=== PATIENT | male | born 1940 | race Caucasian/White ===

== ENCOUNTER → 2017-02-27 | Day surgery (SDC) | payer OTHER ==
[~2017-02-27] VITALS: Ht 180.3 cm; Wt 98.0 kg
[~2017-02-27] MED LIST: ASPIRIN EC81 M1 PO; ATORVASTATIN CA80 MG PO; CEFTIN250 MG PO; CIPRO 500MG TA500 MG PO; DIGOX0.125 MG PO; DONEPEZIL HCL10 MG PO; FLOMAX(MONOGRA0.4 MG PO; FLOMAX0.4 M1 PO; HYDROCHLOROTHIA25 M1 PO; HYDRODIURIL 5050 MG PO; LOPRESSOR 25MG25 MG PO; METFORMIN HYDR500 M1 PO; MULTIVITAMIN1 TAB PO; PERCOCET 325 MG1 TA2 PO; PROSCAR5 M1 PO; VITAMIN C500 M3 PO; VITAMIN D1000 IU PO; WARFARIN SODIUM4 MG PO
--- NOTE | 2017-02-27 09:32 | Operative Report ---
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 A lid speculum was placed to retract the lids. The case was begun by making a temporal incision with a 2.4 mm keratome. The eye was stabilized with a Mensah ring during this incision. 1 mL of non-preserved lidocaine was introduced into the anterior chamber to provide anesthesia. Shugarcaine was instilled to try and enlarge the pupil. The anterior chamber was then filled and deepened with viscoelastic. A curvilinear capsulorrhexis was achieved using a 30-gauge needle and a cystotome and capsulorrhexis was finished using a Utrata forceps. A second or paracentesis incision was made temporally with a 1 mm MVR blade. The iris was then stretched with 2 Kuglen hooks working through 2 entgry sites in a cross actionmanner. The lens was then hydrodissected with balanced salt solution and found to be rotatable. The lens was emulsified using phacoemulsification and a modified four-quadrant cracking technique. The residual cortical material was removed using automated irrigation and aspiration and as much of the anterior capsular rim was cleaned as well as possible. There was some trauma done to the inferior iris rmoving one of the Kuglen hooks.The posterior capsule was cleaned first with the automated machine on a low setting and then manually with a Bony squeegee. The capsular bag was deepened with viscoelastic. The lens a Akreos AO 60 18.5 diopter placed into the bag under direct visualization and rotated so that the haptics were at 12 and 6:00. Viscoelastic was then removed from the eye by flushing it out and then by automated irrigation and aspiration. The eye was pressurized to a normal tone. 1/10 of a cc of vancomycin solution was introduced into the anterior chamber to provide antibiotic prophylaxis. The wounds were sealed by hydrating the stroma adjacent to them and the eye was left at a proper tone after the wounds were checked and found not to be leaking. The lid speculum was removed from the orbit. Antibiotic and steroid drops were placed on the eye and then the eye was shielded. Monitoring equipment was removed from the patient and the patient was removed from the operative suite to the holding area. The patient tolerated the procedure well and will be seen in the office tomorrow.
== END ==
LOC: STS 00:59
DX: H25.89 Other age-related cataract (principal); E11.9 Type 2 diabetes mellitus without complications; Z79.84 Long term (current) use of oral hypoglycemic drugs; I48.91 Unspecified atrial fibrillation; Z79.01 Long term (current) use of anticoagulants; I10 Essential (primary) hypertension; I25.2 Old myocardial infarction
CPT/HCPCS: J2250; V2632

== ENCOUNTER 2017-11-20 14:36 | Inpatient (IN) | payer OTHER ==
[~2017-11-20] VITALS: Ht 180.3 cm; Wt 105.7 kg
[~2017-11-20 14:36] MED LIST changes: +ARICEPT10 M1 PO; +ASPIRIN81 M4 PO; +CARVEDILOL3.125 M1 PO; +COUMADIN4 M1 PO; +HYDROCHLOROTHIA50 M1 PO; +LIPITOR80 M1 PO; +METFORMIN HCL500 M4 PO; +MULTIVITAMINS1 EAC9 PO; +VITAMIN C1000 M4 PO; +VITAMIN D400 UNI1 PO
--- NOTE | 2017-11-20 15:30 | ED DYSPNEA/ASTHMA COMPLAINT ---
History of Present Illness General Chief Complaint: Dyspnea (COPD, CHF, Other) Stated Complaint: BIBA WITH PROBLEM BREATHING Source: patient, old records, Exam Limitations: poor historian, forgetful Vital Signs & Intake/Output Vital Signs & Intake/Output Vital Signs Date Time Temp Pulse Resp B/P B/P Pulse O2 O2 Flow FiO2 Mean Ox Delivery Rate 11/21 0220 98.2 101 28 114/79 93 Room Air 11/21 0203 Room Air Room Air 11/21 0200 99.4 113 26 90 Room Air 11/20 2125 98.6 130 16 117/82 92 Room Air 11/20 1917 98.5 125 18 132/74 94 Room Air 11/20 1735 97.3 120 18 119/67 93 Room Air 11/20 1630 97.2 135 20 139/86 11/20 1450 97.0 120 22 123/94 99 Nasal 3.0L Cannula ED Intake and Output 11/21 0000 11/20 1200 Intake Total Output Total Balance Patient 195 lb Weight Weight Reported by Patient Measurement Method Allergies Coded Allergies: NO KNOWN ALLERGIES (01/17/16) Triage Note: PT BIBA FROM HOME FOR SOB WITH EXERTION. PT STATES HE IS USUALLY SOB BUT IT HAS BEEN GETTING WORSE RECENTLY. PT DENIES CP AT THIS TIME Triage Nurses Notes Reviewed? yes Onset: Abrupt Duration: minute(s):, gone now, resolved prior to arrival Timing: single episode today Activities at Onset: drinking HPI: pt presents for evaluation of an episode of coughing while drinking a soda. Patient apparently had a "choking episode". (Arcelia HERRON,Scott Keating) Reconcile Medications Atorvastatin Calcium (Lipitor) 80 MG TABLET 1 TAB PO DAILY CHOLESTEROL ( Reported) Diltiazem HCl (Diltiazem 12HR ER) 120 MG CAP.ER.12H 1 CAP PO BID AFIB ( Reported) Donepezil HCl (Aricept) 10 MG TABLET 1 TAB PO QPM MEMORY (Reported) Finasteride (Proscar) 5 MG TABLET 1 TAB PO DAILY BPH (Reported) Furosemide (Lasix) 20 MG TABLET 1 TAB PO DAILY WATER (Reported) Metformin HCl (Metformin HCl ER) 500 MG TAB.ER.24H 1 TAB PO BID DM (Reported) Metoprolol Tartrate (Lopressor) 50 MG TABLET 1 TAB PO DAILY HTN (Reported) Tamsulosin HCl (Flomax) 0.4 MG CAP.ER.24H 1 CAP PO BID BPH (Reported) Warfarin Sodium (Coumadin) 4 MG TABLET 2 TAB PO AD BLOOD THINNER (Reported) Warfarin Sodium (Coumadin) 4 MG TABLET 12 MG PO WEDSAT BLOOD THINNER ( Reported) (Amanda HERRON,Montrell Awan) Past History Travel History Traveled to [place] past 21 day No Medical History Any Pertinent Medical History? 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 FATHER (colon cancer). SISTER (CAD s/p PCI). Hx Contributory? No (Arcelia HERRON,Scott Keating) Review of Systems Review of Systems Constitutional: Reports: no symptoms. EENTM: Reports: no symptoms. Respiratory: Reports: see HPI. Cardiovascular: Reports: no symptoms. GI: Reports: no symptoms. Genitourinary: Reports: no symptoms. Musculoskeletal: Reports: no symptoms. Skin: Reports: no symptoms. Neurological/Psychological: Reports: no symptoms. Hematologic/Endocrine: Reports: no symptoms. Immunologic/Allergic: Reports: no symptoms. All Other Systems: Reviewed and Negative (Scott Paniagua MD) Physical Exam Physical Exam Respiratory: see below Comments: Gen.: Well-nourished, well-developed, no acute respiratory distress. Head: Normocephalic, atraumatic. Eyes: Normal inspection bilaterally Ears: Normal inspection bilaterally Nose: Normal inspection Throat/mouth : Moist mucosa Neck: Supple, full range of motion, no goiter Heart: Rapid IRRegular rate and rhythm, no murmurs rubs or gallops Lungs: Clear to auscultation bilaterally with normal air entry Chest: Nontender Back: Normal range of motion Abdomen: Soft, nontender, nondistended, normal bowel sounds Extremities: Normal range of motion grossly, equal radial pulses, no cyanosis, bilateral 2+ pitting edema Neurologic: Cranial nerves grossly intact, speech is clear Skin: warm and dry Psychiatric: Calm, cooperative, no apparent delusions or hallucinations Core Measures ACS in differential dx? No CVA/TIA Diagnosis No Sepsis Present: No Sepsis Focused Exam Completed? No (Arcelia HERRON,Scott Keating) Progress Differential Diagnosis: asthma, AMI, bronchitis, CHF, COPD, pulmonary embolism, pneumonia, pneumothorax Plan of Care: Orders Procedure Date/time Status Nothing by Mouth 11/21 B Active TROPONIN LEVEL 11/21 1000 Active PROTHROMBIN TIME 11/21 0700 Active CBC WITHOUT DIFFERENTIAL 11/21 0700 Active BASIC METABOLIC PANEL 11/21 0700 Active TROPONIN LEVEL 11/21 0400 Active Pathway - chart 11/21 0349 Active House Staff 11/21 0349 Active Patient Data 11/21 0349 Active Patient Data 11/21 0313 Active Saline Lock 11/21 0309 Active Misc Message 11/21 0309 Active ED Holding Orders 11/21 0309 Active Admit to inpatient 11/21 0309 Active Vital Signs 11/21 0309 Active Code Status 11/21 0309 Active SWALLOW EVALUATION 11/21 UNK Active XRY-CHEST XRAY, TWO VIEWS 11/21 UNK Active Occupational Tx Eval & Treat 11/21 UNK Active VTE Mechanical Prophylaxis 11/21 UNK Active EKG 11/21 UNK Active PT Evaluate & Treat 11/20 2151 Active Telemetry/Pre Parole Counseling Aide 11/20 1529 Active TROPONIN LEVEL 11/20 1529 Complete PROTHROMBIN TIME 11/20 1529 Complete MAGNESIUM 11/20 1529 Complete CBC WITHOUT DIFFERENTIAL 11/20 1529 Complete B-TYPE NATRIURETIC PEP (BNP) 11/20 1529 Complete BASIC METABOLIC PANEL 11/20 1529 Complete EKG 11/20 1451 Active Intake & Output 11/20 1446 Active Laboratory Tests 11/20/17 1730: PT 22.1 H, INR 2.12 H 11/20/17 1614: Anion Gap 15, Estimated GFR 28 L, BUN/Creatinine Ratio 16.5, Glucose 142 H, Calcium 9.8, Magnesium 1.6, Troponin I 0.09, [id number] Pept 8960 H, CBC w Diff NO MAN DIFF REQ, RBC 4.53 L, MCV 79.7 L, MCH 25.1 L, MCHC 31.6 L, RDW 19.5 H, MPV 10.0, Gran % 84.7 H, Lymphocytes % 7.9 L, Monocytes % 6.8, Eosinophils % 0.4, Basophils % 0.2, Absolute Granulocytes 6.4, Absolute Lymphocytes 0.6 L, Absolute Monocytes 0.5, Absolute Eosinophils 0, Absolute Basophils 0 Diagnostic Imaging: Discussed w/RAD: Radiology Read. CXR Impression: PATIENT: KARYN WESTBROOK PRESENT AGE : 77 PATIENT ACCOUNT NO: [id number] : 38 LOCATION: [facility] ORDERING PHYSICIAN: Scott Paniagua MD SERVICE DATE: 11/20/17 EXAM TYPE: RAD - XRY-PORTABLE CHEST XRAY EXAMINATION: XR PORTABLE CHEST CLINICAL INFORMATION: Choking episode. COMPARISON: Chest x-ray 11/06/2017 TECHNIQUE: Portable frontal view of the chest was obtained. 7:37 PM FINDINGS: Projection is apical lordotic. There is slight asymmetric elevation of the right diaphragm compared to left. No acute abnormality. No pulmonary vascular congestion. No infiltrate. No pleural effusion. Cardiac and mediastinal contours normal. Heart size normal. There is calcification of the aortic arch. Degenerative spondylosis of dorsal spine. IMPRESSION: No acute abnormality of the chest. DICTATED BY: Matteo Carbajal MD DATE /TIME DICTATED:11/20/172002 GI PHYSICIAN:DOE DATE/TIME TRANSCRIBED: 11/20/172002 CONFIDENTIAL, DO NOT COPY WITHOUT APPROPRIATE AUTHORIZATION. < Electronically signed in Other Vendor System> SIGNED BY: Matteo Carbajal MD 2007 Initial ED EKG: rate (127), AFIB, nonspecific ST T wave chg Prior EKG: changed (NSR ON PRIOR) Comments: 11/20/2017 6:27:31 PM I have updated her mouth and his family on test results. Oxygen saturations are 93% on room air and the patient's heart rate is just over 100. Attempts to ambulate patient here in the emergency department however were unsuccessful as the patient refused initially to get off the stretcher due to shakiness. With attempts to ambulate patient he felt too shaky on his feet to try to walk. Case discussed with case management. 11/20/2017 11:27:23 PM patient signed out to Dr. 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 (Arcelia HERRON,Scott Keating) Departure Departure Disposition: STILL A PATIENT Condition: Stable Referrals: Nicolasa Leyva MD (PCP/Family) Departure Forms: Customer Survey General Discharge Information (Scott Panigaua MD) Departure Clinical Impression Primary Impression: Dyspnea Qualifiers: Dyspnea type: unspecified Qualified Code: R06.00 - Dyspnea, unspecified Secondary Impressions: Acute renal failure, Atrial fibrillation with RVR, Dehydration, Peripheral edema Admission Note Spoke With: Calli Lazo MD Documentation of Exam: Documentation of any treatments & extenuating circumstances including Concerns Regarding Discharge (functional status, medication knowledge or non-compliance, living conditions, etc.) that warrant an admission rather than observation: pt with afib with rvr, likely due to hypovolemia. pt also with elevated bun/cr ratio.... Will give gentle fluid bolus, follow clinical exam rather than give dilt gtt. (Montrell Patel MD) Critical Care Note Critical Care Note Critical Care Time: non-applicable (Arcelia HERRON,Scott Keating) Critical Care Note Critical Care Time: 30-74 min (Montrell Patel MD)
[2017-11-20 16:30] LABS: ABSOLUTE BASOPHIL COUNT 0 /CUMM (0.0-0.2); ABSOLUTE EOSINOPHIL COUNT 0 /CUMM (0.0-0.7); ABSOLUTE GRANULOCYTE CT 6.4 /CUMM (1.4-6.5); ABSOLUTE LYMPH COUNT 0.6 /CUMM (1.2-3.4); ABSOLUTE MONOCYTE COUNT 0.5 /CUMM (0.10-0.60); BASOPHIL % 0.2 % (0.0-2.0); EOSINOPHIL % 0.4 % (0-5); GRANULOCYTE % 84.7 % (42.2-75.2); HEMATOCRIT 36.1 % (42-52); MEAN CORPUSCULAR HGB 25.1 PG (27.0-31.0); MEAN CORPUSCULAR HGB CONC 31.6 G/DL (33.0-37.0); MEAN CORPUSCULAR VOLUME 79.7 FL (80.0-94.0); PLATELET COUNT 203 /CUMM (130-400); RBC DISTRIBUTION WIDTH 19.5 % (11.5-14.5); RED BLOOD CELL CT 4.53 /CUMM (4.70-6.10); WHITE BLOOD CELL COUNT 7.5 /CUMM (4.8-10.8)
[2017-11-20 17:54] LABS: PT 22.1 SEC (9.4-12.5)
--- NOTE | 2017-11-20 20:08 | RADIOLOGY REPORT ---
EXAMINATION: XR PORTABLE CHEST CLINICAL INFORMATION: Choking episode. COMPARISON: Chest x-ray 11/06/2017 TECHNIQUE: Portable frontal view of the chest was obtained. 7:37 PM FINDINGS: Projection is apical lordotic. There is slight asymmetric elevation of the right diaphragm compared to left. No acute abnormality. No pulmonary vascular congestion. No infiltrate. No pleural effusion. Cardiac and mediastinal contours normal. Heart size normal. There is calcification of the aortic arch. Degenerative spondylosis of dorsal spine. IMPRESSION: No acute abnormality of the chest.
--- NOTE | 2017-11-21 03:23 | History & Physical ---
Eliu Allred MDapna 11/21/17 0322: General Information and HPI History of Present Illness: 77-year-old gentleman with past medical history of atrial ablation on Coumadin, hypertension, hyperlipidemia, small bowel obstruction, dementia, sarcoma right cheek status post radiation came to [facility] with complaints of gait instability and choking episode earlier today. Patient was found to be in atrial fibrillation with rapid ventricular rate. Apparently patient was in his usual state of health until today had soda and had an episode of choking. He was brought in to ED by his for evaluation. A history couldn't be obtained from the patient because of his dementia. And his was not available by the bedside. He was seen in the ED for gait instability and was being evaluated by the case management for placement. Meanwhile patient double up atrial fibrillation with rapid ventricular rate and had a heart rate of 125-130s. Patient was admitted to telemetry for further rate control control. He is confused and denies chest pain, chest pressure, nausea, vomiting, abdominal pain, palpitation, loss of consciousness, fall, bowel or bladder disturbance. Allergies/Medications Allergies: Coded Allergies: NO KNOWN ALLERGIES (NONE 11/21/17) Compliance With Home Meds: GOOD Past History Travel History Traveled to [place] past 21 day No Medical History Neurological: dementia (mild) EENT: NONE Cardiovascular: AFIB (on coumadin), hypertension, hyperlipidemia Respiratory: NONE Gastrointestinal: s/p pyloric stenosis repair as infant SBO requiring lysis of adhesions Hepatic: NONE Renal: NONE Musculoskeletal: ARTHRITIS Psychiatric: DEMENTIA Endocrine: diabetes (non-insulin dependent) Blood Disorders: NONE Cancer(s): sarcoma- right cheek s/p resection and radiation 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 FATHER (colon cancer). SISTER (CAD s/p PCI). Psychosocial History Where do you live? Home Who Do You Live With? spouse Services at Home: None Primary Language: Nicaraguan ETOH Use: occasional use Illicit Drug Use: denies illicit drug use Living Will? yes Functional Ability ADLs Independent: dressing, eating, toileting, bathing. Ambulation: cane IADLs Needs Assist: shopping, housework, finances, telephone, transportation, medication admin. Review of Systems Review of Systems Constitutional: Reports: no symptoms. Cardiovascular: Reports: no symptoms. Respiratory: Reports: no symptoms. GI: Reports: no symptoms. Genitourinary: Reports: no symptoms. Musculoskeletal: Reports: no symptoms. Skin: Reports: no symptoms. Exam & Diagnostic Data Last 24 Hrs of Vital Signs/I&O Vital Signs Date Time Temp Pulse Resp B/P B/P Pulse O2 O2 Flow FiO2 Mean Ox Delivery Rate 11/21 0539 97.7 130 20 104/73 90 Room Air 11/21 0220 98.2 101 28 114/79 93 Room Air 11/21 0203 Room Air Room Air 11/21 0200 99.4 113 26 90 Room Air 11/20 2125 98.6 130 16 117/82 92 Room Air 11/20 1917 98.5 125 18 132/74 94 Room Air 11/20 1735 97.3 120 18 119/67 93 Room Air 11/20 1630 97.2 135 20 139/86 11/20 1450 97.0 120 22 123/94 99 Nasal 3.0L Cannula Intake & Output 11/21 0800 11/21 0000 11/20 1600 Intake Total 800 Output Total Balance 800 Intake, Oral 800 Patient 195 lb 195 lb Weight Weight Reported by Patient Measurement Method Physical Exam General Appearance Alert, Cooperative, No Acute Distress, oriented x1 Skin No Significant Lesion HEENT PERRLA, EOMI, Mucous Membr. moist/pink Cardiovascular Normal S1, Normal S2, No Murmurs Lungs bilateral wheeze Abdomen Soft, No Tenderness, No Hepatospenomegaly, are midline scar seen. Bowel sounds heard. Neurological Strength at 5/5 X4 Ext, Normal Tone, Sensation Intact Extremities bilateral pitting 1+ pedal edema up to the level of knee. Bilateral pulses felt. Diagnostic Data EKG Results Atrial flutter heart rate 127 CXR Results IMPRESSION: No acute abnormality of the chest. Assessment/Plan Assessment: 77-year-old gentleman with past medical history of atrial ablation on Coumadin, hypertension, hyperlipidemia, small bowel obstruction, dementia, sarcoma right cheek status post radiation came to [facility] with complaints of gait instability and choking episode earlier today. Patient was found to be in atrial fibrillation with rapid ventricular rate. Patient is admitted in telemetry for further evaluation and management. Admission labs WBC 7.5, hemoglobin 11.4, MCV 7079.7, platelet 203, sodium 138, potassium 3.8, B UNs 38, creatinine 2.3, proBNP 8960, INR 2.1, flu negative. Admission vitals Temperature 98.2, pulse rate 120, respiratory rate 20, blood pressure 40/75, 93 at room air. ED treatment Patient was given Lopressor 50 mg by mouth. Assessment and plan 1. Atrial fibrillation with rapid ventricular rate 2. Congestive heart failure- possibly new onset 3. Gait instability 4. Acute kidney injury Chronic medical problems-hypertension, hyperlipidemia, dementia. Patient heart rate controlled with Lopressor which was given an ED. We will continue monitoring him in telemetry. Serial troponin and EKG. troponin thus far negative. Echocardiogram and cardiology consult in a.m. Patient clinically has bilateral wheezing with pedal edema up to the level of knee-possibly a new onset congestive heart failure. We will repeat a chest x-ray PA and lateral view in the morning. We will continue all his home medication except for Lasix, given that patient has acute kidney injury which can be secondary to dehydration. We will not give him any IV fluids which can further worsen the congestive heart failure. We'll encourage by mouth intake in a.m. following a swallow eval. Patient has gait instability-case management and physical therapy and occupational therapy consult in a.m. We will continue his diltiazem and Coumadin. Code-full code Please confirm with the family if he has any living will/about the CODE STATUS. Diet-nothing by mouth pending swallow eval. Patient passed bedside swallow eval. As Ranked By This Provider Problem List: 1. Acute renal failure 2. Dementia 3. Hypertension 4. Atrial fibrillation with RVR 5. Congestive heart failure Core Measures/Misc (06/24) Acute Coronary Syndrome ACS Diagnosis: No Congestive Heart Failure Congestive Heart Failure Diagnosis Yes Last Known EF % 55 Cerebrovascular Accident CVA/TIA Diagnosis: No VTE (View Protocol) VTE Risk Factors Age>40 No Mechanical VTE Prophylaxis d/t Other No VTE Pharm Prophylaxis d/t Other Sepsis (View protocol) Sepsis Present: No Flynn HERRON,[facility] 11/21/17 0335: General Information and HPI Allergies/Medications Home Med list Atorvastatin Calcium (Lipitor) 80 MG TABLET 1 TAB PO DAILY CHOLESTEROL ( Reported) Diltiazem HCl (Diltiazem 12HR ER) 120 MG CAP.ER.12H 1 CAP PO BID AFIB ( Reported) Donepezil HCl (Aricept) 10 MG TABLET 1 TAB PO QPM MEMORY (Reported) Finasteride (Proscar) 5 MG TABLET 1 TAB PO DAILY BPH (Reported) Furosemide (Lasix) 20 MG TABLET 1 TAB PO DAILY WATER (Reported) Metformin HCl (Metformin HCl ER) 500 MG TAB.ER.24H 1 TAB PO BID DM (Reported) Metoprolol Tartrate (Lopressor) 50 MG TABLET 1 TAB PO DAILY HTN (Reported) Tamsulosin HCl (Flomax) 0.4 MG CAP.ER.24H 1 CAP PO BID BPH (Reported) Warfarin Sodium (Coumadin) 4 MG TABLET 2 TAB PO AD BLOOD THINNER (Reported) Warfarin Sodium (Coumadin) 4 MG TABLET 12 MG PO WEDT BLOOD THINNER ( Reported) Resident Review Statement Resident Statement: examined this patient, discussed with internet webmaster Other Findings: H Patient is a 77-year-old man with a past medical history significant for dementia, hypertension, hyperlipidemia, chronic atrial fibrillation(on Coumadin) , type 2 diabetes mellitus, pyloric stenosis s/p surgical correction as an infant, small bowel obstruction requiring lysis of adhesions, and sarcoma of the right cheek, status post resection in 2012 s/p radiation treatment, who was brought in to the emergency department after family reported that he had one choking episode while drinking soda. At the time of admission to the emergency department patient was found to be in atrial fibrillation with rapid ventricular rate. While in the emergency department he was evaluated whether the he could ambulate however was unsuccessful and hence is currently being admitted for medical management and hemodynamic stabilization. Patient currently ambulance with a walker. Patient is a relatively poor historian and although is very pleasant was unable to give us any clinical history. R Patient denied any fever, chills, nausea, vomiting. He denied any chest pain or chest discomfort. Denied any heart palpitations. He denies any recent falls. E: Temperature 97.0. Pulse 120. Respirations 20. BP 123/94. Saturating 99% on 3 L nasal cannula. General Appearance Alert, Cooperative, No Acute Distress, Oriented to Place and person. Skin: No Significant Lesion HEENT: PERRLA, EOMI, Mucous Membr. moist/pink. JVD + Cardiovascular Irregularly Irregular. Tachycardia. Lungs bilateral wheeze Abdomen Soft, No Tenderness, Previous surgical scar Neurological Strength at 5/5 X4 Ext, Normal Tone, Sensation Intact Extremities bilateral pitting 3+ pedal edema up to the level of knee. Bilateral pulses felt. L WBC 7.5. H&H 11.4 and 36.1. Platelets 203. Sodium 138. Potassium 3.8. BUN 38. Creatinine 2.3. ProBNP 8960. I: As Above A/P Patient is a 77-year-old man with a past medical history significant for dementia, hypertension, hyperlipidemia, chronic atrial fibrillation(on Coumadin) , type 2 diabetes mellitus, pyloric stenosis s/p surgical correction as an infant, small bowel obstruction requiring lysis of adhesions, and sarcoma of the right cheek, status post resection in 2012 s/p radiation treatment, who was brought in to the emergency department after family reported that he had one choking episode while drinking soda. Atrial fibrillation with rapid ventricular rate. Evaluate for Worsening heart failure. Assess for aspiration risk. Failure to thrive with gait instability. History of dementia, BPH, hypertension and other chronic conditions. Admit patient to telemetry. Serial troponins and EKG. Initial troponins have been within normal limits. Obtain formal cardiology consultation in a.m. Consider Echocardiogram. Repeat chest x-ray in a.m. to assess pulmonary status. PT and OT consultation in a.m. NovoLog sliding scale. Accu-Cheks 3 times a day. Confirm medication list with and confirm metoprolol dosing and frequency. Dose Coumadin in the p.m. based on INR. Continue home medications. Keep NPO for now. Formal swallow evaluation in am. Bedside screen WNL Patient is a Full code. Calli Lazo 11/21/17 0513: Attending MD Review Statement Attending Statement Attending MD Statement: examined this patient, discuss w/resident/PA/LANDSCAPE HORTICULTURE INSTRUCTOR, agreed w/resident/PA/LANDSCAPE HORTICULTURE INSTRUCTOR, reviewed EMR data (avail), reviewed images, amended to note Attending Assessment/Plan: CC: SOB PMH: A. fib, HTN, HLD, DM, dementia, BPH History is obtained from ER records. Family is not bedside and patient has dementia difficult to obtain history. According to try as noted in the nursing documentation patient was brought in from home for worsening of shortness of breath more so with exertion. According to patient's patient had worsening leg swelling and shortness of breath, she being sole elementary assistant principal of patient at home, could not ambulate him without assistance. Patient was tried to ambulate in ER with assistance but patient could not stand up and said "I am too wobbly", needing to staff members assist him to get off bed. According to ER physician's note patient choked on soda. No further details are available. Patient does not provide much details Vitals: Afebrile, pulse in 120s to 130s, RR 22, blood pressure 123/94, saturating 90% - 92% on room air On exam: A O 1, cooperative, no acute distress, neck supple, JVD elevated, no lymphadenopathy, mucosa dry, no focal neurological deficit, +2 dependent edema, no obvious skin rashes or inflammation CVS: S1-S2, irregular, tachycardia. RS: Clear to auscultate bilaterally. Abdomen: Soft, NT, ND, bowel sounds present. CXR:No acute abnormality of the chest. Assessment and plan 77 year old male with past medical history significant for A. fib, HTN, HLD, DM, and dementia was brought in ER by family for worsening shortness of breath more so on exertion. Patient's is unable to take care of him at home given his shortness of breath and patient is requiring more and more assistance. Patient's family is not bedside and more details of his history could not be obtained. According to one of the ER physician notes patient choked on soda at home. More detailed history should be obtain in morning from patient's . Meanwhile patient is found to have A. fib with RVR, mild dry mucosa, mildly elevated JVD but no obvious crackles on auscultation. He has significant +2 pitting edema up to thigh. Patient appears to be on Lasix at home. His creatinine is significantly increased as compared to October from 1.8-1.9 >> 2.3. He has acute kidney injury with unclear etiology, this could be prerenal secondary to dehydration but his BUN is not significantly elevated, patient could be developing new onset heart failure decreasing cardiac output and renal perfusion. Patient was started on IV fluids in ER, we will hold IV fluids, there is suspicion of mild cephalization of veins on chest x-ray, and patient's oxygen saturations were dropping once he was started on fluids. His proBNP is elevated if this is secondary to decreased clearance in the setting of acute kidney injury or if patient is developing heart failure is unclear. This is now infiltrate to rule out any aspiration but we will repeat imaging. At this time exact cause of RVR could not be demonstrated but patient received metoprolol early on in ER which improved his heart rate currently controlled at 101. We will continue his home medications of metoprolol and diltiazem for the same. Patient refused to ambulate in ER, feeling wobbly. It took 2 people assistance to stand him up. + A. fib with RVR + Gait instability unable to ambulate + Suspected mild heart failure + Choking on liquids at home + History of HTN, HLD, DM, dementia, BPH - Admit to telemetry - Continuous telemetry monitoring - Serial troponin and EKGs - Chest x-ray PA and lateral in a.m. - Swallow evaluation - Cardiology consult - OT PT evaluation - Hold by mouth or IV Lasix for now - Nothing by mouth - Continue all his home medications other than Lasix and change to oral hypoglycemics to sliding scale insulin, continue home doses of warfarin - Evaluate history from patient's in a.m. - Evaluate [facility] placement
[2017-11-21] MEDS ORDERED: LASIX20 M1 PO (04:20)
[2017-11-21] MEDS ORDERED: DILTIAZEM 12HR120 MG PO (04:21)
[2017-11-21] MEDS ORDERED: LOPRESSOR50 M1 PO (04:21)
--- NOTE | 2017-11-21 05:14 | Admission Certification ---
Admission Certification Certification Statement - As attending physician, I certify that at the time of - admission, based on clinical presentation, severity of - symptoms, need for further diagnostic testing and - therapeutic interventions, and risk of adverse outcomes - without in-hospital treatment, in my clinical assessment, - this patient requires an acute hospital stay for a minimum - of two nights or longer. I have also considered psychsocial - factors such as support system, advanced age, financial - issues, cognitive issues, and failed out-patient treatments, - past re-admission history, safety of patient, and lack of - compliance as applicable. Specific rationale supporting this admission is: A. fib with RVR, unsteady gait
[2017-11-21 06:02] LABS: ABSOLUTE BASOPHIL COUNT 0 /CUMM (0.0-0.2); ABSOLUTE EOSINOPHIL COUNT 0 /CUMM (0.0-0.7); ABSOLUTE GRANULOCYTE CT 7.1 /CUMM (1.4-6.5); ABSOLUTE LYMPH COUNT 0.7 /CUMM (1.2-3.4); ABSOLUTE MONOCYTE COUNT 0.5 /CUMM (0.10-0.60); BASOPHIL % 0 % (0.0-2.0); EOSINOPHIL % 0.2 % (0-5); HEMATOCRIT 33.3 % (42-52); MEAN CORPUSCULAR VOLUME 78.3 FL (80.0-94.0); PLATELET COUNT 170 /CUMM (130-400); RBC DISTRIBUTION WIDTH 19.5 % (11.5-14.5); RED BLOOD CELL CT 4.25 /CUMM (4.70-6.10); WHITE BLOOD CELL COUNT 8.3 /CUMM (4.8-10.8)
[2017-11-21 06:10] LABS: PT 22.3 SEC (9.4-12.5)
[2017-11-21 06:29] LABS: GRANULOCYTE % 85.5 % (42.2-75.2); MEAN CORPUSCULAR HGB 25.9 PG (27.0-31.0)
--- NOTE | 2017-11-21 12:39 | Cons- Cardiology ---
General Information and HPI Consulting Request Date of Consult: 11/21/17 Requested By: Calli Lazo MD Reason for Consult: afib Source of Information: patient, family, old records History of Present Illness: This is a 77-year-old male with a past medical history of paroxysmal atrial fibrillation on Coumadin, dementia, renal insufficiency, ischemia on prior nuclear managed medically, hypertension, hyperlipidemia, diabetes, and BPH who was brought to [facility] by his family; history was primarily obtained from his family. They tell me the patient had an episode of choking after eating and was then short of breath so they brought him to the hospital for evaluation. They also tell me that he has some dyspnea on exertion which has been present since his last hospitalization; he follows with a chainstitch pants outseamer in [place] but unclear if any recent testing has been done. He has also had noted tachycardia by visiting nurses although he denies any palpitations. No reported syncope. No reported chest discomfort. He has been taking warfarin without any bleeding episodes and the family reports INR is checked regularly. Allergies/Medications Allergies: Coded Allergies: NO KNOWN ALLERGIES (01/17/16) Home Med List: Atorvastatin Calcium (Lipitor) 80 MG TABLET 1 TAB PO DAILY CHOLESTEROL ( Reported) Diltiazem HCl (Diltiazem 12HR ER) 120 MG CAP.ER.12H 1 CAP PO BID AFIB ( Reported) Donepezil HCl (Aricept) 10 MG TABLET 1 TAB PO QPM MEMORY (Reported) Finasteride (Proscar) 5 MG TABLET 1 TAB PO DAILY BPH (Reported) Furosemide (Lasix) 20 MG TABLET 1 TAB PO DAILY WATER (Reported) Metformin HCl (Metformin HCl ER) 500 MG TAB.ER.24H 1 TAB PO BID DM (Reported) Metoprolol Tartrate (Lopressor) 50 MG TABLET 1 TAB PO DAILY HTN (Reported) Tamsulosin HCl (Flomax) 0.4 MG CAP.ER.24H 1 CAP PO BID BPH (Reported) Warfarin Sodium (Coumadin) 4 MG TABLET 2 TAB PO AD BLOOD THINNER (Reported) Warfarin Sodium (Coumadin) 4 MG TABLET 12 MG PO WEDSAT BLOOD THINNER ( Reported) Current Medications: Current Medications Sig/James Start time Last Medication Dose Route Stop Time Status Admin Atorvastatin Calcium 80 MG 1700 11/21 1700 AC PO Dextrose/Water 1,000 ML Q20H 11/21 1230 UNVr IV Diltiazem HCl 120 MG BID 11/21 1000 AC 11/21 PO 1015 Donepezil HCl 10 MG QPM 11/21 2200 AC PO Finasteride 5 MG DAILY 11/21 1000 AC 11/21 PO 1015 Insulin Aspart 0 TIDAC 11/21 0800 AC 11/21 SC 1214 Metoprolol Tartrate 0 .STK-MED ONE 11/20 1636 DC PO Metoprolol Tartrate 50 MG ONCE ONE 11/20 1530 DC 11/20 PO 11/20 1531 1630 Sodium Chloride 1,000 ML BOLUS ONE 11/21 0245 DC 11/21 IV 11/21 0344 0348 Tamsulosin HCl 0.4 MG BID 11/21 1000 AC 11/21 PO 1015 Warfarin Sodium 8 MG COUMADIN 1700 11/21 1700 AC PO 11/21 2359 Review of Systems Review of Systems: Review of systems as per HPI. The remainder of a 10 point review of systems was reviewed and was otherwise negative. 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 FATHER (colon cancer). SISTER (CAD s/p PCI). Psychosocial History Where Do You Live? Home Who Do You Live With? spouse Services at Home: None Primary Language: Micronesian Smoking Status: Never Smoked ETOH Use: occasional use Illicit Drug Use: denies illicit drug use Living Will? yes Functional Ability ADLs Independent: dressing, eating, toileting, bathing. Ambulation: cane IADLs Needs Assist: shopping, housework, finances, telephone, transportation, medication admin. ECHO Results (as available) EF% 55 Exam & Diagnostic Data Vital Signs and I&O Vital Signs Date Time Temp Pulse Resp B/P B/P Pulse O2 O2 Flow FiO2 Mean Ox Delivery Rate 11/21 1015 130 107/70 11/21 1015 98.6 130 18 107/70 93 Nasal 2.0L Cannula 11/21 0734 130 18 123/84 96 Room Air 11/21 0539 97.7 130 20 104/73 90 Room Air 11/21 0220 98.2 101 28 114/79 93 Room Air 11/21 0203 Room Air Room Air 11/21 0200 99.4 113 26 90 Room Air 11/20 2125 98.6 130 16 117/82 92 Room Air 11/20 1917 98.5 125 18 132/74 94 Room Air 11/20 1735 97.3 120 18 119/67 93 Room Air 11/20 1630 97.2 135 20 139/86 11/20 1450 97.0 120 22 123/94 99 Nasal 3.0L Cannula Intake & Output 11/21 1600 11/21 0800 11/21 0000 11/20 1600 11/20 0800 11/20 0000 Intake Total 800 Output Total Balance 800 Intake, Oral 800 Patient 195 lb 195 lb Weight Weight Reported by Patient Measurement Method Physical Exam: General: no apparent distress. Alert. Eyes: No obvious scleral icterus. HEENT: No jugular venous distention or abnormal jugular venous pulsations. Cardiovascular: Normal intensity S1/S2. Irregular Respiratory: No rales or rhonchi Abdomen: Mildly distended; no guarding or rebound tenderness. Musculoskeletal: No clubbing or cyanosis noted; 2+ lower extremity edema Skin: Warm Neurologic: Normal speech Labs/Ibrahima Results: Laboratory Tests 11/21 11/21 11/21 1038 0549 0400 Chemistry Sodium (137 - 145 mmol/L) 136 L Potassium (3.5 - 5.1 mmol/L) 4.0 Chloride (98 - 107 mmol/L) 94 L Carbon Dioxide (22 - 30 mmol/L) 30 Anion Gap (5 - 16) 12 BUN (9 - 20 mg/dL) 38 H Creatinine (0.7 - 1.2 mg/dL) 2.2 H Estimated GFR (>60 ml/min) 29 L BUN/Creatinine Ratio (7 - 25 %) 17.3 Glucose (65 - 99 mg/dL) 123 H Calcium (8.4 - 10.2 mg/dL) 9.7 Troponin I (<0.11 ng/ml) 0.10 0.10 Cancelled Albumin (3.5 - 5.0 g/dL) 3.7 Coagulation PT (9.4 - 12.5 SEC) 22.3 H INR (0.90 - 1.17) 2.14 H 11/21 11/20 0054 1730 Coagulation PT (9.4 - 12.5 SEC) 22.1 H INR (0.90 - 1.17) 2.12 H Hematology CBC w Diff NO MAN DIFF REQ WBC (4.8 - 10.8 /CUMM) 8.3 RBC (4.70 - 6.10 /CUMM) 4.25 L Hgb (14.0 - 18.0 G/DL) 11.0 L Hct (42 - 52 %) 33.3 L MCV (80.0 - 94.0 FL) 78.3 L MCH (27.0 - 31.0 PG) 25.9 L MCHC (33.0 - 37.0 G/DL) 33.0 RDW (11.5 - 14.5 %) 19.5 H Plt Count (130 - 400 /CUMM) 170 MPV (7.4 - 10.4 FL) 10.0 Gran % (42.2 - 75.2 %) 85.5 H Lymphocytes % (20.5 - 51.1 %) 7.9 L Monocytes % (1.7 - 9.3 %) 6.4 Eosinophils % (0 - 5 %) 0.2 Basophils % (0.0 - 2.0 %) 0 Absolute Granulocytes (1.4 - 6.5 /CUMM) 7.1 H Absolute Lymphocytes (1.2 - 3.4 /CUMM) 0.7 L Absolute Monocytes (0.10 - 0.60 /CUMM) 0.5 Absolute Eosinophils (0.0 - 0.7 /CUMM) 0 Absolute Basophils (0.0 - 0.2 /CUMM) 0 11/20 1614 Chemistry Sodium (137 - 145 mmol/L) 138 Potassium (3.5 - 5.1 mmol/L) 3.8 Chloride (98 - 107 mmol/L) 94 L Carbon Dioxide (22 - 30 mmol/L) 29 Anion Gap (5 - 16) 15 BUN (9 - 20 mg/dL) 38 H Creatinine (0.7 - 1.2 mg/dL) 2.3 H Estimated GFR (>60 ml/min) 28 L BUN/Creatinine Ratio (7 - 25 %) 16.5 Glucose (65 - 99 mg/dL) 142 H Calcium (8.4 - 10.2 mg/dL) 9.8 Magnesium (1.6 - 2.3 mg/dL) 1.6 Troponin I (<0.11 ng/ml) 0.09 [id number] Pept (<125 pg/mL) 8960 H Hematology CBC w Diff NO MAN DIFF REQ WBC (4.8 - 10.8 /CUMM) 7.5 RBC (4.70 - 6.10 /CUMM) 4.53 L Hgb (14.0 - 18.0 G/DL) 11.4 L Hct (42 - 52 %) 36.1 L MCV (80.0 - 94.0 FL) 79.7 L MCH (27.0 - 31.0 PG) 25.1 L MCHC (33.0 - 37.0 G/DL) 31.6 L RDW (11.5 - 14.5 %) 19.5 H Plt Count (130 - 400 /CUMM) 203 MPV (7.4 - 10.4 FL) 10.0 Gran % (42.2 - 75.2 %) 84.7 H Lymphocytes % (20.5 - 51.1 %) 7.9 L Monocytes % (1.7 - 9.3 %) 6.8 Eosinophils % (0 - 5 %) 0.4 Basophils % (0.0 - 2.0 %) 0.2 Absolute Granulocytes (1.4 - 6.5 /CUMM) 6.4 Absolute Lymphocytes (1.2 - 3.4 /CUMM) 0.6 L Absolute Monocytes (0.10 - 0.60 /CUMM) 0.5 Absolute Eosinophils (0.0 - 0.7 /CUMM) 0 Absolute Basophils (0.0 - 0.2 /CUMM) 0 Diagnostic Data EKG Results Tracing was personally reviewed and shows atrial fibrillation with rapid ventricular response rate and nonspecific STT abnormality CXR Results No acute abnormality of the chest. Other Results Telemetry tracings were personally reviewed and show atrial fibrillation with rapid ventricular response rate Assessment/Plan Assessment/Plan 1. Possible heart failure with preserved ejection fraction, new-onset 2. PAF on Coumadin 3. Dementia 4. Tachycardia 5. Acute on chronic renal insufficiency 6. Former tobacco use 7. HTN/HLD/DM 8. Mild ischemia on remote nuclear; managed medically The patient has reported dyspnea on exertion in current weeks and the atrial fibrillation may have triggered a component of mild congestive heart failure; I would recommend a trial of IV diuresis with Lasix 20 mg IV twice a day while monitoring his kidney function closely. INR levels are therapeutic. Would continue his outpatient Cardizem but the short acting metoprolol tartrate is listed as daily; this should be increased to twice a day. Recommend checking a repeat echocardiogram to look for any evidence of new onset tachycardia-induced cardiomyopathy. Would give one dose of digoxin 0.5 mg IV times one. Monitor strict ins and outs and daily weights. We may consider cardioversion depending on clinical response. Ruperto Gomez MD [facility] Consult Acknowledgment - Thank you for your consult request.
--- NOTE | 2017-11-21 14:16 | PN- Student ---
Subjective Subjective: *Full H&P* Source: Patient has baseline dementia, his , Kera Callahan, is at bedside and provided history & cc. ID: Dani Callahan is a 77 y.o. white male, born [birth year], who was lisset to Telephone ED on 11/20/17 by ambulance. CC: Patient experienced an acute epiosode of severe dyspnea after choking on a beverage that resulted in him gasping for air & stating that he "can't breath". HPI: Patient was drinking a soda when he choked on the beverage and had a violent coughing fit, his witnessed this and states that the patent was then gasping for air and saying that he couldnt breath, prompting her to call and ambulance and come to the ED. Upon arrival to the ED the patient was found to be in A. Fib w/ RVR. Patients reports that he has had a long history of Dyspnea & A. Fib for over a year, explaining that the dyspnea typically worsens with exertion, but has been drastically increasing over the last month, specifically since October 16 when the patient was prescribed Metoprolol & Diltiazem by his visual specialist, Dr. Adan Louis. She also states that he sleeps with two pillows at night, but she has not witnessed any episodes of orthopnea, although she also reports that the patient has had increased daytime sleepyness recently as a result of which he often falls asleep during the day. In addition to this dyspnea, Ms. Callahan states that the patient has also had acutely worsening leg swelling during this same period of time, with the patient complaining of his legs feeling "weak & heavy", resulting in a drastic decline of his mobility and independence. Ms. Callahan explains how at the beginning of October, her had been completely independent and able to take care of himself, rellying only on a cane to walk and move around; but, after begining the medications in early October, his legs would become extremely red, swollen, and weak. They tried switching to a walker to help with ambulation, but Mr. Callahan still felt unsteady on his feet & as though his legs were "wobbly", he experienced two falls in the weeks that followed and is now completely unwilling to even try to walk or stand up without assistance. These symptoms of increasing dyspnea & worsening leg swelling were reported to Dr. Louis who on November 06 ordered CXR, lower extreity XR, & Venous doppler, the results of which rulled out any trauma or PE & DVT. As a result his decreased mobility, the patient has not been able to shower for the past three weeks and requires constant assisance from his , who is his only net software architect. Despite the choking that precipitated the patients presentation to the ED, his states that he has not had any difficult swallowing in the past and has maintained a normal diet and appetite. There was no reported fever, chest pain, palpitations, or nausea & vomitting. Patient is confused and a poor historian. PMHx: Dementia - patient see's Dr. Ramirez at the [facility] every 6 months. HTN HLD CHF Chronic A. 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 Arthritis Bilateral Carpal tunnel s/p correction Mild ischemia on remote nuclear BPH Home Medications: Diltiazem 120mg 2xday re: 11/07 Metoprolol Tartate 50mg 2xday (re: 11/12) Tamsulosin 0.4mg 2Tabs/day (re: 11/06) Warfarin 4mg 2Tabs/day (re: 11/06) Furosamide 20mg 2tabs/day (re:10/29) Atrovostatin 80mg 1xday (re: 10/15) Donepazil 10mg 1xday (re: 08/28 for 90days) Finasteride 5mg 1xday (re: 08/28 for 90days) Metformin ER 500mg 2xday (re: 10/23) Allergies: None FHx: Mother - Lung Cancer Father - Colon Cancer Sister - CAD s/p PCI SHx: Past smoker with 50 pack year history, quit 5 years ago Non-drinker No illicit drug use Retired in 2003 from [employer] Lives at home with his Normal Diet Screening: Colonoscopy three years ago with Dr. Booker ROS: Constitutional: none Eyes: Discharge & itching in right eye Cardio: none Respiratory: Shortness of breath GI: none : none PV: bilateral swelling of lower extremeties MSK: weakness of lower extremities Skin: none Neuro: Slurred speech, gait instability Psych: Memory difficulties Objective Objective: Vital Signs Date Time Temp Pulse Resp B/P B/P Pulse O2 O2 Flow FiO2 Mean Ox Delivery Rate 11/21 1647 Nasal 2.0L Cannula 11/21 1644 97.6 88 22 116/68 98 Nasal 2.0L Cannula 11/21 1529 97.6 105 20 133/77 97 Nasal 2.0L Cannula 11/21 1430 105 20 133/77 96 Nasal 2.0L Cannula 11/21 1359 98.0 120 18 146/72 98 Nasal 2.0L Cannula 11/21 1335 134 117/81 11/21 1330 96.7 134 14 117/81 97 Nasal 2.0L Cannula 11/21 1015 130 107/70 11/21 1015 98.6 130 18 107/70 93 Nasal 2.0L Cannula 11/21 0734 130 18 123/84 96 Room Air 11/21 0539 97.7 130 20 104/73 90 Room Air 11/21 0220 98.2 101 28 114/79 93 Room Air 11/21 0203 Room Air Room Air 11/21 0200 99.4 113 26 90 Room Air 11/20 2125 98.6 130 16 117/82 92 Room Air 11/20 1917 98.5 125 18 132/74 94 Room Air Intake & Output 11/21 1600 11/21 0800 11/21 0000 Intake Total 800 Output Total 250 Balance -250 800 Intake, Oral 800 Output, Urine 250 Patient 195 lb Weight Physical exam: G/A: Patient is seated comfortably on his bed, is A&Ox2, to person and place but not to time, and appears to be in no acute distress. Skin: No jaundice, rashes, or echymoses observed. HEENT: Pain on palpation of the right maxillary sinus, Crusty discharge from right eye CV: Mildly elevated JVD, radial pulses palpated bilaterally 2+ on the right & 1+ on the left, regular rate & rhythm, normal s1 & s2 w/ no audible murmurs, no pulsations or PMI palpated. Resp: posterior chest wall clear to auscaltation bilaterally w/ decreased breath sounds heard at the right lung base. GI: normal bowel sounds heard throughout, with abdomen soft & non-tender to palpation. MSK: bilateral 2+ lower extremity pitting edema to the thigh, no clubbing or cyanosis observed Neuro: Slurred speech, confusion, poor short term memory Results Results: Laboratory Tests 11/21/17 1038: Troponin I 0.10 11/21/17 0549: Anion Gap 12, Estimated GFR 29 L, BUN/Creatinine Ratio 17.3, Glucose 123 H, Calcium 9.7, Troponin I 0.10, Albumin 3.7, PT 22.3 H, INR 2.14 H 11/21/17 0400: Troponin I Cancelled 11/21/17 0054: CBC w Diff NO MAN DIFF REQ, RBC 4.25 L, MCV 78.3 L, MCH 25.9 L, MCHC 33.0, RDW 19.5 H, MPV 10.0, Gran % 85.5 H, Lymphocytes % 7.9 L, Monocytes % 6.4, Eosinophils % 0.2, Basophils % 0, Absolute Granulocytes 7.1 H, Absolute Lymphocytes 0.7 L, Absolute Monocytes 0.5, Absolute Eosinophils 0, Absolute Basophils 0 11/20/17 1730: PT 22.1 H, INR 2.12 H 11/20/17 1614: Anion Gap 15, Estimated GFR 28 L, BUN/Creatinine Ratio 16.5, Glucose 142 H, Calcium 9.8, Magnesium 1.6, Troponin I 0.09, [id number]-M-Fexioswxhfb Pept 8960 H, CBC w Diff NO MAN DIFF REQ, RBC 4.53 L, MCV 79.7 L, MCH 25.1 L, MCHC 31.6 L, RDW 19.5 H, MPV 10.0, Gran % 84.7 H, Lymphocytes % 7.9 L, Monocytes % 6.8, Eosinophils % 0.4, Basophils % 0.2, Absolute Granulocytes 6.4, Absolute Lymphocytes 0.6 L, Absolute Monocytes 0.5, Absolute Eosinophils 0, Absolute Basophils 0 Assessment/Plan Assessment: Mr. Callahan is a 77 y.o. male with baseline mild dementia, exertional dyspnea, & extensive PMHx including paroxysmal A.Fib, renal insufficiency, & gait disorder. He was brought to [facility] ED after choking on a beverage resulted in an acute episode of severe dyspnea & coughing, as witnessed by his , who became worried since the patient had experienced an unusually rapid decline from his baseline over the last month with worsening Dyspnea & increasingly severe lower extremity edema. He was found to be in A. Fib w/ RVR in the ED, at which point a lopressor was given. Plan: - Admit to Telemetry - Follow kindergartner - Serial troponin & EKG - [facility] - CXR in am PA & Lateral - Swallow evalulation - Continue home medications
--- NOTE | 2017-11-21 16:16 | RADIOLOGY REPORT ---
EXAMINATION: CR CHEST CLINICAL INFORMATION: Fluid overload. Wheezing on auscultation. Assess for edema versus pneumonia versus acute pathology. COMPARISON: Several prior chest x-rays, most recent of which is dated 11/20/2017. TECHNIQUE: AP and lateral views of the chest were obtained. FINDINGS: The cardiomediastinal silhouette is mildly enlarged. Calcification of the aorta is seen. Low lung volumes are noted with slight elevation of the right hemidiaphragm and central vascular congestion seen. No overt pulmonary edema is noted. No dense consolidation is noted. Minimal linear atelectatic changes are seen in the right lung base. Small bilateral pleural effusions are noted. Mild vertebral spondylosis is seen in the lower thoracic spine. IMPRESSION: 1. Enlarged cardiac silhouette with central vascular congestion, but no overt pulmonary edema. 2. Small bilateral pleural effusions with right basilar subsegmental atelectasis. 3. No focal pneumonia.
[2017-11-21 16:44] VITALS: BP 116/68
[2017-11-21 22:34] VITALS: BP 116/68
--- NOTE | 2017-11-21 23:16 | PN- Att Addend ---
Attending Addendum Attending Brief Note S: The patient was seen and HR continues to be fast. No c/o pain or dyspnea. O: VS: Vital Signs Date Time Temp Pulse Resp B/P B/P Pulse O2 O2 Flow FiO2 Mean Ox Delivery Rate 11/21 2234 97.7 64 16 116/68 96 Nasal 2.0L Cannula 11/218 88 116/68 11/21 2128 88 116/68 11/21 1647 Nasal 2.0L Cannula 11/21 1644 97.6 88 22 98 Nasal 2.0L Cannula 11/21 1630 Nasal 2.0L Cannula 11/21 1529 97.6 105 20 133/77 97 Nasal 2.0L Cannula Intake & Output 11/21 1600 Intake Total Output Total 250 Balance -250 Output, Urine 250 Chest: clear Cor: RRR nl S1, S2 w/o murm Abd: BS+, soft NE. Ext: w/o edema/cords Impression/Plan: #Dyspnea- relatively acute. May be related to cardiology issues. Plan: Will bring into hospital with plan to send to another institution. #Atrial Fibrillation- HR slowed. Appreciate Cardiology input from Dr. Soto. Plan: Continue plan as outlined. Add Lasix 20 mg IV x 1, Dig 0.5 mg IV x 1 and use metoprolol bid and continue Cardizem. Continue Coumadin. #HTN- BP as above. Plan: Will follow.
[2017-11-22 06:45] VITALS: BP 134/64
[2017-11-22 08:27] LABS: PT 23.2 SEC (9.4-12.5)
--- NOTE | 2017-11-22 09:28 | PN- Housestaff ---
See Addendum Subjective Follow-up For: CHF A.fib Generalized weakness Subjective: Patient was seen and examined today. Patient states his breathing has improved today. Patient denies any chest pain, palpitations, dizziness, lightheadedness, abdominal pain, nausea/vomiting, constipation/diarrhea. Patient continues to weakness. Review of Systems Constitutional: Reports: see HPI. Objective Last 24 Hrs of Vital Signs/I&O Vital Signs Date Time Temp Pulse Resp B/P B/P Pulse O2 O2 Flow FiO2 Mean Ox Delivery Rate 11/22 1442 97.7 90 20 124/62 96 Nasal 1.0L Cannula 11/22 1251 Room Air Room Air 11/22 0806 115 134/64 11/22 0806 115 134/64 11/22 0800 98 Nasal 1.0L Cannula 11/22 0645 97.7 88 16 134/64 95 Nasal 2.0L Cannula 11/22 0000 Nasal 2.0L Cannula 11/21 2234 97.7 64 16 116/68 96 Nasal 2.0L Cannula 11/21 2128 88 116/68 11/21 2128 88 116/68 Intake & Output 11/22 1600 11/22 0800 11/22 0000 Intake Total 710 404 320 Output Total 560 900 225 Balance 150 -496 95 Intake, IV 10 24 Intake, Oral 700 380 320 Output, Urine 560 900 225 Patient 233 lb Weight Weight Bed scale Measurement Method Physical Exam General Appearance: Alert, Oriented X3, Cooperative, No Acute Distress Skin Temp/Moisture Exam: Warm/Dry HEENT: Atraumatic, PERRLA, EOMI, Mucous Membr. moist/pink Neck: Supple, No JVD, +2 Carotid Pulse wo Bruit Cardiovascular: Normal S1, Normal S2, irregularly irregular rate Lungs: Clear to Auscultation, Normal Air Movement Abdomen: Normal Bowel Sounds, Soft, No Tenderness Neurological: Normal Speech, Strength at 5/5 X4 Ext, Normal Tone, Sensation Intact, Cranial Nerves 3-12 NL Extremities: No Clubbing, No Cyanosis, Normal Pulses, No Tenderness/Swelling, bilateral lower extremity edema 1+ Vascular: Normal Pulses, Pulses Symmetrical Current Medications: Current Medications Sig/James Start time Last Medication Dose Route Stop Time Status Admin Atorvastatin Calcium 80 MG 1700 11/21 1700 AC 11/22 PO 1524 Diltiazem HCl 120 MG BID 11/21 1000 AC 11/22 PO 0806 Docusate Sodium 100 MG DAILY 11/21 1936 AC 11/22 PO 0806 Donepezil HCl 10 MG QPM 11/21 2200 AC 11/21 PO 2128 Finasteride 5 MG DAILY 11/21 1000 AC 11/22 PO 0806 Furosemide 20 MG 7:30 AM, & 4:30 PM 11/21 1300 AC 11/22 IV 1524 Insulin Aspart 0 TIDAC 11/21 0800 AC 11/22 SC 1833 Metoprolol Tartrate 50 MG BID 11/21 2200 AC 11/22 PO 0806 Patient Medication 1 ED ONE ONE 11/22 1415 DC Teaching ED 11/22 1416 Patient Medication 1 ED ONE ONE 11/22 1200 DC Teaching ED 11/22 1201 Polyethylene Glycol 17 GM DAILY 11/21 1935 AC 11/22 PO 0807 Tamsulosin HCl 0.4 MG BID 11/21 1000 AC 11/22 PO 0806 Warfarin Sodium 8 MG COUMADIN 1700 11/22 1700 AC 11/22 PO 1524 Warfarin Sodium 8 MG COUMADIN 1700 11/21 1700 DC 11/21 PO 11/21 2359 1752 Last 24 Hrs of Lab/Ibrahima Results Last 24 Hrs of Labs/Mics: Laboratory Tests 11/22/17 0615: Anion Gap 11, Estimated GFR 28 L, BUN/Creatinine Ratio 17.4, PT 23.2 H, INR 2.23 H Assessment/Plan Assessment: 77-year-old gentleman with past medical history of atrial ablation on Coumadin, hypertension, hyperlipidemia, small bowel obstruction, dementia, sarcoma right cheek status post radiation came to [facility] with complaints of gait instability and choking episode earlier today. Patient was found to be in atrial fibrillation with rapid ventricular rate. Patient is admitted in telemetry for further evaluation and management. 1. Atrial fibrillation with rapid ventricular rate 2. Congestive heart failure- possibly new onset 3. Gait instability 4. Acute kidney injury Chronic medical problems-hypertension, hyperlipidemia, dementia Assessment: Patient continues to remain in afib, however heart rate is better controlled today. SOB improved with IV lasix. Patient continues to remain weak. Is working with physical therapy who recommended STR. Patient's creatinine has slighly worsened today on lasix, however will continue at this time per cardiology recommendations. Patient's ECHO today showed LVEF of 55% with no evidence of wall motion abnormalities. Plan: - admit to tele - continue IV lasix - continue metoprolol BID and diltiazem - cardiology on board. Appreciate recommendation - continue to follow up BEP - continue coumadin and dose based on INR - continue working with PT - continue oxygen supplementation and wean off as tolerated - continue to monitor Cr - continue chronic medications: donapezil, finasteride, tamsulosin, atorvastatin DVT PPx: on coumadin Diet: diabetic diet Code: full code Problem List: 1. Congestive heart failure 2. Atrial fibrillation with RVR Pain Ratin Pain Location: n/a Pain Goal: Remain pain free Pain Plan: n/a Tomorrow's Labs & Rationales: bep- on lasix inr - on coumadin
--- NOTE | 2017-11-22 10:24 | ECHOCARDIOGRAM REPORT ---
KARYN WESTBROOK Age: 77 : 1940 Gender: M Exam Date: 11/21/2017 19:26 Exam Location: [address] Ht (in): 71 Wt (lb): 195 BSA: 2.12 BP: 116 / 68 Ordering Physician: Itz Petit MD Referring Physician: Mars Gomez M.D. Technologist: Tatiana Gamino [facility] Room Number: 185-02 Indications: CARDIOMYOPATHY Rhythm: Atrial fibrillation Technical Quality: Technically difficult study FINDINGS Left Ventricle Left ventricular cavity size normal. Left ventricular wall thickness mildly increased. No obvious regional wall motion abnormalities. Left ventricular ejection fraction is estimated at 55 %. Right Ventricle Right ventricle not well visualized, grossly normal. Right Atrium Right atrium not well visualized. Left Atrium Left atrial size at the upper limits of normal. Mitral Valve Mild mitral annular calcification. No mitral stenosis. Trace to mild mitral regurgitation. Aortic Valve Aortic valve not well visualized. No aortic stenosis. Tricuspid Valve Tricuspid valve not well visualized, grossly normal. Trace to mild tricuspid regurgitation. Unable to estimate the right ventricular systolic pressure. Pulmonic Valve Pulmonic valve not well visualized. Pericardium Pericardium not well visualized. No obvious pericardial effusion. Great Vessels Normal size aortic root. CONCLUSIONS Left ventricular cavity size normal. Left ventricular wall thickness mildly increased. No obvious regional wall motion abnormalities. Left ventricular ejection fraction is estimated at 55 %. Right ventricle not well visualized, grossly normal. Left atrial size at the upper limits of normal. Unable to estimate the right ventricular systolic pressure. Pericardium not well visualized. No obvious pericardial effusion. Mars Goemz M.D. (Electronically Signed) Final Date: 22 November 2017 10:23 MEASUREMENTS (Male / Female) Normal Values 2D ECHO LV Diastolic Diameter PLAX 3.4 cm 4.2 - 5.9 / 3.9 - 5.3 cm LV Systolic Diameter PLAX 2.1 cm 2.1 - 4.0 cm LV Fractional Shortening PLAX 38.2 % 25 - 46 % LV Ejection Fraction 2D Teich 69.6 % IVS Diastolic Thickness 1.4 cm LVPW Diastolic Thickness 1.4 cm LV Relative Wall Thickness 0.8 RV Internal Dim ED PLAX 2.5 cm 1.9 - 3.8 cm LVOT Diameter 1.9 cm Aortic Root Diameter 3.0 cm LA Systolic Diameter LX 3.5 cm 3.0 - 4.0 / 2.7 - 3.8 cm LA Volume 29.0 cm 18 - 58 / 22 - 52 cm Ascending Aorta Diameter 3.1 cm DOPPLER AV Peak Velocity 113.0 cm/s AV Peak Gradient 5.1 mmHg AV Mean Velocity 76.6 cm/s AV Mean Gradient 3.0 mmHg AV Velocity Time Integral 19.3 cm LVOT Peak Velocity 102.0 cm/s LVOT Peak Gradient 4.2 mmHg LVOT Mean Velocity 73.6 cm/s LVOT Mean Gradient 2.0 mmHg LVOT Velocity Time Integral 18.4 cm LVOT Stroke Volume 52.2 cm AV Area Cont Eq vti 2.7 cm AV Area Cont Eq pk 2.6 cm MV Peak Velocity 88.0 cm/s MV Peak Gradient 3.1 mmHg MV Mean Velocity 42.4 cm/s MV Mean Gradient 1.0 mmHg Mitral E Point Velocity 89.3 cm/s MV PHT Velocity 93.1 cm/s MV Deceleration [place] 370.0 cm/s MV Pressure Half Time 75.5 ms MV Area PHT 2.9 cm MV Deceleration Time 148.0 ms TR Peak Velocity 105.0 cm/s TR Peak Gradient 4.4 mmHg Right Atrial Pressure 5.0 mmHg Pulmonary Artery Systolic Pressu 9.4 mmHg Right Ventricular Systolic Press 9.4 mmHg PV Peak Velocity 82.7 cm/s PV Peak Gradient 2.7 mmHg PV Mean Velocity 50.9 cm/s PV Mean Gradient 1.0 mmHg PV Velocity Time Integral 13.6 cm LV E' Lateral Velocity 3.8 cm/s Mitral E to LV E' Lateral Ratio 23.5 LV E' Septal Velocity 5.5 cm/s Mitral E to LV E' Septal Ratio 16.4
--- NOTE | 2017-11-22 12:04 | PN- Cardiology ---
Subjective Subjective: Sitting in his chair resting comfortably. Offers no complaints. Objective Vital Signs and I&Os Vital Signs Date Time Temp Pulse Resp B/P B/P Pulse O2 O2 Flow FiO2 Mean Ox Delivery Rate 11/22 0806 115 134/64 11/22 0806 115 134/64 11/22 0800 98 Nasal 1.0L Cannula 11/22 0645 97.7 88 16 134/64 95 Nasal 2.0L Cannula 11/22 0000 Nasal 2.0L Cannula 11/21 2234 97.7 64 16 116/68 96 Nasal 2.0L Cannula 11/21 2128 88 116/68 11/21 2128 88 116/68 11/21 1647 Nasal 2.0L Cannula 11/21 1644 97.6 88 22 116/68 98 Nasal 2.0L Cannula 11/21 1630 Nasal 2.0L Cannula 11/21 1529 97.6 105 20 133/77 97 Nasal 2.0L Cannula 11/21 1430 105 20 133/77 96 Nasal 2.0L Cannula 11/21 1359 98.0 120 18 146/72 98 Nasal 2.0L Cannula 11/21 1335 134 117/81 11/21 1330 96.7 134 14 117/81 97 Nasal 2.0L Cannula Intake & Output 11/22 1600 11/22 0800 11/22 0000 11/21 1600 11/21 0800 11/21 0000 Intake Total 404 320 800 Output Total 900 225 250 Balance -496 95 -250 800 Intake, IV 24 Intake, Oral 380 320 800 Output, Urine 900 225 250 Patient 233 lb 195 lb Weight Weight Bed scale Measurement Method Physical Exam: General: no apparent distress. Alert. Eyes: No obvious scleral icterus. HEENT: No jugular venous distention or abnormal jugular venous pulsations. Cardiovascular: Normal intensity S1/S2. Irregular Respiratory: Decreased air entry at the bases Abdomen: Mildly distended; no guarding or rebound tenderness. Musculoskeletal: No clubbing or cyanosis noted; 1-2+ lower extremity edema Skin: Warm Neurologic: Normal speech Current Medications: Current Medications Sig/James Start time Last Medication Dose Route Stop Time Status Admin Atorvastatin Calcium 80 MG 1700 11/21 1700 AC 11/21 PO 1752 Dextrose/Water 1,000 ML Q20H 11/21 1230 DC IV Digoxin 0.5 MG ONCE ONE 11/21 1300 DC 02/14 IV 11/21 1301 1335 Diltiazem HCl 120 MG BID 11/21 1000 AC 11/22 PO 0806 Docusate Sodium 100 MG DAILY 11/21 1936 AC 11/22 PO 0806 Donepezil HCl 10 MG QPM 11/21 2200 AC 11/21 PO 2128 Finasteride 5 MG DAILY 11/21 1000 AC 11/22 PO 0806 Furosemide 0 .STK-MED ONE 11/21 1307 DC IV Furosemide 20 MG 7:30 AM, & 4:30 PM 11/21 1300 AC 11/22 IV 0648 Heparin Sodium 3,200 UNIT ONCE ONE 11/21 1730 DC (Porcine) IV 11/21 1731 Insulin Aspart 0 TIDAC 11/21 0800 AC 11/22 SC 0807 Metoprolol Tartrate 50 MG BID 11/21 2200 AC 11/22 PO 0806 Metoprolol Tartrate 50 MG DAILY 11/21 1300 DC PO Patient Medication 1 ED ONE ONE 11/22 1200 AC Teaching ED 11/22 1201 Polyethylene Glycol 17 GM DAILY 11/21 1935 AC 11/22 PO 0807 Tamsulosin HCl 0.4 MG BID 11/21 1000 AC 11/22 PO 0806 Warfarin Sodium 8 MG COUMADIN 1700 11/22 1700 AC PO Warfarin Sodium 8 MG COUMADIN 1700 11/21 1700 DC 11/21 PO 11/21 2359 1752 Results Last 48 Hrs of Labs/Mics: Laboratory Tests 11/22/17 0615: Anion Gap 11, Estimated GFR 28 L, BUN/Creatinine Ratio 17.4, PT 23.2 H, INR 2.23 H 11/21/17 1038: Troponin I 0.10 11/21/17 0549: Anion Gap 12, Estimated GFR 29 L, BUN/Creatinine Ratio 17.3, Glucose 123 H, Calcium 9.7, Troponin I 0.10, Albumin 3.7, PT 22.3 H, INR 2.14 H 11/21/17 0400: Troponin I Cancelled 11/21/17 0054: CBC w Diff NO MAN DIFF REQ, RBC 4.25 L, MCV 78.3 L, MCH 25.9 L, MCHC 33.0, RDW 19.5 H, MPV 10.0, Gran % 85.5 H, Lymphocytes % 7.9 L, Monocytes % 6.4, Eosinophils % 0.2, Basophils % 0, Absolute Granulocytes 7.1 H, Absolute Lymphocytes 0.7 L, Absolute Monocytes 0.5, Absolute Eosinophils 0, Absolute Basophils 0 11/20/17 1730: PT 22.1 H, INR 2.12 H 11/20/17 1614: Anion Gap 15, Estimated GFR 28 L, BUN/Creatinine Ratio 16.5, Glucose 142 H, Calcium 9.8, Magnesium 1.6, Troponin I 0.09, [id number]-G-[id number] Pept 8960 H, CBC w Diff NO MAN DIFF REQ, RBC 4.53 L, MCV 79.7 L, MCH 25.1 L, MCHC 31.6 L, RDW 19.5 H, MPV 10.0, Gran % 84.7 H, Lymphocytes % 7.9 L, Monocytes % 6.8, Eosinophils % 0.4, Basophils % 0.2, Absolute Granulocytes 6.4, Absolute Lymphocytes 0.6 L, Absolute Monocytes 0.5, Absolute Eosinophils 0, Absolute Basophils 0 Recent Imaging Studies: Telemetry tracings were personally reviewed and show atrial fibrillation/flutter Echocardiogram Left ventricular cavity size normal. Left ventricular wall thickness mildly increased. No obvious regional wall motion abnormalities. Left ventricular ejection fraction is estimated at 55 %. Right ventricle not well visualized, grossly normal. Left atrial size at the upper limits of normal. Unable to estimate the right ventricular systolic pressure. Pericardium not well visualized. No obvious pericardial effusion. Mars Gomez M.D. (Electronically Signed) Final Date: 22 November 2017 10:23 Assessment/Plan Assessment/Plan 1. Possible heart failure with preserved ejection fraction, new-onset 2. PAF on Coumadin 3. Dementia 4. Tachycardia 5. Acute on chronic renal insufficiency 6. Former tobacco use 7. HTN/HLD/DM 8. Mild ischemia on remote nuclear; managed medically The patient remains hemodynamically stable and heart rate is improved on telemetry review. Echocardiogram shows no evidence of tachycardia induced cardiomyopathy. INR remains therapeutic. Would continue on IV Lasix for now. Monitor strict ins and outs, daily weights, and metabolic panels. Ruperto Gomez MD [facility] Continue telemetry? Yes
[2017-11-22 14:42] VITALS: BP 124/62
[2017-11-22 21:30] VITALS: BP 104/62
[2017-11-23 06:58] VITALS: BP 110/60
--- NOTE | 2017-11-23 07:53 | PN- Housestaff ---
See Addendum Subjective Follow-up For: CHF A.fib Generalized weakness Tele-Events Since Last Visit: A flutter/fib with heart rate 66-91 Subjective: Patient was seen and examined today. Patient denies any chest pain, palpitations, dizziness, lightheadedness, shortness of breath, nausea/vomiting, fever/chills, dysuria/hematuria, constipation/diarrhea. Patient continues to note weakness and fatigue. Review of Systems Constitutional: Reports: see HPI. Objective Last 24 Hrs of Vital Signs/I&O Vital Signs Date Time Temp Pulse Resp B/P B/P Pulse O2 O2 Flow FiO2 Mean Ox Delivery Rate 11/23 1539 98.2 70 20 110/60 11/23 1000 70 110/60 11/23 1000 70 110/60 11/23 0658 98.2 67 20 110/60 93 Nasal 2.0L Cannula 11/23 0000 Nasal 1.0L Cannula 11/22 2247 98.0 66 20 95 Nasal Cannula 11/22 2130 104/62 11/22 204 90 10462 11/22 2043 90 Intake & Output 11/23 1600 11/23 0800 11/23 0000 Intake Total 620 330 240 Output Total 400 0 425 Balance 220 330 -185 Intake, IV 30 Intake, Oral 620 300 240 Number 2 Bowel Movements Output, Urine 400 0 425 Physical Exam General Appearance: Alert, Oriented X3, Cooperative, No Acute Distress Skin: No Rashes Skin Temp/Moisture Exam: Warm/Dry HEENT: Atraumatic, PERRLA, EOMI, Mucous Membr. moist/pink Cardiovascular: Normal S1, Normal S2, irregular rate Lungs: Clear to Auscultation, Normal Air Movement Abdomen: Normal Bowel Sounds, Soft, No Tenderness Neurological: Normal Speech, Strength at 5/5 X4 Ext, Normal Tone, Sensation Intact, Cranial Nerves 3-12 NL, Reflexes 2+ Extremities: No Clubbing, No Cyanosis, Normal Pulses, No Tenderness/Swelling, bilateral lower extremity edema Vascular: Normal Pulses, Pulses Symmetrical Current Medications: Current Medications Sig/James Start time Last Medication Dose Route Stop Time Status Admin Atorvastatin Calcium 80 MG 1700 11/21 1700 AC 11/22 PO 1524 Diltiazem HCl 120 MG BID 11/21 1000 AC 11/23 PO 0959 Docusate Sodium 100 MG DAILY 11/21 1936 AC 11/23 PO 0959 Donepezil HCl 10 MG QPM 11/21 2200 AC 11/22 PO 2043 Finasteride 5 MG DAILY 11/21 1000 AC 11/23 PO 1000 Furosemide 20 MG 7:30 AM, & 4:30 PM 11/21 1300 AC 11/23 IV 0623 Insulin Aspart 0 TIDAC 11/21 0800 AC 11/23 SC 0811 Metoprolol Tartrate 50 MG BID 11/21 2200 AC 11/23 PO 1000 Polyethylene Glycol 17 GM DAILY 11/21 1935 AC 11/23 PO 0959 Tamsulosin HCl 0.4 MG BID 11/21 1000 AC 11/23 PO 1000 Warfarin Sodium 8 MG COUMADIN 1700 11/22 1700 AC 11/22 PO 1524 Last 24 Hrs of Lab/Ibrahima Results Last 24 Hrs of Labs/Mics: Laboratory Tests 11/23/17 0618: Anion Gap 15, Estimated GFR 28 L, BUN/Creatinine Ratio 17.8, PT 31.6 H, INR 3.04 H Assessment/Plan Assessment: 77-year-old gentleman with past medical history of atrial ablation on Coumadin, hypertension, hyperlipidemia, small bowel obstruction, dementia, sarcoma right cheek status post radiation came to [facility] with complaints of gait instability and choking episode earlier today. Patient was found to be in atrial fibrillation with rapid ventricular rate. Patient is admitted in telemetry for further evaluation and management. 1. Atrial fibrillation with rapid ventricular rate 2. Congestive heart failure- possibly new onset 3. Gait instability 4. Acute kidney injury Chronic medical problems-hypertension, hyperlipidemia, dementia Assessment: Patient continues to remain in afib, however heart rate is better controlled today with HR< 110. Patient's SOB improved with IV lasix. Patient in the afternoon became anxious and short of breath. Pulse ox showed that he desatted to the high 80s. Patient was placed on 1 L of oxygen. Spoke to family and patient regarding patient state. Patient is stable for discharge to STR today. Patient continues to remain weak. Is working with physical therapy who recommended STR. Patient's creatinine has slighly worsened today on lasix, however will continue at this time per cardiology recommendations. Patient's ECHO today showed LVEF of 55% with no evidence of wall motion abnormalities. Patient discharged on Lasix 20 mg p.o. twice daily and an increased dose of metoprolol 50 mg twice daily. INR today was slightly supratherapeutic. Will decrease Coumadin dose to 6 mg today. Patient is to follow-up with his track mechanic and PCP. Plan: - admit to tele - Discontinue IV Lasix. Continue p.o. Lasix twice daily - continue metoprolol BID and diltiazem - cardiology on board. Appreciate recommendation - continue to follow up BEP - continue coumadin and dose based on INR - continue working with PT - continue oxygen supplementation and wean off as tolerated - continue to monitor Cr - continue chronic medications: donapezil, finasteride, tamsulosin, atorvastatin DVT PPx: on coumadin Diet: diabetic diet Code: full code Dispo: discharge to STR today Problem List: 1. Congestive heart failure 2. Atrial fibrillation with RVR Pain Ratin Pain Location: n/a Pain Goal: Remain pain free Pain Plan: n/a Tomorrow's Labs & Rationales: none - discharge to STR today
[2017-11-23 08:18] LABS: PT 31.6 SEC (9.4-12.5)
[2017-11-23] MEDS ORDERED: METOPROLOL TART50 M1 PO (09:32)
--- NOTE | 2017-11-23 10:17 | Discharge Summary ---
Visit Information Visit Dates Admission Date: 11/21/17 Discharge Date: 11/23/2017 Hospital Course Course Attending Physician: León Gaona MD Primary Care Physician: Gordon HERRON,[facility] Course: 77-year-old gentleman with past medical history of atrial ablation on Coumadin, hypertension, hyperlipidemia, small bowel obstruction, dementia, sarcoma right cheek status post radiation came to [facility] with complaints of gait instability and choking episode.Patient was found to be in atrial fibrillation with rapid ventricular rate. Patient was admitted to telemetry for further rate control control. Admission vitals Temperature 98.2, pulse rate 120, respiratory rate 20, blood pressure 40/75, 93 at room air. Admission labs - WBC 7.5, hemoglobin 11.4, MCV 7079.7, platelet 203, sodium 138, potassium 3.8, BUNs 38, creatinine 2.3, proBNP 8960, INR 2.1, flu negative. CXR showed - Enlarged cardiac silhouette with central vascular congestion, but no overt pulmonary edema. Small bilateral pleural effusions with right basilar subsegmental atelectasis. Heart failure with preserved ejection fraction, new-onset -Possibly secondary to increased heart rate due to Acute atrial fibrillation. We admitted the patient to telemetry floor and started on IV Lasix.We did consult from the casting molder. Echo was done which do not showed any obvious regional wall motion abnormalities and Left ventricular ejection fraction was 55 %. Patient was discharge on lasix 20mg BID. Acute on chronic renal insufficiency -probably secondary to diuretic/cardiorenal syndrome - The regularly monitor the BP and advised to follow-up with casting molder within a week of discharge. BUN/Creatinine at time of dicharge 41/2.3. We advised to check the BEP within a 3-4 days of discharge. Atrial fibrillation with rapid ventricular rate - We continued patient on Coumadin. At the time of discharge her PT/INR was 31.6/ 3.04.She was advised to take 6mg on 11/23/2017.Please adjust the dose of coumadin according to PT/INR.(Last 3 days coumadin dose was 8mgs, and last three INR - 2.12,2.14, 2.23,3.04). Please watch for bleeding.We gave IV digoxin one dose initialy.We increase the dose of Metoprolol 50mg BID. Allergies: Coded Allergies: NO KNOWN ALLERGIES (NONE 11/21/17) Disposition Summary Disposition Principal Diagnosis: Heart failure with preserved ejection fraction, new-onset -Possibly secondary to increased heart rate due to Acute atrial fibrillation. Additional Diagnosis: paroxysmal atrial fibrillation Dementia Acute on chronic renal insufficiency Hypertension Hyperlipidemia Diabetes Discharge Disposition: SNF Discharge Instructions General Discharge Information Code Status: Full Code Patient's Diet: Carbohydrate type I diabetic diet Patient's Activity: As tolerated Follow-Up Instructions/Appts: Please follow-up with your PCP within a week of discharge. Please follow-up with your casting molder within a week of discharge. Please check the BEP within a week. Please check for PT/INR and adjust the dose of coumadin. Medications at Discharge Discharge Medications: Stop taking the following medications: Warfarin Sodium (Coumadin) 4 MG TABLET ORAL WEDSAT Continue taking these medications: Tamsulosin HCl (Flomax) 0.4 MG CAP.ER.24H 1 Capsule ORAL TWICE DAILY Comments: Last Taken: 11/23/17 Time: 10 AM Finasteride (Proscar) 5 MG TABLET 1 Tablet ORAL DAILY Comments: Last Taken: 11/23/17 Time: 10 AM Metformin HCl (Metformin HCl ER) 500 MG TAB.ER.24H 1 Tablet ORAL TWICE DAILY Comments: NOT GIVEN IN HOSPITAL Donepezil HCl (Aricept) 10 MG TABLET 1 Tablet ORAL Every night Comments: Last Taken: 11/22/17 Time: 9 PM Atorvastatin Calcium (Lipitor) 80 MG TABLET 1 Tablet ORAL DAILY Comments: Last Taken: 11/22/17 Time: 5 PM Diltiazem HCl (Diltiazem 12HR ER) 120 MG CAP.ER.12H 1 Capsule ORAL TWICE DAILY Comments: Last Taken: 11/23/17 Time: 10 AM The following medications have been changed: Old: Warfarin Sodium (Coumadin) 4 MG TABLET 2 Tablet ORAL As Directed New: Warfarin Sodium (Coumadin) 4 MG TABLET 6 Milligram ORAL GIVE ONCE Qty = 2 Instructions: please change dose according to PT/INR. Comments: Last Taken: 11/22/17 Time: 5 PM RECIEVED 8 MG Old: Furosemide (Lasix) 20 MG TABLET 1 Tablet ORAL DAILY New: Furosemide (Lasix) 20 MG TABLET 2 Tablet ORAL DAILY Qty = 60 Comments: Last Taken: 11/23/17 Time: 9 AM Old: Metoprolol Tartrate (Lopressor) 50 MG TABLET 1 Tablet ORAL DAILY New: Metoprolol Tartrate (Lopressor) 50 MG TABLET 1 Tablet ORAL TWICE DAILY Qty = 60 Comments: Last Taken: 11/23/17 Time: 9 AM Copies To: Heriberto HERRON,Adan Rosas Attending MD Review Statement Documenting Attending: León Gaona MD Other Findings: The patient was seen and agree with plan of care to discharge to [facility] ([facility]) today.
[2017-11-23] MEDS ORDERED: LASIX20 M1 PO (13:45)
--- NOTE | 2017-11-23 13:49 | Patient Discharge Instructions ---
Discharge Instructions General Discharge Information You were seen/treated for: Atrial Fibrillation Congestive Heart Failure Special Instructions: 1. Please follow up with your pcp and finish off operator. 2. Please note the medication changes that have been made: metoprolol increased to 50mg twice daily and furosemide increased to 40mg daily. 3. Please have blood work (BEP) done on 11/26/2017 4. Please take 6mg coumadin today 11/23. Diet Continue normal diet: No Recommended Diet: Heart Healthy Activity Full Activity/No Limits: No Activity Self Limited: Yes Acute Coronary Syndrome Inclusion Criteria At DC or during hospital stay patient has or had the following: ACS DIAGNOSIS No Discharge Core Measures Meds if any: Prescribed or Continued at Discharge Meds if any: NOT Prescribed or Continued at Discharge Congestive Heart Failure Inclusion Criteria At DC or during hospital stay patient has or had the following: CHF DIAGNOSIS No Discharge Core Measures Meds if any: Prescribed or Continued at Discharge Meds if any: NOT Prescribed or Continued at Discharge Cerebrovascular accident Inclusion Criteria At DC or during hospital stay patient has or had the following: CVA/TIA Diagnosis No Discharge Core Measures Meds if any: Prescribed or Continued at Discharge Meds if any: NOT Prescribed or Continued at Discharge Venous thromboembolism Inclusion Criteria VTE Diagnosis No VTE Type NONE VTE Confirmed by (Test) NONE Discharge Core Measures - Per Current guidelines, there needs to be overlap - treatment for the first 5 days of Warfarin therapy. - If discharged on Warfarin prior to 5 days of - overlap therapy, the patient will need to be - assessed for post discharge needs including - *Post discharge parental anticoagulation - *Warfarin and/or parental anticoagulation education - *Follow up date to check INR post discharge At least 5 days overlap therapy as Inpatient No Meds if any: Prescribed or Continued at Discharge Note: Overlap Therapy is Warfarin and Anticoagulant Meds if any: NOT Prescribed or Continued at Discharge
[2017-11-23] MEDS ORDERED: LOPRESSOR50 M1 PO (14:31)
[2017-11-23] MEDS ORDERED: COUMADIN4 M1 PO ×2 (14:33→14:35)
[2017-11-23 15:39] VITALS: BP 110/60
--- NOTE | 2017-11-23 16:03 | PN- Cardiology ---
Subjective Subjective: Patient seen earlier today. Resting comfortably with no complaints. Objective Vital Signs and I&Os Vital Signs Date Time Temp Pulse Resp B/P B/P Pulse O2 O2 Flow FiO2 Mean Ox Delivery Rate 11/23 1539 98.2 70 20 110/60 11/23 1000 70 110/60 11/23 1000 70 110/60 11/23 0658 98.2 67 20 110/60 93 Nasal 2.0L Cannula 11/23 0000 Nasal 1.0L Cannula 11/22 2246 98.0 66 20 95 Nasal Cannula 11/22 2130 104/62 11/22 2042 90 104/62 11/22 2042 90 Intake & Output 11/23 1600 11/23 0800 11/23 0000 11/22 1600 11/22 0000 Intake Total 620 330 240 710 404 320 Output Total 400 0 425 560 900 225 Balance 220 330 -185 150 -496 95 Intake, IV 30 10 24 Intake, Oral 620 300 240 700 380 320 Number 2 Bowel Movements Output, Urine 400 0 425 560 900 225 Patient 233 lb Weight Weight Bed scale Measurement Method Physical Exam: General: no apparent distress. Alert. Eyes: No obvious scleral icterus. HEENT: No jugular venous distention or abnormal jugular venous pulsations. Cardiovascular: Normal intensity S1/S2. Irregular Respiratory: No rales or rhonchi Abdomen: Mildly distended; no guarding or rebound tenderness. Musculoskeletal: No clubbing or cyanosis noted; 1+ lower extremity edema Skin: Warm Neurologic: Normal speech Current Medications: Current Medications Sig/James Start time Last Medication Dose Route Stop Time Status Admin Atorvastatin Calcium 80 MG 1700 11/21 1700 AC 11/22 PO 1524 Diltiazem HCl 120 MG BID 11/21 1000 AC 11/23 PO 0959 Docusate Sodium 100 MG DAILY 11/21 1935 AC 11/23 PO 0959 Donepezil HCl 10 MG QPM 11/21 2199 AC 11/22 PO 2043 Finasteride 5 MG DAILY 11/21 1000 AC 11/23 PO 1000 Furosemide 20 MG 7:30 AM, & 4:30 PM 11/21 1300 AC 11/23 IV 0623 Insulin Aspart 0 TIDAC 11/21 0800 AC 11/23 SC 0811 Metoprolol Tartrate 50 MG BID 11/21 2199 AC 11/23 PO 1000 Polyethylene Glycol 17 GM DAILY 11/21 1935 AC 11/23 PO 0959 Tamsulosin HCl 0.4 MG BID 11/21 1000 AC 11/23 PO 1000 Warfarin Sodium 8 MG COUMADIN 1700 11/22 1700 AC 11/22 PO 1524 Results Last 48 Hrs of Labs/Mics: Laboratory Tests 11/23/17 0618: Anion Gap 15, Estimated GFR 28 L, BUN/Creatinine Ratio 17.8, PT 31.6 H, INR 3.04 H 11/22/17614: Anion Gap 11, Estimated GFR 28 L, BUN/Creatinine Ratio 17.4, PT 23.2 H, INR 2.23 H Recent Imaging Studies: telemetry tracings were personally reviewed and showed atrial fibrillation/ flutter with grossly controlled ventricular response rate Assessment/Plan Assessment/Plan 1. Possible heart failure with preserved ejection fraction, new-onset 2. PAF on Coumadin 3. Dementia 4. Tachycardia 5. Acute on chronic renal insufficiency 6. Former tobacco use 7. HTN/HLD/DM 8. Mild ischemia on remote nuclear; managed medically Telemetry review shows heart rate is now well controlled on the current regimen. Continue Coumadin adjustments to target INR. Would change the IV Lasix to Lasix 40 milligrams p.o. daily. The patient should follow up with his outpatient barrel header within 1 week for further discussion about potential elective cardioversion and repeat nuclear stress test. Ruperto Gomez MD [facility] Continue telemetry? No
== END 2017-11-23 19:38 | DRG 308 ==
LOC: ERH 14:36 → ERHI 11-21 03:09 → 1NO 11-21 03:09 → ENRESERV 11-21 12:15 → ENTRNSPT 11-21 15:54 → EDTRNSPTSTS 11-21 16:09 → EDTRNSPT 11-21 16:09 → 1NO 11-21 16:30 → CMPTRNSPT 11-21 16:34 → 1NO 11-23 07:56 → ENPENDDIS 11-23 14:13 → 1NO 11-23 19:38
PROVIDERS: Emergency Medicine; Internal Medicine Adolescent Medicine; Student in an Organized Health Care Education/Training Program
DX: I48.0 Paroxysmal atrial fibrillation (principal); I50.31 Acute diastolic (congestive) heart failure; N17.9 Acute kidney failure, unspecified; I11.0 Hypertensive heart disease with heart failure; F03.90 Unspecified dementia, unspecified severity, without behavioral disturbance, psychotic disturbance, mood disturbance, and anxiety; E78.5 Hyperlipidemia, unspecified; R62.7 Adult failure to thrive; N40.0 Benign prostatic hyperplasia without lower urinary tract symptoms; R26.89 Other abnormalities of gait and mobility; R00.0 Tachycardia, unspecified; Z79.01 Long term (current) use of anticoagulants; Z87.891 Personal history of nicotine dependence; E11.9 Type 2 diabetes mellitus without complications; Z79.84 Long term (current) use of oral hypoglycemic drugs
CPT/HCPCS: 1NSP; 36415; 36592; 71045; 71046; 82436; 93005; 93010; 93306; 96360; 97110-GO; 97161-GP; 97530-GO; 99291; J1940; J7060

== ENCOUNTER 2017-12-12 02:51 | Inpatient (IN) | payer OTHER ==
[~2017-12-12] VITALS: Ht 180.3 cm; Wt 92.1 kg
[~2017-12-12 02:51] MED LIST changes: +DILTIAZEM 12HR120 MG PO; +LASIX20 M1 PO; +LOPRESSOR50 M1 PO; +METOPROLOL TART50 M1 PO
--- NOTE | 2017-12-12 02:59 | ED NEURO DEFICIT/STROKE ---
History of Present Illness General Chief Complaint: General Adult Stated Complaint: MULTIPLE COMPLAINTS FROM SNF Source: patient Exam Limitations: no limitations Vital Signs & Intake/Output Vital Signs & Intake/Output Vital Signs Date Time Temp Pulse Resp B/P B/P Pulse O2 O2 Flow FiO2 Mean Ox Delivery Rate 12/12 0451 96.8 82 20 133/89 99 Nasal 2.0L Cannula 12/12 0335 Nasal 2.0L Cannula 12/12 0302 96.8 89 20 137/89 98 Nasal 2.0L Cannula Allergies Coded Allergies: NO KNOWN ALLERGIES (NONE 11/21/17) Reconcile Medications Atorvastatin Calcium (Lipitor) 80 MG TABLET 1 TAB PO DAILY CHOLESTEROL ( Reported) Diltiazem HCl (Diltiazem 12HR ER) 120 MG CAP.ER.12H 1 CAP PO BID AFIB ( Reported) Donepezil HCl (Aricept) 10 MG TABLET 1 TAB PO QPM MEMORY (Reported) [DUONEB] 3 ML NEB Q6-8P PRN BREATHING PROBLEMS (Reported) Escitalopram Oxalate (Lexapro) 10 MG TABLET 1 TAB PO DAILY MENTAL HEALTH ( Reported) Finasteride (Proscar) 5 MG TABLET 1 TAB PO DAILY BPH (Reported) Furosemide (Lasix) 20 MG TABLET 2 TAB PO DAILY WATER Metformin HCl (Metformin HCl ER) 500 MG TAB.ER.24H 1 TAB PO BID DM (Reported) Metoprolol Tartrate (Lopressor) 50 MG TABLET 1 TAB PO BID AF Tamsulosin HCl (Flomax) 0.4 MG CAP.ER.24H 1 CAP PO BID BPH (Reported) Torsemide 20 MG TABLET 1 TAB PO DAILY WATER RETENTION (Reported) Warfarin Sodium (Coumadin) 4 MG TABLET 6 MG PO ONCE BLOOD THINNER please change dose according to PT/INR. Triage Nurses Notes Reviewed? yes Onset: Gradual Duration: unknown duration Timing: recent history Severity: mild New Weakness: left facial Altered Sensations: right facial Vision Problem? No Glaucoma? No Impaired Ability: difficulty speaking Baseline: alert, oriented x 3 Associated Symptoms: confusion HPI: 77 yo gentleman from [facility], h/o afib on coumadin, presents with left facial droop, subjective right facial numbness, of uncertain time of onset. The medics note that he also had a brief episode of dyspnea, which self resolved. He notes no pain, chest pain, diaphoresis, fever, chills. He is otherwise well. Past History Travel History Traveled to [place] past 21 day No Medical History Any Pertinent Medical History? 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 FATHER (colon cancer). SISTER (CAD s/p PCI). Hx Contributory? No Review of Systems Review of Systems Constitutional: Reports: no symptoms. EENTM: Reports: no symptoms. Respiratory: Reports: no symptoms. Cardiovascular: Reports: no symptoms. GI: Reports: no symptoms. Genitourinary: Reports: no symptoms. Musculoskeletal: Reports: no symptoms. Skin: Reports: no symptoms. Neurological/Psychological: Reports: no symptoms. Hematologic/Endocrine: Reports: no symptoms. Immunologic/Allergic: Reports: no symptoms. All Other Systems: Reviewed and Negative Physical Exam Physical Exam General Appearance: well developed/nourished, no apparent distress Head: atraumatic, normal appearance Eyes: Bilateral: normal appearance, PERRL, EOMI. Ears, Nose, Throat: normal ENT inspection, moist mucous membrane Neck: normal inspection, supple, full range of motion Respiratory: normal breath sounds, chest non-tender, no respiratory distress, quiet respiration, lungs clear Cardiovascular: regular rate/rhythm Gastrointestinal: normal bowel sounds, soft, non-tender, no organomegaly Extremities: 3+ anasarca in throughout both legs. Psychiatric: awake, alert, oriented x 3 Cranial Nerves: normal hearing, normal speech, left facial droop, mild right facial subjective decreased sensation Coordination/Gait: normal finger to nose Motor/Sensory: no motor/sensory deficits, except as noted in cranial nerves. Reflexes: 0: bicep (R), bicep (L), knee (R), knee (L). Core Measures CVA/TIA Diagnosis: Yes NIH Stroke Scale NIH Stroke Scale Response Value Level of Consciousness alert 0 LOC Questions answers both correctly 0 LOC Commands obeys both correctly 0 Best Gaze normal 0 Visual Mcclain no visual loss 0 Facial Paresis minor 1 Motor Arm - Left no drift 0 Motor Arm - Right no drift 0 Motor Leg - Left no drift 0 Motor Leg - Right no drift 0 Limb Ataxia no ataxia 0 Sensory partial loss 1 Best Language no aphasia 0 Dysarthria normal articulation 0 Extinction and Inattention no neglect 0 Total 2 Sepsis Present: No Sepsis Focused Exam Completed? No Progress Differential Diagnosis: tia vs cva vs ich Plan of Care: Orders Procedure Date/time Status PROTHROMBIN TIME 12/13 599 Active CBC WITHOUT DIFFERENTIAL 12/13 599 Active BASIC ELECTROLYTES PLUS BUN&CR 12/13 06 Active Nothing by Mouth 12/12 B Active TROPONIN LEVEL 12/12 1000 Active EKG 12/12 1000 Active Add-on Test (ER Only) 12/12 0552 Active Pathway - chart 12/12 0537 Active URINE OSMOLALITY 12/12 0537 Active URINE CREATININE, SPOT 12/12 0537 Active URINE LYTES, SPOT 12/12 0537 Active CULTURE,URINE 12/12 0520 Active NIH Stroke Scale 12/12 0504 Active Patient Data 12/12 0427 Active Saline Lock 12/12 0406 Active Misc Message 12/12 0406 Active ED Holding Orders 12/12 0406 Active Admit to inpatient 12/12 0406 Active Vital Signs 12/12 0406 Active Code Status 12/12 0406 Active Intake & Output 12/12 0317 Active TSH REFLEX 12/12 0307 Active SERUM OSMOLALITY 12/12 0307 Active MAGNESIUM 12/12 0307 Active LIPID PANEL 12/12 0307 Active B-TYPE NATRIURETIC PEP (BNP) 12/12 0307 Active TROPONIN LEVEL 12/12 0300 Active PARTIAL THROMBOPLASTIN TIME 12/12 0300 Complete PROTHROMBIN TIME 12/12 0300 Complete LIPASE 12/12 0300 Active HEPATIC FUNCTION PANEL 12/12 0300 Active CBC WITHOUT DIFFERENTIAL 12/12 0300 Complete BASIC METABOLIC PANEL 12/12 0300 Active AMYLASE 12/12 0300 Active EKG 12/12 0300 Active [id number] DOPPLER 12/12 UNK Active SWALLOW EVALUATION 12/12 UNK Active TRC EVALUATION (GEN) 12/12 UNK Active PT Evaluate & Treat 12/12 UNK Active House Staff 12/12 UNK Active Lab Add-on Test 12/12 UNK Active Occupational Tx Eval & Treat 12/12 UNK Active Weight 12/12 UNK Active VTE Mechanical Prophylaxis 12/12 UNK Active Vital Signs 12/12 UNK Active Precautions 12/12 UNK Active NIH Stroke Scale 12/12 UNK Active Intake & Output 12/12 UNK Active Hemoccult 12/12 UNK Active [place], Insertion/Removal/Asses 12/12 UNK Active Elevate 12/12 UNK Active Activity/Ambulation 12/12 UNK Active MRI-HEAD W/O KYLEE 12/12 UNK Active Current Medications Sig/James Start time Last Medication Dose Stop Time Status Admin Atorvastatin Calcium 80 MG 1700 12/12 0630 AC (Lipitor) Potassium Chloride 10 MEQ Q1H 12/12 06 UNVr 12/12 07 Furosemide 40 MG ONCE ONE 12/12 05 CAN (Lasix) 12/12 0531 Laboratory Tests 12/12/17 0600: Triglycerides Cancelled, Cholesterol Cancelled, LDL Cholesterol, Calc Cancelled, HDL Cholesterol Cancelled, Cholesterol/HDL Ratio Cancelled 12/12/17 0537: TSH Cancelled 12/12/17 0307: Anion Gap 10, Estimated GFR 26 L, BUN/Creatinine Ratio 18.3, Glucose 165 H, Serum Osmolality Pending, Calcium 9.6, Magnesium Pending, Total Bilirubin 0.9, Direct Bilirubin 0.4, AST 23, ALT 41, Alkaline Phosphatase 80, Troponin I 0.23 * H, [id number] Pept Pending, Total Protein 5.9 L, Albumin 3.5, Triglycerides Pending, Cholesterol Pending, LDL Cholesterol, Calc Pending, HDL Cholesterol Pending, Cholesterol/HDL Ratio Pending, Amylase 67, Lipase 176, TSH &T3 &Free T4 Intrp Pending, PT 25.4 H, INR 2.31 H, APTT 34, CBC w Diff NO MAN DIFF REQ, RBC 4.53 L, MCV 78.8 L, MCH 25.8 L, MCHC 32.8 L, RDW 20.7 H, MPV 10.2, Gran % 83.5 H, Lymphocytes % 6.8 L, Monocytes % 8.9, Eosinophils % 0.6, Basophils % 0.2, Absolute Granulocytes 7.7 H, Absolute Lymphocytes 0.6 L, Absolute Monocytes 0.8 H, Absolute Eosinophils 0.1, Absolute Basophils 0 Microbiology 12/12 0520 URINE ROUT: Urine Culture - COLB Diagnostic Imaging: Viewed by Me: Radiology Read, CT Scan. Discussed w/RAD: Radiology Read, CT Scan. Radiology Impression: PATIENT: KARYN WESTBROOK PRESENT AGE: 77 PATIENT ACCOUNT NO: [id number] : 38 LOCATION: [facility] ORDERING PHYSICIAN: Montrell Patel MD SERVICE DATE: 12/12/17 EXAM TYPE: CAT - CT HEAD WO IV CONTRAST EXAMINATION: CT HEAD WITHOUT CONTRAST CLINICAL INFORMATION: Left facial droop COMPARISON: 07/02/2015 TECHNIQUE: Contiguous axial imaging was performed from the skull base to vertex without intravenous administration of contrast. DLP: 615.84 mGy-cm FINDINGS: There is no evidence of acute intracranial hemorrhage or territorial infarction. No abnormal mass effect or midline shift is seen. Hoover to white matter differentiation is well preserved. No extra-axial fluid collections are identified. The ventricles are normal in size. There is a redemonstrated focus of encephalomalacia in the right temporal lobe, unchanged from prior. There is mild periventricular white matter hypoattenuation consistent with chronic small vessel ischemic disease. Moderate volume loss is noted. 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 There are redemonstrated postsurgical changes from prior right craniotomy. The mastoid air cells and visualized portions of the paranasal sinuses are well aerated. IMPRESSION: No acute intracranial pathology. Chronic findings as described above, without significant change from 07/02/2015. DICTATED BY: Jermaine Gupta MD DATE/TIME DICTATED:12/12/[address] JUSTICE:DOE DATE/TIME TRANSCRIBED:12/12/17332 CONFIDENTIAL, DO NOT COPY WITHOUT APPROPRIATE AUTHORIZATION. <Electronically signed in Other Vendor System> SIGNED BY: Jermaine Gupta MD 12/12/17341 CXR Impression: PATIENT: KARYN WESTBROOK PRESENT AGE : 77 PATIENT ACCOUNT NO: [id number] : 38 LOCATION: [facility] ORDERING PHYSICIAN: Montrell Patel MD SERVICE DATE: 12/12/17 EXAM TYPE: RAD - XRY-PORTABLE CHEST XRAY EXAMINATION: XR PORTABLE CHEST CLINICAL INFORMATION: TIA COMPARISON: 11/21/2017 TECHNIQUE: Portable frontal view of the chest was obtained. FINDINGS: The lungs are hypoinflated. There are perihilar and basilar regions of opacity bilaterally along with interstitial prominence. Small right pleural effusion is noted. No appreciable pneumothorax. Cardiac size appears near the upper limits of normal. No acute osseous findings are seen. IMPRESSION: Low lung volumes. Bilateral perihilar and basilar opacities with interstitial prominence and small right pleural effusion, suggesting vascular congestion/edema in the proper clinical setting. DICTATED BY: Jermaine Gupta MD DATE/TIME DICTATED:12/12/[address] JUSTICE:DOE DATE/TIME TRANSCRIBED:12/12/17337 CONFIDENTIAL, DO NOT COPY WITHOUT APPROPRIATE AUTHORIZATION. <Electronically signed in Other Vendor System> SIGNED BY: Jermaine Gupta MD 12/12/17 0344 Initial ED EKG: aflutter, no acute changes. Departure Departure Disposition: STILL A PATIENT Condition: Stable Clinical Impression Primary Impression: CVA (cerebral vascular accident) Secondary Impressions: Anasarca, Chronic renal failure, Elevated troponin Referrals: Nicolasa Leyva MD Departure Forms: Customer Survey General Discharge Information Comments 12/12/17, 4:02am... discussed with dr. flores... pt with +troponin, no chest pain, non acute ekg... stable for tele. 12/12/17, 4:04am... discussed with dr. graham... will add aspirin... pt to go to tele, further recommendations to follow after formal evaluation. Admission Note Spoke With: Shereen Ashraf MD Documentation of Exam: Documentation of any treatments & extenuating circumstances including Concerns Regarding Discharge (functional status, medication knowledge or non-compliance, living conditions, etc.) that warrant an admission rather than observation: pt with subtle left facial drop and story consistent with cva, uncertain time of onset. pt also with elevated troponin, without chest pain or acute ekg. aspirin added to regimen. pt merits serial trops/monitoring, neuro and cards eval in am. Critical Care Note Critical Care Note Critical Care Time: 30-74 min
[2017-12-12 03:16] LABS: ABSOLUTE BASOPHIL COUNT 0 /CUMM (0.0-0.2); ABSOLUTE EOSINOPHIL COUNT 0.1 /CUMM (0.0-0.7); ABSOLUTE GRANULOCYTE CT 7.7 /CUMM (1.4-6.5); ABSOLUTE LYMPH COUNT 0.6 /CUMM (1.2-3.4); ABSOLUTE MONOCYTE COUNT 0.8 /CUMM (0.10-0.60); BASOPHIL % 0.2 % (0.0-2.0); EOSINOPHIL % 0.6 % (0-5); HEMATOCRIT 35.7 % (42-52); MEAN CORPUSCULAR HGB 25.8 PG (27.0-31.0); MEAN CORPUSCULAR HGB CONC 32.8 G/DL (33.0-37.0); MEAN CORPUSCULAR VOLUME 78.8 FL (80.0-94.0); MEAN PLATELET VOLUME 10.2 FL (7.4-10.4); RBC DISTRIBUTION WIDTH 20.7 % (11.5-14.5); WHITE BLOOD CELL COUNT 9.2 /CUMM (4.8-10.8)
[2017-12-12 03:27] LABS: PT 25.4 SEC (9.4-12.5); PTT 34 SEC (25-37)
[2017-12-12 03:40] LABS: GRANULOCYTE % 83.5 % (42.2-75.2); PLATELET COUNT 210 /CUMM (130-400)
[2017-12-12 03:41] LABS: RED BLOOD CELL CT 4.53 /CUMM (4.70-6.10)
--- NOTE | 2017-12-12 03:42 | CT SCAN REPORT ---
EXAMINATION: CT HEAD WITHOUT CONTRAST CLINICAL INFORMATION: Left facial droop COMPARISON: 07/02/2015 TECHNIQUE: Contiguous axial imaging was performed from the skull base to vertex without intravenous administration of contrast. DLP: 615.84 mGy-cm FINDINGS: There is no evidence of acute intracranial hemorrhage or territorial infarction. No abnormal mass effect or midline shift is seen. Hoover to white matter differentiation is well preserved. No extra-axial fluid collections are identified. The ventricles are normal in size. There is a redemonstrated focus of encephalomalacia in the right temporal lobe, unchanged from prior. There is mild periventricular white matter hypoattenuation consistent with chronic small vessel ischemic disease. Moderate volume loss is noted. 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 There are redemonstrated postsurgical changes from prior right craniotomy. The mastoid air cells and visualized portions of the paranasal sinuses are well aerated. IMPRESSION: No acute intracranial pathology. Chronic findings as described above, without significant change from 07/02/2015.
--- NOTE | 2017-12-12 03:44 | RADIOLOGY REPORT ---
EXAMINATION: XR PORTABLE CHEST CLINICAL INFORMATION: TIA COMPARISON: 11/21/2017 TECHNIQUE: Portable frontal view of the chest was obtained. FINDINGS: The lungs are hypoinflated. There are perihilar and basilar regions of opacity bilaterally along with interstitial prominence. Small right pleural effusion is noted. No appreciable pneumothorax. Cardiac size appears near the upper limits of normal. No acute osseous findings are seen. IMPRESSION: Low lung volumes. Bilateral perihilar and basilar opacities with interstitial prominence and small right pleural effusion, suggesting vascular congestion/edema in the proper clinical setting.
--- NOTE | 2017-12-12 04:33 | History & Physical ---
See Addendum Kenan HERRON,[facility] 12/12/17 0432: General Information and HPI MD Statement: I have seen and personally examined KARYN WESTBROOK and documented this H&P. The patient is a 77 year old M who presented with a patient stated chief complaint of [facial numbness and slurred speech]. 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 The patient himself is unsure when the symptoms started. He denies any complaints of shortness of breath. States that he ate breakfast without any issues but wasn't sure if he remembered if he had lunch or had any issues from lunch onwards. The patient states that he feels right facial numbness. Feels like he does not have any word slurring at this time. She does endorse some tingling. He denies any chest pain, vision changes, leg swelling, abdominal pain, nausea, vomiting, leg swelling, The nursing staff (Yulissa santos nursing telephone solicitor supervisor and [facility]) stated that the patient started having complaints of shortness of breath around 1:30 AM. She then stated that he complained of facial numbness around 1:45 AM to 2 AM. She nursing staffthat he had some slight left facial droop and his speech was slurred. Allergies/Medications Allergies: Coded Allergies: NO KNOWN ALLERGIES (NONE 11/21/17) Home Med list Atorvastatin Calcium (Lipitor) 80 MG TABLET 1 TAB PO DAILY CHOLESTEROL ( Reported) Diltiazem HCl (Diltiazem 12HR ER) 120 MG CAP.ER.12H 1 CAP PO BID AFIB ( Reported) Donepezil HCl (Aricept) 10 MG TABLET 1 TAB PO QPM MEMORY (Reported) [DUONEB] 3 ML NEB Q6-8P PRN BREATHING PROBLEMS (Reported) Escitalopram Oxalate (Lexapro) 10 MG TABLET 1 TAB PO DAILY MENTAL HEALTH ( Reported) Finasteride (Proscar) 5 MG TABLET 1 TAB PO DAILY BPH (Reported) Furosemide (Lasix) 20 MG TABLET 2 TAB PO DAILY WATER Metformin HCl (Metformin HCl ER) 500 MG TAB.ER.24H 1 TAB PO BID DM (Reported) Metoprolol Tartrate (Lopressor) 50 MG TABLET 1 TAB PO BID AF Tamsulosin HCl (Flomax) 0.4 MG CAP.ER.24H 1 CAP PO BID BPH (Reported) Torsemide 20 MG TABLET 1 TAB PO DAILY WATER RETENTION (Reported) Warfarin Sodium (Coumadin) 4 MG TABLET 6 MG PO ONCE BLOOD THINNER please change dose according to PT/INR. 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 FATHER (colon cancer). SISTER (CAD s/p PCI). Psychosocial History Who Do You Live With? spouse Services at Home: None Primary Language: Emirati Living Will? yes Functional Ability ADLs Independent: dressing, eating, toileting, bathing. Ambulation: cane IADLs Needs Assist: shopping, housework, finances, telephone, transportation, medication admin. Review of Systems Review of Systems Constitutional: Reports: see HPI. Neurological/Psychological: Reports: see HPI (slurring), numbness. Exam & Diagnostic Data Last 24 Hrs of Vital Signs/I&O Vital Signs Date Time Temp Pulse Resp B/P B/P Pulse O2 O2 Flow FiO2 Mean Ox Delivery Rate 12/12 0734 98.0 87 20 122/71 95 Nasal 1.0L Cannula 12/12 0646 98.0 87 20 122/71 95 Nasal 1.0L Cannula 12/12 0451 96.8 82 20 133/89 99 Nasal 2.0L Cannula 12/12 0335 Nasal 2.0L Cannula 12/12 0302 96.8 89 20 137/89 98 Nasal 2.0L Cannula Intake & Output 12/12 0800 03 0000 03/06 1600 Intake Total 0 Output Total 300 Balance -300 Intake, Oral 0 Output, Urine 300 Patient 270 lb Weight Weight Estimated Measurement Method Physical Exam General Appearance Alert, Mild Distress, patient uncooperative with exam HEENT cn 2-12 grossly intact. Cardiovascular Regular Rate, Normal S1, Normal S2 Lungs Clear to Auscultation, Normal Air Movement Abdomen Normal Bowel Sounds, Soft, No Tenderness Neurological visual lopez groslly intat, L facial droop, cerebellar exam of finger to nose grossly intact Extremities 3+ edema to mid thigh b/l, 5/5 strength UE and LE b/l Last 24 Hrs of Labs/Ibrahima: Laboratory Tests 12/12/17 1133: Troponin I 0.23 *H, Thyroid Peroxidase Ab < 28 12/12/17 0649: Urine Osmolality 477, Ur Random Creatinine 133.0, Ur Random Sodium 19 L, Ur Random Potassium 64.2, Fraction Sodium Excret 0.3 12/12/17 0600: Triglycerides Cancelled, Cholesterol Cancelled, LDL Cholesterol, Calc Cancelled, HDL Cholesterol Cancelled, Cholesterol/HDL Ratio Cancelled 12/12/17 0537: TSH Cancelled 12/12/17 0307: Anion Gap 10, Estimated GFR 26 L, BUN/Creatinine Ratio 18.3, Glucose 165 H, Hemoglobin A1c 7.9 H, Serum Osmolality 284 L, Calcium 9.6, Magnesium 1.6, Total Bilirubin 0.9, Direct Bilirubin 0.4, AST 23, ALT 41, Alkaline Phosphatase 80, Troponin I 0.23 *H, Aac-Y-Vzfptapjnht Pept 45652 H, Total Protein 5.9 L, Albumin 3.5, Triglycerides 90, Cholesterol 113, LDL Cholesterol, Calc 46 L, HDL Cholesterol 49, Cholesterol/HDL Ratio 2, Amylase 67, Lipase 176, Free T4 1.32, Total T3 0.74 L, TSH &T3 &Free T4 Intrp 6.750 H, Cortisol AM Sample 41.1 H, PT 25.4 H, INR 2.31 H, APTT 34, CBC w Diff NO MAN DIFF REQ, RBC 4.53 L, MCV 78.8 L, MCH 25.8 L, MCHC 32.8 L, RDW 20.7 H, MPV 10.2, Gran % 83.5 H, Lymphocytes % 6.8 L, Monocytes % 8.9, Eosinophils % 0.6, Basophils % 0.2, Absolute Granulocytes 7.7 H, Absolute Lymphocytes 0.6 L, Absolute Monocytes 0.8 H, Absolute Eosinophils 0.1, Absolute Basophils 0 Laboratory Tests 12/12/17 1133: Troponin I 0.23 *H, Thyroid Peroxidase Ab < 28 12/12/17 0649: Urine Osmolality 477, Ur Random Creatinine 133.0, Ur Random Sodium 19 L, Ur Random Potassium 64.2, Fraction Sodium Excret 0.3 12/12/17 0600: Triglycerides Cancelled, Cholesterol Cancelled, LDL Cholesterol, Calc Cancelled, HDL Cholesterol Cancelled, Cholesterol/HDL Ratio Cancelled 12/12/17 0537: TSH Cancelled 12/12/17 0307: Anion Gap 10, Estimated GFR 26 L, BUN/Creatinine Ratio 18.3, Glucose 165 H, Hemoglobin A1c 7.9 H, Serum Osmolality 284 L, Calcium 9.6, Magnesium 1.6, Total Bilirubin 0.9, Direct Bilirubin 0.4, AST 23, ALT 41, Alkaline Phosphatase 80, Troponin I 0.23 *H, Omq-V-Nekrpynwzmi Pept 22747 H, Total Protein 5.9 L, Albumin 3.5, Triglycerides 90, Cholesterol 113, LDL Cholesterol, Calc 46 L, HDL Cholesterol 49, Cholesterol/HDL Ratio 2, Amylase 67, Lipase 176, Free T4 1.32, Total T3 0.74 L, TSH &T3 &Free T4 Intrp 6.750 H, Cortisol AM Sample 41.1 H, PT 25.4 H, INR 2.31 H, APTT 34, CBC w Diff NO MAN DIFF REQ, RBC 4.53 L, MCV 78.8 L, MCH 25.8 L, MCHC 32.8 L, RDW 20.7 H, MPV 10.2, Gran % 83.5 H, Lymphocytes % 6.8 L, Monocytes % 8.9, Eosinophils % 0.6, Basophils % 0.2, Absolute Granulocytes 7.7 H, Absolute Lymphocytes 0.6 L, Absolute Monocytes 0.8 H, Absolute Eosinophils 0.1, Absolute Basophils 0 Microbiology 12/12 06 URINE ROUT: Urine Culture - RECD Assessment/Plan Assessment: A: 77-year-old gentleman with past medical history of atrial ablation on Coumadin, hypertension, hyperlipidemia, small bowel obstruction, dementia, sarcoma right cheek status post radiation presenting from [facility] for complaints of facial numbness and slurred speech most liekly due to acute CVA and LE edema P: #CVA Pt not a TPA candidate as he is on coumadin Head CT negative Trops .23 -passed beside swallow. KEEP NPO pending formal swallow eval -f/u carotid dopplers, echo, MRI tomorrow -PT, OT, ST, -begin aspirin and high dose statin -f/u ekg trops @ 10am - Aspirin and atorvastain 80 -f/u cardiology and neuro consult #LE edema Probnp [id number] Echo Nov 21 : No obvious regional wall motion abnormalities. Left ventricular ejection fraction is estimated at 55 %. -cont IV lasix, stric i/o, daily weights, skinner -f/u cardiac workup as mentioned above -f/u cardiology consult as mentioned above #PAULA Cr 2.4 (baseline 1,7) -continue to monitor ashok given IV lasix #Hyponatremia Na 128 -f/u urine lytes, serum and urine osmolality #diabetes - novolog sliding scale - f/u TSH, free T4, Hba1c, lipid panel #hx of afib INR 2.31 -cont coumadin -monitor INR #dementia -cont donepezil #bph -cont finasteride, flomax #mental health -cont escitalopram #DVT ppx coumadin #Full code. As Ranked By This Provider Problem List: 1. Stroke 2. PAULA (acute kidney injury) 3. Edema 4. Hyponatremia Core Measures/Misc (06/24) Acute Coronary Syndrome ACS Diagnosis: No Congestive Heart Failure Congestive Heart Failure Diagnosis No Cerebrovascular Accident CVA/TIA Diagnosis: Yes VTE (View Protocol) VTE Risk Factors Acute Medical Illness No Mechanical VTE Prophylaxis d/t Other No VTE Pharm Prophylaxis d/t NA PharmProphylax ordered Sepsis (View protocol) Sepsis Present: No Mariela Zurita 12/12/17 0441: Resident Review Statement Resident Statement: discussed with events intern, amended to note Other Findings: Mr Monson is a 77 year old gentleman with a past medical history of atrial fibrillation on Coumadin, hypertension, hyperlipidemia, dementia, diabetes, previous history of sarcoma right cheek status post resection, radiation sarcoma He was brought in from a short-term rehabilitation with a chief concern of left facial droop, subjective right facial numbness of uncertain duration. He also was noted to have a brief episode of dyspnea before he was being transported to the ER, which is chronic as per the patient's son. Last known to be normal as per the patient's son was 12/11/2017 a.m. The patient does not recall the duration of the symptoms at all. As per the nurse at [facility] who spoke to the events intern, reported that the patient may have had symptoms of facial droop around 1:30 AM on 12/12/2017. He did not have any other concerns such as chest pain, palpitations, fever, chills, diaphoresis. Vitals-temperature 96.8, pulse rate 89, respiration 20, blood pressure 137/89, pulse ox 98% on 2 L. On examination- General Exam: AAOx3, No acute distress, Skin: No rashes, no breakdown HEENT: PERRLA, EOMI Neck: Supple, No JVD No cervical lymphadenopathy CVS: Reg Rate, Normal S1,S2, No MGR Resp: Normal air entry, no ronchi/rales Abdomen: Soft, No tenderness, Normal Bowel Sounds Neuro: Slurred speech, facial droop on the left, no numbness, other cranial nerve examination within normal limits, strength 5/5 bilateral lower extremities and upper extremity is, sensation intact, deep tendon reflexes normal, cerebellar test normal. Could not test memory, as he has history of dementia. 2 + pitting edema extending upto his trunk, scotal edema + Petinent lab findings-W BC 9.2, hemoglobin 1311.7, hematocrit 35.7, platelets 210, sodium 128, potassium 3.4, chloride 85, bicarbonate 33, BUN 44, serum creatinine 2.4, troponin 0.23, liver chemistries AST 23, ALT 41, alkaline phosphatase 80, INR 2.31. CT head did not reveal any acute intracranial infarction or hemorrhage. Last echo cardiac exam done in November 22- Left ventricular cavity size normal. Left ventricular wall thickness mildly increased. No obvious regional wall motion abnormalities. Left ventricular ejection fraction is estimated at 55 %. Right ventricle not well visualized, grossly normal. Left atrial size at the upper limits of normal. Unable to estimate the right ventricular systolic pressure. Pericardium not well visualized. No obvious pericardial effusion. Problem list: #1 elevated troponin #2 CVA #2 hyponatremia, hypokalemia #3 atrial fibrillation on Coumadin #4 chronic renal insufficiency #5 heart failure. Preserved ejection fraction #6 diabetes #7 hyperlipidemia Etiology in his case is likely due to cardioembolic stroke. Plan: #1 CVA-NIH scale 2. Not a candidate for TPA given his history of anticoagulation. - ASA+Statin - passed bed side swallow eval -Permissive hypertension -Swallow evaluation -PT/OT evaluation - No CTA given low NIH SS, not a candidate for embolectomy. - US carotids. - No MRI indicated, discussed the plan w/ the neurologist Dr Cotton. - Neurology consult #2 elevated cardiac enzymes - has a h/o of Afib and new onset CHF. - Dose coumadin today. - currently appears fluid overloaded. - Serial ekgs and troponins - Echocardiogram to evaluate a source of thrombus - Restart diltiazem, after discussing with exterior designer # HFpEF - acute exacerbation - Lasix 40mg x 1 - Continue IV 40 mg daily, and assess daily. -Strict ins and outs -Daily weights -Cardiology consultation. #3 hyponatremia -Appears acute, hypervolemic hyponatremia -Check serum osmolality, urine O'smolarity, urine lites -Monitor closely -Avoid overcorrection #4 diabetes -Insulin sliding scale -Accu-Cheks Housekeeping: #1 DVT prophylaxis-subcutaneous heparin #2 lines-peripheral #3 consults-neurology, cardiology Ordered liptor but it wasnt adminitered on time as per EMR. Informed the resident front office specialist to administer it stat. Andriy HERRON, [facility] 12/12/17 0705: Attending Review Statement Attending Statement Attending MD Statement: examined this patient, discuss w/resident/PA/GENETIC SUPERVISOR, agreed w/resident/PA/GENETIC SUPERVISOR, reviewed images, amended to note Attending Assessment/Plan: 77 yo M with h/o PAfib on coumadin, HTN, DM, dementia, chronic renal insufficiency, ischemia on prior nuclear test managed medically, residual right facial numbness from sarcoma excision, was recently admitted to [facility] (Nov 2017) for new onset diastolic heart failure and discharged to [facility], is sent in today from the facility for slurred speech, left facial droop, left facial numbness and c/o dyspnea. Probable time of onset is 1.30 AM. Patient has no previous h/o TIA or stroke. Patient currently denies any symptoms of chest pain, dyspnea, lightheadedness or palpitations. Vitals stable. Neuro exam: left facial droop, slurring of speech, tongue and uvula central, otherwise no deficits. Chest basilar crackles+, LE: 3+ pitting edema extending from feet to lower abdomen, with scrotal edema. Labs: microcytic anemia, INR 2.31, Na 128 (baseline 135), K 3.4, bicarb 33, BUN 44, creat 2.4 (baseline 1.7-2.0), proBNP 82399, trop 0.23. CXR: bilateral perihilar and basilar opacities with interstitial prominence and small right pleural effusion, suggesting vascular congestion/ edema. Head CT: no acute pathology. EKG: Afib/ flutter. Echo (2018): EF 55%. Assessment and plan: 1. Acute ischemic stroke not a candidate for tPA (on coumadin) 2. Afib on coumadin with therapeutic INR 3. Acute on chronic diastolic heart failure 4. 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 Elevated troponin likely demand ischemia Type 2 IL 6. Hyponatremia hypervolemic state - Admit to Telemetry - Monitor for arrhythmias - Trend troponin and serial EKG - Aspirin and high dose statin - Obtain echo to assess for thrombus (stroke despite being anticoagulated) - Obtain carotid dopplers - Keep SBP ~ 140's - Resume cardizem and metoprolol for rate control when able - Passed bedside swallow - Continue NPO for now - PT/OT/ swallow eval, speech therapy - MRI brain in AM - Cardio and Neuro consults - Strict I/O's, daily weights, Skinner placement - IV lasix 40 daily - Monitor renal functions while on diuresis - Check urine lytes, serum and urine osmolality - Monitor sodium levels - Replete electrolytes K and Mag. - Consider nephro consult if renal functions do not improve - Diabetes management - Check TSH, free T4, Hba1c, lipid panel DVT ppx therapeutic INR on coumadin. Full code.
[2017-12-12] MEDS ORDERED: TORSEMIDE20 M1 PO (04:38)
[2017-12-12] MEDS ORDERED: LEXAPRO10 M1 PO (04:42)
[2017-12-12] MEDS ORDERED: DUONEB NEB (04:44)
--- NOTE | 2017-12-12 07:07 | Admission Certification ---
Admission Certification Certification Statement - As attending physician, I certify that at the time of - admission, based on clinical presentation, severity of - symptoms, need for further diagnostic testing and - therapeutic interventions, and risk of adverse outcomes - without in-hospital treatment, in my clinical assessment, - this patient requires an acute hospital stay for a minimum - of two nights or longer. I have also considered psychsocial - factors such as support system, advanced age, financial - issues, cognitive issues, and failed out-patient treatments, - past re-admission history, safety of patient, and lack of - compliance as applicable. Specific rationale supporting this admission is: Acute stroke in a patient with h/o stroke with therapeutic INR on coumadin, Acute exacerbation of chronic diastolic heart failure and elevated troponin likely Type 2 [place].
[2017-12-12 07:34] VITALS: BP 122/71
--- NOTE | 2017-12-12 09:55 | PN- Housestaff ---
Camilla HERRON,[facility] 12/12/17 0954: Subjective Follow-up For: 1. Acute ischemic stroke not a candidate for tPA (on coumadin) 2. Afib on coumadin with therapeutic INR 3. Acute on chronic diastolic heart failure 4. 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 Elevated troponin likely demand ischemia Type 2 [place] 6. Hyponatremia hypervolemic state Tele-Events Since Last Visit: No overnight events, heart rate 87, A. fib Subjective: Patient was seen and examined at bedside, denies any complaints at the moment however he suffers from dementia And he cannot recall any previous complaints Review of Systems Constitutional: Denies: no symptoms. Cardiovascular: Denies: no symptoms. Respiratory: Denies: no symptoms. Gastrointestinal: Denies: no symptoms. Genitourinary: Denies: no symptoms. Musculoskeletal: Denies: no symptoms. Skin: Denies: no symptoms. Objective Last 24 Hrs of Vital Signs/I&O Vital Signs Date Time Temp Pulse Resp B/P B/P Pulse O2 O2 Flow FiO2 Mean Ox Delivery Rate 12/12 0747 95 Nasal 1.0L Cannula 12/12 0734 98.0 87 20 122/71 95 Nasal 1.0L Cannula 12/12 0646 98.0 87 20 122/71 95 Nasal 1.0L Cannula 12/12 0451 96.8 82 20 133/89 99 Nasal 2.0L Cannula 12/12 0335 Nasal 2.0L Cannula 12/12 0302 96.8 89 20 137/89 98 Nasal 2.0L Cannula Intake & Output 12/12 1600 12/12 0800 12/12 0000 Intake Total 460 0 Output Total 300 Balance 460 -300 Intake, IV 300 Intake, Oral 160 0 Output, Urine 300 Patient 230 lb Weight Weight Estimated Measurement Method Physical Exam General Appearance: Alert, Cooperative, No Acute Distress Skin: No Rashes, No Breakdown, No Significant Lesion HEENT: Atraumatic, PERRLA, EOMI, Mucous Membr. moist/pink, right facial Neck: Supple, No JVD Cardiovascular: Normal S1, Normal S2, irregular Lungs: Clear to Auscultation, Normal Air Movement Abdomen: Normal Bowel Sounds, Soft Neurological: Normal Speech, Strength at 5/5 X4 Ext, Normal Tone, facial assymetry , most likely due eto right facial contracture post surgery Extremities: bilateral 3 + pittng edema Vascular: Normal Pulses Assessment/Plan Assessment: 77-year-old gentleman with past medical history of paroxysmal atrial ablation on Coumadin, hypertension, hyperlipidemia, small bowel obstruction, dementia, sarcoma right cheek status post radiation came from [facility] for complaints of facial numbness and slurred speech. Problem list: #elevated troponin #CVA #hyponatremia, hypokalemia #atrial fibrillation on Coumadin #chronic renal insufficiency #heart failure. Preserved ejection fraction #diabetes #hyperlipidemia Plan: # ?CVA CT did not show any acute events NIH scale 2. Not a candidate for TPA given his history of anticoagulation. -Continue aspirin and statin - passed bed side swallow eval, follow-up on formal swallow eval was started on heart healthy diet with 1 L fluid restriction -Blood pressure is currently controlled, will allow permissive hypertension -PT/OT evaluation - No CTA given low NIH SS, not a candidate for embolectomy. -Follow-up on US carotids. -Follow-up on MRI - Neurology consult appreciated # elevated troponin - has a h/o of Afib and new onset CHF. -Patient was given Coumadin 2 mg today, his INR today is 2.3 I spoke to [facility] (RN Molly) patient got warfarin 2 mg yesterday -PT/INR and dose Coumadin accordingly - currently appears fluid overloaded. - Serial ekgs and troponins - Echocardiogram to evaluate a source of thrombus -We will consider restart diltiazem, after discussing with well puller head # HFpEF - acute exacerbation -We will hold Lsix today given his AKIand blood pressure of 120/71 in the context of ischemic stroke -Strict ins and outs -Daily weights -Cardiology consultation. # hyponatremia Sodium is 128 Likely due to poor oral intake and Lasix -Appears acute, hypervolemic hyponatremia -Check serum osmolality 284, urine O'smolarity 477, urine lites 19 -Monitor closely 1 L fluid restriction -Avoid overcorrection # diabetes -Insulin sliding scale -Accu-Cheks DVT prophylaxis-subcutaneous heparin Full code Heart healthy diet Problem List: 1. Stroke 2. Chronic renal failure 3. Elevated troponin 4. Anasarca 5. Congestive heart failure Pain Ratin Pain Location: N/A Pain Goal: Remain pain free Pain Plan: PATHWYA Tomorrow's Labs & Rationales: CBC BEP PT/INR DVT/Prophylaxis: mechanical, pharmacological Cordelia Rivera 12/12/17 1513: Attending MD Review Statement Attending Statement Attending MD Statement: examined this patient, discuss w/resident/PA/NON LINEAR EDITOR, agreed w/resident/PA/NON LINEAR EDITOR, reviewed EMR data (avail), discussed with nursing, discussed with case mgmt Attending Assessment/Plan: Hyponatremia- unlcear etiology . We did not get the MAR from the facility [facility]. will try to get that to review if he was getting diuretics and what dose. pt got one dose of iv lasix in Er. will put him on strict I & O and given his 2 + pitting edema b/l will give a trail of lasix 20mg iv q12h for now and see how his sodium responds to that. His echo done recently showed normal ef and no evidence of diastolic dysfunction. TIA/ Stroke- pt was d/w neuro. his ct and mri negative for acute stroke. likely TIA . would f/u on neuro recommendtions . his symptoms have resolved/
--- NOTE | 2017-12-12 11:14 | Cons- Cardiology ---
General Information and HPI Consulting Request Date of Consult: 12/12/17 Requested By: Cordelia Rivera MD Reason for Consult: CVA, facial droop Source of Information: patient, old records Exam Limitations: dementia History of Present Illness: The patient is a 77-year-old gentleman with a past medical history of paroxysmal atrial fibrillation (on warfarin), dementia, chronic kidney disease, coronary artery disease, hypertension and hyperlipidemia and diabetes mellitus. He presented to our hospital from his extended care facility secondary to facial numbness and slurred speech. Due to the patient's underlying dementia, he is unclear of the onset of symptoms as well as the presence of concurrent symptoms or findings. He otherwise denies symptoms of palpitations, chest pains nor dyspnea. By report of his extended care facility, the patient had been complaining of increasing dyspnea on the day prior to arrival. There was noted facial droop and slurring which prompted his admission; however, without other complaints. Review of the patient's recent INR is demonstrated overall therapeutic ranges; however, there was a low value (1.8) noted in mid November. Allergies/Medications Allergies: Coded Allergies: NO KNOWN ALLERGIES (NONE 11/21/17) Home Med List: Atorvastatin Calcium (Lipitor) 80 MG TABLET 1 TAB PO DAILY CHOLESTEROL ( Reported) Diltiazem HCl (Diltiazem 12HR ER) 120 MG CAP.ER.12H 1 CAP PO BID AFIB ( Reported) Donepezil HCl (Aricept) 10 MG TABLET 1 TAB PO QPM MEMORY (Reported) [DUONEB] 3 ML NEB Q6-8P PRN BREATHING PROBLEMS (Reported) Escitalopram Oxalate (Lexapro) 10 MG TABLET 1 TAB PO DAILY MENTAL HEALTH ( Reported) Finasteride (Proscar) 5 MG TABLET 1 TAB PO DAILY BPH (Reported) Furosemide (Lasix) 20 MG TABLET 2 TAB PO DAILY WATER Metformin HCl (Metformin HCl ER) 500 MG TAB.ER.24H 1 TAB PO BID DM (Reported) Metoprolol Tartrate (Lopressor) 50 MG TABLET 1 TAB PO BID AF Tamsulosin HCl (Flomax) 0.4 MG CAP.ER.24H 1 CAP PO BID BPH (Reported) Torsemide 20 MG TABLET 1 TAB PO DAILY WATER RETENTION (Reported) Warfarin Sodium (Coumadin) 4 MG TABLET 6 MG PO ONCE BLOOD THINNER please change dose according to PT/INR. Current Medications: Current Medications Sig/James Start time Last Medication Dose Route Stop Time Status Admin Aspirin 81 MG DAILY 12/12 1000 AC PO Aspirin 325 MG ONCE ONE 12/12 0415 DC 12/12 PO 12/12 0416 0411 Aspirin 0 .STK-MED ONE 12/12 0414 DC PO Atorvastatin Calcium 80 MG DAILY 12/12 1000 CAN PO Atorvastatin Calcium 80 MG 1700 12/12 0630 AC PO Donepezil HCl 10 MG QPM 12/12 2200 AC PO Escitalopram Oxalate 10 MG DAILY 12/12 1000 AC PO Finasteride 5 MG DAILY 12/12 1000 AC PO Furosemide 0 .STK-MED ONE 12/12 0640 DC IV Furosemide 40 MG ONCE ONE 12/12 0630 DC 12/12 IV 12/12 0631 0637 Furosemide 40 MG ONCE ONE 12/12 0530 CAN IV 12/12 0531 Insulin Human Regular 0 Q6 12/12 1200 AC SC Magnesium Sulfate 1 GM ONCE ONE 12/12 0815 AC 12/12 Dextrose/Water 100 ML IV 12/12 1214 0835 Potassium Chloride 10 MEQ Q1H 12/12 0600 DC 12/12 IV 12/12 0701 0823 Tamsulosin HCl 0.4 MG BID 12/12 1000 AC PO Warfarin Sodium 5 MG COUMADIN 1700 ONE 12/12 1700 AC PO 12/12 1701 Review of Systems Review of Systems: The review of systems is negative for chest pains, palpitations nor lightheadedness. The remainder of the 14 point review of systems is noncontributory with the exception of above. 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 FATHER (colon cancer). SISTER (CAD s/p PCI). Psychosocial History Who Do You Live With? spouse Services at Home: None Primary Language: Yi Smoking Status: Never Smoked Living Will? yes Functional Ability ADLs Independent: dressing, eating, toileting, bathing. Ambulation: cane IADLs Needs Assist: shopping, housework, finances, telephone, transportation, medication admin. Exam & Diagnostic Data Vital Signs and I&O Vital Signs Date Time Temp Pulse Resp B/P B/P Pulse O2 O2 Flow FiO2 Mean Ox Delivery Rate 12/12 0747 95 Nasal 1.0L Cannula 12/12 0734 98.0 87 20 122/71 95 Nasal 1.0L Cannula 12/12 0646 98.0 87 20 122/71 95 Nasal 1.0L Cannula 12/12 0451 96.8 82 20 133/89 99 Nasal 2.0L Cannula 12/12 0335 Nasal 2.0L Cannula 12/12 0302 96.8 89 20 137/89 98 Nasal 2.0L Cannula Intake & Output 12/12 1600 12/12 0800 12/12 0000 12/11 1600 12/11 0800 12/11 0000 Intake Total 460 0 Output Total 300 Balance 460 -300 Intake, IV 300 Intake, Oral 160 0 Output, Urine 300 Patient 230 lb Weight Weight Estimated Measurement Method Physical Exam: General: Nontoxic, no apparent distress. HEENT: Sclera and conjunctiva within normal limits, without xanthelasmas, left facial droop. Neck: Carotids 2+ without bruits. Respiratory: Scattered rhonchi, air movement is good, without accessory respiratory muscle use. Heart: Irregularly irregular rate and rhythm, 2/6 systolic ejection murmur at left sternal border, without JVD. Abdomen: Soft, nontender, no masses, normoactive bowel sounds. Extremities: Without clubbing, cyanosis, without edema. Neuro: Nonfocal exam, strength, 5 out of 5, with the exception of facial droop Skin: Within normal limits without lesions. Psych: Mood and affect: Normal Labs/Ibrahima Results: Laboratory Tests 12/12 12/12 12/12 0649 0600 0537 Chemistry Triglycerides Cancelled Cholesterol Cancelled LDL Cholesterol, Calc Cancelled HDL Cholesterol Cancelled Cholesterol/HDL Ratio Cancelled TSH Cancelled Urines Urine Osmolality (300 - 1000 MOSM/KG) 477 Ur Random Creatinine (mg/dL) 133.0 Ur Random Sodium (30 - 90 mmol/L) 19 L Ur Random Potassium (mmol/L) 64.2 Fraction Sodium Excret (<1% %) 0.3 12/12 0307 Chemistry Sodium (137 - 145 mmol/L) 128 L Potassium (3.5 - 5.1 mmol/L) 3.4 L Chloride (98 - 107 mmol/L) 85 L Carbon Dioxide (22 - 30 mmol/L) 33 H Anion Gap (5 - 16) 10 BUN (9 - 20 mg/dL) 44 H Creatinine (0.7 - 1.2 mg/dL) 2.4 H Estimated GFR (>60 ml/min) 26 L BUN/Creatinine Ratio (7 - 25 %) 18.3 Glucose (65 - 99 mg/dL) 165 H Hemoglobin A1c (4.2 - 5.8 %) Pending Serum Osmolality (285 - 295 MOSM/KG) 284 L Calcium (8.4 - 10.2 mg/dL) 9.6 Magnesium (1.6 - 2.3 mg/dL) 1.6 Total Bilirubin (0.2 - 1.3 mg/dL) 0.9 Direct Bilirubin (< 0.4 mg/dL) 0.4 AST (17 - 59 U/L) 23 ALT (21 - 72 U/L) 41 Alkaline Phosphatase (< 127 U/L) 80 Troponin I (<0.11 ng/ml) 0.23 *H [id number] Pept (<125 pg/mL) 39269 H Total Protein (6.3 - 8.2 g/dL) 5.9 L Albumin (3.5 - 5.0 g/dL) 3.5 Triglycerides (<150 mg/dL) 90 Cholesterol (< 200 MG/DL) 113 LDL Cholesterol, Calc (65 - 129 mg/dL) 46 L HDL Cholesterol (40 - 60 mg/dL) 49 Cholesterol/HDL Ratio (0.00 - 4.88 %) 2 Amylase (30 - 110 U/L) 67 Lipase (23 - 300 U/L) 176 Free T4 (0.78 - 2.44 ng/dL) 1.32 Total T3 (0.97 - 1.69 ng/mL) 0.74 L TSH &T3 &Free T4 Intrp (0.27 - 4.20 uIU/mL) 6.750 H Coagulation PT (9.4 - 12.5 SEC) 25.4 H INR (0.90 - 1.17) 2.31 H APTT (25 - 37 SEC) 34 Hematology CBC w Diff NO MAN DIFF REQ WBC (4.8 - 10.8 /CUMM) 9.2 RBC (4.70 - 6.10 /CUMM) 4.53 L Hgb (14.0 - 18.0 G/DL) 11.7 L Hct (42 - 52 %) 35.7 L MCV (80.0 - 94.0 FL) 78.8 L MCH (27.0 - 31.0 PG) 25.8 L MCHC (33.0 - 37.0 G/DL) 32.8 L RDW (11.5 - 14.5 %) 20.7 H Plt Count (130 - 400 /CUMM) 210 MPV (7.4 - 10.4 FL) 10.2 Gran % (42.2 - 75.2 %) 83.5 H Lymphocytes % (20.5 - 51.1 %) 6.8 L Monocytes % (1.7 - 9.3 %) 8.9 Eosinophils % (0 - 5 %) 0.6 Basophils % (0.0 - 2.0 %) 0.2 Absolute Granulocytes (1.4 - 6.5 /CUMM) 7.7 H Absolute Lymphocytes (1.2 - 3.4 /CUMM) 0.6 L Absolute Monocytes (0.10 - 0.60 /CUMM) 0.8 H Absolute Eosinophils (0.0 - 0.7 /CUMM) 0.1 Absolute Basophils (0.0 - 0.2 /CUMM) 0 Assessment/Plan Assessment/Plan 77-year-old gentleman with a past medical history of paroxysmal atrial fibrillation (on warfarin), dementia, chronic kidney disease, coronary artery disease, hypertension and hyperlipidemia and diabetes mellitus. He presented to our hospital from his extended care facility secondary to facial numbness and slurred speech. He was as well noted to have mild increasing dyspnea. Acute facial droop with slurred speech: The patient presents with findings consistent with a CVA, most likely cardio embolic with underlying atrial fibrillation. This may be in the context of a subtherapeutic INR. Given this, I would attempt raising his INR therapeutic range to 2.5-3.5. We will continue with an overall conservative course of management given his underlying comorbidities. Dyspnea: The patient as well as had complaints of dyspnea with findings of an elevated BNP and physical findings consistent with possible mild congestive heart failure. He underwent an echocardiogram one month ago which demonstrated preserved LV systolic function as well as grossly normal valvular structure and function. A repeat echocardiogram is currently unnecessary. His overall presentation may be consistent with acute on chronic congestive heart failure with preserved LV systolic function Coronary artery disease: Stable. We will continue his current medication regimen. Given his comorbidities, an overall conservative approach will be followed. Thank you for allowing us to participate in the care of your patient. Please do not hesitate to contact us further with any questions. Sincerely, Tamir Blackman MD [facility] Consult Acknowledgment - Thank you for your consult request.
--- NOTE | 2017-12-12 11:19 | MRI REPORT ---
EXAMINATION: MR BRAIN WITHOUT CONTRAST CLINICAL INFORMATION: Acute ischemic stroke. Slurred speech. Left facial droop. COMPARISON: CT scan of the head 12/12/2017. TECHNIQUE: MRI of the brain without contrast was obtained using routine sequences. FINDINGS: Patient motion degrades image quality therefore the diagnostic accuracy of this examination is limited. There are chronic changes of a right craniotomy and chronic scarring within the right preschool adviser space and retroantral fat. Gliotic and encephalomalacic changes involving the right anterior temporal lobe are noted. There are scattered foci of nonspecific T2 FLAIR signal hyperintensity throughout the periventricular white matter that presumably represent a chronic manifestation of small vessel ischemia. No evidence of acute territorial infarct. Intracranial vascular flow voids are grossly maintained. There is no intracranial mass effect or midline shift. Lateral and third ventricles are slightly prominent and there is proportionate prominence of the subarachnoid spaces reflecting a mild degree of global parenchymal loss. Midline structures including the cervicomedullary junction are normal. Bone marrow signal intensity is normal. There is no mastoid or middle ear effusion. Mild paranasal sinus disease. IMPRESSION: Patient motion degrades image quality therefore the diagnostic accuracy of this examination is limited. There are chronic gliotic and encephalomalacic changes involving the right anterior temporal lobe. Numerous chronic small vessel ischemic changes are visualized within the periventricular white matter. No evidence of acute territorial infarct.
--- NOTE | 2017-12-12 12:24 | ULTRASOUND REPORT ---
EXAMINATION: US DUPLEX CAROTID AND VERTEBRAL CLINICAL INFORMATION: 77-year-old male with possible CVA. Evaluate for carotid artery stenosis. COMPARISON: None TECHNIQUE: Real-time ultrasound and Doppler techniques (integrating B-mode 2D vascular images, Doppler spectral analysis and color flow Doppler imaging) were utilized to interrogate the extracranial carotid and vertebral arteries bilaterally. The degree of stenosis determined by criteria similar to NASCET. FINDINGS: 1. On the right: Small amount of plaque is present at the carotid bulb but velocity measurements are normal and do not suggest a stenosis of greater than 50% diameter reduction in the right ICA. The vertebral artery is patent demonstrating antegrade flow. The common carotid artery velocity is 89 cm/s. The internal carotid artery velocities are 50 cm/s systolic and 14 cm/s diastolic. The external carotid artery velocity is 101 cm/s. 2. On the left: No plaque is present at the carotid bifurcation and all velocity measurements are normal and do not suggest a stenosis of greater than 50% diameter reduction in the left ICA. The vertebral artery is patent demonstrating antegrade flow. The common carotid artery velocity is 71 cm/s. The internal carotid artery velocities are 61 cm/s systolic and 16 cm/s diastolic. The external carotid artery velocity is 109 cm/s. The external carotid arteries appear unremarkable. IMPRESSION: There is small amount of plaque present in the right internal carotid artery with normal velocities consistent with a minimal 0-49% stenosis. The left side is normal with no plaque seen.
--- NOTE | 2017-12-12 14:18 | Cons- Endocrinology ---
General Information and HPI Consulting Request Date of Consult: 12/12/17 Requested By: medical team Reason for Consult: Abnormal thyroid test Source of Information: patient, old records Exam Limitations: confusion History of Present Illness: This 77-year-old male was brought to emergency room by ambulance from [facility] because of shortness of breath slurred speech and right facial numbness. In the emergency room the patient was found to be in congestive heart failure. He has a history of atrial fibrillation. The patient's TSH was found to be 6.75 with a free T4 of 1.32 and a total T3 of 0.74 when drawn in the emergency room. In addition the patient has hyponatremia with a sodium of 128 and potassium 3.4. The patient has chronic renal insufficiency and his most recent creatinine is 2.4 with a BUN of 44. He also has a history of diabetes. Allergies/Medications Allergies: Coded Allergies: NO KNOWN ALLERGIES (NONE 11/21/17) Home Med List: Atorvastatin Calcium (Lipitor) 80 MG TABLET 1 TAB PO DAILY CHOLESTEROL ( Reported) Diltiazem HCl (Diltiazem 12HR ER) 120 MG CAP.ER.12H 1 CAP PO BID AFIB ( Reported) Donepezil HCl (Aricept) 10 MG TABLET 1 TAB PO QPM MEMORY (Reported) [DUONEB] 3 ML NEB Q6-8P PRN BREATHING PROBLEMS (Reported) Escitalopram Oxalate (Lexapro) 10 MG TABLET 1 TAB PO DAILY MENTAL HEALTH ( Reported) Finasteride (Proscar) 5 MG TABLET 1 TAB PO DAILY BPH (Reported) Furosemide (Lasix) 20 MG TABLET 2 TAB PO DAILY WATER Metformin HCl (Metformin HCl ER) 500 MG TAB.ER.24H 1 TAB PO BID DM (Reported) Metoprolol Tartrate (Lopressor) 50 MG TABLET 1 TAB PO BID AF Tamsulosin HCl (Flomax) 0.4 MG CAP.ER.24H 1 CAP PO BID BPH (Reported) Torsemide 20 MG TABLET 1 TAB PO DAILY WATER RETENTION (Reported) Warfarin Sodium (Coumadin) 4 MG TABLET 6 MG PO ONCE BLOOD THINNER please change dose according to PT/INR. Current Medications: Current Medications Sig/James Start time Last Medication Dose Route Stop Time Status Admin Aspirin 81 MG DAILY 12/12 1000 AC 12/12 PO 1147 Aspirin 325 MG ONCE ONE 12/12 414 DC 12/12 PO 03/07 0416 0411 Aspirin 0 .STK-MED ONE 12/12 0414 DC PO Atorvastatin Calcium 80 MG DAILY 12/12 1000 CAN PO Atorvastatin Calcium 80 MG 1700 12/12 0630 AC PO Donepezil HCl 10 MG QPM 12/12 2200 AC PO Escitalopram Oxalate 10 MG DAILY 12/12 1000 AC 12/12 PO 1148 Finasteride 5 MG DAILY 12/12 1000 AC 12/12 PO 1148 Furosemide 0 .STK-MED ONE 12/12 0640 DC IV Furosemide 40 MG ONCE ONE 12/12 0630 DC 12/12 IV 12/12 0631 0637 Furosemide 40 MG ONCE ONE 12/12 0530 CAN IV 12/12 0531 Insulin Human Regular 0 Q6 12/12 1200 AC SC Magnesium Sulfate 1 GM ONCE ONE 12/12 0815 DC 12/12 Dextrose/Water 100 ML IV 12/12 1214 0835 Potassium Chloride 10 MEQ Q1H 12/12 0600 DC 12/12 IV 12/12 0701 0823 Tamsulosin HCl 0.4 MG BID 12/12 1000 AC 12/12 PO 1147 Warfarin Sodium 5 MG COUMADIN 1700 ONE 12/12 1700 DC PO 12/12 1701 Warfarin Sodium 2 MG COUMADIN 1700 ONE 12/12 1700 UNVr PO 12/12 1701 Review of Systems Comments Not answer questions appropriately Past History Travel History Traveled to [place] past 21 day No Medical History Neurological: dementia (mild) EENT: NONE Cardiovascular: AFIB (on coumadin), CHF, hypertension, hyperlipidemia Respiratory: NONE Gastrointestinal: s/p pyloric stenosis repair as SBO requiring lysis of adhesions Hepatic: NONE Renal: NONE Musculoskeletal: ARTHRITIS Psychiatric: DEMENTIA Endocrine: diabetes (non-insulin dependent) Blood Disorders: NONE 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 FATHER (colon cancer). SISTER (CAD s/p PCI). Psychosocial History Who Do You Live With? spouse Services at Home: None Primary Language: Kyrgyz Smoking Status: Never Smoked Living Will? yes Functional Ability ADLs Independent: dressing, eating, toileting, bathing. Ambulation: cane IADLs Needs Assist: shopping, housework, finances, telephone, transportation, medication admin. Exam & Diagnostic Data Last 24 Hrs of Vital Signs/I&O Vital Signs Date Time Temp Pulse Resp B/P B/P Pulse O2 O2 Flow FiO2 Mean Ox Delivery Rate 12/12 1357 Nasal 1.0L Cannula 12/12 1147 98.0 87 20 122/71 12/12 0747 95 Nasal 1.0L Cannula 12/12 0734 98.0 87 20 122/71 95 Nasal 1.0L Cannula 12/12 0646 98.0 87 20 122/71 95 Nasal 1.0L Cannula 12/12 0451 96.8 82 20 133/89 99 Nasal 2.0L Cannula 12/12 0335 Nasal 2.0L Cannula 12/12 0302 96.8 89 20 137/89 98 Nasal 2.0L Cannula Intake & Output 12/12 1600 12/12 0800 12/12 0000 Intake Total 460 0 Output Total 600 300 Balance -140 -300 Intake, IV 300 Intake, Oral 160 0 Output, Urine 600 300 Patient 261 lb 230 lb Weight Weight Bed scale Estimated Measurement Method Physical Exam General Appearance: awake, confused Head: normal appearance Eyes: Bilateral: normal appearance. Neck: normal inspection Cardiovascular: irregularly irregular Gastrointestinal: normal bowel sounds Neurologic/Psych: awake, motor weakness Labs/Ibrahima Results: Laboratory Tests 12/12 12/12 12/12 12/12 1133 0649 0600 0537 Chemistry Sodium (137 - 145 mmol/L) 128 L Troponin I (<0.11 ng/ml) 0.23 *H Triglycerides Cancelled Cholesterol Cancelled LDL Cholesterol, Calc Cancelled HDL Cholesterol Cancelled Cholesterol/HDL Ratio Cancelled TSH Cancelled Urines Urine Osmolality (300 - 1000 MOSM/KG) 477 Ur Random Creatinine (mg/dL) 133.0 Ur Random Sodium (30 - 90 mmol/L) 19 L Ur Random Potassium (mmol/L) 64.2 Fraction Sodium Excret (<1% %) 0.3 12/12 0307 Chemistry Sodium (137 - 145 mmol/L) 128 L Potassium (3.5 - 5.1 mmol/L) 3.4 L Chloride (98 - 107 mmol/L) 85 L Carbon Dioxide (22 - 30 mmol/L) 33 H Anion Gap (5 - 16) 10 BUN (9 - 20 mg/dL) 44 H Creatinine (0.7 - 1.2 mg/dL) 2.4 H Estimated GFR (>60 ml/min) 26 L BUN/Creatinine Ratio (7 - 25 %) 18.3 Glucose (65 - 99 mg/dL) 165 H Hemoglobin A1c (4.2 - 5.8 %) 7.9 H Serum Osmolality (285 - 295 MOSM/KG) 284 L Calcium (8.4 - 10.2 mg/dL) 9.6 Magnesium (1.6 - 2.3 mg/dL) 1.6 Total Bilirubin (0.2 - 1.3 mg/dL) 0.9 Direct Bilirubin (< 0.4 mg/dL) 0.4 AST (17 - 59 U/L) 23 ALT (21 - 72 U/L) 41 Alkaline Phosphatase (< 127 U/L) 80 Troponin I (<0.11 ng/ml) 0.23 *H [id number]-Jqjayhcbpst Pept (<125 pg/mL) 92200 H Total Protein (6.3 - 8.2 g/dL) 5.9 L Albumin (3.5 - 5.0 g/dL) 3.5 Triglycerides (<150 mg/dL) 90 Cholesterol (< 200 MG/DL) 113 LDL Cholesterol, Calc (65 - 129 mg/dL) 46 L HDL Cholesterol (40 - 60 mg/dL) 49 Cholesterol/HDL Ratio (0.00 - 4.88 %) 2 Amylase (30 - 110 U/L) 67 Lipase (23 - 300 U/L) 176 Free T4 (0.78 - 2.44 ng/dL) 1.32 Total T3 (0.97 - 1.69 ng/mL) 0.74 L TSH &T3 &Free T4 Intrp (0.27 - 4.20 uIU/mL) 6.750 H Cortisol AM Sample (4.46 - 22.7 ug/dL) Pending Coagulation PT (9.4 - 12.5 SEC) 25.4 H INR (0.90 - 1.17) 2.31 H APTT (25 - 37 SEC) 34 Hematology CBC w Diff NO MAN DIFF REQ WBC (4.8 - 10.8 /CUMM) 9.2 RBC (4.70 - 6.10 /CUMM) 4.53 L Hgb (14.0 - 18.0 G/DL) 11.7 L Hct (42 - 52 %) 35.7 L MCV (80.0 - 94.0 FL) 78.8 L MCH (27.0 - 31.0 PG) 25.8 L MCHC (33.0 - 37.0 G/DL) 32.8 L RDW (11.5 - 14.5 %) 20.7 H Plt Count (130 - 400 /CUMM) 210 MPV (7.4 - 10.4 FL) 10.2 Gran % (42.2 - 75.2 %) 83.5 H Lymphocytes % (20.5 - 51.1 %) 6.8 L Monocytes % (1.7 - 9.3 %) 8.9 Eosinophils % (0 - 5 %) 0.6 Basophils % (0.0 - 2.0 %) 0.2 Absolute Granulocytes (1.4 - 6.5 /CUMM) 7.7 H Absolute Lymphocytes (1.2 - 3.4 /CUMM) 0.6 L Absolute Monocytes (0.10 - 0.60 /CUMM) 0.8 H Absolute Eosinophils (0.0 - 0.7 /CUMM) 0.1 Absolute Basophils (0.0 - 0.2 /CUMM) 0 Assessment/Plan Assessment/Plan This patient has a mildly elevated TSH and a normal free T4. This could be on the basis of sick euthyroid. As far as we can tell he is does not have a history of previous thyroid disease. I would repeat the patient's free T4 and TSH tomorrow along with an anti-thyroid peroxidase and antithyroglobulin antibodies. I do not feel his thyroid disease is contributing significantly to his hyponatremia. With regard to hyponatremia we should also check his cortisol level. Most likely the hyponatremia is related to escitalopram and also his congestive heart failure. I would be reluctant to place the patient on a fluid restriction in view of his chronic renal disease. Hopefully his serum sodium will improve as his congestive heart failure is treated. Otherwise he may need to be tapered off the escitalopram gradually. The patient's confusion could be related to multi-infarct dementia made worse by a metabolic encephalopathy from hyponatremia. With regard to the patient's diabetes I would keep him on a a carbohydrate 1 diet and stop his regular insulin every 6 hours which was ordered in the ER. We can place him on NovoLog coverage before meals only starting with a sugar above 200 if he is eating. NovoLog coverage 3 times a day before meals should be less than 200 give no insulin, 201-250 give 2 units NovoLog, 251-300 give 3 units NovoLog, 301-350 give 4 units NovoLog, 351 -400 give 5 units NovoLog. No bedtime coverage should be given. Consult Acknowledgment - Thank you for your consult request.
--- NOTE | 2017-12-12 14:23 | Event Note ---
Event Note Event Note: Stroke Evaluation - CVA/TIA diagnosis -yes NIH stroke scale -2 -Alert,answer correctly, obey command, Date/Time last known well -12/11/2017 a.m Symptoms start date/time - 1:30 AM on 12/12/2017 Reason TPA was not given - On oumadin Swallow evaluation - Passed Current and past history of atrial fibrillation -atrial fibrillation on Coumadin
[2017-12-12 14:42] VITALS: BP 120/76
--- NOTE | 2017-12-12 14:44 | Cons- Neurology ---
General Information and HPI Consulting Request Date of Consult: 12/12/17 Requested By: Cordelia Rivera MD Reason for Consult: Slurring of speech and numbness of the right face Source of Information: patient, old records, ER MD Exam Limitations: dementia History of Present Illness: 77-year-old man fully anticoagulated with warfarin because of atrial fibrillation came in yesterday from his ECF due to slurring of speech and numbness of the right face last night. History from the patient is hampered by dementia but he says he thinks he has nearly recovered. He could not say if has happened before. Was not candidate for tpa due to INR of 2.31 Allergies/Medications Allergies: Coded Allergies: NO KNOWN ALLERGIES (NONE 11/21/17) Home Med List: Atorvastatin Calcium (Lipitor) 80 MG TABLET 1 TAB PO DAILY CHOLESTEROL ( Reported) Diltiazem HCl (Diltiazem 12HR ER) 120 MG CAP.ER.12H 1 CAP PO BID AFIB ( Reported) Donepezil HCl (Aricept) 10 MG TABLET 1 TAB PO QPM MEMORY (Reported) [DUONEB] 3 ML NEB Q6-8P PRN BREATHING PROBLEMS (Reported) Escitalopram Oxalate (Lexapro) 10 MG TABLET 1 TAB PO DAILY MENTAL HEALTH ( Reported) Finasteride (Proscar) 5 MG TABLET 1 TAB PO DAILY BPH (Reported) Furosemide (Lasix) 20 MG TABLET 2 TAB PO DAILY WATER Metformin HCl (Metformin HCl ER) 500 MG TAB.ER.24H 1 TAB PO BID DM (Reported) Metoprolol Tartrate (Lopressor) 50 MG TABLET 1 TAB PO BID AF Tamsulosin HCl (Flomax) 0.4 MG CAP.ER.24H 1 CAP PO BID BPH (Reported) Torsemide 20 MG TABLET 1 TAB PO DAILY WATER RETENTION (Reported) Warfarin Sodium (Coumadin) 4 MG TABLET 6 MG PO ONCE BLOOD THINNER please change dose according to PT/INR. Current Medications: Current Medications Sig/James Start time Last Medication Dose Route Stop Time Status Admin Aspirin 81 MG DAILY 12/12 1000 AC 12/12 PO 1147 Aspirin 325 MG ONCE ONE 12/12 414 DC 12/12 PO 12/126 0411 Aspirin 0 .STK-MED ONE 12/124 DC PO Atorvastatin Calcium 80 MG DAILY 12/12 1000 CAN PO Atorvastatin Calcium 80 MG 1700 12/12 0630 AC PO Donepezil HCl 10 MG QPM 12/12 2200 AC PO Escitalopram Oxalate 10 MG DAILY 12/12 1000 AC 12/12 PO 1148 Finasteride 5 MG DAILY 12/12 1000 AC 12/12 PO 1148 Furosemide 0 .STK-MED ONE 12/12 0640 DC IV Furosemide 40 MG ONCE ONE 12/12 0630 DC 12/12 IV 12/12 0631 0637 Furosemide 40 MG ONCE ONE 12/12 0530 CAN IV 12/12 0531 Insulin Human Regular 0 Q6 12/12 1200 AC SC Magnesium Sulfate 1 GM ONCE ONE 12/12 0815 DC 12/12 Dextrose/Water 100 ML IV 12/12 1214 0835 Potassium Chloride 10 MEQ Q1H 12/12 0600 DC 12/12 IV 12/12 0701 0823 Tamsulosin HCl 0.4 MG BID 12/12 1000 AC 12/12 PO 1147 Warfarin Sodium 5 MG COUMADIN 1700 ONE 12/12 1700 DC PO 12/12 1701 Warfarin Sodium 2 MG COUMADIN 1700 ONE 12/12 1700 UNVr PO 12/12 1701 Review of Systems Review of Systems: Denied chest pain, palpitations, dyspnea, headache, vision loss, dizziness, bruising or bleeding, GI problems, depression, lateralized weakness or numbness of extremities Past History Travel History Traveled to [place] past 21 day No Medical History Neurological: dementia (mild) EENT: NONE Cardiovascular: AFIB (on coumadin), CHF, hypertension, hyperlipidemia Respiratory: NONE Gastrointestinal: s/p pyloric stenosis repair as infant SBO requiring lysis of adhesions Hepatic: NONE Renal: NONE Musculoskeletal: ARTHRITIS Psychiatric: DEMENTIA Endocrine: diabetes (non-insulin dependent) Blood Disorders: NONE 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 FATHER (colon cancer). SISTER (CAD s/p PCI). Psychosocial History Who Do You Live With? spouse Services at Home: None Primary Language: Chadian Smoking Status: Never Smoked Living Will? yes Functional Ability ADLs Independent: dressing, eating, toileting, bathing. Ambulation: cane IADLs Needs Assist: shopping, housework, finances, telephone, transportation, medication admin. Exam & Diagnostic Data Vital Signs and I&O Vital Signs Date Time Temp Pulse Resp B/P B/P Pulse O2 O2 Flow FiO2 Mean Ox Delivery Rate 12/12 1357 Nasal 1.0L Cannula 12/12 1147 98.0 87 20 122/71 12/12 0747 95 Nasal 1.0L Cannula 12/12 0734 98.0 87 20 122/71 95 Nasal 1.0L Cannula 12/12 0646 98.0 87 20 122/71 95 Nasal 1.0L Cannula 12/12 0451 96.8 82 20 133/89 99 Nasal 2.0L Cannula 12/12 0335 Nasal 2.0L Cannula 12/12 0302 96.8 89 20 137/89 98 Nasal 2.0L Cannula Intake & Output 12/12 1600 12/12 0800 12/12 0000 Intake Total 460 0 Output Total 600 300 Balance -140 -300 Intake, IV 300 Intake, Oral 160 0 Output, Urine 600 300 Patient 261 lb 230 lb Weight Weight Bed scale Estimated Measurement Method Physical Exam: On exam the patient appeared generally well and in no distress. Temporal wasting and old craniotomy - right pentecostalism No carotid bruits and no cardiac murmur. No peripheral edema Mental status: Awake, hard to engage in conversation, short answers naming simple objects OK but dysarthric Funduscopic unable due to level of cooperation Visual lopez full , Eye movements full without nystagmus, pupils midsize equal round and reactive to light. Facial movement normal bilaterally Facial sensation normal bilaterally to touch Hearing reduced Uvula elevates midline Tongue protrusion is midline Shoulder shrug symmetric Motor power and tone normal in all 4 extremities Sensation intact to primary modes Tendon reflexes normal and symmetric without pathologic signs Coordination no ataxia Gait testing deferred Last 48 Hours of Lab Results: Laboratory Tests 12/12 12/12 12/12 12/12 1133 0649 0600 0537 Chemistry Sodium (137 - 145 mmol/L) 128 L Troponin I (<0.11 ng/ml) 0.23 *H Triglycerides Cancelled Cholesterol Cancelled LDL Cholesterol, Calc Cancelled HDL Cholesterol Cancelled Cholesterol/HDL Ratio Cancelled TSH Cancelled Urines Urine Osmolality (300 - 1000 MOSM/KG) 477 Ur Random Creatinine (mg/dL) 133.0 Ur Random Sodium (30 - 90 mmol/L) 19 L Ur Random Potassium (mmol/L) 64.2 Fraction Sodium Excret (<1% %) 0.3 12/12 0307 Chemistry Sodium (137 - 145 mmol/L) 128 L Potassium (3.5 - 5.1 mmol/L) 3.4 L Chloride (98 - 107 mmol/L) 85 L Carbon Dioxide (22 - 30 mmol/L) 33 H Anion Gap (5 - 16) 10 BUN (9 - 20 mg/dL) 44 H Creatinine (0.7 - 1.2 mg/dL) 2.4 H Estimated GFR (>60 ml/min) 26 L BUN/Creatinine Ratio (7 - 25 %) 18.3 Glucose (65 - 99 mg/dL) 165 H Hemoglobin A1c (4.2 - 5.8 %) 7.9 H Serum Osmolality (285 - 295 MOSM/KG) 284 L Calcium (8.4 - 10.2 mg/dL) 9.6 Magnesium (1.6 - 2.3 mg/dL) 1.6 Total Bilirubin (0.2 - 1.3 mg/dL) 0.9 Direct Bilirubin (< 0.4 mg/dL) 0.4 AST (17 - 59 U/L) 23 ALT (21 - 72 U/L) 41 Alkaline Phosphatase (< 127 U/L) 80 Troponin I (<0.11 ng/ml) 0.23 *H Eig-K-Sckzczirwlr Pept (<125 pg/mL) 91082 H Total Protein (6.3 - 8.2 g/dL) 5.9 L Albumin (3.5 - 5.0 g/dL) 3.5 Triglycerides (<150 mg/dL) 90 Cholesterol (< 200 MG/DL) 113 LDL Cholesterol, Calc (65 - 129 mg/dL) 46 L HDL Cholesterol (40 - 60 mg/dL) 49 Cholesterol/HDL Ratio (0.00 - 4.88 %) 2 Amylase (30 - 110 U/L) 67 Lipase (23 - 300 U/L) 176 Free T4 (0.78 - 2.44 ng/dL) 1.32 Total T3 (0.97 - 1.69 ng/mL) 0.74 L TSH &T3 &Free T4 Intrp (0.27 - 4.20 uIU/mL) 6.750 H Cortisol AM Sample (4.46 - 22.7 ug/dL) Pending Coagulation PT (9.4 - 12.5 SEC) 25.4 H INR (0.90 - 1.17) 2.31 H APTT (25 - 37 SEC) 34 Hematology CBC w Diff NO MAN DIFF REQ WBC (4.8 - 10.8 /CUMM) 9.2 RBC (4.70 - 6.10 /CUMM) 4.53 L Hgb (14.0 - 18.0 G/DL) 11.7 L Hct (42 - 52 %) 35.7 L MCV (80.0 - 94.0 FL) 78.8 L MCH (27.0 - 31.0 PG) 25.8 L MCHC (33.0 - 37.0 G/DL) 32.8 L RDW (11.5 - 14.5 %) 20.7 H Plt Count (130 - 400 /CUMM) 210 MPV (7.4 - 10.4 FL) 10.2 Gran % (42.2 - 75.2 %) 83.5 H Lymphocytes % (20.5 - 51.1 %) 6.8 L Monocytes % (1.7 - 9.3 %) 8.9 Eosinophils % (0 - 5 %) 0.6 Basophils % (0.0 - 2.0 %) 0.2 Absolute Granulocytes (1.4 - 6.5 /CUMM) 7.7 H Absolute Lymphocytes (1.2 - 3.4 /CUMM) 0.6 L Absolute Monocytes (0.10 - 0.60 /CUMM) 0.8 H Absolute Eosinophils (0.0 - 0.7 /CUMM) 0.1 Absolute Basophils (0.0 - 0.2 /CUMM) 0 Imaging/Other Studies: MRI brain: Patient motion degrades image quality therefore the diagnostic accuracy of this examination is limited. There are chronic gliotic and encephalomalacic changes involving the right anterior temporal lobe. Numerous chronic small vessel ischemic changes are visualized within the periventricular white matter. No evidence of acute territorial infarct. Dopplers: There is small amount of plaque present in the right internal carotid artery with normal velocities consistent with a minimal 0-49% stenosis. The left side is normal with no plaque seen. Assessment/Plan Assessment: TIA probably cardioembolic due to AF despite therapeutic INR possibly atherosclerotic Recommendations: continue warfarin concur with addition of asa 81 mg Atorvastatin speech therapy early return to ECF once sodium corrected Consult Acknowledgment - Thank you for your consult request.
[2017-12-12 22:40] VITALS: BP 126/78
--- NOTE | 2017-12-13 07:15 | PN- Housestaff ---
Camilla HERRON,Isa 12/13/17 0715: Subjective Follow-up For: 1. Acute ischemic stroke not a candidate for tPA (on coumadin) 2. Afib on coumadin with therapeutic INR 3. Acute on chronic diastolic heart failure 4. 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 Elevated troponin likely demand ischemia Type 2 VT 6. Hyponatremia hypervolemic state Tele-Events Since Last Visit: A. fib, 130, PVCs Subjective: Patient was seen and examined at bedside, he continues to complain of numbness of his right cheek, denies any nausea, vomiting, diarrhea, constipation Review of Systems Constitutional: Denies: no symptoms. Cardiovascular: Denies: no symptoms. Respiratory: Denies: no symptoms. Gastrointestinal: Denies: no symptoms. Neurological/Psychological: Reports: numbness (of the right cheek). Objective Last 24 Hrs of Vital Signs/I&O Vital Signs Date Time Temp Pulse Resp B/P B/P Pulse O2 O2 Flow FiO2 Mean Ox Delivery Rate 12/13 1007 94 Nasal 1.0L Cannula 12/13 0958 Nasal 1.0L Cannula 12/13 0905 94 Nasal 1.0L Cannula 12/13 0804 118/70 12/13 0733 97.4 135 20 118/68 96 Nasal 1.0L Cannula 12/13 0000 Nasal 1.0L Cannula 12/12 2240 97.3 134 18 126/78 96 12/12 2114 133 126/78 12/12 1933 Nasal 1.0L Cannula 12/12 1442 97.6 106 20 120/76 95 Nasal 1.0L Cannula 12/12 1357 Nasal 1.0L Cannula 12/12 1147 98.0 87 20 122/71 Intake & Output 12/13 1600 08 0800 12/13 0000 Intake Total 250 175 Output Total 300 475 Balance -50 -300 Intake, Oral 250 175 Output, Urine 300 475 Patient 258 lb 258 lb Weight Physical Exam General Appearance: Alert, Cooperative, No Acute Distress HEENT: Atraumatic, PERRLA, EOMI, Mucous Membr. moist/pink Neck: Supple, No JVD Cardiovascular: Normal S1, Normal S2, No Murmurs Lungs: Clear to Auscultation Abdomen: Normal Bowel Sounds, Soft, No Tenderness, No Hepatospenomegaly Neurological: Normal Speech, Strength at 5/5 X4 Ext, Normal Tone, Sensation Intact Extremities: No Clubbing, No Cyanosis, 2 + bilateral pitting edema Vascular: Normal Pulses Assessment/Plan Assessment: 77-year-old gentleman with past medical history of paroxysmal atrial ablation on Coumadin, hypertension, hyperlipidemia, small bowel obstruction, dementia, sarcoma right cheek status post radiation came from [facility] for complaints of facial numbness and slurred speech. Problem list: #elevated troponin #CVA #hyponatremia, hypokalemia #atrial fibrillation on Coumadin #chronic renal insufficiency #heart failure. Preserved ejection fraction #diabetes #hyperlipidemia Plan: # ?CVA CT did not show any acute events NIH scale 2. Not a candidate for TPA given his history of anticoagulation. MRI showed chronic gliotic and encephalomalacia in the right temporal lobe, numerous chronic small vessel ischemic -Continue aspirin and statin -Blood pressure is currently controlled, will allow permissive hypertension -PT/OT evaluation - No CTA given low NIH SS, not a candidate for embolectomy. -Follow-up on US carotids. -Follow-up on MRI - Neurology consult appreciated # elevated troponin Asymptomatic and troponin are trending down with no EKG changes most likely demand ischemia - currently appears fluid overloaded. - Serial ekgs and troponins - Echocardiogram to evaluate a source of thrombus HX of Afib on coumadin Heart rate was running high in the 130s today On admission the systolic blood pressure was towards the lower side 112, his diltiazem and metoprolol were held Metoprolol was restarted today 50 mg twice daily p.o. Will consider restarting diltiazem after discussion with carton stamper if the blood pressure allows Patient was given Coumadin 2 mg today PT/INR and dose Coumadin accordingly tomorrow, goal INR 2.53.5 # HFpEF - acute exacerbation, patient still looks volume overloaded with 2+ bilateral lower extremity pitting edema -We will hold Lsix today given his AKIand blood pressure of 120/71 in the context of ischemic stroke -Strict ins and outs -Daily weights -Cardiology consultation. # hyponatremia Sodium is 129 Likely due to poor oral intake and Lasix -Appears acute, hypervolemic hyponatremia -Check serum osmolality 284, urine O'smolarity 477, urine lites 19 -Monitor closely -Avoid overcorrection If persistent will consider tapering citalopram # diabetes -Insulin sliding scale -Accu-Cheks DVT prophylaxis-subcutaneous heparin Full code Heart healthy diet Problem List: 1. PAULA (acute kidney injury) 2. Dementia 3. Diabetes 4. Hyponatremia 5. Edema 6. Elevated troponin 7. CVA (cerebral vascular accident) Pain Ratin Pain Location: N/A Pain Goal: Remain pain free Pain Plan: Pathway Tomorrow's Labs & Rationales: cbc bep INR DVT/Prophylaxis: mechanical, pharmacological León Gaona MD 12/13/17 2220: Attending MD Review Statement Attending Statement Attending MD Statement: examined this patient, discuss w/resident/PA/AUDIT MANAGER, agreed w/resident/PA/AUDIT MANAGER, reviewed EMR data (avail), discussed with case mgmt, reviewed images, amended to note Attending Assessment/Plan: The patient was seen and discussed with house staff and family. Symptoms of TIA resolved. Na only slightly improved. Appreciate Endocrinology follow-up and Neuro consult. Continue to follow Na in morning.
[2017-12-13 07:33] VITALS: BP 118/68
--- NOTE | 2017-12-13 07:59 | PN- Endocrinology ---
Assessment/Plan Endoscopy Assessment: This 77-year-old male was brought to emergency room by ambulance from [facility] because of shortness of breath slurred speech and right facial numbness. In the emergency room the patient was found to be in congestive heart failure. He has a history of atrial fibrillation. The patient's TSH was found to be 6.75 with a free T4 of 1.32 and a total T3 of 0.74 when drawn in the emergency room. In addition the patient has hyponatremia with a sodium of 128 and potassium 3.4. The patient has chronic renal insufficiency and his most recent creatinine is 2.4 with a BUN of 44. He also has a history of diabetes. The patient is much better this morning. He states he feels well. He is alert and oriented. He is in atrial fibrillation. His ventricular response is rapid today at 135. Today's labs are pending. The patient is on NovoLog coverage before meals only for diabetes. His last blood sugars are 161 and 159. Plan: Suggest await today's labs. If his serum sodium is not improved I would continue consider tapering him off escitalopram. This drug cannot be stopped abruptly. We should also repeat his thyroid function tests today. Continue NovoLog coverage before meals only for control of his blood sugars. Subjective Subjective: Feels improved Review of Systems Constitutional: Denies: chills, fever. Cardiovascular: Denies: chest pain. Respiratory: Denies: short of breath. Gastrointestinal: Denies: nausea, vomiting. Skin: Reports: no symptoms. Objective Last 24 Hrs of Vital Signs/I&O Vital Signs Date Time Temp Pulse Resp B/P B/P Pulse O2 O2 Flow FiO2 Mean Ox Delivery Rate 12/13 0633 97.4 135 20 118/68 96 Nasal 1.0L Cannula 12/13 0000 Nasal 1.0L Cannula 12/12 2240 97.3 134 18 126/78 96 12/12 2114 133 126/78 12/12 1933 Nasal 1.0L Cannula 12/12 1442 97.6 106 20 120/76 95 Nasal 1.0L Cannula 12/12 1357 Nasal 1.0L Cannula 12/12 1147 98.0 87 20 122/71 Intake & Output 12/13 0800 12/13 0000 12/12 1600 Intake Total 250 175 460 Output Total 300 475 800 Balance -50 -300 -340 Intake, IV 300 Intake, Oral 250 175 160 Output, Urine 300 475 800 Patient 258 lb 258 lb 261 lb Weight Weight Bed scale Measurement Method Vital Signs Date Time Temp Pulse Resp B/P B/P Pulse O2 O2 Flow FiO2 Mean Ox Delivery Rate 12/13 0633 97.4 135 20 118/68 96 Nasal 1.0L Cannula 12/13 0000 Nasal 1.0L Cannula 12/12 2240 97.3 134 18 126/78 96 12/12 2114 133 126/78 12/12 1933 Nasal 1.0L Cannula 12/12 1442 97.6 106 20 120/76 95 Nasal 1.0L Cannula 12/12 1357 Nasal 1.0L Cannula 12/12 1147 98.0 87 20 122/71 Intake & Output 12/13 0800 12/13 0000 12/12 1600 Intake Total 250 175 460 Output Total 300 475 800 Balance -50 -300 -340 Intake, IV 300 Intake, Oral 250 175 160 Output, Urine 300 475 800 Patient 258 lb 258 lb 261 lb Weight Weight Bed scale Measurement Method Physical Exam General Appearance: alert, awake, comfortable Neck: normal inspection Respiratory: normal breath sounds Cardiovascular: regular rate/rhythm Abdomen: normal bowel sounds Current Medications: Current Medications Sig/James Start time Last Medication Dose Route Stop Time Status Admin Albuterol Sulfate 3 ML Q4P PRN 12/12 1945 AC INH Aspirin 81 MG DAILY 12/12 1000 AC 12/12 PO 1147 Atorvastatin Calcium 80 MG DAILY 12/12 1000 CAN PO Atorvastatin Calcium 80 MG 1700 12/12 0630 AC 12/12 PO 1706 Donepezil HCl 10 MG QPM 12/12 2200 AC 12/12 PO 2114 Escitalopram Oxalate 10 MG DAILY 12/12 1000 AC 12/12 PO 1148 Finasteride 5 MG DAILY 12/12 1000 AC 12/12 PO 1148 Insulin Aspart 0 TIDAC 12/12 1700 AC SC Insulin Human Regular 0 Q6 12/12 1200 DC SC Ipratropium [place] 2.5 ML Q4P PRN 12/12 2000 AC INH Magnesium Sulfate 1 GM ONCE ONE 12/12 0815 DC 12/12 Dextrose/Water 100 ML IV 12/12 1214 0835 Tamsulosin HCl 0.4 MG BID 12/12 1000 AC 12/12 PO 2114 Warfarin Sodium 2 MG .STK-MED ONE 12/12 1705 DC PO 12/12 1706 Warfarin Sodium 5 MG COUMADIN 1700 ONE 12/12 1700 DC PO 12/12 1701 Warfarin Sodium 2 MG COUMADIN 1700 ONE 12/12 1700 DC / PO 12/12 1701 1706 Results Pertinent Lab/Ibrahima Results: Laboratory Tests 12/13 12/12 0628 1133 Chemistry Sodium (137 - 145 mmol/L) Pending 128 L Potassium Pending Chloride Pending Carbon Dioxide Pending Anion Gap Pending BUN Pending Creatinine Pending BUN/Creatinine Ratio Pending Troponin I (<0.11 ng/ml) 0.23 *H Free T4 Pending TSH &T3 &Free T4 Intrp Pending Coagulation PT Pending INR Pending Hematology CBC w Diff Pending WBC Pending RBC Pending Hgb Pending Hct Pending MCV Pending MCH Pending MCHC Pending RDW Pending Plt Count Pending MPV Pending Immunology Thyroglobulin Antibody Pending Thyroid Peroxidase Ab (< 61 U/mL) < 28
[2017-12-13 08:09] LABS: ABSOLUTE BASOPHIL COUNT 0 /CUMM (0.0-0.2); ABSOLUTE EOSINOPHIL COUNT 0 /CUMM (0.0-0.7); ABSOLUTE GRANULOCYTE CT 6.1 /CUMM (1.4-6.5); ABSOLUTE LYMPH COUNT 0.7 /CUMM (1.2-3.4); ABSOLUTE MONOCYTE COUNT 0.7 /CUMM (0.10-0.60); BASOPHIL % 0.3 % (0.0-2.0); EOSINOPHIL % 0.2 % (0-5); GRANULOCYTE % 81.2 % (42.2-75.2); MEAN CORPUSCULAR HGB 25.6 PG (27.0-31.0); MEAN CORPUSCULAR HGB CONC 32.7 G/DL (33.0-37.0); MEAN CORPUSCULAR VOLUME 78.4 FL (80.0-94.0); MEAN PLATELET VOLUME 10.6 FL (7.4-10.4); PLATELET COUNT 190 /CUMM (130-400); RBC DISTRIBUTION WIDTH 21.1 % (11.5-14.5); RED BLOOD CELL CT 4.33 /CUMM (4.70-6.10); WHITE BLOOD CELL COUNT 7.5 /CUMM (4.8-10.8)
[2017-12-13 08:38] LABS: PT 28.3 SEC (9.4-12.5)
--- NOTE | 2017-12-13 10:34 | PN- Cardiology ---
Subjective Subjective: Telemetry reviewed. Rapid rate probably atrial fibrillation rate of around 130 Objective Vital Signs and I&Os Vital Signs Date Time Temp Pulse Resp B/P B/P Pulse O2 O2 Flow FiO2 Mean Ox Delivery Rate 12/13 1025 137 116/62 12/13 1007 94 Nasal 1.0L Cannula 12/13 0958 Nasal 1.0L Cannula 12/13 0905 94 Nasal 1.0L Cannula 12/13 0804 118/70 12/13 0733 97.4 135 20 118/68 96 Nasal 1.0L Cannula 12/13 0000 Nasal 1.0L Cannula 12/12 2240 97.3 134 18 126/78 96 12/12 2114 133 126/78 12/12 1933 Nasal 1.0L Cannula 12/12 1442 97.6 106 20 120/76 95 Nasal 1.0L Cannula 12/12 1357 Nasal 1.0L Cannula 12/12 1147 98.0 87 20 122/71 Intake & Output 12/13 1600 12/13 0800 12/13 0000 12/12 1600 12/12 0800 12/12 0000 Intake Total 250 175 460 0 Output Total 300 475 800 300 Balance -50 -300 -340 -300 Intake, IV 300 Intake, Oral 250 175 160 0 Output, Urine 300 475 800 300 Patient 258 lb 258 lb 261 lb 230 lb Weight Weight Bed scale Estimated Measurement Method Physical Exam: Gen. exam patient comfortable but poor historian due to dementia Head normocephalic atraumatic Eyes sclera anicteric, conjunctiva no pallor extraocular muscles normal Neck no jugular venous distention no thyroid masses no palpable nodes Chest lungs revealed a few crackles bilaterally Heart irregular rhythm with a rapid ventricular response of around 130 Abdomen soft no organomegaly bowel sounds normal extremities extremities 2+ edema neurological could not be evaluated Current Medications: Current Medications Sig/James Start time Last Medication Dose Route Stop Time Status Admin Albuterol Sulfate 3 ML Q4P PRN 12/12 1945 AC INH Aspirin 81 MG DAILY 12/12 1000 AC 12/13 PO 0804 Atorvastatin Calcium 80 MG 1700 12/12 0630 AC 12/12 PO 1706 Donepezil HCl 10 MG QPM 12/12 2200 AC 12/12 PO 2114 Escitalopram Oxalate 10 MG DAILY 12/12 1000 AC 12/13 PO 0804 Finasteride 5 MG DAILY 12/12 1000 AC 12/13 PO 0805 Insulin Aspart 0 TIDAC 12/12 1700 AC SC Insulin Human Regular 0 Q6 12/12 1200 DC SC Ipratropium [place] 2.5 ML Q4P PRN 12/12 2000 AC INH Magnesium Sulfate 1 GM ONCE ONE 12/12 0815 DC 12/12 Dextrose/Water 100 ML IV 12/12 1214 0835 Metoprolol Tartrate 50 MG BID 12/13 1000 AC 12/13 PO 1025 Tamsulosin HCl 0.4 MG BID 12/12 1000 AC 12/13 PO 0804 Warfarin Sodium 2 MG COUMADIN 1700 ONE 12/13 1700 AC PO 12/13 1701 Warfarin Sodium 2 MG .STK-MED ONE 12/12 1705 DC PO 12/12 1706 Warfarin Sodium 5 MG COUMADIN 1700 ONE 12/12 1700 DC PO 12/12 1701 Warfarin Sodium 2 MG COUMADIN 1700 ONE 12/12 1700 DC 12/12 PO 12/12 1701 1706 Results Last 48 Hrs of Labs/Mics: Laboratory Tests 12/13/17 0628: Anion Gap 14, Estimated GFR 28 L, BUN/Creatinine Ratio 18.3, Troponin I 0.22 *H , Free T4 1.28, Total T3 0.63 L, TSH &T3 &Free T4 Intrp 3.770, PT 28.3 H, INR 2.57 H, CBC w Diff NO MAN DIFF REQ, RBC 4.33 L, MCV 78.4 L, MCH 25.6 L, MCHC 32.7 L, RDW 21.1 H, MPV 10.6 H, Gran % 81.2 H, Lymphocytes % 8.7 L, Monocytes % 9.6 H, Eosinophils % 0.2, Basophils % 0.3, Absolute Granulocytes 6.1, Absolute Lymphocytes 0.7 L, Absolute Monocytes 0.7 H, Absolute Eosinophils 0, Absolute Basophils 0, Thyroglobulin Antibody Pending 12/12/17 1133: Troponin I 0.23 *H, Thyroid Peroxidase Ab < 28 12/12/17 0649: Urine Osmolality 477, Ur Random Creatinine 133.0, Ur Random Sodium 19 L, Ur Random Potassium 64.2, Fraction Sodium Excret 0.3 12/12/17 0600: Triglycerides Cancelled, Cholesterol Cancelled, LDL Cholesterol, Calc Cancelled, HDL Cholesterol Cancelled, Cholesterol/HDL Ratio Cancelled 12/12/17 0537: TSH Cancelled 12/12/17 0307: Anion Gap 10, Estimated GFR 26 L, BUN/Creatinine Ratio 18.3, Glucose 165 H, Hemoglobin A1c 7.9 H, Serum Osmolality 284 L, Calcium 9.6, Magnesium 1.6, Total Bilirubin 0.9, Direct Bilirubin 0.4, AST 23, ALT 41, Alkaline Phosphatase 80, Troponin I 0.23 *H, Ghr-P-Bfgywapueax Pept 18750 H, Total Protein 5.9 L, Albumin 3.5, Triglycerides 90, Cholesterol 113, LDL Cholesterol, Calc 46 L, HDL Cholesterol 49, Cholesterol/HDL Ratio 2, Amylase 67, Lipase 176, Free T4 1.32, Total T3 0.74 L, TSH &T3 &Free T4 Intrp 6.750 H, Cortisol AM Sample 41.1 H, PT 25.4 H, INR 2.31 H, APTT 34, CBC w Diff NO MAN DIFF REQ, RBC 4.53 L, MCV 78.8 L, MCH 25.8 L, MCHC 32.8 L, RDW 20.7 H, MPV 10.2, Gran % 83.5 H, Lymphocytes % 6.8 L, Monocytes % 8.9, Eosinophils % 0.6, Basophils % 0.2, Absolute Granulocytes 7.7 H, Absolute Lymphocytes 0.6 L, Absolute Monocytes 0.8 H, Absolute Eosinophils 0.1, Absolute Basophils 0 Assessment/Plan Assessment/Plan In summary this 77-year-old gentleman is a following problems #1 atrial fibrillation. He was [facility] beta blockers [facility] the [facility]. Beta blockers would not renewed in the hospital. His ventricular rate is now rapid. metoprolol will be restarted. #2. Possible TIA #3. On warfarin to maintain INR between 2.5 and 3.5 #4. Abnormal troponins elderly related to renal insufficiency. #5. Congestive heart failure probably related to rapid ventricle response and diastolic left ventricle dysfunction. I would put him back on parenteral Lasix at 40 mg IV twice a day. Follow electrolytes BUN/creatinine and creatinine. Follow-up chest x-rays. Continue telemetry? Yes
--- NOTE | 2017-12-13 13:50 | Event Note ---
Event Note Event Note: discussed with Dr Garcia, Patient is still have low Na, need to decrease dose of Escitalopram nad stop in a week. Dr Rivera aware.
[2017-12-13 14:35] VITALS: BP 112/70
--- NOTE | 2017-12-13 15:36 | RADIOLOGY REPORT ---
EXAMINATION: XR PORTABLE CHEST CLINICAL INFORMATION: Lower extremity swelling and facial numbness. Presumptive diagnosis of CHF, CVA. COMPARISON: Multiple prior chest x-rays, most recent of which is dated 12/12/2017. TECHNIQUE: Portable AP semierect view of the chest was obtained. FINDINGS: EKG leads overlie the chest. The cardiomediastinal silhouette is within normal limits in size. Low lung volumes are again seen with diffuse perihilar opacities extending into the lung bases. Central vascular congestion is seen. There is likely a small layering right-sided pleural effusion. Compared to the prior exam, no interval changes seen. No pneumothorax is noted. Bony structures are unremarkable. IMPRESSION: Unchanged appearance of the chest with findings consistent with clinical impression of congestive heart failure.
[2017-12-13 22:08] VITALS: BP 124/70
[2017-12-14 06:59] VITALS: BP 128/86
--- NOTE | 2017-12-14 07:45 | PN- Endocrinology ---
Assessment/Plan Endoscopy Assessment: This 77-year-old male with a history of atrial fibrillation was brought to the hospital because of some numbness of his face and slurred speech. I was initially asked to see him because of abnormal thyroid test. His thyroid tests were repeated yesterday and his TSH is 3.77 and free T4 is 1.28. Thus they have normalized on their own. The patient has atrial fibrillation with a rapid ventricular response. He has been restarted on beta-blockers. The patient also has hyponatremia. Review of his medications reveals that he is on the SSRI escitalopram. Most likely this is the cause of his hyponatremia. He also has chronic renal insufficiency. The patient has some mild elevations of his blood sugars and he was placed on NovoLog coverage before meals starting with a sugar greater than 200. His sugars have remained in the 170-180 range. He has chronic renal insufficiency and evidence of congestive heart failure. Therefore it is difficult to give him any oral medication for his diabetes. Plan: Patient does not need any treatment for his thyroid. Initial tests were consistent with sick euthyroid. I would keep him on NovoLog coverage before meals for sugars greater than 200. He remains in atrial fibrillation and needs better control of his ventricular rate. His escitalopram has been cut down to 5 mg daily. Today's labs are pending with regard to his serum sodium. Subjective Subjective: Feels improved Review of Systems Constitutional: Denies: chills, fever. Cardiovascular: Denies: chest pain. Respiratory: Denies: short of breath. Gastrointestinal: Denies: abdominal pain, nausea, vomiting. Objective Last 24 Hrs of Vital Signs/I&O Vital Signs Date Time Temp Pulse Resp B/P B/P Pulse O2 O2 Flow FiO2 Mean Ox Delivery Rate 12/14 0659 98.0 136 16 128/86 95 Nasal 1.0L Cannula 12/13 2255 Nasal 1.0L Cannula 12/14 2207 98.3 137 20 124/70 96 Room Air 12/13 220 130 108/70 12/13 220 130 108/70 12/13 2125 95 Nasal 1.0L Cannula 12/13 1600 98 Nasal 1.0L Cannula 12/13 1435 97.2 117 20 112/70 94 Nasal Cannula 12/13 1025 137 116/62 12/13 1007 94 Nasal 1.0L Cannula 12/13 0958 Nasal 1.0L Cannula 03/08 0905 94 Nasal 1.0L Cannula 12/13 0804 118/70 Intake & Output 12/14 0000 12/13 1600 Intake Total 120 250 400 Output Total 400 550 675 Balance -280 -300 -275 Intake, IV 10 Intake, Oral 120 240 400 Number 1 Bowel Movements Output, Urine 400 550 675 Patient 250 lb Weight Weight Bed scale Measurement Method Vital Signs Date Time Temp Pulse Resp B/P B/P Pulse O2 O2 Flow FiO2 Mean Ox Delivery Rate 12/14 658 98.0 136 16 128/86 95 Nasal 1.0L Cannula 12/13 2255 Nasal 1.0L Cannula 12/138 98.3 137 20 124/70 96 Room Air 12/13 2201 130 108/70 12/13 220 130 108/70 12/13 2125 95 Nasal 1.0L Cannula 12/13 1600 98 Nasal 1.0L Cannula 12/13 1435 97.2 117 20 112/70 94 Nasal Cannula 12/13 1025 137 116/62 12/13 1007 94 Nasal 1.0L Cannula 12/13 0958 Nasal 1.0L Cannula 12/13 09 94 Nasal 1.0L Cannula 12/13 0804 118/70 Intake & Output 12/14 0000 12/13 1600 Intake Total 120 250 400 Output Total 400 550 675 Balance -280 -300 -275 Intake, IV 10 Intake, Oral 120 240 400 Number 1 Bowel Movements Output, Urine 400 550 675 Patient 250 lb Weight Weight Bed scale Measurement Method Physical Exam Head: normal appearance Neck: normal inspection Respiratory: normal breath sounds Cardiovascular: tachycardia Abdomen: normal bowel sounds Current Medications: Current Medications Sig/James Start time Last Medication Dose Route Stop Time Status Admin Albuterol Sulfate 3 ML Q4P PRN 12/12 1945 AC INH Aspirin 81 MG DAILY 12/12 1000 AC 12/13 PO 0804 Atorvastatin Calcium 80 MG 1700 12/12 0630 AC 12/13 PO 1732 Diltiazem HCl 120 MG BID 12/14 1000 AC PO Donepezil HCl 10 MG QPM 12/12 2200 AC 12/13 PO 220 Escitalopram Oxalate 5 MG DAILY 12/14 1000 AC PO Escitalopram Oxalate 10 MG DAILY 12/12 1000 DC 12/13 PO 08 Finasteride 5 MG DAILY 12/12 999 AC 12/13 PO 0805 Furosemide 40 MG 7:30 AM, & 4:30 PM 12/13 1630 AC 12/13 IV 1732 Insulin Aspart 0 TIDAC 12/12 1700 AC SC Ipratropium [place] 2.5 ML Q4P PRN 12/12 2000 AC INH Metoprolol Tartrate 50 MG BID 12/13 1000 AC 12/13 PO 2202 Potassium Chloride 40 MEQ ONCE ONE 12/13 1045 DC 12/13 PO 12/13 1046 1204 Tamsulosin HCl 0.4 MG BID 12/12 1000 AC 12/13 PO 2202 Warfarin Sodium 2 MG COUMADIN 1700 ONE 12/13 1700 DC 12/13 PO 12/13 1701 1732 Results Pertinent Lab/Ibrahima Results: Laboratory Tests 12/14 0630 Chemistry Sodium Pending Potassium Pending Chloride Pending Carbon Dioxide Pending Anion Gap Pending BUN Pending Creatinine Pending BUN/Creatinine Ratio Pending Coagulation PT Pending INR Pending Hematology CBC w Diff Pending WBC Pending RBC Pending Hgb Pending Hct Pending MCV Pending MCH Pending MCHC Pending RDW Pending Plt Count Pending MPV Pending
[2017-12-14 07:51] LABS: PT 25.3 SEC (9.4-12.5)
[2017-12-14 08:04] LABS: ABSOLUTE BASOPHIL COUNT 0 /CUMM (0.0-0.2); ABSOLUTE EOSINOPHIL COUNT 0 /CUMM (0.0-0.7); ABSOLUTE GRANULOCYTE CT 6.3 /CUMM (1.4-6.5); ABSOLUTE LYMPH COUNT 0.6 /CUMM (1.2-3.4); ABSOLUTE MONOCYTE COUNT 0.6 /CUMM (0.10-0.60); BASOPHIL % 0.1 % (0.0-2.0); EOSINOPHIL % 0.2 % (0-5); HEMATOCRIT 34.9 % (42-52); MEAN CORPUSCULAR HGB 25.7 PG (27.0-31.0); MEAN CORPUSCULAR HGB CONC 32.8 G/DL (33.0-37.0); MEAN CORPUSCULAR VOLUME 78.4 FL (80.0-94.0); PLATELET COUNT 187 /CUMM (130-400); RBC DISTRIBUTION WIDTH 21.3 % (11.5-14.5); RED BLOOD CELL CT 4.45 /CUMM (4.70-6.10); WHITE BLOOD CELL COUNT 7.6 /CUMM (4.8-10.8)
--- NOTE | 2017-12-14 10:15 | PN- Housestaff ---
Camilla HERRON,Isa 12/14/17 1015: Subjective Follow-up For: 1. Acute ischemic stroke not a candidate for tPA (on coumadin) 2. Afib on coumadin with therapeutic INR 3. Acute on chronic diastolic heart failure 4. 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 Elevated troponin likely demand ischemia Type 2 GA 6. Hyponatremia hypervolemic state 7. Hematuria Tele-Events Since Last Visit: A. fib, 65146, 0.08 Subjective: Patient was seen and examined at bedside, he continues the complaint of numbness of the right cheek, he is diuresing well on the Lasix with negative fluid balance Review of Systems Constitutional: Reports: see HPI. Objective Last 24 Hrs of Vital Signs/I&O Vital Signs Date Time Temp Pulse Resp B/P B/P Pulse O2 O2 Flow FiO2 Mean Ox Delivery Rate 12/14 917 95 Nasal 1.0L Cannula 12/14 08 138 128/70 12/14 0812 137 128/70 12/14 0811 138 128/70 12/14 0659 98.0 136 16 128/86 95 Nasal 1.0L Cannula 12/13 2255 Nasal 1.0L Cannula 12/13 2208 98.3 137 20 124/70 96 Room Air 12/13 2202 130 108/70 12/13 2202 130 108/70 12/13 2125 95 Nasal 1.0L Cannula 12/13 1600 98 Nasal 1.0L Cannula 12/13 1435 97.2 117 20 112/70 94 Nasal Cannula Intake & Output 12/14 1600 12/14 0800 12/14 0000 Intake Total 120 250 Output Total 400 550 Balance -280 -300 Intake, IV 10 Intake, Oral 120 240 Output, Urine 400 550 Patient 250 lb Weight Weight Bed scale Measurement Method Physical Exam General Appearance: Alert, Cooperative, No Acute Distress HEENT: Atraumatic, PERRLA, EOMI, Mucous Membr. moist/pink Neck: Supple, No JVD Cardiovascular: Normal S1, Normal S2, No Murmurs Lungs: Clear to Auscultation Abdomen: Normal Bowel Sounds, Soft, No Tenderness Neurological: Normal Speech, Strength at 5/5 X4 Ext, Normal Tone, Sensation Intact Extremities: No Clubbing, No Cyanosis, 3+ bilateral bitting edema in LE Vascular: Normal Pulses Assessment/Plan Assessment: 77-year-old gentleman with past medical history of paroxysmal atrial ablation on Coumadin, hypertension, hyperlipidemia, small bowel obstruction, dementia, sarcoma right cheek status post radiation came from [facility] for complaints of facial numbness and slurred speech. Problem list: #elevated troponin #CVA #hyponatremia, hypokalemia #atrial fibrillation on Coumadin #chronic renal insufficiency #heart failure. Preserved ejection fraction #diabetes #hyperlipidemia #Hematuria Plan: # ?CVA CT did not show any acute events NIH scale 2. Not a candidate for TPA given his history of anticoagulation. MRI showed chronic gliotic and encephalomalacia in the right temporal lobe, numerous chronic small vessel ischemic -Continue aspirin and statin -Blood pressure is currently controlled, will allow permissive hypertension -PT/OT evaluation -Ultrasound carotid showed minimal stenosis -Appreciate neurology recommendation # elevated troponin Asymptomatic and troponin are trending down with no EKG changes most likely demand ischemia - currently appears fluid overloaded. - Serial ekgs and troponins are negative for ACS - Echocardiogram to evaluate a source of thrombus which can be done outpatient as per Dr. Barbosa HX of Afib on coumadin Heart rate was running high in the 130s today On admission the systolic blood pressure was towards the lower side 112, his diltiazem and metoprolol were held Metoprolol was restarted yesterday 50 mg twice daily p.o. We will restart Cardizem PO 120 mg twice daily Patient was given Coumadin 2 mg today PT/INR and dose Coumadin accordingly tomorrow, goal INR 2.53.5 # HFpEF - acute exacerbation, patient still looks volume overloaded with 2+ bilateral lower extremity pitting edema Continue Lasix 40 mg IV twice daily -Strict ins and outs -Daily weights -Cardiology recommendation appreciated # hyponatremia Sodium is 127 Likely due to poor oral intake versus side effects from Lexapro Lexapro dose was stable to 5 mg daily we will try to taper off within a week as per endocrinology recommendation -Appears acute, hypervolemic hyponatremia -Check serum osmolality 284, urine O'smolarity 477, urine lites 19 -Monitor closely -Avoid overcorrection # diabetes -Insulin sliding scale -Accu-Cheks #Hematuria: Patient was noticed to have blood in the Skinner bag Asymptomatic Potential diagnosis includes kidney stones, tumors, traumatic due to Skinner catheter kidney ultrasound to rule out stones or other kidney pathology DVT prophylaxis-Coumadin Full code Heart healthy diet Problem List: 1. PAULA (acute kidney injury) 2. CVA (cerebral vascular accident) 3. Edema 4. Hyponatremia 5. Elevated troponin Pain Ratin Pain Location: n/a Pain Goal: Remain pain free Pain Plan: PATHWAY Tomorrow's Labs & Rationales: CBC BEP INR DVT/Prophylaxis: mechanical, pharmacological Cordelia Rivera 12/14/17 1418: Attending MD Review Statement Attending Statement Attending MD Statement: examined this patient, discuss w/resident/PA/FLUTE GRINDER, agreed w/resident/PA/FLUTE GRINDER, reviewed EMR data (avail), discussed with nursing, discussed with case mgmt Attending Assessment/Plan: pt has hematuria and is currently on skinner cath. has previous history of stones. will get renal ultraosund. still has pitting edema b/l. cont on lasix 40mg iv q12h per cardiology. hyponatremia- still not resolve. sodium low at 127
--- NOTE | 2017-12-14 13:37 | Discharge Summary ---
Visit Information Visit Dates Admission Date: 12/12/17 Hospital Course Course Attending Physician: Miguel HERRON,Cordelia Pennington Primary Care Physician: Raphael HERRON,[facility] Course: Patient is a 77 yo M with h/o PAfib on coumadin, HTN, DM, dementia, chronic renal insufficiency, ischemia on prior nuclear test managed medically, residual right facial numbness from sarcoma excision,was sent in from [facility] for slurred speech, left facial droop, left facial numbness and c/o dyspnea. ED course - Vitals stable. Neuro exam: left facial droop, slurring of speech, tongue and uvula central, otherwise no deficits. Chest basilar crackles+, LE: 3+ pitting edema extending from feet to lower abdomen, with scrotal edema. Labs: microcytic anemia, INR 2.31, Na 128 (baseline 135), K 3.4, bicarb 33, BUN 44, creat 2.4 (baseline 1.7-2.0), proBNP 33029, trop 0.23. CXR: bilateral perihilar and basilar opacities with interstitial prominence and small right pleural effusion, suggesting vascular congestion/ edema. Head CT: no acute pathology. EKG: Afib/ flutter. Echo (2018): EF 55%. TIA - was not a candidate for tPA (on coumadin) - Patient denies any symptoms of chest pain, dyspnea, lightheadedness or palpitations at the time of presentation. MRI of the brain showed chronic gliotic and encephalomalacic changes involving the right anterior temporal lobe. Numerous chronic small vessel ischemic changes without evidence of acute territorial infarct. Carotid doppler showed small amount of plaque present in the right internal carotid artery with normal velocities consistent with a minimal 0-49% stenosis. The left side is normal with no plaque seen. We obtained a neurology consult, advised for conservative management. Acute on chronic diastolic heart failure We treated with IV diuretics.We obtain cardiology consult, advised for continue IV diuresis as needed and anticoagulant as before. Elevated troponin likely demand ischemia Type 2 NC We obtain cardiology consult. We did serial troponins which remained stable and range of 0.23, 0.23, 0.22. We treated symptomatically and continued on his home medication including Coumadin aspirin and statins, as before. Hyponatremia hypervolemic state We did obtain nephrology and endocrine consult. We restricted the fluids and decrease the dose of citalopram. Despite patient's sodium remained low. We stop the citalopram and started patient on spironolactone diuretics and increases the dose of Lasix. Allergies: Coded Allergies: NO KNOWN ALLERGIES (NONE 11/21/17) Discharge Instructions Medications at Discharge Discharge Medications: Continue taking these medications: Tamsulosin HCl (Flomax) 0.4 MG CAP.ER.24H 1 Capsule ORAL TWICE DAILY Comments: Last Taken: 11/23/17 Time: 10 AM Finasteride (Proscar) 5 MG TABLET 1 Tablet ORAL DAILY Comments: Last Taken: 11/23/17 Time: 10 AM Metformin HCl (Metformin HCl ER) 500 MG TAB.ER.24H 1 Tablet ORAL TWICE DAILY Comments: NOT GIVEN IN HOSPITAL Donepezil HCl (Aricept) 10 MG TABLET 1 Tablet ORAL Every night Comments: Last Taken: 11/22/17 Time: 9 PM Atorvastatin Calcium (Lipitor) 80 MG TABLET 1 Tablet ORAL DAILY Comments: Last Taken: 11/22/17 Time: 5 PM Diltiazem HCl (Diltiazem 12HR ER) 120 MG CAP.ER.12H 1 Capsule ORAL TWICE DAILY Comments: Last Taken: 11/23/17 Time: 10 AM Metoprolol Tartrate (Lopressor) 50 MG TABLET 1 Tablet ORAL TWICE DAILY Qty = 60 Comments: Last Taken: 11/23/17 Time: 9 AM [DUONEB] 3 Milliliters Inhale Solution via Nebulizer Every 6-8 Hours as Needed as needed for BREATHING PROBLEMS
--- NOTE | 2017-12-14 15:06 | PN- Cardiology ---
Subjective Subjective: Stable with no new issues or symptoms Objective Vital Signs and I&Os Vital Signs Date Time Temp Pulse Resp B/P B/P Pulse O2 O2 Flow FiO2 Mean Ox Delivery Rate 12/14 917 95 Nasal 1.0L Cannula 12/15 811 138 128/70 12/14 0812 137 128/70 12/14 0811 138 128/70 12/14 0659 98.0 136 16 128/86 95 Nasal 1.0L Cannula 12/13 2255 Nasal 1.0L Cannula 12/14 2207 98.3 137 20 124/70 96 Room Air 12/13 2201 130 108/70 12/13 2201 130 108/70 12/135 95 Nasal 1.0L Cannula 12/14 1599 98 Nasal 1.0L Cannula Intake & Output 12/14 1600 12/14 0812/14 0000 12/13 1600 12/13 0812/13 0000 Intake Total 120 250 400 250 175 Output Total 400 550 675 300 475 Balance -280 -300 -275 -50 -300 Intake, IV 10 Intake, Oral 120 240 400 250 175 Number 1 Bowel Movements Output, Urine 400 550 675 300 475 Patient 250 lb 258 lb 258 lb Weight Weight Bed scale Measurement Method Physical Exam: General: Awake and alert, no new complaints Head: normocephalic atraumatic Eyes: Normal Neck: JVP normal, carotids normal bilaterally Chest: Scattered bilateral rhonchi Heart: irregular rhythm with a rapid ventricular response of around 130 Abdomen: soft no organomegaly bowel sounds normal extremities extremities 2+ edema neurological could not be evaluated Current Medications: Current Medications Sig/James Start time Last Medication Dose Route Stop Time Status Admin Albuterol Sulfate 3 ML Q4P PRN 12/12 1945 AC INH Aspirin 81 MG DAILY 12/12 1000 AC 12/14 PO 0810 Atorvastatin Calcium 80 MG 1700 12/12 0630 AC 12/13 PO 1732 Diltiazem HCl 120 MG BID 12/14 1000 AC 12/14 PO 0812 Donepezil HCl 10 MG QPM 12/12 2200 AC 12/13 PO 2200 Escitalopram Oxalate 5 MG DAILY 12/14 1000 AC 12/14 PO 0810 Finasteride 5 MG DAILY 12/12 1000 AC 12/14 PO 0811 Furosemide 40 MG 7:30 AM, & 4:30 PM 12/13 1630 AC 12/14 IV 0810 Insulin Aspart 0 TIDAC 12/12 170 AC SC Ipratropium [place] 2.5 ML Q4P PRN 12/13 1999 AC INH Metoprolol Tartrate 50 MG BID 12/13 999 AC 12/14 PO 08 Tamsulosin HCl 0.4 MG BID 12/12 1000 AC 12/14 PO 0811 Warfarin Sodium 2.5 MG COUMADIN 1700 12/14 1700 DC PO 12/14 2359 Warfarin Sodium 2 MG COUMADIN 1700 12/14 1700 AC PO 12/14 235 Warfarin Sodium 2 MG COUMADIN 1700 ONE 12/13 170 DC 12/13 PO 12/13 1701 1732 Results Last 48 Hrs of Labs/Mics: Laboratory Tests 12/14/17 0630: Anion Gap 12, Estimated GFR 32 L, BUN/Creatinine Ratio 22.0, PT 25.3 H, INR 2.30 H, CBC w Diff MAN DIFF ORDERED, RBC 4.45 L, MCV 78.4 L, MCH 25.7 L, MCHC 32.8 L, RDW 21.3 H, MPV 11.0 H, Gran % 84.0 H, Lymphocytes % 7.3 L, Monocytes % 8.4, Eosinophils % 0.2, Basophils % 0.1, Absolute Granulocytes 6.3, Absolute Lymphocytes 0.6 L, Absolute Monocytes 0.6, Absolute Eosinophils 0, Absolute Basophils 0, Platelet Estimate ADEQUATE, Anisocytosis 1+, Ovalocytes FEW, Elliptocytes FEW 12/13/17 0628: Anion Gap 14, Estimated GFR 28 L, BUN/Creatinine Ratio 18.3, Troponin I 0.22 *H , Free T4 1.28, Total T3 0.63 L, TSH &T3 &Free T4 Intrp 3.770, PT 28.3 H, INR 2.57 H, CBC w Diff NO MAN DIFF REQ, RBC 4.33 L, MCV 78.4 L, MCH 25.6 L, MCHC 32.7 L, RDW 21.1 H, MPV 10.6 H, Gran % 81.2 H, Lymphocytes % 8.7 L, Monocytes % 9.6 H, Eosinophils % 0.2, Basophils % 0.3, Absolute Granulocytes 6.1, Absolute Lymphocytes 0.7 L, Absolute Monocytes 0.7 H, Absolute Eosinophils 0, Absolute Basophils 0, Thyroglobulin Antibody < 15 Assessment/Plan Assessment/Plan Assessment: 1. Atrial fibrillation 2. Possible TIA/CVA 3. Abnormal troponins 4. History of congestive heart failure consistent with HfpEF Recommendations: - Continue current medications; heart rate reasonable today. - Continue diuresis as presently with monitoring of I/Os and weights - Followup labs in the AM - Continue as per Neurology - Cardiology followuop post discharge. Continue telemetry? Yes
--- NOTE | 2017-12-14 16:14 | ULTRASOUND REPORT ---
EXAMINATION: US RETROPERITONEAL COMPLETE (RENAL) CLINICAL INFORMATION: 77-year-old male with hematuria.. COMPARISON: Renal ultrasound 08/10/2014 TECHNIQUE: Real-time imaging of the kidneys and bladder. FINDINGS: Evaluation is slightly suboptimal secondary to patient body habitus and overlying bowel gas. RIGHT KIDNEY: 10.7 x 5.5 x 5.0 cm (SAG x AP x TRV). The kidney is normal in size, contour, and echogenicity. Renal cortical thickness is normal. No calculi or focal parenchymal lesions. No hydronephrosis. LEFT KIDNEY: 9.9 x 4.9 x 5.5 cm (SAG x AP x TRV). The kidney is normal in size, contour, and echogenicity. Renal cortical thickness is normal. No calculi or focal parenchymal lesions. No hydronephrosis. BLADDER: Mildly distended containing a Castle catheter. The right ureteral jet was visualized, the left was not. Prevoid bladder volume is 47 mL. OTHER: Incidentally noted trace amount of perihepatic ascites. Small gallstones and echogenic bile also visualized. IMPRESSION: 1. No hydronephrosis or nephrolithiasis. 2. Trace perihepatic ascites. 3. Cholelithiasis.
[2017-12-14 22:38] VITALS: BP 108/66
[2017-12-15 07:23] VITALS: BP 114/68
[2017-12-15 08:21] LABS: PT 28.1 SEC (9.4-12.5)
[2017-12-15 08:24] LABS: ABSOLUTE BASOPHIL COUNT 0 /CUMM (0.0-0.2); ABSOLUTE EOSINOPHIL COUNT 0 /CUMM (0.0-0.7); ABSOLUTE GRANULOCYTE CT 6.8 /CUMM (1.4-6.5); ABSOLUTE LYMPH COUNT 0.6 /CUMM (1.2-3.4); ABSOLUTE MONOCYTE COUNT 0.7 /CUMM (0.10-0.60); BASOPHIL % 0 % (0.0-2.0); EOSINOPHIL % 0.2 % (0-5); GRANULOCYTE % 83.9 % (42.2-75.2); HEMATOCRIT 34.3 % (42-52); MEAN CORPUSCULAR HGB CONC 32.8 G/DL (33.0-37.0); MEAN CORPUSCULAR VOLUME 79.5 FL (80.0-94.0); MEAN PLATELET VOLUME 10.4 FL (7.4-10.4); PLATELET COUNT 181 /CUMM (130-400); RBC DISTRIBUTION WIDTH 20.9 % (11.5-14.5); RED BLOOD CELL CT 4.31 /CUMM (4.70-6.10); WHITE BLOOD CELL COUNT 8.1 /CUMM (4.8-10.8)
--- NOTE | 2017-12-15 08:36 | PN- Housestaff ---
Lillian Gant 12/15/17 0835: Subjective Follow-up For: 1. Acute ischemic stroke not a candidate for tPA (on coumadin) 2. Afib on coumadin with therapeutic INR 3. Acute on chronic diastolic heart failure 4. 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 Elevated troponin likely demand ischemia Type 2 NV 6. Hyponatremia hypervolemic state 7. Hematuria Subjective: No complaints or acute events overnight Review of Systems Constitutional: Reports: see HPI. Objective Last 24 Hrs of Vital Signs/I&O Vital Signs Date Time Temp Pulse Resp B/P B/P Pulse O2 O2 Flow FiO2 Mean Ox Delivery Rate 12/15 1600 95 Nasal 1.0L Cannula 12/15 1329 97.7 68 18 118/60 95 Nasal 1.0L Cannula 12/15 1113 94 Nasal 1.0L Cannula 12/15 0814 122 114/68 12/15 0814 122 114/68 12/15 0814 122 114/68 12/15 0800 96 Nasal 1.0L Cannula 12/15 0723 97.6 68 16 114/68 96 Nasal 2.0L Cannula 12/15 0000 Nasal 1.0L Cannula 12/14 2238 98.2 110 18 108/66 97 12/14 2046 110 110/66 12/14 2045 110 110/66 12/14 2045 110 110/60 Intake & Output 12/15 1600 12/15 0800 12/15 0000 Intake Total 590 120 120 Output Total 064 880 1700 Balance -60 -380 -1280 Intake, Oral 590 120 120 Number 0 Bowel Movements Output, Urine [phone] Patient 247 lb Weight Weight Bed scale Measurement Method Physical Exam General Appearance: Alert, Oriented X3, Cooperative, No Acute Distress Cardiovascular: irregular rate Lungs: Clear to Auscultation, Normal Air Movement Neurological: right facial numbness Current Medications: Current Medications Sig/James Start time Last Medication Dose Route Stop Time Status Admin Albuterol Sulfate 3 ML Q4P PRN 12/12 1945 AC INH Aspirin 81 MG DAILY 12/12 1000 AC 12/15 PO 0813 Atorvastatin Calcium 80 MG 1700 12/12 0630 AC 12/15 PO 1602 Diltiazem HCl 120 MG BID 12/14 1000 AC 12/15 PO 0814 Donepezil HCl 10 MG QPM 12/12 2200 AC 03/09 PO 204 Escitalopram Oxalate 5 MG DAILY 12/14 1000 AC 12/15 PO 0814 Finasteride 5 MG DAILY 12/12 1000 AC 12/15 PO 08 Furosemide 40 MG 7:30 AM, & 4:30 PM 12/13 1630 AC 12/15 IV 1602 Insulin Aspart 0 TIDAC 12/12 1700 AC SC Ipratropium [place] 2.5 ML Q4P PRN 12/12 2000 AC INH Magnesium Oxide 400 MG ONE ONE 12/15 1000 DC 12/15 PO 12/15 1001 1049 Metoprolol Tartrate 50 MG BID 12/13 1000 AC 12/15 PO 0814 Potassium Chloride 40 MEQ ONCE ONE 12/15 0915 DC 12/15 PO 12/15 0916 1049 Sodium Chloride 1,000 MG BID 12/15 1130 DC PO Tamsulosin HCl 0.4 MG BID 12/12 1000 AC 12/15 PO 0814 Warfarin Sodium 2 MG ONCE ONE 12/15 1700 DC 12/15 PO 12/15 1701 1601 Warfarin Sodium 6 MG ONCE ONE 12/15 1000 CAN PO 12/15 1001 Warfarin Sodium 2 MG COUMADIN 1700 12/14 1700 DC 12/14 PO 12/14 2359 1612 Last 24 Hrs of Lab/Ibrahima Results Last 24 Hrs of Labs/Mics: Laboratory Tests 12/15/17 0645: Anion Gap 10, Estimated GFR 31 L, BUN/Creatinine Ratio 20.0, Magnesium 1.6, PT 28.1 H, INR 2.55 H, CBC w Diff MAN DIFF ORDERED, RBC 4.31 L, MCV 79.5 L, MCH 26.0 L, MCHC 32.8 L, RDW 20.9 H, MPV 10.4, Gran % 83.9 H, Lymphocytes % 6.9 L, Monocytes % 9.0, Eosinophils % 0.2, Basophils % 0, Absolute Granulocytes 6.8 H, Absolute Lymphocytes 0.6 L, Absolute Monocytes 0.7 H, Absolute Eosinophils 0, Absolute Basophils 0, Platelet Estimate VERIFIED BY SMEAR, Polychromasia 1+, Hypochromic-Microcytic 1+, Poikilocytosis 2+, Anisocytosis 1+, Microcytic Cells 1+, Ovalocytes 1+, Lizy Cells 2+, Elliptocytes 1+, Schistocytes Assessment/Plan Assessment: 77-year-old gentleman with past medical history of paroxysmal atrial ablation on Coumadin, hypertension, hyperlipidemia, small bowel obstruction, dementia, sarcoma right cheek status post radiation came from [facility] for complaints of facial numbness and slurred speech. Problem list: 1. Acute ischemic stroke not a candidate for tPA (on coumadin) 2. Afib on coumadin with therapeutic INR 3. Acute on chronic diastolic heart failure 4. 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 Elevated troponin likely demand ischemia Type 2 NV 6. Hyponatremia hypervolemic state 7. Hematuria Plan: Monitor sodium Monitor potassium Dose Coumadin per INR Start fluid restriction Start NaCl tab twice a day Continue IV Lasix twice a day If patient exhibits CP, start NTG paste Nephrology consult for hyponatremia Renal ultrasound no hydronephrosis or nephrolithiasis Cardiology recommendations appreciated Endo recommendations appreciated Neuro recommendations appreciated Problem List: 1. Hyponatremia 2. CVA (cerebral vascular accident) Pain Ratin Pain Location: NA Pain Goal: Remain pain free Pain Plan: NA Tomorrow's Labs & Rationales: BEP for renal function, sodium and potassium INR for Coumadin Cordelia Rivera 12/15/17 1452: Attending MD Review Statement Attending Statement Attending MD Statement: examined this patient, discuss w/resident/PA/[place] [employer], agreed w/resident/PA/[place] [employer], reviewed EMR data (avail), discussed with nursing Attending Assessment/Plan: Hyponatremia with sodium of 126, not improving, will get nephro consult Fluid overload/ CHF exac- cont with current dose of lasix. Renal ultrasound was ok - no renal stones. Will get urology consult in view of persistent hematuria.
--- NOTE | 2017-12-15 10:14 | PN- Cardiology ---
Subjective Subjective: * No complaints. No chest discomfort, shortness of breath or palpitations. * atrial fibrillation with controlled heart rate. * creatinine 2.1 with potassium 3.1 * INR is 2.55 Objective Vital Signs and I&Os Vital Signs Date Time Temp Pulse Resp B/P B/P Pulse O2 O2 Flow FiO2 Mean Ox Delivery Rate 12/15 813 122 114/68 12/15 0814 122 114/68 12/15 0814 122 114/68 12/15 0723 97.6 68 16 114/68 96 Nasal 2.0L Cannula 12/15 0000 Nasal 1.0L Cannula 12/148 98.2 110 18 108/66 97 12/14 204 110 110/66 12/14 204 110 110/66 12/14 2044 110 110/60 12/14 1619 96 Nasal 1.0L Cannula Intake & Output 12/15 1600 12/15 0800 12/15 0000 12/14 1600 12/14 0812/14 0000 Intake Total 120 120 400 120 250 Output Total 500 1400 300 400 550 Balance -380 -1280 100 -280 -300 Intake, IV 10 Intake, Oral 120 120 400 120 240 Output, Urine 500 1400 300 400 550 Patient 247 lb 250 lb 250 lb Weight Weight Bed scale Bed scale Measurement Method Physical Exam: General: WD/overweight male in NAD; alert and oriented x 3 HEENT: right facial droop Neck: no JVD Heart: irregularly irregular Lungs: clear bilaterally Extremities: 2+ lower extremity edema Assessment/Plan Assessment/Plan * Atrial fibrillation: Good rate control on combination of Metorprolol and Cardizem. No changes. Continue coumadin with goal INR of 2.2.5. Continue Coumadin at 2mg daily and recheck on Sunday. * CHF. Persistent fluid overload on chest X ray with mild leg edema. Continue to diurese with Lasix at 40mg IV BID with careful monitoring of his BUN, creatinine and potassium. Begin a potassium supplement to maintain a level of 4.0. * Positive troponin. This is consistent with myocardial ischemia. The patient is currently pain free. Continue his beta susanna, asa 81mg daily and statin. If recurrent chest pain begin NTG paste. Continue telemetry? Yes
--- NOTE | 2017-12-15 11:24 | PN- Endocrinology ---
Assessment/Plan Endoscopy Assessment: 77-year-old male with a history of atrial fibrillation was brought to the hospital because of some numbness of his face and slurred speech. The endocrine consult was called for abnormal thyroid test initially. His repeat TSH was 3.77 and free T4 was 1.28. The abnormal TFT most likely was due to sick euthyroid changes. The patient also has hyponatremia. Escitalopram was decreased to 5 mg daily. Cortisol was 41.1. Patient is on 1000 ml /24 hours free water restriction. Repeat Sodium was 126 this morning. His K was 3.1. Oral KCL supplement was given. The patient has some mild elevations of his blood sugars and he was placed on NovoLog coverage before meals starting with a sugar greater than 200. His FSGs were 139, 166, 152 and 129. Plan: Hyponatremia: --- continue free water restriction; ---add salt tablet 1000 mg twice a day with lunch and with dinner; ---monitor electrolytes. will follow. Subjective Subjective: He feels okay. Objective Last 24 Hrs of Vital Signs/I&O Vital Signs Date Time Temp Pulse Resp B/P B/P Pulse O2 O2 Flow FiO2 Mean Ox Delivery Rate 12/15 1113 94 Nasal 1.0L Cannula 12/15 813 122 114/68 12/15 0814 122 114/68 12/15 08 122 114/68 12/15 0723 97.6 68 16 114/68 96 Nasal 2.0L Cannula 12/15 0000 Nasal 1.0L Cannula 12/14 2238 98.2 110 18 108/66 97 12/14 2045 110 110/66 12/14 2044 110 110/66 12/14 2044 110 110/60 12/14 1619 96 Nasal 1.0L Cannula Intake & Output 12/15 1600 12/15 0800 12/15 0000 Intake Total 120 120 Output Total 500 1400 Balance -380 -1280 Intake, Oral 120 120 Output, Urine 500 1400 Patient 247 lb Weight Weight Bed scale Measurement Method Results Pertinent Lab/Ibrahima Results: Laboratory Tests 12/15 0645 Chemistry Sodium (137 - 145 mmol/L) 126 L Potassium (3.5 - 5.1 mmol/L) 3.1 L Chloride (98 - 107 mmol/L) 82 L Carbon Dioxide (22 - 30 mmol/L) 34 H Anion Gap (5 - 16) 10 BUN (9 - 20 mg/dL) 42 H Creatinine (0.7 - 1.2 mg/dL) 2.1 H Estimated GFR (>60 ml/min) 31 L BUN/Creatinine Ratio (7 - 25 %) 20.0 Magnesium (1.6 - 2.3 mg/dL) 1.6 Coagulation PT (9.4 - 12.5 SEC) 28.1 H INR (0.90 - 1.17) 2.55 H Hematology CBC w Diff MAN DIFF ORDERED WBC (4.8 - 10.8 /CUMM) 8.1 RBC (4.70 - 6.10 /CUMM) 4.31 L Hgb (14.0 - 18.0 G/DL) 11.2 L Hct (42 - 52 %) 34.3 L MCV (80.0 - 94.0 FL) 79.5 L MCH (27.0 - 31.0 PG) 26.0 L MCHC (33.0 - 37.0 G/DL) 32.8 L RDW (11.5 - 14.5 %) 20.9 H Plt Count (130 - 400 /CUMM) 181 MPV (7.4 - 10.4 FL) 10.4 Gran % (42.2 - 75.2 %) 83.9 H Lymphocytes % (20.5 - 51.1 %) 6.9 L Monocytes % (1.7 - 9.3 %) 9.0 Eosinophils % (0 - 5 %) 0.2 Basophils % (0.0 - 2.0 %) 0 Absolute Granulocytes (1.4 - 6.5 /CUMM) 6.8 H Absolute Lymphocytes (1.2 - 3.4 /CUMM) 0.6 L Absolute Monocytes (0.10 - 0.60 /CUMM) 0.7 H Absolute Eosinophils (0.0 - 0.7 /CUMM) 0 Absolute Basophils (0.0 - 0.2 /CUMM) 0 Platelet Estimate (ADEQUATE) VERIFIED BY SMEAR Polychromasia 1+ Hypochromic-Microcytic 1+ Poikilocytosis 2+ Anisocytosis 1+ Microcytic Cells 1+ Ovalocytes 1+ Lizy Cells 2+ Elliptocytes 1+ Schistocytes
--- NOTE | 2017-12-15 12:19 | Cons- Nephrology ---
General Information and HPI Consulting Request Date of Consult: 12/15/17 Requested By: Cordelia Rivera MD Reason for Consult: hyponatremia, CKD Source of Information: patient, old records Exam Limitations: dementia History of Present Illness: The patient is a 77-year-old male with a history of congestive heart failure with a preserved ejection fraction, paroxysmal atrial fibrillation on Coumadin, diabetes, hypertension, coronary artery disease, dementia, and chronic kidney disease stage 3-4 with a baseline creatinine of 2.0 over the past couple months, with an altered baseline creatinine in the mid to high ones. He was diminished shortness of breath as well as concern for TIA given the report of slurred speech, left facial numbness and left facial droop. Head CT and MRI revealed no acute stroke. Regarding the shortness of breath he also has developed edema, and his chest x-ray shows central vascular congestion consistent with congestive heart failure. He was hyponatremic on admission at 128 which decreased to 126 today, down from a baseline sodium of 135. The patient is a poor historian but reports that he's been drinking a lot of water. Allergies/Medications Allergies: Coded Allergies: NO KNOWN ALLERGIES (NONE 11/21/17) Home Med List: Atorvastatin Calcium (Lipitor) 80 MG TABLET 1 TAB PO DAILY CHOLESTEROL ( Reported) Diltiazem HCl (Diltiazem 12HR ER) 120 MG CAP.ER.12H 1 CAP PO BID AFIB ( Reported) Donepezil HCl (Aricept) 10 MG TABLET 1 TAB PO QPM MEMORY (Reported) [DUONEB] 3 ML NEB Q6-8P PRN BREATHING PROBLEMS (Reported) Escitalopram Oxalate (Lexapro) 10 MG TABLET 1 TAB PO DAILY MENTAL HEALTH ( Reported) Finasteride (Proscar) 5 MG TABLET 1 TAB PO DAILY BPH (Reported) Furosemide (Lasix) 20 MG TABLET 2 TAB PO DAILY WATER Metformin HCl (Metformin HCl ER) 500 MG TAB.ER.24H 1 TAB PO BID DM (Reported) Metoprolol Tartrate (Lopressor) 50 MG TABLET 1 TAB PO BID AF Tamsulosin HCl (Flomax) 0.4 MG CAP.ER.24H 1 CAP PO BID BPH (Reported) Torsemide 20 MG TABLET 1 TAB PO DAILY WATER RETENTION (Reported) Warfarin Sodium (Coumadin) 4 MG TABLET 6 MG PO ONCE BLOOD THINNER please change dose according to PT/INR. Current Medications: Current Medications Sig/James Start time Last Medication Dose Route Stop Time Status Admin Albuterol Sulfate 3 ML Q4P PRN 12/12 1945 AC INH Aspirin 81 MG DAILY 12/12 1000 AC 12/15 PO 0813 Atorvastatin Calcium 80 MG 1700 12/12 0630 AC 12/14 PO 1613 Diltiazem HCl 120 MG BID 12/14 1000 AC 12/15 PO 0814 Donepezil HCl 10 MG QPM 12/12 2200 AC 12/14 PO 2045 Escitalopram Oxalate 5 MG DAILY 12/14 1000 AC 12/15 PO 0814 Finasteride 5 MG DAILY 12/12 1000 AC 12/15 PO 0814 Furosemide 40 MG 7:30 AM, & 4:30 PM 12/13 1630 AC 12/15 IV 0617 Insulin Aspart 0 TIDAC 12/12 1700 AC SC Ipratropium [place] 2.5 ML Q4P PRN 12/12 2000 AC INH Magnesium Oxide 400 MG ONE ONE 12/15 1000 DC 12/15 PO 12/15 1001 1049 Metoprolol Tartrate 50 MG BID 12/13 1000 AC 12/15 PO 0814 Potassium Chloride 40 MEQ ONCE ONE 12/15 0915 DC 12/15 PO 12/15 0916 1049 Sodium Chloride 1,000 MG BID 12/15 1130 AC PO Tamsulosin HCl 0.4 MG BID 12/12 1000 AC 12/15 PO 0814 Warfarin Sodium 6 MG ONCE ONE 12/15 1000 DC PO 12/15 1001 Warfarin Sodium 2 MG COUMADIN 1700 12/14 1700 DC 12/14 PO 12/14 2359 1612 Review of Systems Review of Systems: Gen: neg fever, chills, nightsweats, wt loss Skin: neg rash, pruritus Eye: neg visual changes, diplopia ENT: neg hearing changes, rhinitus CV: neg CP, +COOK, +edema Pulm: neg cough, sputum, hemoptysis GI: neg nausea, vomiting, diarrhea, abdominal pain, hematemesis, BRBPR : neg dysuria, frequency, urgency, hematuria, foamy urine, nocturia Musculoskeletal: neg myalgias, arthralgias Neuro:: +facial weakness/numbness Psych: +memory loss/dementia Heme: neg bruising, easy bleeding, clots Past History Travel History Traveled to [place] past 21 day No Medical History Neurological: dementia (mild) EENT: NONE Cardiovascular: AFIB (on coumadin), CHF, hypertension, hyperlipidemia Respiratory: NONE Gastrointestinal: s/p pyloric stenosis repair as SBO requiring lysis of adhesions Hepatic: NONE Renal: NONE Musculoskeletal: ARTHRITIS Psychiatric: DEMENTIA Endocrine: diabetes (non-insulin dependent) Blood Disorders: NONE Cancer(s): 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 FATHER (colon cancer). SISTER (CAD s/p PCI). Psychosocial History Who Do You Live With? spouse Services at Home: None Primary Language: Finnish Smoking Status: Former Smoker Living Will? yes Functional Ability ADLs Independent: dressing, eating, toileting, bathing. Ambulation: cane IADLs Needs Assist: shopping, housework, finances, telephone, transportation, medication admin. Exam & Diagnostic Data Vital Signs and I&O Vital Signs Date Time Temp Pulse Resp B/P B/P Pulse O2 O2 Flow FiO2 Mean Ox Delivery Rate 12/15 1113 94 Nasal 1.0L Cannula 12/15 0814 122 114/68 12/15 0814 122 114/68 12/15 0814 122 114/68 12/15 0800 96 Nasal 1.0L Cannula 12/15 0723 97.6 68 16 114/68 96 Nasal 2.0L Cannula 12/15 0000 Nasal 1.0L Cannula 12/14 2238 98.2 110 18 108/66 97 12/14 2046 110 110/66 12/14 204 110 110/66 12/14 2045 110 110/60 12/14 1619 96 Nasal 1.0L Cannula Intake & Output 12/15 1600 12/15 0400 12/14 1600 12/14 0400 12/13 1600 12/13 0400 Intake Total 120 120 520 250 650 175 Output Total 500 1400 700 550 975 475 Balance -380 -1280 -180 -300 -325 -300 Intake, IV 10 Intake, Oral 120 120 520 240 650 175 Number 1 Bowel Movements Output, Urine 500 1400 700 550 975 475 Patient 247 lb 250 lb 250 lb 258 lb 258 lb Weight Weight Bed scale Bed scale Measurement Method Physical Exam: General: NAD, A+O x3. confused HEENT: NC/AT. No icterus. Moist mucosa Neck: +JVD CV: RRR, no m/r/g Pulm: dec BS at bases Abd: soft, NT Lower Ext: 3+ edema up to thighs Upper Ext: no AVFs or AVGs Back: negative for CVA tenderness Neuro: neg tremor, asterixis Skin: no rash, jaundice : + skinner catheter, bloody Results Pertinent Lab Results: Laboratory Tests 12/15 12/14 0645 0630 Chemistry Sodium (137 - 145 mmol/L) 126 L 127 L Potassium (3.5 - 5.1 mmol/L) 3.1 L 3.6 Chloride (98 - 107 mmol/L) 82 L 84 L Carbon Dioxide (22 - 30 mmol/L) 34 H 31 H Anion Gap (5 - 16) 10 12 BUN (9 - 20 mg/dL) 42 H 44 H Creatinine (0.7 - 1.2 mg/dL) 2.1 H 2.0 H Estimated GFR (>60 ml/min) 31 L 32 L BUN/Creatinine Ratio (7 - 25 %) 20.0 22.0 Magnesium (1.6 - 2.3 mg/dL) 1.6 Coagulation PT (9.4 - 12.5 SEC) 28.1 H 25.3 H INR (0.90 - 1.17) 2.55 H 2.30 H Hematology CBC w Diff MAN DIFF ORDERED MAN DIFF ORDERED WBC (4.8 - 10.8 /CUMM) 8.1 7.6 RBC (4.70 - 6.10 /CUMM) 4.31 L 4.45 L Hgb (14.0 - 18.0 G/DL) 11.2 L 11.5 L Hct (42 - 52 %) 34.3 L 34.9 L MCV (80.0 - 94.0 FL) 79.5 L 78.4 L MCH (27.0 - 31.0 PG) 26.0 L 25.7 L MCHC (33.0 - 37.0 G/DL) 32.8 L 32.8 L RDW (11.5 - 14.5 %) 20.9 H 21.3 H Plt Count (130 - 400 /CUMM) 181 187 MPV (7.4 - 10.4 FL) 10.4 11.0 H Gran % (42.2 - 75.2 %) 83.9 H 84.0 H Lymphocytes % (20.5 - 51.1 %) 6.9 L 7.3 L Monocytes % (1.7 - 9.3 %) 9.0 8.4 Eosinophils % (0 - 5 %) 0.2 0.2 Basophils % (0.0 - 2.0 %) 0 0.1 Absolute Granulocytes (1.4 - 6.5 /CUMM) 6.8 H 6.3 Absolute Lymphocytes (1.2 - 3.4 /CUMM) 0.6 L 0.6 L Absolute Monocytes (0.10 - 0.60 /CUMM) 0.7 H 0.6 Absolute Eosinophils (0.0 - 0.7 /CUMM) 0 0 Absolute Basophils (0.0 - 0.2 /CUMM) 0 0 Platelet Estimate (ADEQUATE) VERIFIED BY SMEAR ADEQUATE Polychromasia 1+ Hypochromic-Microcytic 1+ Poikilocytosis 2+ Anisocytosis 1+ 1+ Microcytic Cells 1+ Ovalocytes 1+ FEW [place] Cells 2+ Elliptocytes 1+ FEW Schistocytes 12/13 0628 Chemistry Sodium (137 - 145 mmol/L) 129 L Potassium (3.5 - 5.1 mmol/L) 3.4 L Chloride (98 - 107 mmol/L) 84 L Carbon Dioxide (22 - 30 mmol/L) 30 Anion Gap (5 - 16) 14 BUN (9 - 20 mg/dL) 42 H Creatinine (0.7 - 1.2 mg/dL) 2.3 H Estimated GFR (>60 ml/min) 28 L BUN/Creatinine Ratio (7 - 25 %) 18.3 Troponin I (<0.11 ng/ml) 0.22 *H Free T4 (0.78 - 2.44 ng/dL) 1.28 Total T3 (0.97 - 1.69 ng/mL) 0.63 L TSH &T3 &Free T4 Intrp (0.27 - 4.20 uIU/mL) 3.770 Coagulation PT (9.4 - 12.5 SEC) 28.3 H INR (0.90 - 1.17) 2.57 H Hematology CBC w Diff NO MAN DIFF REQ WBC (4.8 - 10.8 /CUMM) 7.5 RBC (4.70 - 6.10 /CUMM) 4.33 L Hgb (14.0 - 18.0 G/DL) 11.1 L Hct (42 - 52 %) 34.0 L MCV (80.0 - 94.0 FL) 78.4 L MCH (27.0 - 31.0 PG) 25.6 L MCHC (33.0 - 37.0 G/DL) 32.7 L RDW (11.5 - 14.5 %) 21.1 H Plt Count (130 - 400 /CUMM) 190 MPV (7.4 - 10.4 FL) 10.6 H Gran % (42.2 - 75.2 %) 81.2 H Lymphocytes % (20.5 - 51.1 %) 8.7 L Monocytes % (1.7 - 9.3 %) 9.6 H Eosinophils % (0 - 5 %) 0.2 Basophils % (0.0 - 2.0 %) 0.3 Absolute Granulocytes (1.4 - 6.5 /CUMM) 6.1 Absolute Lymphocytes (1.2 - 3.4 /CUMM) 0.7 L Absolute Monocytes (0.10 - 0.60 /CUMM) 0.7 H Absolute Eosinophils (0.0 - 0.7 /CUMM) 0 Absolute Basophils (0.0 - 0.2 /CUMM) 0 Immunology Thyroglobulin Antibody (< 61 U/mL) < 15 Assessment/Plan Assessment/Recommendations Assessment: Hyponatremia: This is clearly a hypervolemic hyponatremia in the setting of congestive heart failure with impressive edema/anasarca. The hyperkalemia is likely triggered by congestive heart failure with preserved ejection fraction, possibly exacerbated by lack of a fluid restriction. Salt tablets can also contribute to volume overload. Would suggest fluid restriction, discontinuation of salt tabs, and continuing IV Lasix in an effort to diuresis and keep net negative. CHF with a preserved ejection fraction: Clearly volume overloaded and congestive heart failure would continue IV diuresis as recommended by cardiology and needs a fluid restriction and discontinuation of salt tablets Chronic kidney disease stage 3-4: Past UAs negative for proteinuria and gloria. Renal ultrasound negative for post renal process. Chronic kidney disease likely secondary to hypertension plus or minus chronic cardiorenal syndrome. Presentation not consistent with overt diabetic nephropathy given lack of significant proteinuria past urinalyses Recommendations: Discontinue salt tabs 1 L per day fluid restriction Continue Lasix 40 mg IV twice a day Strict ins and outs daily weights and daily renal labs If not diuresing significantly (goal of net -1-2 L per 24 hours), then would uptitrate IV Lasix No need for additional renal workup at this time Thank you for the consult Devon Valencia MD
[2017-12-15 13:29] VITALS: BP 118/60
[2017-12-16 06:49] VITALS: BP 112/72
[2017-12-16 08:26] LABS: PT 26.5 SEC (9.4-12.5)
--- NOTE | 2017-12-16 08:54 | PN- Cardiology ---
Subjective Subjective: * No complaints. No chest discomfort, shortness of breath or palpitations. * atrial fibrillation with mildly increased heart rate. * creatinine 2.1 with potassium 3.3 * INR is 2.41 Objective Vital Signs and I&Os Vital Signs Date Time Temp Pulse Resp B/P B/P Pulse O2 O2 Flow FiO2 Mean Ox Delivery Rate 12/16 0549 97.6 90 18 112/72 95 Nasal Cannula 12/16 0000 Nasal 1.0L Cannula 12/15 2058 120 110/80 12/15 2057 120 110/80 12/15 2057 120 110/70 12/15 1847 95 Nasal 1.0L Cannula 12/15 1600 95 Nasal 1.0L Cannula 12/15 1329 97.7 68 18 118/60 95 Nasal 1.0L Cannula 12/15 1113 94 Nasal 1.0L Cannula Intake & Output 12/16 1600 12/16 0800 12/16 0000 12/15 1600 12/15 0800 12/15 0000 Intake Total 60 240 590 120 120 Output Total 450 450 848 626 7255 Balance -390 -210 -60 -380 -1280 Intake, Oral 60 240 590 120 120 Number 0 Bowel Movements Output, Urine 450 450 107 325 0578 Patient 247 lb 247 lb Weight Weight Bed scale Bed scale Measurement Method Physical Exam: General: WD/overweight male in NAD; alert and oriented x 3 HEENT: right facial droop Neck: no JVD Heart: irregularly irregular Lungs: clear bilaterally Extremities: 2+ lower extremity edema Assessment/Plan Assessment/Plan * Atrial fibrillation: Good rate with mildly increased heart rate. Increase Metoprolol to 75mg BID and increase Cardizem to 160mg daily. Continue coumadin with goal INR of 2.2.5. Continue Coumadin at 2mg daily and recheck on Sunday. * CHF. Persistent fluid overload on chest X ray with mild leg edema. Continue to diurese with Lasix at 40mg IV BID with careful monitoring of his BUN, creatinine and potassium. Begin a potassium supplement, i.e. Kdur 20meq PO daily and give two doses of oral KCL 40meq to 2 hours to maintain a level of 4.0. * Positive troponin. This is consistent with myocardial ischemia. The patient is currently pain free. Continue his beta susanna, asa 81mg daily and statin. If recurrent chest pain begin NTG paste. Continue telemetry? Yes
--- NOTE | 2017-12-16 09:08 | PN- Endocrinology ---
Assessment/Plan Endoscopy Assessment: 77-year-old male with a history of atrial fibrillation was brought to the hospital because of some numbness of his face and slurred speech. The endocrine consult was called for abnormal thyroid test initially. His repeat TSH was 3.77 and free T4 was 1.28. The abnormal TFT most likely was due to sick euthyroid changes. The patient also has hyponatremia. Escitalopram was decreased to 5 mg daily. Cortisol was 41.1. Patient is on 1000 ml /24 hours free water restriction and lasix 40 mg iv twice a day as per nephrology. Repeat Sodium was 126 on 2017. On 12/16/2017, his sodium was 125. The patient has some mild elevations of his blood sugars and he was placed on NovoLog coverage before meals starting with a sugar greater than 200. His FSGs were 129, 131, 159, 120 and 140. Plan: continue the current Novolog coverage before meals; monitor FSGs; monitor electrolytes. will follow. Subjective Subjective: He stated that he feels okay. Objective Last 24 Hrs of Vital Signs/I&O Vital Signs Date Time Temp Pulse Resp B/P B/P Pulse O2 O2 Flow FiO2 Mean Ox Delivery Rate 12/16 0649 97.6 90 18 112/72 95 Nasal Cannula 12/16 0000 Nasal 1.0L Cannula 12/15 2058 120 110/80 12/15 2057 120 110/80 12/15 2057 120 110/70 12/15 1847 95 Nasal 1.0L Cannula 12/15 1600 95 Nasal 1.0L Cannula 12/15 1329 97.7 68 18 118/60 95 Nasal 1.0L Cannula 12/15 1113 94 Nasal 1.0L Cannula Intake & Output 12/16 1600 12/16 0800 12/16 0000 Intake Total 60 240 Output Total 450 450 Balance -390 -210 Intake, Oral 60 240 Output, Urine 450 450 Patient 247 lb Weight Weight Bed scale Measurement Method Results Pertinent Lab/Ibrahima Results: Laboratory Tests 12/16 0620 Chemistry Sodium (137 - 145 mmol/L) 125 L Potassium (3.5 - 5.1 mmol/L) 3.3 L Chloride (98 - 107 mmol/L) 82 L Carbon Dioxide (22 - 30 mmol/L) 34 H Anion Gap (5 - 16) 9 BUN (9 - 20 mg/dL) 39 H Creatinine (0.7 - 1.2 mg/dL) 2.1 H Estimated GFR (>60 ml/min) 31 L BUN/Creatinine Ratio (7 - 25 %) 18.6 Coagulation PT (9.4 - 12.5 SEC) 26.5 H INR (0.90 - 1.17) 2.41 H
--- NOTE | 2017-12-16 09:25 | PN- Housestaff ---
Juan HERRON,[facility] 12/16/17 0925: Subjective Follow-up For: 1. Acute ischemic stroke not a candidate for tPA (on coumadin) 2. Afib on coumadin with therapeutic INR 3. Acute on chronic diastolic heart failure 4. 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 Elevated troponin likely demand ischemia Type 2 MS 6. Hyponatremia hypervolemic state 7. Hematuria Tele-Events Since Last Visit: Atrial flutter Heart rate 89 Subjective: Patient seen at bedside, denies any active complaints. Review of Systems Constitutional: Reports: no symptoms. EENTM: Reports: no symptoms. Cardiovascular: Reports: peripheral edema. Respiratory: Reports: no symptoms. Gastrointestinal: Reports: no symptoms. Genitourinary: Reports: no symptoms. Musculoskeletal: Reports: no symptoms. Skin: Reports: no symptoms. Neurological/Psychological: Reports: no symptoms. Hematologic/Endocrine: Reports: no symptoms. Immunologic/Allergic: Reports: no symptoms. Objective Last 24 Hrs of Vital Signs/I&O Vital Signs Date Time Temp Pulse Resp B/P B/P Pulse O2 O2 Flow FiO2 Mean Ox Delivery Rate 12/16 1515 97.3 67 18 110/70 94 Nasal Cannula 12/16 1144 95 Nasal 1.0L Cannula 12/16 0945 121 112/72 12/16 0945 121 112/72 12/16 0945 121 112/72 12/16 0800 95 Nasal 1.0L Cannula 12/16 0649 97.6 90 18 112/72 95 Nasal Cannula 12/16 0000 Nasal 1.0L Cannula 12/15 2058 120 110/80 12/15 2057 120 110/80 12/15 2057 120 110/70 12/15 1847 95 Nasal 1.0L Cannula Intake & Output 12/16 1600 12/16 0800 12/16 0000 Intake Total 600 60 240 Output Total 525 450 450 Balance 75 -390 -210 Intake, Oral 600 60 240 Number 0 Bowel Movements Output, Urine 525 450 450 Patient 247 lb Weight Weight Bed scale Measurement Method Physical Exam General Appearance: Alert, Cooperative, No Acute Distress Skin: No Rashes, No Breakdown Cardiovascular: Normal S1, Normal S2, irregular, systolic murmur Lungs: Clear to Auscultation, Normal Air Movement Abdomen: Normal Bowel Sounds, Soft, No Tenderness Extremities: No Clubbing, No Cyanosis, +2 pitting edema bilaterally Current Medications: Current Medications Sig/James Start time Last Medication Dose Route Stop Time Status Admin Albuterol Sulfate 3 ML Q4P PRN 12/12 1945 DC INH Aspirin 81 MG DAILY 12/12 1000 AC 12/16 PO 0945 Atorvastatin Calcium 80 MG 1700 12/12 0630 AC 12/15 PO 1602 Bisacodyl 10 MG ONCE ONE 12/16 1100 DC 12/16 [place] 12/16 1101 1559 Diltiazem HCl 160 MG BID 12/160 UNVr PO Diltiazem HCl 120 MG BID 12/14 1000 DC 12/16 PO 0945 Donepezil HCl 10 MG QPM 12/12 2200 AC 12/15 PO 2055 Escitalopram Oxalate 5 MG DAILY 12/14 1000 AC 12/16 PO 0945 Finasteride 5 MG DAILY 12/12 1000 AC 12/16 PO 0945 Furosemide 40 MG 7:30 AM, & 4:30 PM 12/13 1630 AC 12/16 IV 1559 Insulin Aspart 0 TIDAC 12/12 1700 AC SC Ipratropium [place] 2.5 ML Q4P PRN 12/12 2000 DC INH Metoprolol Tartrate 75 MG BID 12/16 2200 AC PO Metoprolol Tartrate 50 MG BID 12/13 1000 DC 12/16 PO 0945 Nystatin 1 ZORAIDA TID PRN 12/16 1400 AC 12/16 TOP 1559 Potassium Chloride 20 MEQ BID 12/17 1000 AC PO Potassium Chloride 40 MEQ ONCE ONE 12/16 1930 AC PO 12/16 1931 Potassium Chloride 10 MEQ ONCE ONE 12/16 1730 DC PO 12/16 1731 Tamsulosin HCl 0.4 MG BID 12/12 1000 AC 12/16 PO 0945 Warfarin Sodium 2 MG ONCE ONE 12/16 1600 DC PO 12/16 1601 Last 24 Hrs of Lab/Ibrahima Results Last 24 Hrs of Labs/Mics: Laboratory Tests 12/16/17 0620: Anion Gap 9, Estimated GFR 31 L, BUN/Creatinine Ratio 18.6, PT 26.5 H, INR 2.41 H Assessment/Plan Assessment: 77-year-old gentleman with past medical history of paroxysmal atrial ablation on Coumadin, hypertension, hyperlipidemia, small bowel obstruction, dementia, sarcoma right cheek status post radiation came from [facility] for complaints of facial numbness and slurred speech. Problem list: 1. Acute ischemic stroke not a candidate for tPA (on coumadin) 2. Afib on coumadin with therapeutic INR 3. Acute on chronic diastolic heart failure 4. 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 Elevated troponin likely demand ischemia Type 2 MS 6. Hyponatremia hypervolemic state 7. Hematuria Plan: - Sodium level of 125 today. Continue fluid restriction to 1 L and avoid salt tablets per nephrology as it can contribute to fluid retention. Repeat sodium level in a.m. - Potassium level is 3.3, will give K-dur 40 mEq x 2 and start the patient on K- Dur 20 milliequivalents twice a day. Continue to monitor. - Continue IV Lasix twice a day - Increase metoprolol to 75 mg twice a day. Unsure about cardizem if the cardiology note meant increase to 160 BID ??, patient currently on 120mg BID. Will continue the same for now and confirm with cardiology in am. - Dose Coumadin per INR - If patient exhibits CP, start NTG paste - Renal ultrasound on 12/15/17 showed no hydronephrosis or nephrolithiasis - Cardiology, endo, neurology and nephrology recommendations appreciated - Neurology consult for hematuria, awaiting recommendations. H&H remained stable. DVT prophylaxis; on Coumadin Patient is full code Problem List: 1. CVA (cerebral vascular accident) 2. Hyponatremia 3. Edema Pain Ratin Pain Location: None Pain Goal: Remain pain free Pain Plan: NA Tomorrow's Labs & Rationales: BEP(hyponatremia, paula), INR(on Coumadin) Cordelia Rivera 12/16/17 1550: Attending MD Review Statement Attending Statement Attending MD Statement: examined this patient, discuss w/resident/PA/MAINTENANCE ASSISTANT, agreed w/resident/PA/MAINTENANCE ASSISTANT, discussed with family, reviewed EMR data (avail), discussed with nursing Attending Assessment/Plan: d/w pt and pts son at bedside the care plan. Hyponatremia- cont on fluid restriction and lasix. Sodium today at 125. Hematuria- will get urology conslt. Renal ultrasound was ok.
[2017-12-16 15:15] VITALS: BP 110/70
[2017-12-16 23:02] VITALS: BP 128/64
--- NOTE | 2017-12-17 07:07 | PN- Housestaff ---
Camilla HERRON,Isa 12/17/17 0707: Subjective Follow-up For: 1. Acute ischemic stroke not a candidate for tPA (on coumadin) 2. Afib on coumadin with therapeutic INR 3. Acute on chronic diastolic heart failure 4. 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 Elevated troponin likely demand ischemia Type 2 SC 6. Hyponatremia hypervolemic state 7. Hematuria Complaints: RIGHT FACIAL NUMBNESS Tele-Events Since Last Visit: Sinus rhythm, 7187, QRS 0.08, FL 0.14, PACs Subjective: Patient was seen and examined at bedside, he continues to complain of right facial numbness, Review of Systems Constitutional: Denies: see HPI. Neurological/Psychological: Reports: numbness, paresthesia. Objective Last 24 Hrs of Vital Signs/I&O Vital Signs Date Time Temp Pulse Resp B/P B/P Pulse O2 O2 Flow FiO2 Mean Ox Delivery Rate 12/17 0800 Nasal 1.0L Cannula 12/17 0756 97 106/62 12/17 0755 97 106/62 12/17 0730 97.6 97 18 106/62 94 Nasal Cannula 12/17 0000 Nasal 1.0L Cannula 12/16 2302 97.9 88 18 128/64 96 Nasal 1.0L Cannula 12/16 2141 108/60 12/16 2141 108/60 12/16 1600 94 Nasal 1.0L Cannula 12/16 1515 97.3 67 18 110/70 94 Nasal Cannula 12/16 1144 95 Nasal 1.0L Cannula Intake & Output 12/17 1600 12/17 0800 12/17 0000 Intake Total 320 Output Total 500 400 Balance -500 -80 Intake, Oral 320 Number 1 2 Bowel Movements Output, Urine 500 400 Patient 247 lb Weight Physical Exam General Appearance: Alert, Cooperative, No Acute Distress HEENT: Atraumatic, PERRLA, EOMI, Mucous Membr. moist/pink Neck: Supple, No JVD Cardiovascular: Normal S1, Normal S2, No Murmurs Lungs: Clear to Auscultation Abdomen: Normal Bowel Sounds, Soft Extremities: No Clubbing, No Cyanosis, 4+PITTING EDMEA Vascular: Normal Pulses Current Medications: Current Medications Sig/James Start time Last Medication Dose Route Stop Time Status Admin Albuterol Sulfate 3 ML Q4P PRN 12/12 1945 DC INH Aspirin 81 MG DAILY 12/12 1000 AC 12/17 PO 0755 Atorvastatin Calcium 80 MG 1700 12/12 0630 AC 12/16 PO 1831 Diltiazem HCl 160 MG BID 12/16 2199 DC PO Diltiazem HCl 60 MG BID 12/16 2200 CAN PO Diltiazem HCl 90 MG BID 12/16 220 DC PO Diltiazem HCl 120 MG BID 12/16 2200 AC 12/17 PO 0755 Diltiazem HCl 120 MG BID 12/14 1000 DC 12/16 PO 0945 Donepezil HCl 10 MG QPM 12/12 2200 AC 12/16 PO 2141 Escitalopram Oxalate 5 MG Q48 12/18 1000 AC PO 12/24 1001 Escitalopram Oxalate 5 MG DAILY 12/14 1000 DC 12/16 PO 0945 Finasteride 5 MG DAILY 12/12 1000 AC 12/17 PO 0757 Furosemide 60 MG 7:30 AM, & 4:30 PM 12/17 1630 UNVr IV Furosemide 40 MG 7:30 AM, & 4:30 PM 12/13 1630 DC 12/17 IV 0755 Insulin Aspart 0 TIDAC 12/12 1700 AC SC Ipratropium [place] 2.5 ML Q4P PRN 12/12 2000 DC INH Metoprolol Tartrate 75 MG BID 12/16 2200 AC 12/16 PO 2142 Metoprolol Tartrate 50 MG BID 12/13 1000 DC 12/16 PO 0945 Nystatin 1 ZORAIDA TID PRN 12/16 1400 AC 12/16 TOP 1559 Potassium Chloride 20 MEQ BID 12/17 1000 AC 12/17 PO 0756 Potassium Chloride 40 MEQ ONCE ONE 12/16 1930 DC 12/16 PO 12/16 1931 2142 Potassium Chloride 10 MEQ ONCE ONE 12/16 1730 DC 12/16 PO 12/16 1731 1832 Tamsulosin HCl 0.4 MG BID 12/12 1000 AC 12/17 PO 0756 Warfarin Sodium 2 MG ONCE ONE 12/16 1600 DC 12/16 PO 12/16 1601 1831 Last 24 Hrs of Lab/Ibrahima Results Last 24 Hrs of Labs/Mics: Laboratory Tests 12/17/17 0635: Anion Gap 9, Estimated GFR 31 L, BUN/Creatinine Ratio 19.5, PT 22.6 H, INR 2.06 H Assessment/Plan Assessment: 77-year-old gentleman with past medical history of paroxysmal atrial ablation on Coumadin, hypertension, hyperlipidemia, small bowel obstruction, dementia, sarcoma right cheek status post radiation [facility] of [facility]ness and slurred speech. Problem list: 1. Acute ischemic stroke not a candidate for tPA (on coumadin) 2. Afib on coumadin with therapeutic INR 3. Acute on chronic diastolic heart failure 4. 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 Elevated troponin likely demand ischemia Type 2 SC 6. Hyponatremia hypervolemic state 7. Hematuria Plan: - Sodium level of 125 today. Continue fluid restriction to 1 L and avoid salt tablets per nephrology as it can contribute to fluid retention. Repeat sodium level in a.m. - Potassium level is 3.7, continue K-Dur 20 milliequivalents twice a day. Continue to monitor. -Increase IV Lasix to 60 twice a day -Continue metoprolol to 75 mg twice a day. -Continue Cardizem 120 twice daily - Dose Coumadin per INR (give warfarin 2 mg today) - If patient exhibits CP, start NTG paste -Urology recommendation appreciated regarding his hematuria - Cardiology, endo, neurology and nephrology recommendations appreciated - Neurology consult for hematuria, awaiting recommendations. H&H remained stable. DVT prophylaxis; on Coumadin Patient is full code Problem List: 1. PAULA (acute kidney injury) 2. Hyponatremia 3. Stroke 4. Elevated troponin 5. Diabetes Pain Ratin Pain Location: N/A Pain Goal: Remain pain free Pain Plan: pathway Tomorrow's Labs & Rationales: CBC BEP INR DVT/Prophylaxis: mechanical, pharmacological Cordelia Rivera 12/17/17 1850: Attending MD Review Statement Attending Statement Attending MD Statement: examined this patient, discuss w/resident/PA/FIRST AID ATTENDANT, agreed w/resident/PA/FIRST AID ATTENDANT, reviewed EMR data (avail), discussed with nursing, discussed with case mgmt Attending Assessment/Plan: Pt seen and examined at bedside. Pt cont to have pitting edema upto thighs and so will increase lasix to 60mg iv bid. Appreciated urology consult for hematuria. Pt on anticoagulation and currently no plan for intervention. d/w pt the care plan.
[2017-12-17 07:30] VITALS: BP 106/62
--- NOTE | 2017-12-17 07:52 | PN- Endocrinology ---
Assessment/Plan Endoscopy Assessment: The patient states he feels okay. He is on a fluid restriction. He is asking for more juice this morning and states he is thirsty. Escitalopram has been tapered to 5 mg daily. His sodium remains low at 125 on the last lab work. His blood sugars are 175 or less before meals and he has not required any NovoLog coverage. Plan: Suggest taper the patient off of citalopram since it may be the cause of his hyponatremia . We can reduce to 5 mg every other day for 2 doses and then stop it completely. After the patient is off citalopram, his serum sodium may improve gradually. Subjective Subjective: Feels okay Review of Systems Constitutional: Denies: chills, fever. Respiratory: Denies: short of breath. Gastrointestinal: Denies: nausea, vomiting. Skin: Reports: no symptoms. Objective Last 24 Hrs of Vital Signs/I&O Vital Signs Date Time Temp Pulse Resp B/P B/P Pulse O2 O2 Flow FiO2 Mean Ox Delivery Rate 12/17 0730 97.6 97 18 106/62 94 Nasal Cannula 12/17 0000 Nasal 1.0L Cannula 12/16 2302 97.9 88 18 128/64 96 Nasal 1.0L Cannula 12/16 2140 108/12/16 214 10812/16 1600 94 Nasal 1.0L Cannula 12/16 1515 97.3 67 18 110/70 94 Nasal Cannula 12/16 1144 95 Nasal 1.0L Cannula 12/16 0945 121 112/72 12/16 0945 121 112/72 12/16 0945 121 112/72 12/16 0800 95 Nasal 1.0L Cannula Intake & Output 12/17 0800 12/17 0000 12/16 1600 Intake Total 320 600 Output Total 500 400 525 Balance -500 -80 75 Intake, Oral 320 600 Number 1 2 0 Bowel Movements Output, Urine 500 400 525 Patient 247 lb Weight Vital Signs Date Time Temp Pulse Resp B/P B/P Pulse O2 O2 Flow FiO2 Mean Ox Delivery Rate 12/17 0730 97.6 97 18 106/62 94 Nasal Cannula 12/17 0000 Nasal 1.0L Cannula 12/16 2302 97.9 88 18 128/64 96 Nasal 1.0L Cannula 12/161 108/60 12/16 2141 108/12/16 1600 94 Nasal 1.0L Cannula 12/16 1515 97.3 67 18 110/70 94 Nasal Cannula 12/16 1144 95 Nasal 1.0L Cannula 12/16 0945 121 112/72 12/16 0945 121 112/72 12/16 0945 121 112/72 12/16 0800 95 Nasal 1.0L Cannula Intake & Output 12/17 0800 12/17 0000 12/16 1600 Intake Total 320 600 Output Total 500 400 525 Balance -500 -80 75 Intake, Oral 320 600 Number 1 2 0 Bowel Movements Output, Urine 500 400 525 Patient 247 lb Weight Physical Exam General Appearance: alert, awake, comfortable Head: normal appearance Neck: normal inspection Respiratory: normal breath sounds Cardiovascular: irregularly irregular Abdomen: normal bowel sounds Current Medications: Current Medications Sig/James Start time Last Medication Dose Route Stop Time Status Admin Albuterol Sulfate 3 ML Q4P PRN 12/12 1945 DC INH Aspirin 81 MG DAILY 12/12 1000 AC 12/16 PO 0945 Atorvastatin Calcium 80 MG 1700 12/12 0630 AC 12/16 PO 1831 Bisacodyl 10 MG ONCE ONE 12/16 1100 DC 12/16 ID 12/16 1101 1559 Diltiazem HCl 160 MG BID 12/16 2199 DC PO Diltiazem HCl 60 MG BID 12/16 2200 CAN PO Diltiazem HCl 90 MG BID 12/16 2199 DC PO Diltiazem HCl 120 MG BID 12/16 2200 AC 12/16 PO 2141 Diltiazem HCl 120 MG BID 12/14 1000 DC 12/16 PO 0945 Donepezil HCl 10 MG QPM 12/12 2200 AC 12/16 PO 2141 Escitalopram Oxalate 5 MG Q48 12/18 1000 AC PO 12/24 1001 Escitalopram Oxalate 5 MG DAILY 12/14 1000 DC 12/16 PO 0945 Finasteride 5 MG DAILY 12/12 1000 AC 12/16 PO 0945 Furosemide 40 MG 7:30 AM, & 4:30 PM 12/13 1630 AC 12/16 IV 1559 Insulin Aspart 0 TIDAC 12/12 1700 AC SC Ipratropium [place] 2.5 ML Q4P PRN 12/12 2000 DC INH Metoprolol Tartrate 75 MG BID 12/16 2200 AC 12/16 PO 2142 Metoprolol Tartrate 50 MG BID 12/13 1000 DC 12/16 PO 0945 Nystatin 1 ZORAIDA TID PRN 12/16 1400 AC 12/16 TOP 1559 Potassium Chloride 20 MEQ BID 12/17 1000 AC PO Potassium Chloride 40 MEQ ONCE ONE 12/16 1930 DC 12/16 PO 12/16 1931 2142 Potassium Chloride 10 MEQ ONCE ONE 12/16 1730 DC 12/16 PO 12/16 1731 1832 Tamsulosin HCl 0.4 MG BID 12/12 1000 AC 12/16 PO 2141 Warfarin Sodium 2 MG ONCE ONE 12/16 1600 DC 12/16 PO 12/16 1601 1831 Results Pertinent Lab/Ibrahima Results: Laboratory Tests 12/17 0635 Chemistry Sodium Pending Potassium Pending Chloride Pending Carbon Dioxide Pending Anion Gap Pending BUN Pending Creatinine Pending BUN/Creatinine Ratio Pending Coagulation PT Pending INR Pending
[2017-12-17 09:32] LABS: PT 22.6 SEC (9.4-12.5)
--- NOTE | 2017-12-17 11:36 | PN- Cardiology ---
Subjective Subjective: The patient is awake, alert The events of the last 24 hours as well as telemetry were reviewed. Review of Systems: The review of systems is negative for chest pains, palpitations nor lightheadedness. The remainder of the 14 point review of systems is noncontributory with the exception of above. Objective Vital Signs and I&Os Vital Signs Date Time Temp Pulse Resp B/P B/P Pulse O2 O2 Flow FiO2 Mean Ox Delivery Rate 12/17 0800 Nasal 1.0L Cannula 12/17 0756 97 106/62 12/17 0755 97 106/62 12/17 0730 97.6 97 18 106/62 94 Nasal Cannula 12/17 0000 Nasal 1.0L Cannula 12/16 2302 97.9 88 18 128/64 96 Nasal 1.0L Cannula 12/16 2141 108/60 12/16 2141 108/60 12/16 1600 94 Nasal 1.0L Cannula 12/16 1515 97.3 67 18 110/70 94 Nasal Cannula 12/16 1144 95 Nasal 1.0L Cannula Intake & Output 12/17 1600 12/17 0800 12/17 0000 12/16 1600 12/16 0800 12/16 0000 Intake Total 320 600 60 240 Output Total 500 400 525 450 450 Balance -500 -80 75 -390 -210 Intake, Oral 320 600 60 240 Number 1 2 0 Bowel Movements Output, Urine 500 400 525 450 450 Patient 247 lb 247 lb Weight Weight Bed scale Measurement Method Physical Exam: General: Nontoxic, no apparent distress. HEENT: Sclera and conjunctiva within normal limits, without xanthelasmas, left facial droop. Neck: Carotids 2+ without bruits. Respiratory: Scattered rhonchi, air movement is good, without accessory respiratory muscle use. Heart: Irregularly irregular rate and rhythm, 2/6 systolic ejection murmur at left sternal border, without JVD. Abdomen: Soft, nontender, no masses, normoactive bowel sounds. Extremities: Without clubbing, cyanosis, without edema. Neuro: Nonfocal exam, strength, 5 out of 5, with the exception of facial droop Skin: Within normal limits without lesions. Psych: Mood and affect: Normal Current Medications: Current Medications Sig/James Start time Last Medication Dose Route Stop Time Status Admin Albuterol Sulfate 3 ML Q4P PRN 12/12 1945 DC INH Aspirin 81 MG DAILY 12/12 1000 AC 12/17 PO 0755 Atorvastatin Calcium 80 MG 1700 12/12 0630 AC 12/16 PO 1831 Diltiazem HCl 160 MG BID 12/16 220 DC PO Diltiazem HCl 60 MG BID 12/16 2200 CAN PO Diltiazem HCl 90 MG BID 12/16 220 DC PO Diltiazem HCl 120 MG BID 12/16 2200 AC 12/17 PO 0755 Diltiazem HCl 120 MG BID 12/14 1000 DC 12/16 PO 0945 Donepezil HCl 10 MG QPM 12/12 2200 AC 12/16 PO 2141 Escitalopram Oxalate 5 MG Q48 12/18 1000 AC PO 12/24 1001 Escitalopram Oxalate 5 MG DAILY 12/14 1000 DC 12/16 PO 0945 Finasteride 5 MG DAILY 12/12 1000 AC 12/17 PO 0757 Furosemide 60 MG 7:30 AM, & 4:30 PM 12/17 1630 UNVr IV Furosemide 40 MG 7:30 AM, & 4:30 PM 12/13 1630 DC 12/17 IV 0755 Insulin Aspart 0 TIDAC 12/12 1700 AC SC Ipratropium [place] 2.5 ML Q4P PRN 12/12 2000 DC INH Metoprolol Tartrate 75 MG BID 12/16 2200 AC 12/16 PO 2142 Metoprolol Tartrate 50 MG BID 12/13 1000 DC 12/16 PO 0945 Nystatin 1 ZORAIDA TID PRN 12/16 1400 AC 12/16 TOP 1559 Potassium Chloride 20 MEQ BID 12/17 1000 AC 12/17 PO 0756 Potassium Chloride 40 MEQ ONCE ONE 12/16 1930 DC 12/16 PO 12/16 1931 2142 Potassium Chloride 10 MEQ ONCE ONE 12/16 1730 DC 12/16 PO 12/16 1731 1832 Tamsulosin HCl 0.4 MG BID 12/12 1000 AC 12/17 PO 0756 Warfarin Sodium 2 MG COUMADIN 1700 ONE 12/17 1700 UNVr PO 12/17 1701 Warfarin Sodium 2 MG ONCE ONE 12/16 1600 DC 12/16 PO 12/16 1601 1831 Results Last 48 Hrs of Labs/Mics: Laboratory Tests 12/17/17 0635: Anion Gap 9, Estimated GFR 31 L, BUN/Creatinine Ratio 19.5, PT 22.6 H, INR 2.06 H 12/16/17 0620: Anion Gap 9, Estimated GFR 31 L, BUN/Creatinine Ratio 18.6, PT 26.5 H, INR 2.41 H Assessment/Plan Assessment/Plan 77-year-old gentleman with a past medical history of paroxysmal atrial fibrillation (on warfarin), dementia, chronic kidney disease, coronary artery disease, hypertension and hyperlipidemia and diabetes mellitus. He presented to our hospital from his extended care facility secondary to facial numbness and slurred speech. He was as well noted to have mild increasing dyspnea. Acute facial droop with slurred speech: The patient presents with findings consistent with a CVA, most likely cardio embolic with underlying atrial fibrillation. This may be in the context of a subtherapeutic INR. Given this, I would attempt raising his INR therapeutic range to 2.5-3.5. We will continue with an overall conservative course of management given his underlying comorbidities. Dyspnea: The patient as well as had complaints of dyspnea with findings of an elevated BNP and physical findings consistent with possible mild congestive heart failure. He underwent an echocardiogram one month ago which demonstrated preserved LV systolic function as well as grossly normal valvular structure and function. His overall presentation may be consistent with acute on chronic congestive heart failure with preserved LV systolic function. We will continue to diuresis tolerated, monitoring his sodium levels closely. Coronary artery disease: Stable. We will continue his current medication regimen. Given his comorbidities, an overall conservative approach will be followed. Continue telemetry? No
--- NOTE | 2017-12-17 11:54 | PN- Nephrology ---
See Addendum Assessment/Plan Nephrology Assessment: Hyponatremia - Hypoosmolar - a/w elevated UOsm suggestive of high ADH state. Not hypotensive although in the setting of significant edema, likely with decreased effective arterial blood volume as stimulus for ADH secretion. Has been on BID diuretics but still significantly overloaded. Should note that with correction of hypokalemia, may be able to improve hyponatremia. AM cortisol OK and Free T4 OK. CHF - Remains volume expanded. 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 Suggestion: -Increase lasix to 40mg IV q8 -Start spironolactone 50mg daily -K repletion to 4.0 -1000cc/day fluid restriction Please call [phone] with ?'s Subjective Subjective: Na 125 SCr 2.1 Remains on 40mg IV lasix BID - 1375cc UOP (has skinner) Weight noted to be stable at 247 Family notes clots in skinner bag Objective Vital Signs and I&Os Vital Signs Date Time Temp Pulse Resp B/P B/P Pulse O2 O2 Flow FiO2 Mean Ox Delivery Rate 12/17 0800 Nasal 1.0L Cannula 12/17 0756 97 106/62 12/17 0755 97 106/62 12/17 0730 97.6 97 18 106/62 94 Nasal Cannula 12/17 0000 Nasal 1.0L Cannula 12/16 2302 97.9 88 18 128/64 96 Nasal 1.0L Cannula 12/16 2141 108/60 12/16 2141 108/60 12/16 1600 94 Nasal 1.0L Cannula 12/16 1515 97.3 67 18 110/70 94 Nasal Cannula Intake & Output 12/17 1600 12/17 0400 12/16 1600 12/16 0400 12/15 1600 12/15 0400 Intake Total 320 660 240 710 120 Output Total 500 400 586 764 6003 1400 Balance -500 -80 -315 -210 -440 -1280 Intake, Oral 320 660 240 710 120 Number 1 2 0 0 Bowel Movements Output, Urine 500 400 428 959 9520 1400 Patient 247 lb 247 lb 247 lb Weight Weight Bed scale Bed scale Measurement Method Physical Exam: Gen - OK appearing HEENT - supple CV - RRR, no m/r/g Chest - clear anteriorly, no w/r/r Abd - soft, NTND Ext - ++edema Neuro - AOX3, grossly nonfocal Current Medications: Current Medications Sig/James Start time Last Medication Dose Route Stop Time Status Admin Acetaminophen 500 MG Q6P PRN 12/17 1145 AC PO Albuterol Sulfate 3 ML Q4P PRN 12/12 1945 DC INH Aspirin 81 MG DAILY 12/12 1000 AC 12/17 PO 0755 Atorvastatin Calcium 80 MG 1700 12/12 0630 AC 12/16 PO 1831 Diltiazem HCl 160 MG BID 12/16 2199 DC PO Diltiazem HCl 60 MG BID 12/16 2200 CAN PO Diltiazem HCl 90 MG BID 12/16 220 DC PO Diltiazem HCl 120 MG BID 12/16 2200 AC 12/17 PO 0755 Diltiazem HCl 120 MG BID 12/14 1000 DC 12/16 PO 0945 Donepezil HCl 10 MG QPM 12/12 2200 AC 12/16 PO 2141 Escitalopram Oxalate 5 MG Q48 12/18 1000 AC PO 12/24 1001 Escitalopram Oxalate 5 MG DAILY 12/14 1000 DC 12/16 PO 0945 Finasteride 5 MG DAILY 12/12 1000 AC 12/17 PO 0757 Furosemide 60 MG 7:30 AM, & 4:30 PM 12/17 1630 UNVr IV Furosemide 40 MG 7:30 AM, & 4:30 PM 12/13 1630 DC 12/17 IV 0755 Insulin Aspart 0 TIDAC 12/12 1700 AC SC Ipratropium Pilot 2.5 ML Q4P PRN 12/12 2000 DC INH Metoprolol Tartrate 75 MG BID 12/16 2200 AC 12/16 PO 2142 Metoprolol Tartrate 50 MG BID 12/13 1000 DC 12/16 PO 0945 Nystatin 1 ZORAIDA TID PRN 12/16 1400 AC 12/16 TOP 1559 Potassium Chloride 20 MEQ BID 12/17 1000 AC 12/17 PO 0756 Potassium Chloride 40 MEQ ONCE ONE 12/16 1930 DC 12/16 PO 12/16 193 2142 Potassium Chloride 10 MEQ ONCE ONE 12/16 1730 DC 12/16 PO 12/16 1731 1832 Tamsulosin HCl 0.4 MG BID 12/12 1000 AC 12/17 PO 0756 Warfarin Sodium 2 MG COUMADIN 1700 ONE 12/17 1700 UNVr PO 03/12 1701 Warfarin Sodium 2 MG ONCE ONE 12/16 1600 DC 12/16 PO 12/16 1601 1831 Results Pertinent Lab Results: Laboratory Tests 12/17 12/16 12/15 0635 0620 0645 Chemistry Sodium (137 - 145 mmol/L) 125 L 125 L 126 L Potassium (3.5 - 5.1 mmol/L) 3.7 3.3 L 3.1 L Chloride (98 - 107 mmol/L) 81 L 82 L 82 L Carbon Dioxide (22 - 30 mmol/L) 35 H 34 H 34 H Anion Gap (5 - 16) 9 9 10 BUN (9 - 20 mg/dL) 41 H 39 H 42 H Creatinine (0.7 - 1.2 mg/dL) 2.1 H 2.1 H 2.1 H Estimated GFR (>60 ml/min) 31 L 31 L 31 L BUN/Creatinine Ratio (7 - 25 %) 19.5 18.6 20.0 Magnesium (1.6 - 2.3 mg/dL) 1.6 Coagulation PT (9.4 - 12.5 SEC) 22.6 H 26.5 H 28.1 H INR (0.90 - 1.17) 2.06 H 2.41 H 2.55 H Hematology CBC w Diff MAN DIFF ORDERED WBC (4.8 - 10.8 /CUMM) 8.1 RBC (4.70 - 6.10 /CUMM) 4.31 L Hgb (14.0 - 18.0 G/DL) 11.2 L Hct (42 - 52 %) 34.3 L MCV (80.0 - 94.0 FL) 79.5 L MCH (27.0 - 31.0 PG) 26.0 L MCHC (33.0 - 37.0 G/DL) 32.8 L RDW (11.5 - 14.5 %) 20.9 H Plt Count (130 - 400 /CUMM) 181 MPV (7.4 - 10.4 FL) 10.4 Gran % (42.2 - 75.2 %) 83.9 H Lymphocytes % (20.5 - 51.1 %) 6.9 L Monocytes % (1.7 - 9.3 %) 9.0 Eosinophils % (0 - 5 %) 0.2 Basophils % (0.0 - 2.0 %) 0 Absolute Granulocytes (1.4 - 6.5 /CUMM) 6.8 H Absolute Lymphocytes (1.2 - 3.4 /CUMM) 0.6 L Absolute Monocytes (0.10 - 0.60 /CUMM) 0.7 H Absolute Eosinophils (0.0 - 0.7 /CUMM) 0 Absolute Basophils (0.0 - 0.2 /CUMM) 0 Platelet Estimate (ADEQUATE) VERIFIED BY SMEAR Polychromasia 1+ Hypochromic-Microcytic 1+ Poikilocytosis 2+ Anisocytosis 1+ Microcytic Cells 1+ Ovalocytes 1+ Hudson Cells 2+ Elliptocytes 1+ Schistocytes Imaging/Other Studies: TTE 11/21/17 CONCLUSIONS Left ventricular cavity size normal. Left ventricular wall thickness mildly increased. No obvious regional wall motion abnormalities. Left ventricular ejection fraction is estimated at 55 %. Right ventricle not well visualized, grossly normal. Left atrial size at the upper limits of normal. Unable to estimate the right ventricular systolic pressure. Pericardium not well visualized. No obvious pericardial effusion. EXAM TYPE: US - US-RENAL/KIDNEY EXAMINATION: US RETROPERITONEAL COMPLETE (RENAL) CLINICAL INFORMATION: 77-year-old male with hematuria.. COMPARISON: Renal ultrasound 08/10/2014 TECHNIQUE: Real-time imaging of the kidneys and bladder. FINDINGS: Evaluation is slightly suboptimal secondary to patient body habitus and overlying bowel gas. RIGHT KIDNEY: 10.7 x 5.5 x 5.0 cm (SAG x AP x TRV). The kidney is normal in size, contour, and echogenicity. Renal cortical thickness is normal. No calculi or focal parenchymal lesions. No hydronephrosis. LEFT KIDNEY: 9.9 x 4.9 x 5.5 cm (SAG x AP x TRV). The kidney is normal in size, contour, and echogenicity. Renal cortical thickness is normal. No calculi or focal parenchymal lesions. No hydronephrosis. BLADDER: Mildly distended containing a Skinner catheter. The right ureteral jet was visualized, the left was not. Prevoid bladder volume is 47 mL. OTHER: Incidentally noted trace amount of perihepatic ascites. Small gallstones and echogenic bile also visualized. IMPRESSION: 1. No hydronephrosis or nephrolithiasis. 2. Trace perihepatic ascites. 3. Cholelithiasis.
--- NOTE | 2017-12-17 11:58 | Cons- Urology ---
General Information and HPI Consulting Request Date of Consult: 12/17/17 Requested By: Cordelia Rivera MD Reason for Consult: gross hematuria Source of Information: old records Exam Limitations: unable to give history History of Present Illness: 77yo male with a PMH of atrial ablation on Coumadin, hypertension, hyperlipidemia, small bowel obstruction, dementia, sarcoma right cheek status post radiation from [facility] for complaints of facial numbness and slurred speech. Asked to evaluate the patient due to gross hematuria. He has a hx of BPH on tamsulosin and finasteride. His HCTs have been stable and stable Cr. Allergies/Medications Allergies: Coded Allergies: NO KNOWN ALLERGIES (NONE 11/21/17) Home Med List: Atorvastatin Calcium (Lipitor) 80 MG TABLET 1 TAB PO DAILY CHOLESTEROL ( Reported) Diltiazem HCl (Diltiazem 12HR ER) 120 MG CAP.ER.12H 1 CAP PO BID AFIB ( Reported) Donepezil HCl (Aricept) 10 MG TABLET 1 TAB PO QPM MEMORY (Reported) [DUONEB] 3 ML NEB Q6-8P PRN BREATHING PROBLEMS (Reported) Escitalopram Oxalate (Lexapro) 10 MG TABLET 1 TAB PO DAILY MENTAL HEALTH ( Reported) Finasteride (Proscar) 5 MG TABLET 1 TAB PO DAILY BPH (Reported) Furosemide (Lasix) 20 MG TABLET 2 TAB PO DAILY WATER Metformin HCl (Metformin HCl ER) 500 MG TAB.ER.24H 1 TAB PO BID DM (Reported) Metoprolol Tartrate (Lopressor) 50 MG TABLET 1 TAB PO BID AF Tamsulosin HCl (Flomax) 0.4 MG CAP.ER.24H 1 CAP PO BID BPH (Reported) Torsemide 20 MG TABLET 1 TAB PO DAILY WATER RETENTION (Reported) Warfarin Sodium (Coumadin) 4 MG TABLET 6 MG PO ONCE BLOOD THINNER please change dose according to PT/INR. 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 FATHER (colon cancer). SISTER (CAD s/p PCI). Psychosocial History Who Do You Live With? spouse Services at Home: None Primary Language: Malay Smoking Status: Former Smoker Living Will? yes Functional Ability ADLs Independent: dressing, eating, toileting, bathing. Ambulation: cane IADLs Needs Assist: shopping, housework, finances, telephone, transportation, medication admin. Review of Systems Review of Systems Constitutional: Reports: see HPI. EENTM: Reports: see HPI. Cardiovascular: Reports: see HPI. Respiratory: Reports: see HPI. GI: Reports: see HPI. Genitourinary: Reports: hematuria. Musculoskeletal: Reports: no symptoms. Skin: Reports: no symptoms. Neurological/Psychological: Reports: see HPI. Hematologic/Endocrine: Reports: see HPI. Immunologic/Allergic: Reports: see HPI. Exam & Diagnostic Data Vital Signs and I&O Vital Signs Date Time Temp Pulse Resp B/P B/P Pulse O2 O2 Flow FiO2 Mean Ox Delivery Rate 12/17 0800 Nasal 1.0L Cannula 12/17 0756 97 106/62 12/17 0755 97 106/62 12/17 0730 97.6 97 18 106/62 94 Nasal Cannula 12/17 0000 Nasal 1.0L Cannula 12/16 2302 97.9 88 18 128/64 96 Nasal 1.0L Cannula 12/16 2141 108/60 12/16 2141 108/60 12/16 1600 94 Nasal 1.0L Cannula 12/16 1515 97.3 67 18 110/70 94 Nasal Cannula Intake & Output 12/17 1600 12/17 0800 12/17 0000 12/16 1600 12/16 0800 12/16 0000 Intake Total 320 600 60 240 Output Total 500 400 525 450 450 Balance -500 -80 75 -390 -210 Intake, Oral 320 600 60 240 Number 1 2 0 Bowel Movements Output, Urine 500 400 525 450 450 Patient 112.094 kg 112.207 kg Weight Weight Bed scale Measurement Method Physical Exam General Appearance: no apparent distress, comfortable Head: normal appearance Respiratory: no respiratory distress Gastrointestinal: soft, non-tender Rectal: deferred Skin: intact, normal color, warm/dry Reproductive: Normal male genitalia Last 24 Hours of Labs: Laboratory Tests 12/17 0635 Chemistry Sodium (137 - 145 mmol/L) 125 L Potassium (3.5 - 5.1 mmol/L) 3.7 Chloride (98 - 107 mmol/L) 81 L Carbon Dioxide (22 - 30 mmol/L) 35 H Anion Gap (5 - 16) 9 BUN (9 - 20 mg/dL) 41 H Creatinine (0.7 - 1.2 mg/dL) 2.1 H Estimated GFR (>60 ml/min) 31 L BUN/Creatinine Ratio (7 - 25 %) 19.5 Coagulation PT (9.4 - 12.5 SEC) 22.6 H INR (0.90 - 1.17) 2.06 H Imaging Results: Normal Renal US on 12/14/17 Assessment/Plan Assessment/Plan 77yo male with hx of mult med problems on AC and with BPH on dual meds with gross hematuria. Stable HCT and Cr. No need for intervention at this time. Follow up with his urologist when discharged. No need for surgical intervention at this time. Consult Acknowledgment - Thank you for your consult request.
[2017-12-17 14:47] VITALS: BP 118/64
[2017-12-17 22:03] VITALS: BP 120/86
--- NOTE | 2017-12-18 07:17 | PN- Housestaff ---
Camilla HERRON,Isa 12/18/17 0717: Subjective Follow-up For: 1. Acute ischemic stroke not a candidate for tPA (on coumadin) 2. Afib on coumadin with therapeutic INR 3. Acute on chronic diastolic heart failure 4. 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 Elevated troponin likely demand ischemia Type 2 MN 6. Hyponatremia hypervolemic state 7. HematuriA Complaints: no complaints Tele-Events Since Last Visit: Mark corrie, [id number], 0.08 no overnight events Subjective: Patient was seen and examined at bedside, he is diuresing well and had negative fluid balance, of -615 Review of Systems Constitutional: Reports: see HPI. Objective Last 24 Hrs of Vital Signs/I&O Vital Signs Date Time Temp Pulse Resp B/P B/P Pulse O2 O2 Flow FiO2 Mean Ox Delivery Rate 12/18 1451 97.8 64 16 110/70 97 Nasal Cannula 12/18 1308 Nasal 1.0L Cannula 12/18 1048 112/70 12/18 1047 112/70 12/18 0955 Nasal 1.0L Cannula 12/18 0800 95 Nasal 1.0L Cannula 12/18 0725 97.6 87 16 108/72 97 Nasal Cannula 12/18 0000 Nasal 1.0L Cannula 12/17 2203 97.6 97 16 120/86 95 12/17 2142 66 118/64 12/17 2141 66 118/64 12/17 1600 Nasal 1.0L Cannula Intake & Output 12/18 1600 12/18 0800 12/18 0000 Intake Total 360 110 200 Output Total 450 725 500 Balance -90 -615 -300 Intake, IV 10 Intake, Oral 360 100 200 Output, Urine 450 725 500 Patient 247 lb Weight Physical Exam General Appearance: Alert, Cooperative, No Acute Distress HEENT: Atraumatic, PERRLA, EOMI, Mucous Membr. moist/pink Neck: Supple, No JVD Cardiovascular: Normal S1, Normal S2, No Murmurs Lungs: Clear to Auscultation Abdomen: Normal Bowel Sounds, Soft, No Tenderness Neurological: Normal Speech, Strength at 5/5 X4 Ext, Normal Tone, Sensation Intact Extremities: 3+ PITTING EDEMA Vascular: Normal Pulses Assessment/Plan Assessment: 77-year-old gentleman with past medical history of paroxysmal atrial ablation on Coumadin, hypertension, hyperlipidemia, small bowel obstruction, dementia, sarcoma right cheek status post radiation came from [facility] for complaints of facial numbness and slurred speech. Problem list: 1. Acute ischemic stroke not a candidate for tPA (on coumadin) 2. Afib on coumadin with therapeutic INR 3. Acute on chronic diastolic heart failure 4. 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 Elevated troponin likely demand ischemia Type 2 MN 6. Hyponatremia hypervolemic state 7. Hematuria Plan: - Sodium level of 127 today. Continue fluid restriction to 1 L and avoid salt tablets per nephrology as it can contribute to fluid retention. Repeat sodium level in a.m. -Potassium level improved, DC K-Dur tabs, continue to monitor. -Continue Lasix 40 q. 8 Continue Spironolactone 50 daily -Continue metoprolol to 75 mg twice a day. -Continue Cardizem 120 twice daily - Dose Coumadin per INR (give warfarin 2 mg today) - If patient exhibits CP, start NTG paste -Urology recommendation appreciated regarding his hematuria - Cardiology, endo, neurology and nephrology recommendations appreciated DVT prophylaxis; on Coumadin Patient is full code Problem List: 1. Edema 2. Hyponatremia 3. PAULA (acute kidney injury) 4. Stroke Pain Ratin Pain Location: N/A Pain Goal: Remain pain free Pain Plan: PATHWAY Tomorrow's Labs & Rationales: CBC BEP DVT/Prophylaxis: mechanical, pharmacological Cordelia Rivera 12/18/17 1411: Attending MD Review Statement Attending Statement Attending MD Statement: examined this patient, discuss w/resident/PA/CHARGE ENTRY CLERK, agreed w/resident/PA/CHARGE ENTRY CLERK, reviewed EMR data (avail), discussed with nursing, discussed with case mgmt Attending Assessment/Plan: Pt doing ok and would cont on lasix , dose was increased to 40mg iv q8h and aldactone was added. D/w pt the change in meds. Still has pitting edema upto thighs. Added protein shakes . will see how he does with increased lasix dose.
[2017-12-18 07:25] VITALS: BP 108/72
--- NOTE | 2017-12-18 08:11 | PN- Endocrinology ---
Assessment/Plan Endoscopy Assessment: The patient states he feels okay. His sodium went down yesterday to 124. He is now being tapered off escitalopram. However it will take a week or two for the levels of serotonin to fall. Therefore we will not see an immediate improvement in his serum sodium. Plan: Suggest continue to taper off citalopram. As mentioned above to take a week or two before we see improvement in his serum sodium if this SSRI is the cause of his hyponatremia. Subjective Subjective: Feels okay Review of Systems Constitutional: Denies: chills, fever. Cardiovascular: Denies: chest pain. Respiratory: Denies: cough, short of breath. Gastrointestinal: Denies: abdominal pain. Skin: Reports: no symptoms. Objective Last 24 Hrs of Vital Signs/I&O Vital Signs Date Time Temp Pulse Resp B/P B/P Pulse O2 O2 Flow FiO2 Mean Ox Delivery Rate 12/18 724 97.6 87 16 108/72 97 Nasal Cannula 12/18 0000 Nasal 1.0L Cannula 12/17 2202 97.6 97 16 120/86 95 12/172 66 118/64 12/17 2141 66 118/64 12/17 1600 Nasal 1.0L Cannula 12/17 1447 97.8 66 20 118/ 96 Nasal 1.0L Cannula Intake & Output 12/18 0812/18 0000 Intake Total 110 200 Output Total 725 500 Balance -615 -300 Intake, IV 10 Intake, Oral 100 200 Output, Urine 725 500 Patient 247 lb Weight Vital Signs Date Time Temp Pulse Resp B/P B/P Pulse O2 O2 Flow FiO2 Mean Ox Delivery Rate 12/18 724 97.6 87 16 108/72 97 Nasal Cannula 12/18 0000 Nasal 1.0L Cannula 12/17 2202 97.6 97 16 120/86 95 12/17 2142 66 118/64 12/17 2141 66 118/64 12/17 1600 Nasal 1.0L Cannula 12/17 1447 97.8 66 20 118/64 96 Nasal 1.0L Cannula Intake & Output 12/18 1600 12/18 0812/18 0000 Intake Total 110 200 Output Total 725 500 Balance -615 -300 Intake, IV 10 Intake, Oral 100 200 Output, Urine 725 500 Patient 247 lb Weight Physical Exam General Appearance: alert, awake, comfortable Head: normal appearance Respiratory: normal breath sounds Cardiovascular: irregularly irregular Abdomen: normal bowel sounds Extremities: normal inspection Current Medications: Current Medications Sig/James Start time Last Medication Dose Route Stop Time Status Admin Acetaminophen 500 MG Q6P PRN 12/17 1145 AC PO Aspirin 81 MG DAILY 12/12 1000 AC 12/17 PO 0755 Atorvastatin Calcium 80 MG 1700 12/12 0630 AC 12/17 PO 1703 Diltiazem HCl 120 MG BID 12/16 2200 AC 12/17 PO 2141 Donepezil HCl 10 MG QPM 12/12 2200 AC 12/17 PO 2142 Escitalopram Oxalate 5 MG Q48 12/18 1000 AC PO 12/24 1001 Finasteride 5 MG DAILY 12/12 1000 AC 12/17 PO 0757 Furosemide 60 MG 7:30 AM, & 4:30 PM 12/17 1630 DC IV Furosemide 40 MG Q8 12/17 1400 AC 12/18 IV 0616 Furosemide 40 MG 7:30 AM, & 4:30 PM 12/13 1630 DC 12/17 IV 0755 Insulin Aspart 0 TIDAC 12/12 1700 AC SC Metoprolol Tartrate 75 MG BID 12/16 2200 AC 12/17 PO 2142 Nystatin 1 ZORAIDA TID PRN 12/16 1400 AC 12/16 TOP 1559 Potassium Chloride 40 MEQ ONCE ONE 12/17 1400 DC 12/17 PO 12/17 1401 1428 Potassium Chloride 20 MEQ BID 12/17 1000 AC 12/17 PO 2143 Spironolactone 50 MG DAILY 12/17 1353 AC 12/17 PO 1703 Tamsulosin HCl 0.4 MG BID 12/12 1000 AC 12/17 PO 2142 Warfarin Sodium 2 MG COUMADIN 1700 ONE 12/17 1700 DC 12/17 PO 12/17 1701 1703 Results Pertinent Lab/Ibrahima Results: Laboratory Tests 12/18 12/17 0702 2000 Chemistry Sodium (137 - 145 mmol/L) Pending 124 L Potassium (3.5 - 5.1 mmol/L) Pending 4.1 Chloride (98 - 107 mmol/L) Pending 80 L Carbon Dioxide (22 - 30 mmol/L) Pending 35 H Anion Gap (5 - 16) Pending 9 BUN (9 - 20 mg/dL) Pending 40 H Creatinine (0.7 - 1.2 mg/dL) Pending 2.1 H Estimated GFR (>60 ml/min) 31 L BUN/Creatinine Ratio (7 - 25 %) Pending 19.0 Coagulation PT Pending INR Pending Hematology CBC w Diff Pending WBC Pending RBC Pending Hgb Pending Hct Pending MCV Pending MCH Pending MCHC Pending RDW Pending Plt Count Pending MPV Pending
[2017-12-18 08:21] LABS: PT 24.3 SEC (9.4-12.5)
[2017-12-18 08:48] LABS: ABSOLUTE BASOPHIL COUNT 0 /CUMM (0.0-0.2); ABSOLUTE EOSINOPHIL COUNT 0.1 /CUMM (0.0-0.7); ABSOLUTE GRANULOCYTE CT 6.9 /CUMM (1.4-6.5); ABSOLUTE LYMPH COUNT 0.6 /CUMM (1.2-3.4); ABSOLUTE MONOCYTE COUNT 0.8 /CUMM (0.10-0.60); BASOPHIL % 0.2 % (0.0-2.0); GRANULOCYTE % 82.5 % (42.2-75.2); HEMATOCRIT 35.6 % (42-52); MEAN CORPUSCULAR HGB CONC 32.9 G/DL (33.0-37.0); MEAN CORPUSCULAR VOLUME 78.8 FL (80.0-94.0); PLATELET COUNT 193 /CUMM (130-400); RBC DISTRIBUTION WIDTH 21.4 % (11.5-14.5); RED BLOOD CELL CT 4.52 /CUMM (4.70-6.10); WHITE BLOOD CELL COUNT 8.4 /CUMM (4.8-10.8)
--- NOTE | 2017-12-18 09:51 | PN- Cardiology ---
Subjective Subjective: Patient lying in bed appears comfortable lethargic without specific complaints. Review of Systems: Unobtainable due to dementia Objective Vital Signs and I&Os Vital Signs Date Time Temp Pulse Resp B/P B/P Pulse O2 O2 Flow FiO2 Mean Ox Delivery Rate 12/18 0725 97.6 87 16 108/72 97 Nasal Cannula 12/18 0000 Nasal 1.0L Cannula 12/17 220 97.6 97 16 120/86 95 12/17 2142 66 118/64 12/17 2141 66 118/64 12/17 1600 Nasal 1.0L Cannula 12/17 1447 97.8 66 20 118/64 96 Nasal 1.0L Cannula Intake & Output 12/18 1600 12/18 0800 12/18 0000 12/17 1600 12/17 0800 12/17 0000 Intake Total 110 200 480 320 Output Total 725 500 450 500 400 Balance -615 -300 30 -500 -80 Intake, IV 10 Intake, Oral 100 200 480 320 Number 1 2 Bowel Movements Output, Urine 725 500 450 500 400 Patient 247 lb 247 lb Weight Physical Exam: Patient is a well-developed well-nourished male appearing in no acute distress HEENT is unremarkable Neck is supple there is no JVD Lungs are clear Heart irregular rhythm S1 and S2 are normal no murmurs gallops or rubs Abdomen bowel sounds positive Extremities 1+ edema Current Medications: Current Medications Sig/James Start time Last Medication Dose Route Stop Time Status Admin Acetaminophen 500 MG Q6P PRN 12/17 1145 AC PO Aspirin 81 MG DAILY 12/12 1000 AC 12/17 PO 0755 Atorvastatin Calcium 80 MG 1700 12/12 0630 AC 12/17 PO 1703 Diltiazem HCl 120 MG BID 12/16 2200 AC 12/17 PO 2141 Donepezil HCl 10 MG QPM 12/12 2200 AC 12/17 PO 2142 Escitalopram Oxalate 5 MG Q48 12/18 1000 AC PO 12/24 1001 Finasteride 5 MG DAILY 12/12 1000 AC 12/17 PO 0757 Furosemide 60 MG 7:30 AM, & 4:30 PM 12/17 1630 DC IV Furosemide 40 MG Q8 12/17 1400 AC 12/18 IV 0616 Furosemide 40 MG 7:30 AM, & 4:30 PM 08 1630 DC 12/17 IV 0755 Insulin Aspart 0 TIDAC 12/12 1700 AC SC Metoprolol Tartrate 75 MG BID 12/16 2200 AC 12/17 PO 214 Nystatin 1 ZORAIDA TID PRN 12/16 1400 AC 12/16 TOP 1559 Potassium Chloride 40 MEQ ONCE ONE 12/17 1400 DC 12/17 PO 12/17 1401 1428 Potassium Chloride 20 MEQ BID 12/17 1000 AC 12/17 PO 2143 Spironolactone 50 MG DAILY 12/17 1353 AC 12/17 PO 1703 Tamsulosin HCl 0.4 MG BID 12/12 1000 AC 12/17 PO 214 Warfarin Sodium 2 MG COUMADIN 1700 ONE 12/17 1700 DC 12/17 PO 12/17 1701 1703 Results Last 48 Hrs of Labs/Mics: Laboratory Tests 12/18/17 0702: Anion Gap 8, Estimated GFR 31 L, BUN/Creatinine Ratio 18.1, PT 24.3 H, INR 2.21 H, CBC w Diff NO MAN DIFF REQ, RBC 4.52 L, MCV 78.8 L, MCH 26.0 L, MCHC 32.9 L, RDW 21.4 H, MPV 10.0, Gran % 82.5 H, Lymphocytes % 6.8 L, Monocytes % 9.5 H, Eosinophils % 1.0, Basophils % 0.2, Absolute Granulocytes 6.9 H, Absolute Lymphocytes 0.6 L, Absolute Monocytes 0.8 H, Absolute Eosinophils 0.1 , Absolute Basophils 0 12/17/171999: Anion Gap 9, Estimated GFR 31 L, BUN/Creatinine Ratio 19.0 12/17/17 0635: Anion Gap 9, Estimated GFR 31 L, BUN/Creatinine Ratio 19.5, PT 22.6 H, INR 2.06 H EKG atrial flutter with variable conduction Telemetry atrial flutter Recent Imaging Studies: Echocardiogram 11/22/2017 CONCLUSIONS Left ventricular cavity size normal. Left ventricular wall thickness mildly increased. No obvious regional wall motion abnormalities. Left ventricular ejection fraction is estimated at 55 %. Right ventricle not well visualized, grossly normal. Left atrial size at the upper limits of normal. Unable to estimate the right ventricular systolic pressure. Pericardium not well visualized. No obvious pericardial effusion. Assessment/Plan Assessment/Plan 1. Paroxysmal atrial fibrillation/flutter on warfarin 2. Dementia 3. Chronic kidney disease 4. Coronary disease 5. Hypertension 6. Hyperlipidemia 7. 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 Dyspnea secondary acute diastolic heart failure. Ejection fraction 55% by recent echocardiogram 9. Minimally elevated troponin secondary to demand ischemia Recommendations 1. Continue diuresis monitoring renal function closely 2. Continue Coumadin maintaining INR 2.5-3.5 given her recent CVA 3. Will plan for management given his dementia. 4. Continue metoprolol and diltiazem for rate control Continue telemetry? Yes
[2017-12-18 14:51] VITALS: BP 110/70
--- NOTE | 2017-12-18 16:00 | PN- Nephrology ---
Assessment/Plan Nephrology Assessment: Hyponatremia - Hypoosmolar - a/w elevated UOsm suggestive of high ADH state. Not hypotensive although in the setting of significant edema, likely with decreased effective arterial blood volume as stimulus for ADH secretion. Remains significantly overloaded. Hypokalemia improved on spironolactone. AM cortisol OK and Free T4 OK. CHF - Remains volume expanded. Need to go up on diuretics. 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 Suggestion: -Increase lasix to 60mg IV q8 - goal at least 3L UOP/day - otherwise will need to increase further -Cont spironolactone 50mg daily -K repletion to 4.0 -800cc/day fluid restriction Please call [phone] with ?'s Subjective Subjective: Na 127 On 40mg IV lasix TID - 1.4L UOP Spironolactone 50mg added - K 4.2 Objective Vital Signs and I&Os Vital Signs Date Time Temp Pulse Resp B/P B/P Pulse O2 O2 Flow FiO2 Mean Ox Delivery Rate 12/18 1451 97.8 64 16 110/70 97 Nasal Cannula 12/18 1308 Nasal 1.0L Cannula 12/18 1048 112/70 12/18 1047 112/70 12/18 0955 Nasal 1.0L Cannula 12/18 0800 95 Nasal 1.0L Cannula 12/18 0725 97.6 87 16 108/72 97 Nasal Cannula 12/18 0000 Nasal 1.0L Cannula 12/17 2203 97.6 97 16 120/86 95 12/17 2142 66 118/64 12/17 2141 66 118/64 12/17 1600 Nasal 1.0L Cannula Intake & Output 12/18 1600 12/18 0400 12/17 1600 12/17 0400 12/16 1600 12/16 0400 Intake Total 470 200 480 320 660 240 Output Total 1175 500 950 400 975 450 Balance -705 -300 -470 -80 -315 -210 Intake, IV 10 Intake, Oral 460 200 480 320 660 240 Number 1 2 0 Bowel Movements Output, Urine 1175 500 950 400 975 450 Patient 247 lb 247 lb 247 lb Weight Weight Bed scale Measurement Method Physical Exam: Gen - ok appearing HEENT - JVP up CV - RRR, no m/r/g Chest - clear anteriorly Abd - soft, NTND Ext - +++edema Neuro - alert and conversive but confused Current Medications: Current Medications Sig/James Start time Last Medication Dose Route Stop Time Status Admin Acetaminophen 500 MG Q6P PRN 12/17 1145 AC PO Aspirin 81 MG DAILY 12/12 1000 AC 12/18 PO 1047 Atorvastatin Calcium 80 MG 1700 12/12 0630 AC 12/17 PO 1703 Diltiazem HCl 120 MG BID 12/16 2200 AC 12/18 PO 1047 Donepezil HCl 10 MG QPM 12/12 2200 AC 12/17 PO 2142 Escitalopram Oxalate 5 MG Q48 12/18 1000 AC 12/18 PO 12/24 1001 1048 Finasteride 5 MG DAILY 12/12 1000 AC 12/18 PO 1048 Furosemide 40 MG Q8 12/17 1400 AC 12/18 IV 1422 Insulin Aspart 0 TIDAC 12/12 1700 AC SC Metoprolol Tartrate 75 MG BID 12/16 2200 AC 12/18 PO 1048 Nystatin 1 ZORAIDA TID PRN 12/16 1400 AC 12/16 TOP 1559 Potassium Chloride 20 MEQ BID 12/17 1000 AC 12/18 PO 1048 Spironolactone 50 MG DAILY 12/17 1353 AC 12/18 PO 1047 Tamsulosin HCl 0.4 MG BID 12/12 1000 AC 12/18 PO 1048 Warfarin Sodium 2 MG COUMADIN 1700 ONE 12/18 1700 AC PO 12/18 1701 Warfarin Sodium 2 MG COUMADIN 1700 ONE 12/17 1700 DC 12/17 PO 12/17 1701 1703 Results Pertinent Lab Results: Laboratory Tests 12/18 12/17 12/17 0702 2000 0635 Chemistry Sodium (137 - 145 mmol/L) 127 L 124 L 125 L Potassium (3.5 - 5.1 mmol/L) 4.2 4.1 3.7 Chloride (98 - 107 mmol/L) 83 L 80 L 81 L Carbon Dioxide (22 - 30 mmol/L) 37 H 35 H 35 H Anion Gap (5 - 16) 8 9 9 BUN (9 - 20 mg/dL) 38 H 40 H 41 H Creatinine (0.7 - 1.2 mg/dL) 2.1 H 2.1 H 2.1 H Estimated GFR (>60 ml/min) 31 L 31 L 31 L BUN/Creatinine Ratio (7 - 25 %) 18.1 19.0 19.5 Coagulation PT (9.4 - 12.5 SEC) 24.3 H 22.6 H INR (0.90 - 1.17) 2.21 H 2.06 H Hematology CBC w Diff NO MAN DIFF REQ WBC (4.8 - 10.8 /CUMM) 8.4 RBC (4.70 - 6.10 /CUMM) 4.52 L Hgb (14.0 - 18.0 G/DL) 11.7 L Hct (42 - 52 %) 35.6 L MCV (80.0 - 94.0 FL) 78.8 L MCH (27.0 - 31.0 PG) 26.0 L MCHC (33.0 - 37.0 G/DL) 32.9 L RDW (11.5 - 14.5 %) 21.4 H Plt Count (130 - 400 /CUMM) 193 MPV (7.4 - 10.4 FL) 10.0 Gran % (42.2 - 75.2 %) 82.5 H Lymphocytes % (20.5 - 51.1 %) 6.8 L Monocytes % (1.7 - 9.3 %) 9.5 H Eosinophils % (0 - 5 %) 1.0 Basophils % (0.0 - 2.0 %) 0.2 Absolute Granulocytes (1.4 - 6.5 /CUMM) 6.9 H Absolute Lymphocytes (1.2 - 3.4 /CUMM) 0.6 L Absolute Monocytes (0.10 - 0.60 /CUMM) 0.8 H Absolute Eosinophils (0.0 - 0.7 /CUMM) 0.1 Absolute Basophils (0.0 - 0.2 /CUMM) 0 12/16 0620 Chemistry Sodium (137 - 145 mmol/L) 125 L Potassium (3.5 - 5.1 mmol/L) 3.3 L Chloride (98 - 107 mmol/L) 82 L Carbon Dioxide (22 - 30 mmol/L) 34 H Anion Gap (5 - 16) 9 BUN (9 - 20 mg/dL) 39 H Creatinine (0.7 - 1.2 mg/dL) 2.1 H Estimated GFR (>60 ml/min) 31 L BUN/Creatinine Ratio (7 - 25 %) 18.6 Coagulation PT (9.4 - 12.5 SEC) 26.5 H INR (0.90 - 1.17) 2.41 H Imaging/Other Studies: EXAM TYPE: US - US-RENAL/KIDNEY EXAMINATION: US RETROPERITONEAL COMPLETE (RENAL) CLINICAL INFORMATION: 77-year-old male with hematuria.. COMPARISON: Renal ultrasound 08/10/2014 TECHNIQUE: Real-time imaging of the kidneys and bladder. FINDINGS: Evaluation is slightly suboptimal secondary to patient body habitus and overlying bowel gas. RIGHT KIDNEY: 10.7 x 5.5 x 5.0 cm (SAG x AP x TRV). The kidney is normal in size, contour, and echogenicity. Renal cortical thickness is normal. No calculi or focal parenchymal lesions. No hydronephrosis. LEFT KIDNEY: 9.9 x 4.9 x 5.5 cm (SAG x AP x TRV). The kidney is normal in size, contour, and echogenicity. Renal cortical thickness is normal. No calculi or focal parenchymal lesions. No hydronephrosis. BLADDER: Mildly distended containing a Castle catheter. The right ureteral jet was visualized, the left was not. Prevoid bladder volume is 47 mL. OTHER: Incidentally noted trace amount of perihepatic ascites. Small gallstones and echogenic bile also visualized. IMPRESSION: 1. No hydronephrosis or nephrolithiasis. 2. Trace perihepatic ascites. 3. Cholelithiasis. TTE CONCLUSIONS Left ventricular cavity size normal. Left ventricular wall thickness mildly increased. No obvious regional wall motion abnormalities. Left ventricular ejection fraction is estimated at 55 %. Right ventricle not well visualized, grossly normal. Left atrial size at the upper limits of normal. Unable to estimate the right ventricular systolic pressure. Pericardium not well visualized. No obvious pericardial effusion.
[2017-12-18 22:06] VITALS: BP 92/62
[2017-12-18 22:56] VITALS: BP 104/60
[2017-12-19] VITALS: BP 110/66
[2017-12-19 06:59] VITALS: BP 112/72
--- NOTE | 2017-12-19 07:10 | PN- Housestaff ---
Camilla HERRON,Isa 12/19/17 0710: Subjective Follow-up For: 1. Acute ischemic stroke not a candidate for tPA (on coumadin) 2. Afib on coumadin with therapeutic INR 3. Acute on chronic diastolic heart failure 4. 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 Elevated troponin likely demand ischemia Type 2 OH 6. Hyponatremia hypervolemic state 7. HematuriA Tele-Events Since Last Visit: Atrial flutter, 6264, 0.08 no evidence Subjective: No overnight events, has no complaints Review of Systems Constitutional: Denies: no symptoms. Objective Last 24 Hrs of Vital Signs/I&O Vital Signs Date Time Temp Pulse Resp B/P B/P Pulse O2 O2 Flow FiO2 Mean Ox Delivery Rate 12/19 1403 97.7 64 20 106/64 94 Room Air 12/19 1356 Nasal 1.0L Cannula 12/19 0901 63 112/72 12/19 0901 63 112/72 12/19 0800 Nasal 1.0L Cannula 12/19 0659 97.9 63 20 112/72 96 Nasal Cannula 12/19 0000 Nasal 1.0L Cannula 12/19 0000 63 110/66 12/18 2318 63 104/62 12/18 2318 63 104/62 12/18 2256 63 104/60 12/18 2206 97.5 65 18 92/62 97 Nasal Cannula Intake & Output 12/19 1600 12/19 0800 12/19 0000 Intake Total 300 110 370 Output Total 600 425 350 Balance -300 -315 20 Intake, IV 10 20 Intake, Oral 300 100 350 Number 1 0 Bowel Movements Output, Urine 600 425 350 Patient 246 lb Weight Weight Bed scale Measurement Method Physical Exam General Appearance: Alert, Cooperative, No Acute Distress HEENT: Atraumatic, PERRLA, EOMI, Mucous Membr. moist/pink Neck: Supple, No JVD Cardiovascular: Normal S1, Normal S2, No Murmurs Lungs: Clear to Auscultation Abdomen: Normal Bowel Sounds, Soft, No Tenderness Extremities: bilateral 2 + pitting edema in both LE Vascular: Normal Pulses Assessment/Plan Assessment: 77-year-old gentleman with past medical history of paroxysmal atrial ablation on Coumadin, hypertension, hyperlipidemia, small bowel obstruction, dementia, sarcoma right cheek status post radiation came from [facility] for complaints of facial numbness and slurred speech. Problem list: 1. Acute ischemic stroke not a candidate for tPA (on coumadin) 2. Afib on coumadin with therapeutic INR 3. Acute on chronic diastolic heart failure 4. 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 Elevated troponin likely demand ischemia Type 2 OH 6. Hyponatremia hypervolemic state 7. Hematuria Plan: - Sodium level of 127 today. Continue fluid restriction to 1 L and avoid salt tablets per nephrology as it can contribute to fluid retention. Repeat sodium level in a.m. -Potassium level remains to be normal Lasix was increased to 80 q. 8 as per nephrology recommended DC Lexapro as per Endo recommendation Continue Spironolactone 50 daily -Continue metoprolol to 75 mg twice a day. Continue aspirin and statin -Continue Cardizem 120 twice daily - Dose Coumadin per INR (give warfarin 2 mg today) - If patient exhibits CP, start NTG paste -Resolving hematuria Repeat urine osmolality was 319 - Cardiology, endo, neurology and nephrology recommendations appreciated DVT prophylaxis; on Coumadin Patient is full code Problem List: 1. Hyponatremia 2. Edema 3. PAULA (acute kidney injury) Pain Ratin Pain Location: N/A Pain Goal: Remain pain free Pain Plan: Pathway Tomorrow's Labs & Rationales: cbc bep DVT/Prophylaxis: mechanical, pharmacological Cordelia Rivera 12/19/17 1358: Attending MD Review Statement Attending Statement Attending MD Statement: examined this patient, discuss w/resident/PA/AGRICULTURE LABORER, agreed w/resident/PA/AGRICULTURE LABORER, reviewed EMR data (avail), discussed with nursing, discussed with case mgmt Attending Assessment/Plan: Increased lasix to 60mg iv q8h . Will repeat urine osmolality. will chech with cardiology if ok to add metolazone every other day for helping with diuresis. d/w pt the care plan . Pt still having pitting edema upto thighs and scrotal edema.
--- NOTE | 2017-12-19 07:32 | PN- Endocrinology ---
Assessment/Plan Endoscopy Assessment: The patient feels okay. He is on escitalopram 5 mg every other day. His serum sodium was 127 yesterday. He remains on NovoLog coverage before meals only for sugar above 200. His blood sugars have remained high. Plan: Suggest today discontinue the citalopram completely. We need to adjust his sliding scale NovoLog before meals. Sliding scale NovoLog before meals should be less than 150 give no insulin, 151-200 give 3 units NovoLog, 201-250 give 4 units NovoLog, 251-300 give 5 units NovoLog, 301-350 give 6 units NovoLog, 351-400 give 7 units NovoLog. Continue to follow the serum sodium. As the estalopram wears off the patient's serum sodium should improve gradually. Subjective Subjective: Feels okay Objective Last 24 Hrs of Vital Signs/I&O Vital Signs Date Time Temp Pulse Resp B/P B/P Pulse O2 O2 Flow FiO2 Mean Ox Delivery Rate 12/19 0659 97.9 63 20 112/72 96 Nasal Cannula 12/19 0000 Nasal 1.0L Cannula 12/19 0000 63 110/66 12/188 63 104/62 12/188 63 104/62 12/186 63 104/60 12/18 220 97.5 65 18 92/62 97 Nasal Cannula 12/18 1600 Nasal 1.0L Cannula 12/18 1451 97.8 64 16 110/70 97 Nasal Cannula 12/18 1308 Nasal 1.0L Cannula 12/18 1048 112/70 12/18 1047 112/70 12/18 0955 Nasal 1.0L Cannula 12/18 0800 95 Nasal 1.0L Cannula Intake & Output 12/19 0800 12/19 0000 12/18 1600 Intake Total 110 370 360 Output Total 425 350 450 Balance -315 20 -90 Intake, IV 10 20 Intake, Oral 100 350 360 Number 0 Bowel Movements Output, Urine 425 350 450 Patient 246 lb Weight Weight Bed scale Measurement Method Vital Signs Date Time Temp Pulse Resp B/P B/P Pulse O2 O2 Flow FiO2 Mean Ox Delivery Rate 12/19 0659 97.9 63 20 112/72 96 Nasal Cannula 12/19 0000 Nasal 1.0L Cannula 12/19 0000 63 110/66 12/18 2318 63 104/62 12/18 2318 63 104/62 12/186 63 104/60 03/13 2206 97.5 65 18 92/62 97 Nasal Cannula 12/18 1600 Nasal 1.0L Cannula 12/18 1451 97.8 64 16 110/70 97 Nasal Cannula 12/18 1308 Nasal 1.0L Cannula 12/18 1048 112/70 12/18 1047 112/70 12/18 0955 Nasal 1.0L Cannula 12/18 0800 95 Nasal 1.0L Cannula Intake & Output 12/19 0800 12/19 0000 12/18 1600 Intake Total 110 370 360 Output Total 425 350 450 Balance -315 20 -90 Intake, IV 10 20 Intake, Oral 100 350 360 Number 0 Bowel Movements Output, Urine 425 350 450 Patient 246 lb Weight Weight Bed scale Measurement Method Physical Exam General Appearance: alert, awake, comfortable Head: normal appearance Neck: normal inspection Cardiovascular: regular rate/rhythm Abdomen: normal bowel sounds Current Medications: Current Medications Sig/James Start time Last Medication Dose Route Stop Time Status Admin Acetaminophen 500 MG Q6P PRN 12/17 1145 AC PO Aspirin 81 MG DAILY 12/12 1000 AC 12/18 PO 1047 Atorvastatin Calcium 80 MG 1700 12/12 0630 AC 12/18 PO 1705 Diltiazem HCl 120 MG BID 12/16 2200 AC 12/18 PO 2318 Donepezil HCl 10 MG QPM 12/12 2200 AC 12/18 PO 2126 Escitalopram Oxalate 5 MG Q48 12/18 1000 AC 12/18 PO 12/24 1001 1048 Finasteride 5 MG DAILY 12/12 1000 AC 12/18 PO 1048 Furosemide 40 MG ONCE ONE 12/19 0015 DC 12/19 IV 12/19 0016 0038 Furosemide 60 MG Q8 12/18 2200 AC 12/19 IV 0625 Furosemide 40 MG Q8 12/17 1400 DC 12/18 IV 1422 Insulin Aspart 0 TIDAC 12/12 1700 AC SC Metoprolol Tartrate 75 MG BID 12/16 2200 AC 12/18 PO 2129 Nystatin 1 ZORAIDA TID PRN 12/16 1400 AC 12/16 TOP 1559 Potassium Chloride 20 MEQ BID 12/17 1000 AC 12/18 PO 2128 Spironolactone 50 MG DAILY 12/17 1353 AC 12/18 PO 1047 Tamsulosin HCl 0.4 MG BID 12/12 1000 AC 12/18 PO 1048 Warfarin Sodium 2 MG COUMADIN 1700 ONE 12/18 1700 DC 12/18 PO 12/18 1701 1843 Results Pertinent Lab/Ibrahima Results: Laboratory Tests 12/19 06 Chemistry Sodium Pending Potassium Pending Chloride Pending Carbon Dioxide Pending Anion Gap Pending BUN Pending Creatinine Pending BUN/Creatinine Ratio Pending Coagulation PT Pending INR Pending Hematology CBC w Diff Pending WBC Pending RBC Pending Hgb Pending Hct Pending MCV Pending MCH Pending MCHC Pending RDW Pending Plt Count Pending MPV Pending
[2017-12-19 07:51] LABS: PT 29.7 SEC (9.4-12.5)
[2017-12-19 08:10] LABS: ABSOLUTE BASOPHIL COUNT 0 /CUMM (0.0-0.2); ABSOLUTE EOSINOPHIL COUNT 0.1 /CUMM (0.0-0.7); ABSOLUTE GRANULOCYTE CT 8.3 /CUMM (1.4-6.5); ABSOLUTE LYMPH COUNT 0.5 /CUMM (1.2-3.4); ABSOLUTE MONOCYTE COUNT 0.9 /CUMM (0.10-0.60); BASOPHIL % 0.1 % (0.0-2.0); EOSINOPHIL % 1.2 % (0-5); GRANULOCYTE % 84.6 % (42.2-75.2); HEMATOCRIT 36.3 % (42-52); MEAN CORPUSCULAR HGB 25.9 PG (27.0-31.0); MEAN CORPUSCULAR HGB CONC 32.7 G/DL (33.0-37.0); MEAN PLATELET VOLUME 10.2 FL (7.4-10.4); PLATELET COUNT 204 /CUMM (130-400); RBC DISTRIBUTION WIDTH 22.2 % (11.5-14.5); RED BLOOD CELL CT 4.59 /CUMM (4.70-6.10); WHITE BLOOD CELL COUNT 9.8 /CUMM (4.8-10.8)
--- NOTE | 2017-12-19 10:42 | PN- Nephrology ---
Assessment/Plan Nephrology Assessment: Hyponatremia - Hypoosmolar - a/w elevated UOsm suggestive of high ADH state. Not hypotensive although in the setting of significant edema, likely with decreased effective arterial blood volume as stimulus for ADH secretion. Remains significantly overloaded. Hypokalemia improved on spironolactone. AM cortisol OK and Free T4 OK. CHF - Remains volume expanded. Need to go up on diuretics. 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 Suggestion: -Increase lasix to 80mg IV q8 - goal at least 3L UOP/day - otherwise will need to increase further -Cont spironolactone 50mg daily -800cc/day fluid restriction Please call [phone] with ?'s Subjective Subjective: Na 127 SCr stable at 2.0 Bicarb 36 Lasix increased to 60mg IV q8 - dose had to be held for low BP - 1525cc UOP Objective Vital Signs and I&Os Vital Signs Date Time Temp Pulse Resp B/P B/P Pulse O2 O2 Flow FiO2 Mean Ox Delivery Rate 12/19 0901 63 112/72 12/19 0901 63 112/72 12/19 0800 Nasal 1.0L Cannula 12/19 0659 97.9 63 20 112/72 96 Nasal Cannula 12/19 0000 Nasal 1.0L Cannula 12/19 0000 63 110/66 12/18 2318 63 104/62 12/18 2318 63 104/62 12/18 2256 63 104/60 12/18 2206 97.5 65 18 92/62 97 Nasal Cannula 12/18 1600 Nasal 1.0L Cannula 12/18 1451 97.8 64 16 110/70 97 Nasal Cannula 12/18 1308 Nasal 1.0L Cannula 12/18 1048 112/70 12/18 1047 112/70 Intake & Output 12/19 1600 12/19 0400 12/18 1600 12/18 0400 12/17 1600 12/17 0400 Intake Total 110 370 470 200 480 320 Output Total 996 630 1843 500 950 400 Balance -315 20 -705 -300 -470 -80 Intake, IV 10 20 10 Intake, Oral 100 350 460 200 480 320 Number 0 1 2 Bowel Movements Output, Urine 128 723 9431 500 950 400 Patient 246 lb 247 lb 247 lb Weight Weight Bed scale Measurement Method Physical Exam: Gen - ok appearing HEENT - JVP visible CV - RRR, no m/r/g Chest - clear anteriorly (limited exam) Abd - soft, nontender, nondistended Ext - +++edema Neuro - alert, converisve Current Medications: Current Medications Sig/James Start time Last Medication Dose Route Stop Time Status Admin Acetaminophen 500 MG Q6P PRN 12/17 1145 AC PO Aspirin 81 MG DAILY 12/12 1000 AC 12/19 PO 0906 Atorvastatin Calcium 80 MG 1700 12/12 0630 AC 12/18 PO 1705 Diltiazem HCl 120 MG BID 12/16 2200 AC 12/19 PO 0901 Donepezil HCl 10 MG QPM 12/12 2200 AC 12/18 PO 2126 Escitalopram Oxalate 5 MG Q48 12/18 1000 DC 12/18 PO 12/24 1001 1048 Finasteride 5 MG DAILY 12/12 1000 AC 12/19 PO 0901 Furosemide 40 MG ONCE ONE 12/19 0015 DC 12/19 IV 12/19 0016 0038 Furosemide 60 MG Q8 12/18 2200 AC 12/19 IV 0625 Furosemide 40 MG Q8 12/17 1400 DC 12/18 IV 1422 Insulin Aspart 0 TIDAC 12/12 1700 AC SC Metoprolol Tartrate 75 MG BID 12/16 2200 AC 12/19 PO 0901 Nystatin 1 ZORAIDA TID PRN 12/16 1400 AC 12/16 TOP 1559 Potassium Chloride 20 MEQ BID 12/17 1000 AC 12/19 PO 0901 Spironolactone 50 MG DAILY 12/17 1353 AC 12/19 PO 0900 Tamsulosin HCl 0.4 MG BID 12/12 1000 AC 12/19 PO 0901 Warfarin Sodium 2 MG COUMADIN 1700 ONE 12/19 1700 AC PO 12/19 1701 Warfarin Sodium 2 MG COUMADIN 1700 ONE 12/18 1700 DC 12/18 PO 12/18 1701 1843 Results Pertinent Lab Results: Laboratory Tests 12/19 12/18 0605 0702 Chemistry Sodium (137 - 145 mmol/L) 127 L 127 L Potassium (3.5 - 5.1 mmol/L) 4.4 4.2 Chloride (98 - 107 mmol/L) 83 L 83 L Carbon Dioxide (22 - 30 mmol/L) 36 H 37 H Anion Gap (5 - 16) 7 8 BUN (9 - 20 mg/dL) 38 H 38 H Creatinine (0.7 - 1.2 mg/dL) 2.0 H 2.1 H Estimated GFR (>60 ml/min) 32 L 31 L BUN/Creatinine Ratio (7 - 25 %) 19.0 18.1 Coagulation PT (9.4 - 12.5 SEC) 29.7 H 24.3 H INR (0.90 - 1.17) 2.70 H 2.21 H Hematology CBC w Diff NO MAN DIFF REQ NO MAN DIFF REQ WBC (4.8 - 10.8 /CUMM) 9.8 8.4 RBC (4.70 - 6.10 /CUMM) 4.59 L 4.52 L Hgb (14.0 - 18.0 G/DL) 11.9 L 11.7 L Hct (42 - 52 %) 36.3 L 35.6 L MCV (80.0 - 94.0 FL) 79.0 L 78.8 L MCH (27.0 - 31.0 PG) 25.9 L 26.0 L MCHC (33.0 - 37.0 G/DL) 32.7 L 32.9 L RDW (11.5 - 14.5 %) 22.2 H 21.4 H Plt Count (130 - 400 /CUMM) 204 193 MPV (7.4 - 10.4 FL) 10.2 10.0 Gran % (42.2 - 75.2 %) 84.6 H 82.5 H Lymphocytes % (20.5 - 51.1 %) 5.4 L 6.8 L Monocytes % (1.7 - 9.3 %) 8.7 9.5 H Eosinophils % (0 - 5 %) 1.2 1.0 Basophils % (0.0 - 2.0 %) 0.1 0.2 Absolute Granulocytes (1.4 - 6.5 /CUMM) 8.3 H 6.9 H Absolute Lymphocytes (1.2 - 3.4 /CUMM) 0.5 L 0.6 L Absolute Monocytes (0.10 - 0.60 /CUMM) 0.9 H 0.8 H Absolute Eosinophils (0.0 - 0.7 /CUMM) 0.1 0.1 Absolute Basophils (0.0 - 0.2 /CUMM) 0 0 12/17 0635 Chemistry Sodium (137 - 145 mmol/L) 124 L 125 L Potassium (3.5 - 5.1 mmol/L) 4.1 3.7 Chloride (98 - 107 mmol/L) 80 L 81 L Carbon Dioxide (22 - 30 mmol/L) 35 H 35 H Anion Gap (5 - 16) 9 9 BUN (9 - 20 mg/dL) 40 H 41 H Creatinine (0.7 - 1.2 mg/dL) 2.1 H 2.1 H Estimated GFR (>60 ml/min) 31 L 31 L BUN/Creatinine Ratio (7 - 25 %) 19.0 19.5 Coagulation PT (9.4 - 12.5 SEC) 22.6 H INR (0.90 - 1.17) 2.06 H Imaging/Other Studies: None new
--- NOTE | 2017-12-19 12:49 | PN- Cardiology ---
Subjective Subjective: Resting comfortably today. Still with lower extremity edema. Denies chest pain. Objective Vital Signs and I&Os Vital Signs Date Time Temp Pulse Resp B/P B/P Pulse O2 O2 Flow FiO2 Mean Ox Delivery Rate 12/19 0901 63 112/72 12/19 0901 63 112/72 12/19 0800 Nasal 1.0L Cannula 12/19 0659 97.9 63 20 112/72 96 Nasal Cannula 12/19 0000 Nasal 1.0L Cannula 12/19 0000 63 110/66 12/18 2318 63 104/62 12/18 2318 63 104/62 12/18 2256 63 104/60 12/18 2206 97.5 65 18 92/62 97 Nasal Cannula 12/18 1600 Nasal 1.0L Cannula 12/18 1451 97.8 64 16 110/70 97 Nasal Cannula 12/18 1308 Nasal 1.0L Cannula Intake & Output 12/19 1600 12/19 0800 12/19 0000 12/18 1600 12/18 0800 12/18 0000 Intake Total 110 370 360 110 200 Output Total 425 350 450 725 500 Balance -315 20 -90 -615 -300 Intake, IV 10 20 10 Intake, Oral 100 350 360 100 200 Number 0 Bowel Movements Output, Urine 425 350 450 725 500 Patient 246 lb 247 lb Weight Weight Bed scale Measurement Method Physical Exam: General: no apparent distress. Alert. Eyes: No obvious scleral icterus. HEENT: No jugular venous distention or abnormal jugular venous pulsations. Cardiovascular: Normal intensity S1/S2. Regular. Respiratory: Mildly decreased air entry Abdomen: Soft, nontender with no guarding or rebound tenderness. Musculoskeletal: No clubbing or cyanosis noted, 2+ lower extremity edema Skin: warm Lymph: No gross lymphadenopathy. Current Medications: Current Medications Sig/James Start time Last Medication Dose Route Stop Time Status Admin Acetaminophen 500 MG Q6P PRN 12/17 1145 AC PO Aspirin 81 MG DAILY 12/12 1000 AC 12/19 PO 0906 Atorvastatin Calcium 80 MG 1700 12/12 0630 AC 12/18 PO 1705 Diltiazem HCl 120 MG BID 12/16 2200 AC 12/19 PO 0901 Donepezil HCl 10 MG QPM 12/12 2200 AC 12/18 PO 2126 Escitalopram Oxalate 5 MG Q48 12/18 1000 DC 12/18 PO 12/24 1001 1048 Finasteride 5 MG DAILY 12/12 1000 AC 12/19 PO 0901 Furosemide 80 MG Q8 12/19 1400 AC IV Furosemide 40 MG ONCE ONE 12/19 0015 DC 12/19 IV 12/19 0016 0038 Furosemide 60 MG Q8 12/18 2200 DC 12/19 IV 0625 Furosemide 40 MG Q8 12/17 1400 DC 12/18 IV 1422 Insulin Aspart 0 TIDAC 12/12 1700 AC 12/19 SC 1147 Metoprolol Tartrate 75 MG BID 12/16 2200 AC 12/19 PO 0901 Nystatin 1 ZORAIDA TID PRN 12/16 1400 AC 12/16 TOP 1559 Potassium Chloride 20 MEQ BID 12/17 1000 AC 12/19 PO 0901 Spironolactone 50 MG DAILY 12/17 1353 AC 12/19 PO 0900 Tamsulosin HCl 0.4 MG BID 12/12 1000 AC 12/19 PO 0901 Warfarin Sodium 2 MG COUMADIN 1700 ONE 12/19 1700 AC PO 12/19 1701 Warfarin Sodium 2 MG COUMADIN 1700 ONE 12/18 1700 DC 12/18 PO 12/18 1701 1843 Results Last 48 Hrs of Labs/Mics: Laboratory Tests 12/19/17 1100: Urine Osmolality 319 12/19/17 0605: Anion Gap 7, Estimated GFR 32 L, BUN/Creatinine Ratio 19.0, PT 29.7 H, INR 2.70 H, CBC w Diff NO MAN DIFF REQ, RBC 4.59 L, MCV 79.0 L, MCH 25.9 L, MCHC 32.7 L, RDW 22.2 H, MPV 10.2, Gran % 84.6 H, Lymphocytes % 5.4 L, Monocytes % 8.7, Eosinophils % 1.2, Basophils % 0.1, Absolute Granulocytes 8.3 H, Absolute Lymphocytes 0.5 L, Absolute Monocytes 0.9 H, Absolute Eosinophils 0.1 , Absolute Basophils 0 12/18/17 0702: Anion Gap 8, Estimated GFR 31 L, BUN/Creatinine Ratio 18.1, PT 24.3 H, INR 2.21 H, CBC w Diff NO MAN DIFF REQ, RBC 4.52 L, MCV 78.8 L, MCH 26.0 L, MCHC 32.9 L, RDW 21.4 H, MPV 10.0, Gran % 82.5 H, Lymphocytes % 6.8 L, Monocytes % 9.5 H, Eosinophils % 1.0, Basophils % 0.2, Absolute Granulocytes 6.9 H, Absolute Lymphocytes 0.6 L, Absolute Monocytes 0.8 H, Absolute Eosinophils 0.1 , Absolute Basophils 0 12/17/171999: Anion Gap 9, Estimated GFR 31 L, BUN/Creatinine Ratio 19.0 Recent Imaging Studies: Telemetry tracings were personally reviewed and shows ? sinus rhythm Assessment/Plan Assessment/Plan 1. Paroxysmal atrial fibrillation/flutter on warfarin 2. Dementia 3. Chronic kidney disease 4. Coronary disease 5. Hypertension 6. Hyperlipidemia 7. 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 Dyspnea secondary acute diastolic heart failure. Ejection fraction 55% by recent echocardiogram 9. Minimally elevated troponin secondary to demand ischemia Remains hemodynamically stable on the current Av yamilet regimen. Agree with Nephrology that he is volume overloaded and needs more aggressive diuresis. INR is currently therapeutic. Continue on daily aspirin and statin therapy. Ruperto Gomez MD [facility] Continue telemetry? Yes
[2017-12-19 14:03] VITALS: BP 106/64
[2017-12-19 22:38] VITALS: BP 110/70
[2017-12-20 06:36] VITALS: BP 116/68
--- NOTE | 2017-12-20 07:48 | PN- Endocrinology ---
Assessment/Plan Endoscopy Assessment: States he feels improved. He is completely off escitalopram now. Last serum sodium is 127. Plan: Suggest keep the patient off escitalopram and other SSRI medication. Await today's serum sodium. Subjective Subjective: Feels okay Review of Systems Constitutional: Denies: chills, fever. Cardiovascular: Denies: chest pain. Respiratory: Denies: cough, short of breath. Gastrointestinal: Denies: abdominal pain. Objective Last 24 Hrs of Vital Signs/I&O Vital Signs Date Time Temp Pulse Resp B/P B/P Pulse O2 O2 Flow FiO2 Mean Ox Delivery Rate 12/20 0536 98.0 115 18 116/68 95 Nasal Cannula 12/20 0000 Nasal 1.0L Cannula 12/19 2237 98.0 65 18 110/70 97 12/19 2217 64 108/12/19 64 108/12/19 1403 97.7 64 20 106/64 94 Room Air 12/19 1356 Nasal 1.0L Cannula 12/19 09 63 12/19 0901 63 12/19 0800 Nasal 1.0L Cannula Intake & Output 12/20 0800 12/20 0000 12/19 1600 Intake Total 110 118 300 Output Total 750 650 600 Balance -640 -532 -300 Intake, IV 10 18 Intake, Oral 100 100 300 Number 1 Bowel Movements Output, Urine 750 650 600 Patient 240 lb Weight Weight Bed scale Measurement Method Vital Signs Date Time Temp Pulse Resp B/P B/P Pulse O2 O2 Flow FiO2 Mean Ox Delivery Rate 12/20 0536 98.0 115 18 116/68 95 Nasal Cannula 12/20 0000 Nasal 1.0L Cannula 12/19 2237 98.0 65 18 110/70 97 12/19 2217 64 108/62 12/19 2217 64 108/62 12/19 1403 97.7 64 20 106/64 94 Room Air 12/19 1356 Nasal 1.0L Cannula 12/19 0901 63 12/19 0901 63 12/19 0800 Nasal 1.0L Cannula Intake & Output 12/20 0800 12/20 0000 12/19 1600 Intake Total 110 118 300 Output Total 750 650 600 Balance -640 -532 -300 Intake, IV 10 18 Intake, Oral 100 100 300 Number 1 Bowel Movements Output, Urine 750 650 600 Patient 240 lb Weight Weight Bed scale Measurement Method Physical Exam General Appearance: alert, awake, comfortable Head: normal appearance Respiratory: normal breath sounds Cardiovascular: regular rate/rhythm Abdomen: normal bowel sounds Extremities: normal inspection Current Medications: Current Medications Sig/James Start time Last Medication Dose Route Stop Time Status Admin Acetaminophen 500 MG Q6P PRN 12/17 1145 AC PO Aspirin 81 MG DAILY / 1000 AC 12/19 PO 0906 Atorvastatin Calcium 80 MG 1700 / 0630 AC 12/19 PO 1649 Dextrose/Water 1,000 ML Q13H 12/19 2345 CAN IV Diltiazem HCl 120 MG BID 12/16 2200 AC 12/19 PO 2218 Donepezil HCl 10 MG QPM 12/12 2200 AC 12/19 PO 2217 Escitalopram Oxalate 5 MG Q48 12/18 1000 DC 12/18 PO 12/24 1001 1048 Finasteride 5 MG DAILY 12/12 1000 AC 12/19 PO 0901 Furosemide 80 MG Q8 12/19 1400 AC 12/20 IV 0643 Furosemide 60 MG Q8 12/18 2200 DC 12/19 IV 0625 Insulin Aspart 0 TIDAC 12/12 1700 AC 12/19 SC 1147 Metoprolol Tartrate 75 MG BID 12/16 2200 AC 12/19 PO 0901 Nystatin 1 ZORAIDA TID PRN 12/16 1400 AC 12/16 TOP 1559 Potassium Chloride 20 MEQ BID 12/17 1000 AC 12/19 PO 2216 Spironolactone 50 MG DAILY 12/17 1353 AC 12/19 PO 0900 Tamsulosin HCl 0.4 MG BID / 1000 AC 12/19 PO 0901 Warfarin Sodium 2 MG COUMADIN 1700 ONE 12/19 1700 DC 12/19 PO 12/19 1701 1649 Results Recent Imaging Studies: Laboratory Tests 12/20 12/19 0613 1100 Chemistry Sodium Pending Potassium Pending Chloride Pending Carbon Dioxide Pending Anion Gap Pending BUN Pending Creatinine Pending BUN/Creatinine Ratio Pending Coagulation PT Pending INR Pending Hematology CBC w Diff Pending WBC Pending RBC Pending Hgb Pending Hct Pending MCV Pending MCH Pending MCHC Pending RDW Pending Plt Count Pending MPV Pending Urines Urine Osmolality (300 - 1000 MOSM/KG) 319
--- NOTE | 2017-12-20 08:12 | PN- Housestaff ---
Camilla HERRON,Isa 12/20/17 0812: Subjective Follow-up For: 1. Acute ischemic stroke not a candidate for tPA (on coumadin) 2. Afib on coumadin with therapeutic INR 3. Acute on chronic diastolic heart failure 4. 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 Elevated troponin likely demand ischemia Type 2 CA 6. Hyponatremia hypervolemic state 7. HematuriA 8. Leukocytosis Tele-Events Since Last Visit: Mark ingram, 641 1 6, QRS 0.08, no overnight events Subjective: Patient was seen and examined at bedside, denies any complaints, diuresing on Lasix with fluid balance -640, hematuria was noticed in the Skinner bag. Sodium improved today 129, heart rate was noticed to be increased this morning 116, no overnight events. CBCs showed leukocytosis of 15.9 Review of Systems Constitutional: Reports: see HPI. Objective Last 24 Hrs of Vital Signs/I&O Vital Signs Date Time Temp Pulse Resp B/P B/P Pulse O2 O2 Flow FiO2 Mean Ox Delivery Rate 12/20 0838 115 116/68 12/20 0838 115 116/68 12/20 0636 98.0 115 18 116/68 95 Nasal Cannula 12/20 0000 Nasal 1.0L Cannula 12/19 2238 98.0 65 18 110/70 97 12/19 2218 64 108/62 12/19 2218 64 108/62 12/19 1403 97.7 64 20 106/64 94 Room Air 12/19 1356 Nasal 1.0L Cannula 12/19 0901 63 112/72 12/19 0901 63 112/72 Intake & Output 12/20 1600 12/20 0800 12/20 0000 Intake Total 110 118 Output Total 750 650 Balance -640 -532 Intake, IV 10 18 Intake, Oral 100 100 Output, Urine 750 650 Patient 240 lb Weight Weight Bed scale Measurement Method Physical Exam General Appearance: Alert, Cooperative, No Acute Distress HEENT: Atraumatic, PERRLA, EOMI, Mucous Membr. moist/pink Neck: Supple, No JVD Cardiovascular: Normal S1, Normal S2, No Murmurs Lungs: Clear to Auscultation Abdomen: Normal Bowel Sounds, Soft, No Tenderness Neurological: Normal Speech, Strength at 5/5 X4 Ext, Normal Tone, Sensation Intact, Cranial Nerves 3-12 NL Extremities: No Clubbing, No Cyanosis, 2 + PITTING EDEMA IN BOTH LE Assessment/Plan Assessment: 77-year-old gentleman with past medical history of paroxysmal atrial ablation on Coumadin, hypertension, hyperlipidemia, small bowel obstruction, dementia, sarcoma right cheek status post radiation came from [facility] for complaints of facial numbness and slurred speech. Problem list: 1. Acute ischemic stroke not a candidate for tPA (on coumadin) 2. Afib on coumadin with therapeutic INR 3. Acute on chronic diastolic heart failure 4. 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 Elevated troponin likely demand ischemia Type 2 CA 6. Hyponatremia hypervolemic state 7. Hematuria 8. Leukocytosis Plan: - Sodium level of 129 today. Continue fluid restriction to 1 L and avoid salt tablets per nephrology as it can contribute to fluid retention. Repeat sodium level in a.m. -Potassium level remains to be normal, will DC Spironolactone Continue Lasix 80 q. 8 as per nephrology recommended We will give 1 dose of metolazone 5 mg 30 minutes before second dose of Lasix today and see if the patient blood pressure will tolerate this new dose Continue to hold Lexapro -Continue metoprolol to 75 mg twice a day. Continue aspirin and statin -Continue Cardizem 120 twice daily - Dose Coumadin per INR (give warfarin 2 mg today) - If patient exhibits CP, start NTG paste -Change Skinner catheter, -will send urine analysis and urine culture from voided urine sample -If the patient spikes fever will obtain panculture -Follow-up on CBC and BEP in the a.m. - Cardiology, endo, neurology and nephrology recommendations appreciated DVT prophylaxis; on Coumadin Patient is full code Problem List: 1. Diabetes 2. Paroxysmal a-fib 3. Edema 4. PAULA (acute kidney injury) 5. Stroke 6. Anasarca Pain Ratin Pain Location: N/A Pain Goal: Remain pain free Pain Plan: PATHWAY Tomorrow's Labs & Rationales: CBC BEP INR DVT/Prophylaxis: mechanical, pharmacological Cordelia Rivera 12/20/17 1451: Attending MD Review Statement Attending Statement Attending MD Statement: examined this patient, discuss w/resident/PA/HEALTH INSURANCE ADJUSTER, agreed w/resident/PA/HEALTH INSURANCE ADJUSTER, reviewed EMR data (avail), discussed with nursing, discussed with case mgmt Attending Assessment/Plan: Pt encouraged to eat better, he is eating very little. will start on marinol for improving appetite. D/w nephrology the hyponatremia. his sodium is better and we will cont with lasix and add metolazone. d/w pt the care plan. Leukocytosis- will remove skinner cath and send for ua . if unable to void will put skinner again.
[2017-12-20 08:14] LABS: ABSOLUTE BASOPHIL COUNT 0 /CUMM (0.0-0.2); ABSOLUTE EOSINOPHIL COUNT 0 /CUMM (0.0-0.7); ABSOLUTE GRANULOCYTE CT 14.2 /CUMM (1.4-6.5); ABSOLUTE LYMPH COUNT 0.6 /CUMM (1.2-3.4); ABSOLUTE MONOCYTE COUNT 1.1 /CUMM (0.10-0.60); BASOPHIL % 0 % (0.0-2.0); EOSINOPHIL % 0.1 % (0-5); MEAN CORPUSCULAR HGB 25.8 PG (27.0-31.0); MEAN CORPUSCULAR HGB CONC 32.4 G/DL (33.0-37.0); MEAN CORPUSCULAR VOLUME 79.5 FL (80.0-94.0); MEAN PLATELET VOLUME 10.1 FL (7.4-10.4); RBC DISTRIBUTION WIDTH 21.9 % (11.5-14.5)
[2017-12-20 08:15] LABS: PT 31.1 SEC (9.4-12.5)
[2017-12-20 08:42] LABS: WHITE BLOOD CELL COUNT 15.9 /CUMM (4.8-10.8)
[2017-12-20 09:21] LABS: GRANULOCYTE % 89.5 % (42.2-75.2); PLATELET COUNT 211 /CUMM (130-400)
[2017-12-20 09:27] LABS: RED BLOOD CELL CT 4.91 /CUMM (4.70-6.10)
--- NOTE | 2017-12-20 09:52 | PN- Cardiology ---
Subjective Subjective: Telemetry reviewed. Atrial fibrillation with controlled ventricular response Objective Vital Signs and I&Os Vital Signs Date Time Temp Pulse Resp B/P B/P Pulse O2 O2 Flow FiO2 Mean Ox Delivery Rate 12/20 0838 115 116/68 12/20 0838 115 116/68 12/20 0800 Nasal 1.0L Cannula 12/20 0636 98.0 115 18 116/68 95 Nasal Cannula 12/20 0000 Nasal 1.0L Cannula 12/19 2238 98.0 65 18 110/70 97 12/19 2218 64 108/62 12/19 2218 64 108/62 12/19 1403 97.7 64 20 106/64 94 Room Air 12/19 1356 Nasal 1.0L Cannula Intake & Output 12/20 1600 12/20 0800 12/20 0000 12/19 1600 12/19 0800 12/19 0000 Intake Total 110 118 300 110 370 Output Total 750 650 600 425 350 Balance -640 -532 -300 -315 20 Intake, IV 10 18 10 20 Intake, Oral 100 100 300 100 350 Number 1 0 Bowel Movements Output, Urine 750 650 600 425 350 Patient 240 lb 246 lb Weight Weight Bed scale Bed scale Measurement Method Physical Exam: On physical exam he was barely responsive but sitting up in bed. Volunteer was trying to feed him. Head normocephalic atraumatic Eyes sclera anicteric conjunctiva showed no pallor extraocular muscles were normal Neck no jugular venous distention no thyroid masses no palpable nodes Chest lungs were clear bilaterally Heart irregular rhythm with a ventricular rate around 80 abdomen soft no organomegaly nontender Extremities marked scrotal swelling noted, 2+ edema bilaterally persists Current Medications: Current Medications Sig/James Start time Last Medication Dose Route Stop Time Status Admin Acetaminophen 500 MG Q6P PRN 12/17 1145 AC PO Aspirin 81 MG DAILY 12/12 1000 AC 12/20 PO 0837 Atorvastatin Calcium 80 MG 1700 12/12 0630 AC 12/19 PO 1649 Dextrose/Water 1,000 ML Q13H 12/19 2345 CAN IV Diltiazem HCl 120 MG BID 12/16 2200 AC 12/20 PO 0838 Donepezil HCl 10 MG QPM 12/12 2200 AC 12/19 PO 2217 Escitalopram Oxalate 5 MG Q48 12/18 1000 DC 12/18 PO 12/24 1001 1048 Finasteride 5 MG DAILY 03/07 1000 AC 12/20 PO 0838 Furosemide 80 MG Q8 12/19 1400 AC 12/20 IV 0643 Furosemide 60 MG Q8 12/18 2200 DC 12/19 IV 0625 Insulin Aspart 0 TIDAC 12/12 1700 AC 12/20 SC 0839 Metoprolol Tartrate 75 MG BID 12/16 2200 AC 12/20 PO 0838 Nystatin 1 ZORAIDA TID PRN 12/16 1400 AC 12/16 TOP 1559 Potassium Chloride 20 MEQ BID 12/17 1000 AC 12/20 PO 0838 Spironolactone 50 MG DAILY 12/17 1353 AC 12/20 PO 0837 Tamsulosin HCl 0.4 MG BID 12/12 1000 AC 12/19 PO 0901 Warfarin Sodium 2 MG COUMADIN 1700 ONE 12/19 1700 DC 12/19 PO 12/19 1701 1649 Results Last 48 Hrs of Labs/Mics: Laboratory Tests 12/20/17 0613: Anion Gap 10, Estimated GFR 31 L, BUN/Creatinine Ratio 16.7, PT 31.1 H, INR 2.82 H, CBC w Diff NO MAN DIFF REQ, RBC 4.91, MCV 79.5 L, MCH 25.8 L, MCHC 32.4 L, RDW 21.9 H, MPV 10.1, Gran % 89.5 H, Lymphocytes % 3.5 L, Monocytes % 6.9, Eosinophils % 0.1, Basophils % 0, Absolute Granulocytes 14.2 H, Absolute Lymphocytes 0.6 L, Absolute Monocytes 1.1 H, Absolute Eosinophils 0, Absolute Basophils 0 12/19/17 1100: Urine Osmolality 319 12/19/17 0605: Anion Gap 7, Estimated GFR 32 L, BUN/Creatinine Ratio 19.0, PT 29.7 H, INR 2.70 H, CBC w Diff NO MAN DIFF REQ, RBC 4.59 L, MCV 79.0 L, MCH 25.9 L, MCHC 32.7 L, RDW 22.2 H, MPV 10.2, Gran % 84.6 H, Lymphocytes % 5.4 L, Monocytes % 8.7, Eosinophils % 1.2, Basophils % 0.1, Absolute Granulocytes 8.3 H, Absolute Lymphocytes 0.5 L, Absolute Monocytes 0.9 H, Absolute Eosinophils 0.1 , Absolute Basophils 0 Assessment/Plan Assessment/Plan In summary this 77-year-old gentleman has the following problems 1. Paroxysmal atrial fibrillation/flutter on warfarin 2. Dementia 3. Chronic kidney disease 4. Coronary disease 5. Hypertension 6. Hyperlipidemia 7. 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 Dyspnea secondary acute diastolic heart failure. Ejection fraction 55% by recent echocardiogram 9. Minimally elevated troponin secondary to demand ischemia Continues to be volume overloaded. I would add metazolone 2.5 mg [id number] before a.m. IV Lasix. I would decrease IV Lasix to twice a day with the new regimen of added metazlone. Monitor electrolytes BUN/creatinine and creatinine daily. Supplement potassium if needed. Continue telemetry? Yes
--- NOTE | 2017-12-20 11:07 | PN- Nephrology ---
See Addendum Assessment/Plan Nephrology Assessment: Hyponatremia - Hypoosmolar - a/w elevated UOsm suggestive of high ADH state. Not hypotensive although in the setting of significant edema, likely with decreased effective arterial blood volume as stimulus for ADH secretion. Remains significantly overloaded. Hypokalemia improved on spironolactone. AM cortisol OK and Free T4 OK. CHF - Remains volume expanded despite increasing the dose of IV lasix. Now that his Na is improved, I think that adding metolazone would be reasonable. 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 Suggestion: -Cont lasix 80mg IV q8 but would add 5mg metolazone 30 minutes prior to next dose - goal at least 3L UOP/day - otherwise will need to increase further -Cont spironolactone 50mg daily -800cc/day fluid restriction Please call [phone] with ?'s Subjective Subjective: Na 129 SCr 2.1 Lasix had been increased to 80mg IV TID - 1675cc UOP Objective Vital Signs and I&Os Vital Signs Date Time Temp Pulse Resp B/P B/P Pulse O2 O2 Flow FiO2 Mean Ox Delivery Rate 12/20 0838 115 116/68 12/20 0838 115 116/68 12/20 0800 Nasal 1.0L Cannula 12/20 0636 98.0 115 18 116/68 95 Nasal Cannula 12/20 0000 Nasal 1.0L Cannula 12/19 2238 98.0 65 18 110/70 97 12/19 2218 64 108/62 12/19 2218 64 108/62 12/19 1403 97.7 64 20 106/64 94 Room Air 12/19 1356 Nasal 1.0L Cannula Intake & Output 12/20 1600 12/20 0400 12/19 1600 12/19 0400 12/18 1600 12/18 0400 Intake Total 110 118 410 370 470 200 Output Total 861 112 4475 350 1175 500 Balance -783 -532 -615 20 -705 -300 Intake, IV 10 18 10 20 10 Intake, Oral 100 100 400 350 460 200 Number 1 0 Bowel Movements Output, Urine 774 453 7118 350 1175 500 Patient 240 lb 246 lb 247 lb Weight Weight Bed scale Bed scale Measurement Method Physical Exam: Gen - ok appearing HEENT - JVP visible CV - RRR, no m/r/g Chest - clear anteriorly (limited exam) Abd - soft, nontender, nondistended Ext - +++edema Neuro - alert, conversive Current Medications: Current Medications Sig/James Start time Last Medication Dose Route Stop Time Status Admin Acetaminophen 500 MG Q6P PRN 12/17 1145 AC PO Aspirin 81 MG DAILY 12/12 1000 AC 12/20 PO 0837 Atorvastatin Calcium 80 MG 1700 12/12 0630 AC 12/19 PO 1649 Dextrose/Water 1,000 ML Q13H 12/19 2345 CAN IV Diltiazem HCl 120 MG BID 12/16 2200 AC 12/20 PO 0838 Donepezil HCl 10 MG QPM 12/12 2200 AC 12/19 PO 2217 Finasteride 5 MG DAILY 12/12 1000 AC 12/20 PO 0838 Furosemide 80 MG Q8 12/19 1400 AC 12/20 IV 0643 Insulin Aspart 0 TIDAC 12/12 1700 AC 12/20 SC 0839 Metolazone 5 MG ONCE ONE 12/20 1045 DC PO 12/20 1046 Metoprolol Tartrate 25 MG BID 12/20 2200 AC PO Metoprolol Tartrate 75 MG BID 12/16 2200 DC 12/20 PO 0838 Nystatin 1 ZORAIDA TID PRN 12/16 1400 AC 12/16 TOP 1559 Potassium Chloride 20 MEQ BID 12/17 1000 AC 12/20 PO 0838 Spironolactone 50 MG DAILY 12/17 1353 AC 12/20 PO 0837 Tamsulosin HCl 0.4 MG BID 12/12 1000 AC 12/19 PO 0901 Warfarin Sodium 2 MG COUMADIN 1700 ONE 12/19 1700 DC 12/19 PO 12/19 1701 1649 Results Pertinent Lab Results: Laboratory Tests 12/20 12/19 0613 1100 Chemistry Sodium (137 - 145 mmol/L) 129 L Potassium (3.5 - 5.1 mmol/L) 4.6 Chloride (98 - 107 mmol/L) 83 L Carbon Dioxide (22 - 30 mmol/L) 36 H Anion Gap (5 - 16) 10 BUN (9 - 20 mg/dL) 35 H Creatinine (0.7 - 1.2 mg/dL) 2.1 H Estimated GFR (>60 ml/min) 31 L BUN/Creatinine Ratio (7 - 25 %) 16.7 Coagulation PT (9.4 - 12.5 SEC) 31.1 H INR (0.90 - 1.17) 2.82 H Hematology CBC w Diff NO MAN DIFF REQ WBC (4.8 - 10.8 /CUMM) 15.9 H RBC (4.70 - 6.10 /CUMM) 4.91 Hgb (14.0 - 18.0 G/DL) 12.6 L Hct (42 - 52 %) 39.0 L MCV (80.0 - 94.0 FL) 79.5 L MCH (27.0 - 31.0 PG) 25.8 L MCHC (33.0 - 37.0 G/DL) 32.4 L RDW (11.5 - 14.5 %) 21.9 H Plt Count (130 - 400 /CUMM) 211 MPV (7.4 - 10.4 FL) 10.1 Gran % (42.2 - 75.2 %) 89.5 H Lymphocytes % (20.5 - 51.1 %) 3.5 L Monocytes % (1.7 - 9.3 %) 6.9 Eosinophils % (0 - 5 %) 0.1 Basophils % (0.0 - 2.0 %) 0 Absolute Granulocytes (1.4 - 6.5 /CUMM) 14.2 H Absolute Lymphocytes (1.2 - 3.4 /CUMM) 0.6 L Absolute Monocytes (0.10 - 0.60 /CUMM) 1.1 H Absolute Eosinophils (0.0 - 0.7 /CUMM) 0 Absolute Basophils (0.0 - 0.2 /CUMM) 0 Urines Urine Osmolality (300 - 1000 MOSM/KG) 319 12/19 12/18 0605 0702 Chemistry Sodium (137 - 145 mmol/L) 127 L 127 L Potassium (3.5 - 5.1 mmol/L) 4.4 4.2 Chloride (98 - 107 mmol/L) 83 L 83 L Carbon Dioxide (22 - 30 mmol/L) 36 H 37 H Anion Gap (5 - 16) 7 8 BUN (9 - 20 mg/dL) 38 H 38 H Creatinine (0.7 - 1.2 mg/dL) 2.0 H 2.1 H Estimated GFR (>60 ml/min) 32 L 31 L BUN/Creatinine Ratio (7 - 25 %) 19.0 18.1 Coagulation PT (9.4 - 12.5 SEC) 29.7 H 24.3 H INR (0.90 - 1.17) 2.70 H 2.21 H Hematology CBC w Diff NO MAN DIFF REQ NO MAN DIFF REQ WBC (4.8 - 10.8 /CUMM) 9.8 8.4 RBC (4.70 - 6.10 /CUMM) 4.59 L 4.52 L Hgb (14.0 - 18.0 G/DL) 11.9 L 11.7 L Hct (42 - 52 %) 36.3 L 35.6 L MCV (80.0 - 94.0 FL) 79.0 L 78.8 L MCH (27.0 - 31.0 PG) 25.9 L 26.0 L MCHC (33.0 - 37.0 G/DL) 32.7 L 32.9 L RDW (11.5 - 14.5 %) 22.2 H 21.4 H Plt Count (130 - 400 /CUMM) 204 193 MPV (7.4 - 10.4 FL) 10.2 10.0 Gran % (42.2 - 75.2 %) 84.6 H 82.5 H Lymphocytes % (20.5 - 51.1 %) 5.4 L 6.8 L Monocytes % (1.7 - 9.3 %) 8.7 9.5 H Eosinophils % (0 - 5 %) 1.2 1.0 Basophils % (0.0 - 2.0 %) 0.1 0.2 Absolute Granulocytes (1.4 - 6.5 /CUMM) 8.3 H 6.9 H Absolute Lymphocytes (1.2 - 3.4 /CUMM) 0.5 L 0.6 L Absolute Monocytes (0.10 - 0.60 /CUMM) 0.9 H 0.8 H Absolute Eosinophils (0.0 - 0.7 /CUMM) 0.1 0.1 Absolute Basophils (0.0 - 0.2 /CUMM) 0 0 03/12 2000 Chemistry Sodium (137 - 145 mmol/L) 124 L Potassium (3.5 - 5.1 mmol/L) 4.1 Chloride (98 - 107 mmol/L) 80 L Carbon Dioxide (22 - 30 mmol/L) 35 H Anion Gap (5 - 16) 9 BUN (9 - 20 mg/dL) 40 H Creatinine (0.7 - 1.2 mg/dL) 2.1 H Estimated GFR (>60 ml/min) 31 L BUN/Creatinine Ratio (7 - 25 %) 19.0 Imaging/Other Studies: EXAM TYPE: US - US-RENAL/KIDNEY EXAMINATION: US RETROPERITONEAL COMPLETE (RENAL) CLINICAL INFORMATION: 77-year-old male with hematuria.. COMPARISON: Renal ultrasound 08/10/2014 TECHNIQUE: Real-time imaging of the kidneys and bladder. FINDINGS: Evaluation is slightly suboptimal secondary to patient body habitus and overlying bowel gas. RIGHT KIDNEY: 10.7 x 5.5 x 5.0 cm (SAG x AP x TRV). The kidney is normal in size, contour, and echogenicity. Renal cortical thickness is normal. No calculi or focal parenchymal lesions. No hydronephrosis. LEFT KIDNEY: 9.9 x 4.9 x 5.5 cm (SAG x AP x TRV). The kidney is normal in size, contour, and echogenicity. Renal cortical thickness is normal. No calculi or focal parenchymal lesions. No hydronephrosis. BLADDER: Mildly distended containing a Castle catheter. The right ureteral jet was visualized, the left was not. Prevoid bladder volume is 47 mL. OTHER: Incidentally noted trace amount of perihepatic ascites. Small gallstones and echogenic bile also visualized. IMPRESSION: 1. No hydronephrosis or nephrolithiasis. 2. Trace perihepatic ascites. 3. Cholelithiasis.
[2017-12-20 14:05] VITALS: BP 100/60
[2017-12-20 21:37] VITALS: BP 110/68
[2017-12-21 06:53] VITALS: BP 112/70
[2017-12-21 08:18] LABS: ABSOLUTE BASOPHIL COUNT 0 /CUMM (0.0-0.2); ABSOLUTE EOSINOPHIL COUNT 0.1 /CUMM (0.0-0.7); ABSOLUTE GRANULOCYTE CT 10.3 /CUMM (1.4-6.5); ABSOLUTE LYMPH COUNT 0.7 /CUMM (1.2-3.4); BASOPHIL % 0.1 % (0.0-2.0); EOSINOPHIL % 0.6 % (0-5); GRANULOCYTE % 85.2 % (42.2-75.2); HEMATOCRIT 36.9 % (42-52); MEAN CORPUSCULAR HGB 25.9 PG (27.0-31.0); MEAN CORPUSCULAR HGB CONC 32.7 G/DL (33.0-37.0); MEAN CORPUSCULAR VOLUME 79.1 FL (80.0-94.0); MEAN PLATELET VOLUME 9.7 FL (7.4-10.4); PLATELET COUNT 198 /CUMM (130-400); RBC DISTRIBUTION WIDTH 22.2 % (11.5-14.5); RED BLOOD CELL CT 4.66 /CUMM (4.70-6.10)
--- NOTE | 2017-12-21 10:37 | PN- Housestaff ---
Camilla HERRNO,Isa 12/21/17 1037: Subjective Follow-up For: 1. Acute ischemic stroke not a candidate for tPA (on coumadin) 2. Afib on coumadin with therapeutic INR 3. Acute on chronic diastolic heart failure 4. 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 Elevated troponin likely demand ischemia Type 2 HI 6. Hyponatremia hypervolemic state 7. HematuriA 8. Leukocytosis 9. metabolic alkalosis Tele-Events Since Last Visit: A. fib, 6365, QRS 0.1, VT 0.01 Subjective: Patient was seen and examined at bedside, denies any complaints, diuresing on Lasix with fluid balance -640, hematuria was noticed in the Castle bag. Sodium DOWN to 127 today most likely due to metolazone, WBC trended down to 12, urine culture is growing gram-negative rods 30,000 Review of Systems Constitutional: Denies: no symptoms. Cardiovascular: Denies: no symptoms. Respiratory: Denies: no symptoms. Gastrointestinal: Denies: no symptoms. Genitourinary: Denies: no symptoms. Musculoskeletal: Denies: no symptoms. Neurological/Psychological: Reports: numbness. Objective Last 24 Hrs of Vital Signs/I&O Vital Signs Date Time Temp Pulse Resp B/P B/P Pulse O2 O2 Flow FiO2 Mean Ox Delivery Rate 12/21 1411 97.8 66 18 110/70 99 Nasal 1.5L Cannula 12/21 0847 95 112/70 12/21 0847 95 112/70 12/21 0846 95 112/70 12/21 0800 94 Nasal 1.0L Cannula 12/21 0653 98.2 65 20 112/70 94 Nasal 1.5L Cannula 12/21 0000 Nasal 1.0L Cannula 12/20 2136 98.2 80 18 110/68 97 12/20 2046 80 110/60 12/20 2046 80 110/60 12/206 80 110/60 12/20 1600 97 Nasal 1.0L Cannula Intake & Output 12/21 1600 12/21 0800 12/21 0000 Intake Total 320 118 425 Output Total 1425 1800 1000 Balance -1105 -1682 -575 Intake, IV 18 Intake, Oral 320 100 425 Number 0 0 Bowel Movements Output, Urine 1425 1800 1000 Patient 245 lb Weight Physical Exam General Appearance: Alert, Cooperative, No Acute Distress HEENT: Atraumatic, PERRLA, EOMI, Mucous Membr. moist/pink Neck: Supple, No JVD Lungs: Clear to Auscultation Abdomen: Normal Bowel Sounds, Soft, No Tenderness Neurological: Normal Speech, Strength at 5/5 X4 Ext, Normal Tone Extremities: No Clubbing, No Cyanosis, bilateral 2+ pitting edema Vascular: Normal Pulses Assessment/Plan Assessment: 77-year-old gentleman with past medical history of paroxysmal atrial ablation on Coumadin, hypertension, hyperlipidemia, small bowel obstruction, dementia, sarcoma right cheek status post radiation came from [facility] for complaints of facial numbness and slurred speech. Problem list: 1. Acute ischemic stroke not a candidate for tPA (on coumadin) 2. Afib on coumadin with therapeutic INR 3. Acute on chronic diastolic heart failure 4. 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 Elevated troponin likely demand ischemia Type 2 HI 6. Hyponatremia hypervolemic state 7. Hematuria 8. Leukocytosis 9. Metabolic alkalosis Plan: - Sodium level of 127 today. Continue fluid restriction to 800cc and avoid salt tablets per nephrology as it can contribute to fluid retention. Repeat sodium level in a.m. -Continue to hold spironolactone Increase Lasix to 100 q. 8 as per nephrology recommended We will give 1 dose of metolazone 5 mg 30 minutes before second dose of Lasix today and see if the patient blood pressure will tolerate this new dose Metolazone p.o. 5 mg need to be dosed daily according to the diuresis, sodium level, and the blood pressure -Continue metoprolol to 75 mg twice a day. Continue aspirin and statin -Continue Cardizem 120 twice daily -Acetazolamide 250 p.o. milligrams daily for a total of 3 doses - Dose Coumadin per INR (give warfarin 2 mg today) - If patient exhibits CP, start NTG paste -Urine culture was positive for gram-negative rods 30,000, will hold off antibiotics for now -Continue marinol p.o. once daily to improve appetite -If the patient spikes fever will obtain panculture -Follow-up on CBC and BEP in the a.m. - Cardiology, endo, neurology and nephrology recommendations appreciated DVT prophylaxis; on Coumadin Patient is full code Problem List: 1. Hyponatremia 2. Edema 3. PAULA (acute kidney injury) 4. Stroke 5. Anasarca Pain Ratin Pain Location: N/A Pain Goal: Remain pain free Pain Plan: pathway Tomorrow's Labs & Rationales: cbc lorenep Fausto Riveramaria isabel 12/21/17 1445: Attending MD Review Statement Attending Statement Attending MD Statement: examined this patient, discuss w/resident/PA/IMPLANT POLISHER, agreed w/resident/PA/IMPLANT POLISHER, reviewed EMR data (avail), discussed with nursing, discussed with case mgmt Attending Assessment/Plan: D/w Dr Sprague from nephrology over the phone. Will increase lasix to 100mg q8h, add acetozolamind and will give one dose of metolazone 5mg today and see how he does and then decide based on tomorrow labs about further dosing. dw/ pt the care plan. pt encouraged to eat better but he does not hava much appetite. Will see how he does on marinol.
--- NOTE | 2017-12-21 11:54 | PN- Nephrology ---
Assessment/Plan Nephrology Assessment: Hyponatremia - Hypoosmolar - a/w elevated UOsm suggestive of high ADH state. Not hypotensive although in the setting of significant edema, likely with decreased effective arterial blood volume as stimulus for ADH secretion. Remains significantly overloaded. AM cortisol OK and Free T4 OK. CHF - Remains volume expanded and not producing adequate urine to current regimen. Thiazide added yesterday - will need to closely monitor Na. 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 Metabolic alkalosis - presumed given elevated bicarb (clinically without a clear respiratory acidosis) - still volume expanded so would favor giving a carbonic anhydrase inhibitor diuretic. Suggestion: -Increase lasix to 100mg IV q8 -Would dose 10mg PO metolazone prior to one of the lasix doses -Acetazolamide 250mg PO daily x3 days -Goal UOP will be >3L/day -800cc/day fluid restriction Please call [phone] with ?'s Subjective Subjective: Na 127 Bicarb 39 SCr 2.2 2050cc UOP - 80mg IV lasix TID with 5mg PO metolazone Pt continues to be without complaints Objective Vital Signs and I&Os Vital Signs Date Time Temp Pulse Resp B/P B/P Pulse O2 O2 Flow FiO2 Mean Ox Delivery Rate 12/21 0847 95 112/70 12/21 0847 95 112/70 12/21 0846 95 112/70 12/21 0800 94 Nasal 1.0L Cannula 12/21 0653 98.2 65 20 112/70 94 Nasal 1.5L Cannula 12/21 0000 Nasal 1.0L Cannula 12/207 98.2 80 18 110/68 97 12/20 2046 80 110/60 12/206 80 110/60 12/20 2046 80 110/60 12/20 1600 97 Nasal 1.0L Cannula 12/20 1405 97.8 62 18 100/60 95 Intake & Output 12/21 1600 12/21 0400 12/20 1600 12/20 0400 12/19 1600 12/19 0400 Intake Total 118 425 510 118 410 370 Output Total 1800 1000 3393 982 4198 350 Balance -1682 -575 -540 -532 -615 20 Intake, IV 18 10 18 10 20 Intake, Oral 100 425 500 100 400 350 Number 0 2 1 0 Bowel Movements Output, Urine 1800 1000 7032 294 6582 350 Patient 245 lb 240 lb 246 lb Weight Weight Bed scale Bed scale Measurement Method Physical Exam: Gen - ok appearing HEENT - JVP visible CV - RRR, no m/r/g Chest - clear anteriorly (limited exam) Abd - soft, nontender, nondistended Ext - +++edema Neuro - alert, conversive Current Medications: Current Medications Sig/James Start time Last Medication Dose Route Stop Time Status Admin Acetaminophen 500 MG Q6P PRN 12/17 1145 AC PO Aspirin 81 MG DAILY 12/12 1000 AC 12/21 PO 0846 Atorvastatin Calcium 80 MG 1700 12/12 0630 AC 12/20 PO 1704 Diltiazem HCl 120 MG BID 12/16 2200 AC 12/21 PO 0846 Donepezil HCl 10 MG QPM 12/12 2200 AC 12/20 PO 2045 Dronabinol 2.5 MG QPM 12/21 2200 AC PO Dronabinol 2.5 MG BID 12/20 2200 DC 12/21 PO 0848 Dronabinol 2.5 MG Q8 PRN 12/20 1545 DC PO Finasteride 5 MG DAILY 12/12 1000 AC 12/21 PO 0847 Furosemide 80 MG Q8 12/19 1400 AC 12/21 IV 0625 Insulin Aspart 0 TIDAC 12/12 1700 AC 12/20 SC 1717 Metoprolol Tartrate 25 MG BID 12/20 2200 AC 12/21 PO 0847 Nystatin 1 ZORAIDA TID PRN 12/16 1400 DC 12/16 TOP 1559 Potassium Chloride 20 MEQ BID 12/17 1000 AC 12/21 PO 0847 Tamsulosin HCl 0.4 MG BID 12/12 1000 AC 12/21 PO 0847 Warfarin Sodium 2 MG COUMADIN 1700 ONE 12/20 1700 DC 12/20 PO 12/20 1701 1705 Results Pertinent Lab Results: Laboratory Tests 12/21 12/20 0640 1445 Chemistry Sodium (137 - 145 mmol/L) 127 L Potassium (3.5 - 5.1 mmol/L) 4.3 Chloride (98 - 107 mmol/L) 79 L Carbon Dioxide (22 - 30 mmol/L) 39 H Anion Gap (5 - 16) 9 BUN (9 - 20 mg/dL) 40 H Creatinine (0.7 - 1.2 mg/dL) 2.2 H Estimated GFR (>60 ml/min) 29 L BUN/Creatinine Ratio (7 - 25 %) 18.2 Coagulation PT (9.4 - 12.5 SEC) 32.0 H INR (0.90 - 1.17) 2.90 H Hematology CBC w Diff NO MAN DIFF REQ WBC (4.8 - 10.8 /CUMM) 12.0 H RBC (4.70 - 6.10 /CUMM) 4.66 L Hgb (14.0 - 18.0 G/DL) 12.1 L Hct (42 - 52 %) 36.9 L MCV (80.0 - 94.0 FL) 79.1 L MCH (27.0 - 31.0 PG) 25.9 L MCHC (33.0 - 37.0 G/DL) 32.7 L RDW (11.5 - 14.5 %) 22.2 H Plt Count (130 - 400 /CUMM) 198 MPV (7.4 - 10.4 FL) 9.7 Gran % (42.2 - 75.2 %) 85.2 H Lymphocytes % (20.5 - 51.1 %) 5.7 L Monocytes % (1.7 - 9.3 %) 8.4 Eosinophils % (0 - 5 %) 0.6 Basophils % (0.0 - 2.0 %) 0.1 Absolute Granulocytes (1.4 - 6.5 /CUMM) 10.3 H Absolute Lymphocytes (1.2 - 3.4 /CUMM) 0.7 L Absolute Monocytes (0.10 - 0.60 /CUMM) 1.0 H Absolute Eosinophils (0.0 - 0.7 /CUMM) 0.1 Absolute Basophils (0.0 - 0.2 /CUMM) 0 Urines Urinalysis LIGHT H Urine Color (YEL,AMB,STR) BLDY H Urine Clarity (CLEAR) CLDY H Urine pH (5.0 - 8.0) 6.5 Ur Specific [place] (1.001 - 1.035) 1.015 Urine Protein (NEG,<30 MG/DL) 100 H Urine Ketones (NEG) NEG Urine Nitrite (NEG) POS H Urine Bilirubin (NEG) NEG@ICTO Urine Urobilinogen (0.1 - 1.0 EU/dl) 2.0 H Ur Leukocyte Esterase (NEG) SMALL H Ur Microscopic SEDIMENT EXAMINED Urine RBC (0 - 5 /HPF) PACKD H Urine WBC (0 - 2 /HPF) 1-3 H Urine Hemoglobin (NEG) LARGE H Urine Glucose (N MG/DL) NEG Urine Comment 12/20 12/19 0613 1100 Chemistry Sodium (137 - 145 mmol/L) 129 L Potassium (3.5 - 5.1 mmol/L) 4.6 Chloride (98 - 107 mmol/L) 83 L Carbon Dioxide (22 - 30 mmol/L) 36 H Anion Gap (5 - 16) 10 BUN (9 - 20 mg/dL) 35 H Creatinine (0.7 - 1.2 mg/dL) 2.1 H Estimated GFR (>60 ml/min) 31 L BUN/Creatinine Ratio (7 - 25 %) 16.7 Coagulation PT (9.4 - 12.5 SEC) 31.1 H INR (0.90 - 1.17) 2.82 H Hematology CBC w Diff NO MAN DIFF REQ WBC (4.8 - 10.8 /CUMM) 15.9 H RBC (4.70 - 6.10 /CUMM) 4.91 Hgb (14.0 - 18.0 G/DL) 12.6 L Hct (42 - 52 %) 39.0 L MCV (80.0 - 94.0 FL) 79.5 L MCH (27.0 - 31.0 PG) 25.8 L MCHC (33.0 - 37.0 G/DL) 32.4 L RDW (11.5 - 14.5 %) 21.9 H Plt Count (130 - 400 /CUMM) 211 MPV (7.4 - 10.4 FL) 10.1 Gran % (42.2 - 75.2 %) 89.5 H Lymphocytes % (20.5 - 51.1 %) 3.5 L Monocytes % (1.7 - 9.3 %) 6.9 Eosinophils % (0 - 5 %) 0.1 Basophils % (0.0 - 2.0 %) 0 Absolute Granulocytes (1.4 - 6.5 /CUMM) 14.2 H Absolute Lymphocytes (1.2 - 3.4 /CUMM) 0.6 L Absolute Monocytes (0.10 - 0.60 /CUMM) 1.1 H Absolute Eosinophils (0.0 - 0.7 /CUMM) 0 Absolute Basophils (0.0 - 0.2 /CUMM) 0 Urines Urine Osmolality (300 - 1000 MOSM/KG) 319 12/19 0605 Chemistry Sodium (137 - 145 mmol/L) 127 L Potassium (3.5 - 5.1 mmol/L) 4.4 Chloride (98 - 107 mmol/L) 83 L Carbon Dioxide (22 - 30 mmol/L) 36 H Anion Gap (5 - 16) 7 BUN (9 - 20 mg/dL) 38 H Creatinine (0.7 - 1.2 mg/dL) 2.0 H Estimated GFR (>60 ml/min) 32 L BUN/Creatinine Ratio (7 - 25 %) 19.0 Coagulation PT (9.4 - 12.5 SEC) 29.7 H INR (0.90 - 1.17) 2.70 H Hematology CBC w Diff NO MAN DIFF REQ WBC (4.8 - 10.8 /CUMM) 9.8 RBC (4.70 - 6.10 /CUMM) 4.59 L Hgb (14.0 - 18.0 G/DL) 11.9 L Hct (42 - 52 %) 36.3 L MCV (80.0 - 94.0 FL) 79.0 L MCH (27.0 - 31.0 PG) 25.9 L MCHC (33.0 - 37.0 G/DL) 32.7 L RDW (11.5 - 14.5 %) 22.2 H Plt Count (130 - 400 /CUMM) 204 MPV (7.4 - 10.4 FL) 10.2 Gran % (42.2 - 75.2 %) 84.6 H Lymphocytes % (20.5 - 51.1 %) 5.4 L Monocytes % (1.7 - 9.3 %) 8.7 Eosinophils % (0 - 5 %) 1.2 Basophils % (0.0 - 2.0 %) 0.1 Absolute Granulocytes (1.4 - 6.5 /CUMM) 8.3 H Absolute Lymphocytes (1.2 - 3.4 /CUMM) 0.5 L Absolute Monocytes (0.10 - 0.60 /CUMM) 0.9 H Absolute Eosinophils (0.0 - 0.7 /CUMM) 0.1 Absolute Basophils (0.0 - 0.2 /CUMM) 0 Imaging/Other Studies: EXAM TYPE: US - US-RENAL/KIDNEY EXAMINATION: US RETROPERITONEAL COMPLETE (RENAL) CLINICAL INFORMATION: 77-year-old male with hematuria.. COMPARISON: Renal ultrasound 08/10/2014 TECHNIQUE: Real-time imaging of the kidneys and bladder. FINDINGS: Evaluation is slightly suboptimal secondary to patient body habitus and overlying bowel gas. RIGHT KIDNEY: 10.7 x 5.5 x 5.0 cm (SAG x AP x TRV). The kidney is normal in size, contour, and echogenicity. Renal cortical thickness is normal. No calculi or focal parenchymal lesions. No hydronephrosis. LEFT KIDNEY: 9.9 x 4.9 x 5.5 cm (SAG x AP x TRV). The kidney is normal in size, contour, and echogenicity. Renal cortical thickness is normal. No calculi or focal parenchymal lesions. No hydronephrosis. BLADDER: Mildly distended containing a Castle catheter. The right ureteral jet was visualized, the left was not. Prevoid bladder volume is 47 mL. OTHER: Incidentally noted trace amount of perihepatic ascites. Small gallstones and echogenic bile also visualized. IMPRESSION: 1. No hydronephrosis or nephrolithiasis. 2. Trace perihepatic ascites. 3. Cholelithiasis. TTE CONCLUSIONS Left ventricular cavity size normal. Left ventricular wall thickness mildly increased. No obvious regional wall motion abnormalities. Left ventricular ejection fraction is estimated at 55 %. Right ventricle not well visualized, grossly normal. Left atrial size at the upper limits of normal. Unable to estimate the right ventricular systolic pressure. Pericardium not well visualized. No obvious pericardial effusion.
--- NOTE | 2017-12-21 12:41 | PN- Cardiology ---
Subjective Subjective: Resting comfortably with no new complaints. Objective Vital Signs and I&Os Vital Signs Date Time Temp Pulse Resp B/P B/P Pulse O2 O2 Flow FiO2 Mean Ox Delivery Rate 12/21 0847 95 112/70 12/21 0847 95 112/70 12/21 0846 95 112/70 12/21 0800 94 Nasal 1.0L Cannula 12/21 0653 98.2 65 20 112/70 94 Nasal 1.5L Cannula 12/21 0000 Nasal 1.0L Cannula 12/20 2137 98.2 80 18 110/68 97 12/20 2046 80 110/60 12/20 2046 80 110/60 12/20 2046 80 110/60 12/20 1600 97 Nasal 1.0L Cannula 12/20 1405 97.8 62 18 100/60 95 Intake & Output 12/21 1600 12/21 0800 12/21 0000 12/20 1600 12/20 0800 12/20 0000 Intake Total 118 425 400 110 118 Output Total 1800 1000 300 750 650 Balance -1682 -575 100 -640 -532 Intake, IV 18 10 18 Intake, Oral 100 425 400 100 100 Number 0 2 Bowel Movements Output, Urine 1800 1000 300 750 650 Patient 245 lb 240 lb Weight Weight Bed scale Measurement Method Physical Exam: General: no apparent distress. Alert. Eyes: No obvious scleral icterus. HEENT: No jugular venous distention or abnormal jugular venous pulsations. Cardiovascular: Normal intensity S1/S2. Irregular Respiratory: Mildly decreased air entry Abdomen: Soft, nontender with no guarding or rebound tenderness. Musculoskeletal: No clubbing or cyanosis noted, 1-2+ lower extremity edema Skin: warm Lymph: No gross lymphadenopathy. Current Medications: Current Medications Sig/James Start time Last Medication Dose Route Stop Time Status Admin Acetaminophen 500 MG Q6P PRN 12/17 1145 AC PO Aspirin 81 MG DAILY 12/12 1000 AC 12/21 PO 0846 Atorvastatin Calcium 80 MG 1700 12/12 0630 AC 12/20 PO 1704 Diltiazem HCl 120 MG BID 12/16 2200 AC 12/21 PO 0846 Donepezil HCl 10 MG QPM 12/12 2200 AC 12/20 PO 2045 Dronabinol 2.5 MG QPM 12/21 2200 AC PO Dronabinol 2.5 MG BID 12/20 2200 DC 12/21 PO 0848 Dronabinol 2.5 MG Q8 PRN 12/20 1545 DC PO Finasteride 5 MG DAILY 12/12 1000 AC 12/21 PO 0847 Furosemide 80 MG Q8 12/19 1400 AC 12/21 IV 0625 Insulin Aspart 0 TIDAC 12/12 1700 AC 12/20 SC 1717 Metoprolol Tartrate 25 MG BID 12/20 2200 AC 12/21 PO 0847 Nystatin 1 ZORAIDA TID PRN 12/16 1400 DC 12/16 TOP 1559 Potassium Chloride 20 MEQ BID 12/17 1000 AC 12/21 PO 0847 Tamsulosin HCl 0.4 MG BID 12/12 1000 AC 12/21 PO 0847 Warfarin Sodium 2 MG COUMADIN 1700 ONE 12/21 1700 AC PO 12/21 1701 Warfarin Sodium 2 MG COUMADIN 1700 ONE 12/20 1700 DC 12/20 PO 12/20 1701 1705 Results Last 48 Hrs of Labs/Mics: Laboratory Tests 12/21/17 0640: Anion Gap 9, Estimated GFR 29 L, BUN/Creatinine Ratio 18.2, PT 32.0 H, INR 2.90 H, CBC w Diff NO MAN DIFF REQ, RBC 4.66 L, MCV 79.1 L, MCH 25.9 L, MCHC 32.7 L, RDW 22.2 H, MPV 9.7, Gran % 85.2 H, Lymphocytes % 5.7 L, Monocytes % 8.4, Eosinophils % 0.6, Basophils % 0.1, Absolute Granulocytes 10.3 H, Absolute Lymphocytes 0.7 L, Absolute Monocytes 1.0 H, Absolute Eosinophils 0.1, Absolute Basophils 0 12/20/17 1445: Urinalysis LIGHT H, Urine Color BLDY H, Urine Clarity CLDY H, Urine pH 6.5, Ur Specific [place] 1.015, Urine Protein 100 H, Urine Ketones NEG, Urine Nitrite POS H, Urine Bilirubin NEG@ICTO, Urine Urobilinogen 2.0 H, Ur Leukocyte Esterase SMALL H, Ur Microscopic SEDIMENT EXAMINED, Urine RBC PACKD H, Urine WBC 1-3 H, Urine Hemoglobin LARGE H, Urine Glucose NEG, Urine Comment 12/20/17 0613: Anion Gap 10, Estimated GFR 31 L, BUN/Creatinine Ratio 16.7, PT 31.1 H, INR 2.82 H, CBC w Diff NO MAN DIFF REQ, RBC 4.91, MCV 79.5 L, MCH 25.8 L, MCHC 32.4 L, RDW 21.9 H, MPV 10.1, Gran % 89.5 H, Lymphocytes % 3.5 L, Monocytes % 6.9, Eosinophils % 0.1, Basophils % 0, Absolute Granulocytes 14.2 H, Absolute Lymphocytes 0.6 L, Absolute Monocytes 1.1 H, Absolute Eosinophils 0, Absolute Basophils 0 Recent Imaging Studies: Telemetry tracings were personally reviewed and shows likely atrial flutter with controlled ventricular response rate Assessment/Plan Assessment/Plan 1. Paroxysmal atrial fibrillation/flutter on warfarin 2. Dementia 3. Chronic kidney disease 4. Coronary disease 5. Hypertension 6. Hyperlipidemia 7. 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 Dyspnea secondary acute diastolic heart failure. Ejection fraction 55% by recent echocardiogram 9. Minimally elevated troponin secondary to demand ischemia Resting comfortably and maintaining negative fluid balance. INR is therapeutic. Continue diuretic regimen per renal. Ruperto Gomez MD [facility] Continue telemetry? No
[2017-12-21 14:11] VITALS: BP 110/70
--- NOTE | 2017-12-21 15:44 | Discharge Summary ---
Hospital Course Allergies: Coded Allergies: NO KNOWN ALLERGIES (NONE 11/21/17) Discharge Instructions Medications at Discharge Discharge Medications: Continue taking these medications: Tamsulosin HCl (Flomax) 0.4 MG CAP.ER.24H 1 Capsule ORAL TWICE DAILY Comments: Last Taken: 11/23/17 Time: 10 AM Finasteride (Proscar) 5 MG TABLET 1 Tablet ORAL DAILY Comments: Last Taken: 11/23/17 Time: 10 AM Metformin HCl (Metformin HCl ER) 500 MG TAB.ER.24H 1 Tablet ORAL TWICE DAILY Comments: NOT GIVEN IN HOSPITAL Donepezil HCl (Aricept) 10 MG TABLET 1 Tablet ORAL Every night Comments: Last Taken: 11/22/17 Time: 9 PM Atorvastatin Calcium (Lipitor) 80 MG TABLET 1 Tablet ORAL DAILY Comments: Last Taken: 11/22/17 Time: 5 PM Diltiazem HCl (Diltiazem 12HR ER) 120 MG CAP.ER.12H 1 Capsule ORAL TWICE DAILY Comments: Last Taken: 11/23/17 Time: 10 AM Metoprolol Tartrate (Lopressor) 50 MG TABLET 1 Tablet ORAL TWICE DAILY Qty = 60 Comments: Last Taken: 11/23/17 Time: 9 AM [DUONEB] 3 Milliliters Inhale Solution via Nebulizer Every 6-8 Hours as Needed as needed for BREATHING PROBLEMS
[2017-12-21 22:52] VITALS: BP 122/68
[2017-12-22 06:00] VITALS: BP 118/64
--- NOTE | 2017-12-22 08:39 | PN- Housestaff ---
Mariela Zurita 12/22/17 0838: Subjective Follow-up For: 1. Acute ischemic stroke not a candidate for tPA (on coumadin) 2. Afib on coumadin with therapeutic INR 3. Acute on chronic diastolic heart failure 4. 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 Elevated troponin likely demand ischemia Type 2 MN 6. Hyponatremia hypervolemic state 7. HematuriA 8. Leukocytosis 9. metabolic alkalosis Complaints: no complaints Tele-Events Since Last Visit: A flutter, heart rate ranging between 64-155. No overnight telemetry events were noted. Subjective: Mr Monson is feeling well. Currently does not have any new concerns. Does not have any chest pain, palpitations. Continues to have hematuria, which is not worse compared to yesterday as per the nurse. Ins and outs are being watched closely while he is being diuresed. As per the chart, fluid balance negative- 1580 mL. He was given an extra dose of metolazone 10 mg along with his a.m. dose of Lasix. Blood pressure remained stable. He remained afebrile overnight. Systolic blood pressure ranged in between 118-122. Review of Systems Constitutional: Reports: see HPI. Objective Last 24 Hrs of Vital Signs/I&O Vital Signs Date Time Temp Pulse Resp B/P B/P Pulse O2 O2 Flow FiO2 Mean Ox Delivery Rate 12/22 0825 115 118/64 12/22 0824 115 118/64 12/22 0824 115 118/64 12/22 0600 97.8 122 18 118/64 94 12/22 0000 Nasal 1.0L Cannula 12/21 2252 97.8 60 18 122/68 97 12/21 2222 86 122/68 12/21 2222 86 122/68 12/21 2222 86 122/68 12/21 1600 94 Nasal 1.0L Cannula 12/21 1411 97.8 66 18 110/70 99 Nasal 1.5L Cannula 12/21 0847 95 112/70 12/21 0847 95 112/70 12/21 0846 95 112/70 Intake & Output 12/22 1600 12/22 0800 12/22 0000 Intake Total 20 400 Output Total 1600 1500 Balance -1580 -1100 Intake, IV 20 20 Intake, Oral 380 Output, Urine 1600 1500 Patient 237 lb Weight Weight Bed scale Measurement Method Physical Exam General Appearance: No Acute Distress Other Physical Findings: General Appearance: Alert, Cooperative, No Acute Distress HEENT: Atraumatic, PERRLA, EOMI, Mucous Membr. moist/pink Neck: Supple, No JVD Lungs: Clear to Auscultation Abdomen: Normal Bowel Sounds, Soft, No Tenderness Neurological: Normal Speech, Strength at 5/5 X4 Ext, Normal Tone Extremities: No Clubbing, No Cyanosis, bilateral 2+ pitting edema Vascular: Normal Pulses. Current Medications: Current Medications Sig/James Start time Last Medication Dose Route Stop Time Status Admin Acetaminophen 500 MG Q6P PRN 12/17 1145 AC PO Acetazolamide 250 MG DAILY 12/21 1256 AC 12/22 PO 12/23 1001 0824 Aspirin 81 MG DAILY 12/12 1000 AC 12/22 PO 0824 Atorvastatin Calcium 80 MG 1700 12/12 0630 AC 12/21 PO 1722 Diltiazem HCl 120 MG BID 12/16 2200 AC 12/22 PO 0824 Donepezil HCl 10 MG QPM 12/12 2200 AC 12/21 PO 2224 Dronabinol 2.5 MG QPM 12/21 2200 AC 12/21 PO 2223 Dronabinol 2.5 MG BID 12/20 2200 DC 12/21 PO 0848 Finasteride 5 MG DAILY 12/12 1000 AC 12/22 PO 0825 Furosemide 100 MG Q8 12/21 1400 AC 12/22 IV 0543 Furosemide 80 MG Q8 12/19 1400 DC 12/21 IV 0625 Insulin Aspart 0 TIDAC 12/12 1700 AC 12/22 SC 0823 Metolazone 10 MG ONCE ONE 12/21 1330 DC 12/21 PO 12/21 1331 1433 Metoprolol Tartrate 25 MG BID 12/20 2200 AC 12/22 PO 0825 Potassium Chloride 20 MEQ BID 12/17 1000 AC 12/22 PO 0825 Tamsulosin HCl 0.4 MG BID 12/12 1000 AC 12/22 PO 0824 Warfarin Sodium 2 MG COUMADIN 1700 ONE 12/21 1700 DC 12/21 PO 12/21 1701 1722 Last 24 Hrs of Lab/Ibrahima Results Last 24 Hrs of Labs/Mics: Laboratory Tests 12/22/17 0650: PT Pending, INR Pending 12/22/17 0625: Sodium Pending, Potassium Pending, Chloride Pending, Carbon Dioxide Pending, Anion Gap Pending, BUN Pending, Creatinine Pending, BUN/Creatinine Ratio Pending , CBC w Diff Pending, WBC Pending, RBC Pending, Hgb Pending, Hct Pending, MCV Pending, MCH Pending, MCHC Pending, RDW Pending, Plt Count Pending, MPV Pending Assessment/Plan Assessment: Mr Callahan is a 77-year-old gentleman with a past history of paroxysmal atrial fibrillation on Coumadin, hyperlipidemia, dementia, 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 Since he was on Coumadin, TPA was not administered. His problem list included: #1 acute ischemic stroke #2 paroxysmal atrial fibrillation on Coumadin #3 CTD stage IV #4 elevated troponin, type II MN #5 hypoosmolar hyponatremia likely due to elevated ADH secretion. #6 hematuria #7 leukocytosis Pertinent lab findings in the last 24 hours: WBC 13.9, (improved), hemoglobin 11.9 (stable), platelets 189, sodium 124(127-), serum creatinine 2.5 (12/23/17). INR 2.27. - Continue fluid restriction to 800 mL. No salt tablets as per nephrology. Continue fluid restriction. He received metolazone and Lasix which could have decreased sodium level slightly. Continue to watch. Check BEP in the a.m. -She was given an extra dose of metolazone 10 mg along with Lasix 100 mg every 8 hourly. -Monitor for diuresis, approximately 3 L in 24 hours as per nephrology. -Give metolazone 5 mg this a.m. -Continue metoprolol 75 mg twice a day. -4 elevated bicarbonate, she was given acetazolamide 250 mg by mouth daily. -Dose Coumadin 2.5 mg today. -Continue Cardizem 120 g by mouth daily. -Monitor for chest pain, or rapid A. fib. -Urine culture shows growth of gram-negative rods, would watch off antibiotics for now. Housekeeping: #1 DVT prophylaxis-Coumadin #2 Code status-full code. Problem List: 1. Hyponatremia 2. Edema 3. PAULA (acute kidney injury) 4. Stroke 5. Elevated troponin 6. Chronic renal failure 7. Anasarca Pain Ratin Pain Location: back Pain Goal: Pain 4 or less Pain Plan: tylenol prn Tomorrow's Labs & Rationales: bep given hyponatremia hb since the pt has persistent hematuria Taylor Gutierrez MD 12/22/17 1226: Attending MD Review Statement Attending Statement Attending Statement: examined this patient, discuss w/resident/PA/AUTO TRANSMISSION TECHNICIAN, agreed w/resident/PA/AUTO TRANSMISSION TECHNICIAN, reviewed EMR data (avail), discussed with nursing, discussed with case mgmt, amended to note Attending Assessment/Plan: Patient seen and examined. Resting comfortably not in any acute distress. No issues overnight reported by nursing staff. On telemetry overnight he remains in A. fib with controlled ventricular response. Patient offers no new complaints this morning. On examination heart sounds are regular. Lungs are clear bilaterally. Abdomen is soft and nontender. He has bilateral pedal edema. Labs show persistent hyponatremia. Recommendations: -Follow-up with the nephrology service regarding these diuretic regimen. -No need for further cardiac monitoring per recommendations of the cardiology service yesterday. -Hematuria is persistent however hemoglobin level is relatively stable. -White cell count remains elevated. Patient is afebrile. Antibiotic therapy is on hold as patient is only going 30 thousand colony-forming units. -Continue Coumadin.
[2017-12-22 09:22] LABS: ABSOLUTE BASOPHIL COUNT 0 /CUMM (0.0-0.2); ABSOLUTE EOSINOPHIL COUNT 0.1 /CUMM (0.0-0.7); ABSOLUTE GRANULOCYTE CT 12.5 /CUMM (1.4-6.5); ABSOLUTE LYMPH COUNT 0.4 /CUMM (1.2-3.4); ABSOLUTE MONOCYTE COUNT 0.9 /CUMM (0.10-0.60); BASOPHIL % 0 % (0.0-2.0); EOSINOPHIL % 0.6 % (0-5); GRANULOCYTE % 90.3 % (42.2-75.2); HEMATOCRIT 36.1 % (42-52); MEAN CORPUSCULAR VOLUME 78.8 FL (80.0-94.0); MEAN PLATELET VOLUME 10.4 FL (7.4-10.4); PLATELET COUNT 189 /CUMM (130-400); RBC DISTRIBUTION WIDTH 22.2 % (11.5-14.5); RED BLOOD CELL CT 4.58 /CUMM (4.70-6.10); WHITE BLOOD CELL COUNT 13.9 /CUMM (4.8-10.8)
[2017-12-22 09:38] LABS: PT 24.9 SEC (9.4-12.5)
[2017-12-22 23:00] VITALS: BP 108/68
[2017-12-23 06:00] VITALS: BP 102/58
--- NOTE | 2017-12-23 07:21 | PN- Housestaff ---
Subjective Review of Systems Constitutional: Reports: see HPI. Objective Last 24 Hrs of Vital Signs/I&O Vital Signs Date Time Temp Pulse Resp B/P B/P Pulse O2 O2 Flow FiO2 Mean Ox Delivery Rate 12/23 0044 134 112/66 12/23 0000 93 Nasal 2.0L Cannula 12/22 2300 99.4 130 18 108/68 93 12/22 2257 122 108/68 12/22 2257 122 108/68 12/22 1537 98.4 55 18 94 12/22 0825 115 118/64 12/22 0824 115 118/64 12/22 0824 115 118/64 12/22 0800 Nasal 1.0L Cannula Intake & Output 12/23 0800 12/23 0000 12/22 1600 Intake Total 360 Output Total 1100 1100 Balance -1100 -740 Intake, Oral 360 Output, Urine 1100 1100 Patient 234 lb Weight Physical Exam General Appearance: No Acute Distress Current Medications: Current Medications Sig/James Start time Last Medication Dose Route Stop Time Status Admin Acetaminophen 500 MG Q6P PRN 12/17 1145 AC PO Acetazolamide 250 MG DAILY 12/21 1256 AC 12/22 PO 12/23 1001 0824 Aspirin 81 MG DAILY 12/12 1000 AC 12/22 PO 0824 Atorvastatin Calcium 80 MG 1700 12/12 0630 AC 12/22 PO 1708 Diltiazem HCl 120 MG BID 12/16 2200 AC 12/22 PO 2257 Donepezil HCl 10 MG QPM 12/12 2200 AC 12/22 PO 2257 Dronabinol 2.5 MG QPM 12/21 2200 AC 12/22 PO 2257 Finasteride 5 MG DAILY 12/12 1000 AC 12/22 PO 0825 Furosemide 40 MG .STK-MED ONE 12/22 1428 DC IV 12/22 1429 Furosemide 100 MG Q8 12/21 1400 AC 12/23 IV 0622 Insulin Aspart 0 TIDAC 12/12 1700 AC 12/22 SC 1708 Metolazone 10 MG ONCE ONE 12/22 1300 DC 12/22 PO 12/22 1301 1358 Metoprolol Tartrate 25 MG BID 12/20 2200 AC 12/23 PO 0044 Potassium Chloride 20 MEQ BID 12/17 1000 AC 12/22 PO 2257 Tamsulosin HCl 0.4 MG BID 12/12 1000 AC 12/22 PO 2257 Warfarin Sodium 2 MG COUMADIN 1700 ONE 12/22 1700 DC 12/22 PO 12/22 1701 1708 Last 24 Hrs of Lab/Ibrahima Results Last 24 Hrs of Labs/Mics: Laboratory Tests 12/23/17 0630: Sodium Pending, Potassium Pending, Chloride Pending, Carbon Dioxide Pending, Anion Gap Pending, BUN Pending, Creatinine Pending, BUN/Creatinine Ratio Pending , PT Pending, INR Pending, CBC w Diff Pending, WBC Pending, RBC Pending, Hgb Pending, Hct Pending, MCV Pending, MCH Pending, MCHC Pending, RDW Pending, Plt Count Pending, MPV Pending
[2017-12-23 07:30] LABS: PT 29.9 SEC (9.4-12.5)
[2017-12-23 07:42] LABS: ABSOLUTE BASOPHIL COUNT 0 /CUMM (0.0-0.2); ABSOLUTE EOSINOPHIL COUNT 0 /CUMM (0.0-0.7); ABSOLUTE GRANULOCYTE CT 7.9 /CUMM (1.4-6.5); ABSOLUTE LYMPH COUNT 0.4 /CUMM (1.2-3.4); ABSOLUTE MONOCYTE COUNT 1.1 /CUMM (0.10-0.60); BASOPHIL % 0 % (0.0-2.0); EOSINOPHIL % 0.1 % (0-5); HEMATOCRIT 34.4 % (42-52); MEAN CORPUSCULAR HGB 26.1 PG (27.0-31.0); MEAN CORPUSCULAR HGB CONC 33.2 G/DL (33.0-37.0); MEAN CORPUSCULAR VOLUME 78.6 FL (80.0-94.0); MEAN PLATELET VOLUME 9.9 FL (7.4-10.4); PLATELET COUNT 185 /CUMM (130-400); RBC DISTRIBUTION WIDTH 21.7 % (11.5-14.5); RED BLOOD CELL CT 4.37 /CUMM (4.70-6.10); WHITE BLOOD CELL COUNT 9.4 /CUMM (4.8-10.8)
--- NOTE | 2017-12-23 07:56 | PN- Housestaff ---
Camilla HERRON,Isa 12/23/17 0755: Subjective Follow-up For: 1. Acute ischemic stroke not a candidate for tPA (on coumadin) 2. Afib on coumadin with therapeutic INR 3. Acute on chronic diastolic heart failure 4. 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 Elevated troponin likely demand ischemia Type 2 HI 6. Hyponatremia hypervolemic state 7. HematuriA 8. Leukocytosis 9. metabolic alkalosis Tele-Events Since Last Visit: OFF TELE Subjective: Patient was seen and examined at bedside, he looks more lethargic and sleepy today, refused to eat or drink, was noticed to have tremors in his right hand, his sodium has dropped down to 124 today. Fluid balance of over -3000 yesterday Review of Systems Constitutional: Reports: see HPI. Objective Last 24 Hrs of Vital Signs/I&O Vital Signs Date Time Temp Pulse Resp B/P B/P Pulse O2 O2 Flow FiO2 Mean Ox Delivery Rate 12/23 0600 98.3 63 18 102/58 91 12/23 0044 134 112/66 12/23 0000 93 Nasal 2.0L Cannula 12/22 2300 99.4 130 18 108/68 93 12/22 2257 122 108/68 12/22 2257 122 108/68 12/22 1537 98.4 55 18 94 Intake & Output 12/23 1600 12/23 0800 12/23 0000 Intake Total 30 Output Total 600 1100 Balance -570 -1100 Intake, IV 30 Output, Urine 600 1100 Patient 234 lb Weight Physical Exam General Appearance: No Acute Distress HEENT: Atraumatic, PERRLA, EOMI, Mucous Membr. 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 Since he was on Coumadin, TPA was not administered. His problem list included: #1 acute ischemic stroke #2 paroxysmal atrial fibrillation on Coumadin #3 CTD stage IV #4 elevated troponin, type II HI #5 hypoosmolar hyponatremia likely due to elevated ADH secretion. #6 hematuria #7 leukocytosis Pertinent lab findings in the last 24 hours: WBC 9.4, (improved), hemoglobin 11.4 (stable), platelets 185, sodium 124, serum creatinine 2.8 INR 2.7 - Continue fluid restriction to 800 mL. No salt tablets as per nephrology. He received metolazone and Lasix which could have decreased sodium level slightly. Continue to watch. Check BEP in the a.m. We will hold off metolazone and acetazolamide today -Monitor for diuresis, approximately 3 L in 24 hours as per nephrology. -Continue metoprolol 75 mg twice a day. -Dose Coumadin 2 mg today. -Continue Cardizem 120 g by mouth daily. -Monitor for chest pain, or rapid A. fib. -Urine culture shows 30.000 we will continue to watch off antibiotics Her chest x-ray today showed bilateral airspace disease more prominent on the right side Problem List: 1. Hyponatremia 2. Edema 3. PAULA (acute kidney injury) 4. Anasarca 5. CVA (cerebral vascular accident) Pain Ratin Pain Location: N/A Pain Goal: Remain pain free Pain Plan: PATHWAY Tomorrow's Labs & Rationales: CBC BEP PT Taylor Gutierrez MD 12/23/17 1207: Attending MD Review Statement Attending Statement Attending MD Statement: examined this patient, discuss w/resident/PA/SNOWMAKER, agreed w/resident/PA/SNOWMAKER, reviewed EMR data (avail), discussed with nursing, discussed with case mgmt, amended to note Attending Assessment/Plan: Patient seen and examined. This morning is extremely lethargic. He is arousable with some effort at stimulation. He answer simple questions but with difficulty. He is able to follow commands responding appropriately with bilateral upper extremities. However is very lethargic. He is afebrile. Blood pressure is in the low 100s. Laboratory data today shows resolution of his leukocytosis. He still continues to have a left shift. Hemoglobin level is stable. Sodium level has not improved compared to yesterday at 124. Creatinine level remains unchanged at 2.4. This is elevated from his baseline of 1.8/1.9. Family present at the bedside today. They have made the decision to change his CODE STATUS of DO NOT RESUSCITATE/DO NOT INTUBATE. Recommendations: -Obtain head CT today to ensure that there is no acute intracranial process. -Hold metolazone. He is receiving diuresis with Lasix 100 mg daily. Follow-up with the renal service regarding continuing aggressive diuresis. It is noted that patient has not had significant oral intake over the past several days. -He is afebrile. He is only going 30,000 colony-forming units in the urine. He does have a chronic indwelling [place] catheter. Antibiotic therapy on hold for now. If he has significant improvement of his sodium level altered mentation remains may consider empirically treating his UTI although this likely represents colonization.
--- NOTE | 2017-12-23 11:08 | RADIOLOGY REPORT ---
EXAMINATION: XR PORTABLE CHEST CLINICAL INFORMATION: Cough; CHF exacerbation; possible aspiration. COMPARISON: Prior chest radiograph, most recently 12/13/2017. TECHNIQUE: Portable frontal view of the chest was obtained. FINDINGS: The cardiomediastinal silhouette is stable. No pulmonary vascular congestion is seen. There is persistent patchy airspace disease at the bases, moderate on the right and mild on the left. Small bilateral pleural effusions are suspected. There is no pneumothorax. No acute osseous abnormality is seen. IMPRESSION: There is a stable appearance of bibasilar airspace disease, right greater than left. Small bilateral pleural effusions are suspected, which could be more fully evaluated with a lateral view.
--- NOTE | 2017-12-23 12:24 | Event Note ---
Event Note Event Note: Patient's family requested updates about his condition, because he noticed that he was more lethargic and sleepy today. I updated them about his medical condition, including hyponatremia and CHF exacerbation. A brief discussion regarding the goals of care with the family, family decided to change his CODE STATUS to DNR /DNI. The family mentioned that the patient has a living will which he states that he does not want to be resuscitated and they would like to follow his wishes.
--- NOTE | 2017-12-23 14:47 | CT SCAN REPORT ---
EXAMINATION: CT HEAD WITHOUT CONTRAST CLINICAL INFORMATION: Increasing confusion and tremors of the right hand. COMPARISON: MRI brain 12/12/2017, CT head 12/12/2017 TECHNIQUE: Contiguous axial imaging was performed from the skull base to vertex without intravenous administration of contrast. DLP: 614 mGy-cm FINDINGS: There is no evidence of acute intracranial hemorrhage or territorial infarction. No abnormal mass effect or midline shift is seen. [place] to white matter differentiation is well preserved. No extra-axial fluid collections are identified. The ventricles and sulci are enlarged in size, similar to previous examinations. Right temporal volume loss is redemonstrated. There is moderate low-attenuation within the periventricular and subcortical white matter, similar to previous. Surgical changes related to right frontotemporal craniotomy appear stable. The mastoid air cells and visualized portions of the paranasal sinuses are well aerated. IMPRESSION: 1. No acute intracranial hemorrhage. 2. No significant interval change compared to previous. 3. Moderate cerebral atrophy, stable. Moderate chronic small vessel ischemic changes, stable. 4. Stable right sided post surgical changes.
[2017-12-23 14:57] VITALS: BP 106/60
[2017-12-23 22:08] VITALS: BP 120/60
[2017-12-24 06:45] VITALS: BP 112/66
--- NOTE | 2017-12-24 07:15 | Transfer of Care Summary ---
Hospital Course Assessment/Plan: Patient is a 77 yo M with h/o PAfib on coumadin, HTN, DM, dementia, chronic renal insufficiency, ischemia on prior nuclear test managed medically, residual right facial numbness from sarcoma excision,was sent in from [facility] for slurred speech, left facial droop, left facial numbness and c/o dyspnea. ED course - Vitals stable. Neuro exam: left facial droop, slurring of speech, tongue and uvula central, otherwise no deficits. Chest basilar crackles+, LE: 3+ pitting edema extending from feet to lower abdomen, with scrotal edema. Labs: microcytic anemia, INR 2.31, Na 128 (baseline 135), K 3.4, bicarb 33, BUN 44, creat 2.4 (baseline 1.7-2.0), proBNP 37102, trop 0.23. CXR: bilateral perihilar and basilar opacities with interstitial prominence and small right pleural effusion, suggesting vascular congestion/ edema. Head CT: no acute pathology. EKG: Afib/ flutter. Echo (2018): EF 55%. TIA - was not a candidate for tPA (on coumadin) - Patient denies any symptoms of chest pain, dyspnea, lightheadedness or palpitations at the time of presentation. MRI of the brain showed chronic gliotic and encephalomalacic changes involving the right anterior temporal lobe. Numerous chronic small vessel ischemic changes without evidence of acute territorial infarct. Carotid doppler showed small amount of plaque present in the right internal carotid artery with normal velocities consistent with a minimal 0-49% stenosis. The left side is normal with no plaque seen. We obtained a neurology consult, advised for conservative management. Acute on chronic diastolic heart failure We treated with IV diuretics.We obtain cardiology consult, advised for continue IV diuresis as needed and anticoagulant as before. Elevated troponin likely demand ischemia Type 2 PR We obtain cardiology consult. We did serial troponins which remained stable and range of 0.23, 0.23, 0.22. We treated symptomatically and continued on his home medication including Coumadin aspirin and statins, as before. Hyponatremia hypervolemic state We did obtain nephrology and endocrine consult. We restricted the fluids and decrease the dose of citalopram. Despite patient's sodium remained low. We stop the citalopram and started patient on spironolactone diuretics and increases the dose of Lasix. later spironolactone was dc'd and he was given high dose Lasix and few doses of Motelazone for diuresis. Motelazone had to be help due to dropping Na level..
--- NOTE | 2017-12-24 07:43 | PN- Housestaff ---
Rodo HERRON,Tabitha 12/24/17 0743: Subjective Follow-up For: 1. Acute on chronic diastolic heart failure 2. Afib on coumadin with therapeutic INR 3. PAULA on CKD stage 4 due to heart failure and possibly underlying diabetes/ HTN 4. Hyponatremia hypervolemic state 5. metabolic alkalosis Subjective: Seen and examined Patient remains lethargic, able to see, unable to communicate well. Family at bedside in the afternoon, requesting update. Review of Systems Constitutional: Reports: see HPI. Objective Last 24 Hrs of Vital Signs/I&O Vital Signs Date Time Temp Pulse Resp B/P B/P Pulse O2 O2 Flow FiO2 Mean Ox Delivery Rate 12/24 0645 99.0 120 16 112/66 97 Nasal 2.0L Cannula 12/24 0000 Nasal 2.0L Cannula 12/24 2207 98.2 60 22 120/60 94 12/23 2115 106/58 12/23 2115 106/58 12/23 2115 106/58 12/23 1457 98.9 90 18 106/60 94 Room Air Intake & Output 12/24 0800 12/24 0000 12/23 1600 Intake Total 0 0 360 Output Total 1350 1300 875 Balance -1350 -1300 -515 Intake, Oral 0 0 360 Output, Urine 1350 1300 875 Patient 95.056 kg 107.076 kg Weight Physical Exam General Appearance: Alert, Cooperative Skin: No Rashes, No Breakdown HEENT: Atraumatic, PERRLA, EOMI Neck: Supple Cardiovascular: Normal S1, Normal S2, irregular tachycardic Lungs: Clear to Auscultation, Normal Air Movement Abdomen: Normal Bowel Sounds, Soft, No Tenderness Neurological: Normal Speech, Strength at 5/5 X4 Ext, Normal Tone, Sensation Intact Extremities: No Clubbing, No Cyanosis, edema present Vascular: Normal Pulses, Pulses Symmetrical Current Medications: Current Medications Sig/James Start time Last Medication Dose Route Stop Time Status Admin Acetaminophen 500 MG Q6P PRN 12/17 1145 AC PO Acetazolamide 250 MG DAILY 12/21 1256 DC 12/22 PO 12/23 1001 0824 Aspirin 81 MG DAILY 12/12 1000 AC 12/23 PO 0837 Atorvastatin Calcium 80 MG 1700 12/12 0630 AC 12/23 PO 1702 Diltiazem HCl 120 MG BID 12/16 2200 AC 12/23 PO 0837 Donepezil HCl 10 MG QPM 12/12 2200 AC 12/23 PO 2114 Dronabinol 2.5 MG QPM 12/21 220 AC 12/23 PO 211 Finasteride 5 MG DAILY 12/12 1000 AC 12/22 PO 0825 Furosemide 100 MG Q8 12/21 1400 AC 12/24 IV 0507 Insulin Aspart 0 TIDAC 12/12 1700 AC 12/23 SC 1703 Metoprolol Tartrate 25 MG BID 12/20 2200 AC 12/23 PO 0044 Potassium Chloride 40 MEQ ONCE ONE 12/23 0915 DC 12/23 PO 12/23 0916 1118 Potassium Chloride 20 MEQ BID 12/17 1000 AC 12/23 PO 211 Tamsulosin HCl 0.4 MG BID 12/12 1000 AC 12/22 PO 225 Warfarin Sodium 2 MG COUMADIN 1700 ONE 12/23 1700 DC 12/23 PO 12/23 1701 1702 Last 24 Hrs of Lab/Ibrahima Results Last 24 Hrs of Labs/Mics: Laboratory Tests 12/24/17626: Anion Gap 12, Estimated GFR 20 L, BUN/Creatinine Ratio 16.3, PT 31.7 H, INR 2.88 H, CBC w Diff NO MAN DIFF REQ, RBC 4.33 L, MCV 79.0 L, MCH 26.0 L, MCHC 32.9 L, RDW 22.2 H, MPV 10.2, Gran % 82.7 H, Lymphocytes % 6.2 L, Monocytes % 11.1 H, Eosinophils % 0, Basophils % 0, Absolute Granulocytes 7.1 H, Absolute Lymphocytes 0.5 L, Absolute Monocytes 0.9 H, Absolute Eosinophils 0, Absolute Basophils 0 12/23/175: Anion Gap 9, Estimated GFR 21 L, BUN/Creatinine Ratio 15.9 12/23/17 170: Sodium Cancelled, Potassium Cancelled, Chloride Cancelled, Carbon Dioxide Cancelled, Anion Gap Cancelled, BUN Cancelled, Creatinine Cancelled, BUN/ Creatinine Ratio Cancelled Assessment/Plan Assessment: Patient is a 77-YO M with a PMH of paroxysmal A.fib on Coumadin, HLD, dementia, small bowel obstruction, 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 Admitted with concerns of diastolic heart failure, PAULA on CKD, metabolic alkalosis after ruling out Stroke with imaging. Problem list 1. Acute on chronic diastolic heart failure 2. Afib on coumadin with therapeutic INR 3. PAULA on CKD stage 4 due to heart failure and possibly underlying diabetes/ HTN 4. Hyponatremia hypervolemic state 5. metabolic alkalosis plan Transferred to general medicine floor Acute on chronic diastolic heart failure ECHO a month ago did show EF of 55% without any wall motion abnormalities. Elevated ProBNP. Currnetly on high dose of diuretics lasix 100mg Q8. Receiving Diamox for metabolic alkalosis secondary to possibly diuretics. Stricts Ins and Outs. Cardio is following for heart failure recommendations. A single dose of metolazone given 2 days ago. Nephro helping with diuretic management. Continue aspirin, atorvastatin, Diltiazem. A.fib on warfarin Therapeutic INR. continue warfarin. Tachycardic today. On dranbinol 10mg daily. Increased metoprolol to 50mg Q8. Follow for any hypotension. Dementia PT consulted. Hypotonic hypervolemic hyponatremia Continue fluid restriction DM Insulin sliding scale DVT on warfarin Code status DNR/DNI Problem List: 1. Shakiness 2. Renal insufficiency 3. Dementia 4. Diabetes 5. Weakness 6. Elevated troponin Pain Ratin Pain Location: n/a Pain Goal: Pain 4 or less Pain Plan: tylenol prn avoid opiates Tomorrow's Labs & Rationales: bep, PT Rich HERRON,[facility] 12/24/17 1059: Attending Review Statement Attending Statement Attending MD Statement: examined this patient, discuss w/resident/PA/OIL BURNER INSTALLER, agreed w/resident/PA/OIL BURNER INSTALLER, reviewed EMR data (avail), discussed with nursing, discussed with case mgmt, reviewed images, amended to note Attending Assessment/Plan: Patient seen and examined, he denies any complaints. Patient has dementia and therefore history is not very reliable. No acute events overnight. Patient is transferred from telemetry floor to general medicine floor. Vital Signs Date Time Temp Pulse Resp B/P B/P Pulse O2 O2 Flow FiO2 Mean Ox Delivery Rate 12/24 0645 99.0 120 16 112/66 97 Nasal 2.0L Cannula 12/24 0000 Nasal 2.0L Cannula 12/24 2207 98.2 60 22 120/60 94 12/23 2114 106/58 12/23 2114 106/58 03/18 2115 106/58 12/23 1457 98.9 90 18 106/60 94 Room Air on exam; awake, nad. has dementia. cv; s1,s2, irregular. tachycardic. resp; clear abd; soft, nt, bs+ ext; 2+ edema. Laboratory Tests 12/24 12/23 12/23 0627 1925 1700 Chemistry Sodium (137 - 145 mmol/L) 126 L 125 L Cancelled Potassium (3.5 - 5.1 mmol/L) 3.2 L 3.8 Cancelled Chloride (98 - 107 mmol/L) 70 L 73 L Cancelled Carbon Dioxide (22 - 30 mmol/L) 44 H 43 H Cancelled Anion Gap (5 - 16) 12 9 Cancelled BUN (9 - 20 mg/dL) 49 H 46 H Cancelled Creatinine (0.7 - 1.2 mg/dL) 3.0 H 2.9 H Cancelled Estimated GFR (>60 ml/min) 20 L 21 L BUN/Creatinine Ratio (7 - 25 %) 16.3 15.9 Cancelled Coagulation PT (9.4 - 12.5 SEC) 31.7 H INR (0.90 - 1.17) 2.88 H Hematology CBC w Diff NO MAN DIFF REQ WBC (4.8 - 10.8 /CUMM) 8.5 RBC (4.70 - 6.10 /CUMM) 4.33 L Hgb (14.0 - 18.0 G/DL) 11.2 L Hct (42 - 52 %) 34.2 L MCV (80.0 - 94.0 FL) 79.0 L MCH (27.0 - 31.0 PG) 26.0 L MCHC (33.0 - 37.0 G/DL) 32.9 L RDW (11.5 - 14.5 %) 22.2 H Plt Count (130 - 400 /CUMM) 165 MPV (7.4 - 10.4 FL) 10.2 Gran % (42.2 - 75.2 %) 82.7 H Lymphocytes % (20.5 - 51.1 %) 6.2 L Monocytes % (1.7 - 9.3 %) 11.1 H Eosinophils % (0 - 5 %) 0 Basophils % (0.0 - 2.0 %) 0 Absolute Granulocytes (1.4 - 6.5 /CUMM) 7.1 H Absolute Lymphocytes (1.2 - 3.4 /CUMM) 0.5 L Absolute Monocytes (0.10 - 0.60 /CUMM) 0.9 H Absolute Eosinophils (0.0 - 0.7 /CUMM) 0 Absolute Basophils (0.0 - 0.2 /CUMM) 0 A/P; 77 y/o M with pmh sig for atrial ablation on Coumadin, hypertension, hyperlipidemia, small bowel obstruction, dementia, sarcoma right cheek status post radiation admitted with possible TIA, Ac/ch diastolic congestive heart failure, acute on chronic kidney disease stage IV, increased troponins likely secondary to demand ischemia, hyponatremia with hypervolemic state, metabolic alkalosis and as mentioned history of atrial fibrillation on Coumdin. Sodium remains low although slightly improved than yesterday. Creatinine almost at baseline. Patient currently on IV Lasix. Please discuss with nephrology about the diuretic regimen. Patient on beta susanna and Coumadin for history of A. fib. He is slightly tachycardic today. He will be given his beta susanna and then will recheck his heart rate to assess tachycardia. Patient also on aspirin and Coumadin for this possible TIA. Currently patient code status changed to DNR/DNI as noted in the chart. Patient to be seen by physical therapy. Likely will require short-term rehabilitation. DVT prophylaxis: Coumadin with therapeutic INR
[2017-12-24 08:43] LABS: PT 31.7 SEC (9.4-12.5)
[2017-12-24 09:21] LABS: ABSOLUTE BASOPHIL COUNT 0 /CUMM (0.0-0.2); ABSOLUTE EOSINOPHIL COUNT 0 /CUMM (0.0-0.7); ABSOLUTE GRANULOCYTE CT 7.1 /CUMM (1.4-6.5); ABSOLUTE LYMPH COUNT 0.5 /CUMM (1.2-3.4); ABSOLUTE MONOCYTE COUNT 0.9 /CUMM (0.10-0.60); BASOPHIL % 0 % (0.0-2.0); EOSINOPHIL % 0 % (0-5); GRANULOCYTE % 82.7 % (42.2-75.2); HEMATOCRIT 34.2 % (42-52); MEAN CORPUSCULAR HGB CONC 32.9 G/DL (33.0-37.0); MEAN PLATELET VOLUME 10.2 FL (7.4-10.4); PLATELET COUNT 165 /CUMM (130-400); RBC DISTRIBUTION WIDTH 22.2 % (11.5-14.5); RED BLOOD CELL CT 4.33 /CUMM (4.70-6.10); WHITE BLOOD CELL COUNT 8.5 /CUMM (4.8-10.8)
--- NOTE | 2017-12-24 11:56 | PN- Cardiology ---
Subjective Subjective: Patient appears comfortable but a little lethargic. He is now DNR/DNI. Objective Vital Signs and I&Os Vital Signs Date Time Temp Pulse Resp B/P B/P Pulse O2 O2 Flow FiO2 Mean Ox Delivery Rate 12/24 1106 120 112/66 12/24 1106 120 112/66 12/24 1106 120 112/66 12/24 0645 99.0 120 16 112/66 97 Nasal 2.0L Cannula 12/24 0000 Nasal 2.0L Cannula 12/24 2207 98.2 60 22 120/60 94 12/23 211 106/58 12/23 2115 106/58 12/235 106/58 12/23 1457 98.9 90 18 106/60 94 Room Air Intake & Output 12/24 1600 12/24 0800 12/24 0000 12/23 1600 12/23 0800 12/23 0000 Intake Total 0 0 360 30 Output Total 1350 1300 573 207 6985 Balance -1350 -1300 -515 -570 -1100 Intake, IV 30 Intake, Oral 0 0 360 Output, Urine 1350 1300 569 622 7022 Patient 210 lb 236 lb 234 lb Weight Physical Exam: General: no apparent distress. on NC. Eyes: No obvious scleral icterus. HEENT: No jugular venous distention or abnormal jugular venous pulsations. Cardiovascular: Normal intensity S1/S2. Irregular Respiratory: Mildly decreased air entry Abdomen: Soft, nontender with no guarding or rebound tenderness. Musculoskeletal: No clubbing or cyanosis noted, 1-2+ lower extremity edema Skin: warm Lymph: No gross lymphadenopathy. Current Medications: Current Medications Sig/James Start time Last Medication Dose Route Stop Time Status Admin Acetaminophen 500 MG Q6P PRN 12/17 1145 AC PO Aspirin 81 MG DAILY 12/12 1000 AC 12/24 PO 1106 Atorvastatin Calcium 80 MG 1700 12/12 0630 AC 12/23 PO 1702 Diltiazem HCl 120 MG BID 12/16 220 AC 12/24 PO 1106 Donepezil HCl 10 MG QPM 12/12 2200 AC 12/23 PO 2115 Dronabinol 2.5 MG QPM 12/21 2200 AC 12/23 PO 2115 Finasteride 5 MG DAILY 12/12 1000 AC 12/24 PO 1105 Furosemide 100 MG Q8 12/21 1400 AC 12/24 IV 0507 Insulin Aspart 0 TIDAC 12/12 1700 AC 12/24 SC 0821 Metoprolol Tartrate 25 MG BID 12/20 2200 AC 12/24 PO 1106 Potassium Chloride 40 MEQ ONCE ONE 12/24 1145 DC PO 12/24 1146 Potassium Chloride 20 MEQ BID 12/17 1000 AC 12/23 PO 2115 Tamsulosin HCl 0.4 MG BID 12/12 1000 AC 12/24 PO 1106 Warfarin Sodium 2 MG COUMADIN 1700 ONE 12/23 1700 DC 12/23 PO 12/23 1701 1702 Results Last 48 Hrs of Labs/Mics: Laboratory Tests 12/24/17 0627: Anion Gap 12, Estimated GFR 20 L, BUN/Creatinine Ratio 16.3, PT 31.7 H, INR 2.88 H, CBC w Diff NO MAN DIFF REQ, RBC 4.33 L, MCV 79.0 L, MCH 26.0 L, MCHC 32.9 L, RDW 22.2 H, MPV 10.2, Gran % 82.7 H, Lymphocytes % 6.2 L, Monocytes % 11.1 H, Eosinophils % 0, Basophils % 0, Absolute Granulocytes 7.1 H, Absolute Lymphocytes 0.5 L, Absolute Monocytes 0.9 H, Absolute Eosinophils 0, Absolute Basophils 0 12/23/17 1925: Anion Gap 9, Estimated GFR 21 L, BUN/Creatinine Ratio 15.9 12/23/17 1700: Sodium Cancelled, Potassium Cancelled, Chloride Cancelled, Carbon Dioxide Cancelled, Anion Gap Cancelled, BUN Cancelled, Creatinine Cancelled, BUN/ Creatinine Ratio Cancelled 12/23/17 0630: Anion Gap 14, Estimated GFR 22 L, BUN/Creatinine Ratio 15.0, PT 29.9 H, INR 2.72 H, CBC w Diff NO MAN DIFF REQ, RBC 4.37 L, MCV 78.6 L, MCH 26.1 L, MCHC 33.2, RDW 21.7 H, MPV 9.9, Gran % 84.0 H, Lymphocytes % 4.1 L, Monocytes % 11.8 H, Eosinophils % 0.1, Basophils % 0, Absolute Granulocytes 7.9 H, Absolute Lymphocytes 0.4 L, Absolute Monocytes 1.1 H, Absolute Eosinophils 0, Absolute Basophils 0 Recent Imaging Studies: Head CT 1. No acute intracranial hemorrhage. 2. No significant interval change compared to previous. 3. Moderate cerebral atrophy, stable. Moderate chronic small vessel ischemic changes, stable. 4. Stable right sided post surgical changes. Assessment/Plan Assessment/Plan 1. Paroxysmal atrial fibrillation/flutter on warfarin 2. Dementia 3. Chronic kidney disease 4. Coronary disease 5. Hypertension 6. Hyperlipidemia 7. 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 Dyspnea secondary acute diastolic heart failure. Ejection fraction 55% by recent echocardiogram 9. Minimally elevated troponin secondary to demand ischemia Has documented negative fluid balance but still with some hyponatremia and lower extremity edema. He remains on high-dose intravenous Lasix. Would increase the metoprolol to q8 dosing if blood pressure tolerates for better heart rate control. INR remains therapeutic. Follow-up renal recommendations, patient did not get Diamox yesterday. Ruperto Gomez MD [facility] Continue telemetry? Not applicable
[2017-12-24 14:18] VITALS: BP 100/72
[2017-12-24 21:39] VITALS: BP 108/62
--- NOTE | 2017-12-25 02:18 | Event Note ---
Event Note Event Note: I was paged that patient is not able to take his medications. I went to see the patient he was looking lethargic and sleepy but arousable. He was not able to communicate well. I asked the patient to take his medication but he refused. Patient didn't like to eat or drink anything at that point. Swallow evaluation was ordered for tomorrow. Patient tolerated upper extremity was 5/5 but he refused to move his legs. On physical examination he has bilateral pedal edema. Patient was not following the commands well so I'm not sure about the lower extremity power and sensation. Otherwise he was hemodynamically stable. I discussed case it may represent and she is aware about the patient. I read the note from primary team and they clearly mentioned that for last couple of days patient is deteriorating and he is lethargic.
[2017-12-25 07:10] VITALS: BP 98/56
--- NOTE | 2017-12-25 07:20 | PN- Housestaff ---
Rodo HERRON,Tabitha 12/25/17 0720: Subjective Follow-up For: 1. Acute on chronic diastolic heart failure 2. Afib on coumadin with therapeutic INR 3. PAULA on CKD stage 4 due to heart failure and possibly underlying diabetes/ HTN 4. Hyponatremia hypervolemic state 5. metabolic alkalosis Subjective: seen and examined Patient remains at his baseline. No overnight issues. Still lethargic. Review of Systems Constitutional: Reports: see HPI. Objective Last 24 Hrs of Vital Signs/I&O Vital Signs Date Time Temp Pulse Resp B/P B/P Pulse O2 O2 Flow FiO2 Mean Ox Delivery Rate 12/25 0710 98.5 120 20 98/56 93 Nasal 2.0L Cannula 12/25 0613 98.5 120 20 98/62 12/25 0000 94 Nasal 2.0L Cannula 12/24 2139 99.6 110 20 108/62 94 12/24 1600 93 Nasal 2.0L Cannula 12/24 1418 99.0 67 20 100/72 95 Nasal 2.0L Cannula 12/24 1106 120 112/66 12/24 1106 120 112/66 12/24 1106 120 112/66 12/24 0800 Nasal 2.0L Cannula Intake & Output 12/25 0800 12/25 0000 12/24 1600 Intake Total 20 120 Output Total 854 876 9082 Balance -850 -480 -1080 Intake, Oral 20 120 Number 0 Bowel Movements Output, Urine 892 022 9718 Patient 92.108 kg 90.718 kg Weight Weight Bed scale Measurement Method Physical Exam General Appearance: Alert, very lethargic Skin: No Rashes Sepsis Skin Exam (color): Normal for Ethnicity HEENT: Atraumatic, PERRLA Neck: Supple, No JVD Cardiovascular: Normal S1, Normal S2 Lungs: Normal Air Movement, decreaed breath sounds at bases Abdomen: Normal Bowel Sounds, Soft, No Tenderness Extremities: No Clubbing, No Cyanosis, 4+ pitting edema Vascular: Normal Pulses Current Medications: Current Medications Sig/James Start time Last Medication Dose Route Stop Time Status Admin Acetaminophen 500 MG Q6P PRN 12/17 1145 AC PO Acetazolamide 250 MG DAILY 12/24 1623 AC 12/25 PO 0853 Aspirin 81 MG DAILY 12/12 1000 AC 12/25 PO 0853 Atorvastatin Calcium 80 MG 1700 12/12 0630 AC 12/23 PO 1702 Diltiazem HCl 120 MG BID 12/16 2199 AC 12/25 PO 0850 Donepezil HCl 10 MG QPM 12/12 2200 AC 12/23 PO 211 Dronabinol 2.5 MG QPM 12/21 2200 AC 12/23 PO 2115 Finasteride 5 MG DAILY 12/12 1000 AC 12/25 PO 0857 Furosemide 100 MG BID 12/25 2199 AC IV Furosemide 100 MG Q8 12/21 1400 DC 12/24 IV 2207 Insulin Aspart 0 TIDAC 12/12 1700 AC 12/25 SC 1314 Metoprolol Tartrate 25 MG Q8 12/24 2200 AC 12/25 PO 1016 Patient Medication 1 ED ONE ONE 12/25 1515 DC Teaching ED 12/25 1516 Potassium Chloride 40 MEQ BID 12/25 2199 AC PO Potassium Chloride 20 MEQ BID 12/25 1006 DC 12/25 PO 1017 Potassium Chloride 20 MEQ BID 12/17 1000 DC 12/23 PO 2115 Tamsulosin HCl 0.4 MG BID 12/12 1000 AC 12/25 PO 0857 Warfarin Sodium 2 MG COUMADIN 1700 ONE 12/24 1700 DC 12/24 PO 12/24 1701 1831 Last 24 Hrs of Lab/Ibrahima Results Last 24 Hrs of Labs/Mics: Laboratory Tests 12/25/17 0811: Anion Gap 15, Estimated GFR 18 L, BUN/Creatinine Ratio 17.3, PT 30.5 H, INR 2.77 H 12/24/17 1930: Ur Random Creatinine 33.2, Ur Random Sodium 80, Ur Random Potassium 44.7, Fraction Sodium Excret 5.7 H Assessment/Plan Assessment: Patient is a 77-YO M with a PMH of paroxysmal A.fib on Coumadin, HLD, dementia, small bowel obstruction, 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 Admitted with concerns of diastolic heart failure, PAULA on CKD, metabolic alkalosis after ruling out Stroke with imaging. Problem list 1. Acute on chronic diastolic heart failure 2. Afib on coumadin with therapeutic INR 3. PAULA on CKD stage 4 due to heart failure and possibly underlying diabetes/ HTN 4. Hyponatremia hypervolemic state 5. metabolic alkalosis plan Transferred to general medicine floor Acute on chronic diastolic heart failure ECHO a month ago did show EF of 55% without any wall motion abnormalities. Elevated ProBNP. Currnetly on high dose of diuretics lasix reduced to 100mg Q12 owing to hypotension. Receiving Diamox for metabolic alkalosis secondary to possibly diuretics. Stricts Ins and Outs. Cardio is following for heart failure recommendations. A single dose of metolazone given 2 days ago. Nephro helping with diuretic management. Continue aspirin, atorvastatin, Diltiazem. Family discussion held and hospice will come and evaluate the patient tomorrow morning. A.fib on warfarin Therapeutic INR. continue warfarin. Tachycardic today. On dranbinol 10mg daily. Increased metoprolol to 50mg Q8. Follow for any hypotension. Dementia PT consulted. Hypotonic hypervolemic hyponatremia Continue fluid restriction DM Insulin sliding scale DVT on warfarin Code status DNR/DNI Problem List: 1. Hyponatremia 2. Edema 3. Anasarca 4. Congestive heart failure 5. Atrial fibrillation with RVR Pain Ratin Pain Location: n/a Pain Goal: Pain 4 or less Pain Plan: tylenol prn avoid opiates Demented Tomorrow's Labs & Rationales: saul calabrese MD,[facility] 12/25/17 1112: Attending MD Review Statement Attending Statement Attending MD Statement: examined this patient, discuss w/resident/PA/SOCIAL PSYCHOLOGIST, agreed w/resident/PA/SOCIAL PSYCHOLOGIST, discussed with family, reviewed EMR data (avail), discussed with nursing, discussed with case mgmt, reviewed images, amended to note Attending Assessment/Plan: Patient seen and examined, he is not able to communicate due to his advanced dementia. Patient is refusing medications and his by mouth intake is very poor. He has tachycardia. Vital Signs Date Time Temp Pulse Resp B/P B/P Pulse O2 O2 Flow FiO2 Mean Ox Delivery Rate 12/25 1016 136 98/58 12/25 0857 120 98/56 12/25 0850 120 98/56 12/25 0800 Nasal 2.0L Cannula 12/25 0710 98.5 120 20 98/56 93 Nasal 2.0L Cannula 12/25 0613 98.5 120 20 98/62 03/ 0000 94 Nasal 2.0L Cannula 12/24 2139 99.6 110 20 108/62 94 12/24 1600 93 Nasal 2.0L Cannula 12/24 1418 99.0 67 20 100/72 95 Nasal 2.0L Cannula on exam; awake, nad. cv; s1,s2 irregular, tachy. resp: clear abd; soft, nt, bs+ ext; 2+edema b/l Laboratory Tests 12/25 12/24 0811 1930 Chemistry Sodium (137 - 145 mmol/L) 129 L Potassium (3.5 - 5.1 mmol/L) 2.8 *L Chloride (98 - 107 mmol/L) 71 L Carbon Dioxide (22 - 30 mmol/L) 43 H Anion Gap (5 - 16) 15 BUN (9 - 20 mg/dL) 57 H Creatinine (0.7 - 1.2 mg/dL) 3.3 H Estimated GFR (>60 ml/min) 18 L BUN/Creatinine Ratio (7 - 25 %) 17.3 Coagulation PT (9.4 - 12.5 SEC) 30.5 H INR (0.90 - 1.17) 2.77 H Urines Ur Random Creatinine (mg/dL) 33.2 Ur Random Sodium (30 - 90 mmol/L) 80 Ur Random Potassium (mmol/L) 44.7 Fraction Sodium Excret (<1% %) 5.7 H A/P: 77 y/o M with pmh sig for atrial ablation on Coumadin, hypertension, hyperlipidemia, small bowel obstruction, dementia, sarcoma right cheek status post radiation admitted with possible TIA, Ac/ch diastolic congestive heart failure, acute on chronic kidney disease stage IV, increased troponins likely secondary to demand ischemia, hyponatremia with hypervolemic state, metabolic alkalosis and as mentioned history of atrial fibrillation on Coumdin. BUN is very poor. Patient also refusing his medications. He has significant hypokalemia today which would be repleted. Sodium is slightly better. As discussed with cardiology, will decrease the dose of his Lasix. Patient is ordered beta susanna but he is refusing his medications. I discussed with Dr. Sarmiento about possibility off IV beta susanna. The to figure out goals of care with patient's family because IV medications would only be a temporary solution. I called patient's son and they're planning to visit shortly. I will discuss with them about the goals of care. At present patient's CODE STATUS DNR/DNI. Swallow evaluation is ordered for today. We'll follow-up. Continue the rest of the management. INR therapeutic. Please dose coumadin at 2 mg today.
[2017-12-25 09:34] LABS: PT 30.5 SEC (9.4-12.5)
--- NOTE | 2017-12-25 09:49 | PN- Cardiology ---
Subjective Subjective: Patient is lethargic and minimally responsive. He refused his medications. Review of Systems: Unobtainable due to dementia Objective Vital Signs and I&Os Vital Signs Date Time Temp Pulse Resp B/P B/P Pulse O2 O2 Flow FiO2 Mean Ox Delivery Rate 12/25 0857 120 98/56 12/25 0850 120 98/56 12/25 0710 98.5 120 20 98/56 93 Nasal 2.0L Cannula 12/25 0613 98.5 120 20 98/62 12/25 0000 94 Nasal 2.0L Cannula 12/24 2139 99.6 110 20 108/62 94 12/24 1600 93 Nasal 2.0L Cannula 12/24 1418 99.0 67 20 100/72 95 Nasal 2.0L Cannula 12/24 1106 120 112/66 12/24 1106 120 112/66 12/24 1106 120 Intake & Output 12/25 1600 12/25 0800 12/25 0000 12/24 1600 12/24 0800 12/24 0000 Intake Total 0 20 120 0 0 Output Total 069 962 1368 1350 1300 Balance -850 -480 -1080 -1350 -1300 Intake, IV 0 Intake, Oral 0 20 120 0 0 Number 0 0 Bowel Movements Output, Urine 953 626 9812 1350 1300 Patient 203 lb 200 lb 210 lb 236 lb Weight Weight Bed scale Measurement Method Physical Exam: Patient is a well-developed well-nourished male appearing in no acute distress lethargic HEENT is unremarkable Neck is supple there is no JVD Lungs are clear Heart irregular rhythm S1 and S2 are normal no murmurs gallops or rubs Abdomen bowel sounds positive Extremities 1+ edema Current Medications: Current Medications Sig/Jaems Start time Last Medication Dose Route Stop Time Status Admin Acetaminophen 500 MG Q6P PRN 12/17 1145 AC PO Acetazolamide 250 MG DAILY 12/24 1623 AC 12/25 PO 0853 Aspirin 81 MG DAILY 12/12 1000 AC 12/25 PO 0853 Atorvastatin Calcium 80 MG 1700 12/12 0630 AC 12/23 PO 1702 Diltiazem HCl 120 MG BID 12/16 2200 AC 12/25 PO 0850 Donepezil HCl 10 MG QPM 12/12 2200 AC 12/23 PO 211 Dronabinol 2.5 MG QPM 12/21 220 AC 12/23 PO 211 Finasteride 5 MG DAILY 12/12 1000 AC 12/25 PO 0857 Furosemide 100 MG Q8 12/21 1400 AC 12/24 IV 2207 Insulin Aspart 0 TIDAC 12/12 1700 AC 12/24 SC 0821 Metoprolol Tartrate 25 MG Q8 12/24 2200 AC PO Metoprolol Tartrate 25 MG BID 12/20 2200 DC 12/24 PO 1106 Potassium Chloride 40 MEQ ONCE ONE 12/24 1145 DC 12/24 PO 12/24 1146 1230 Potassium Chloride 20 MEQ BID 12/17 1000 AC 12/23 PO 2115 Tamsulosin HCl 0.4 MG BID 12/12 1000 AC 12/25 PO 0857 Warfarin Sodium 2 MG COUMADIN 1700 ONE 12/24 1700 DC 12/24 PO 12/24 1701 1831 Results Last 48 Hrs of Labs/Mics: Laboratory Tests 12/25/17 0811: Sodium Pending, Potassium Pending, Chloride Pending, Carbon Dioxide Pending, Anion Gap Pending, BUN Pending, Creatinine Pending, BUN/Creatinine Ratio Pending , PT Pending, INR Pending 12/24/17 193: Ur Random Creatinine 33.2, Ur Random Sodium 80, Ur Random Potassium 44.7, Fraction Sodium Excret 5.7 H 12/24/17 0627: Anion Gap 12, Estimated GFR 20 L, BUN/Creatinine Ratio 16.3, PT 31.7 H, INR 2.88 H, CBC w Diff NO MAN DIFF REQ, RBC 4.33 L, MCV 79.0 L, MCH 26.0 L, MCHC 32.9 L, RDW 22.2 H, MPV 10.2, Gran % 82.7 H, Lymphocytes % 6.2 L, Monocytes % 11.1 H, Eosinophils % 0, Basophils % 0, Absolute Granulocytes 7.1 H, Absolute Lymphocytes 0.5 L, Absolute Monocytes 0.9 H, Absolute Eosinophils 0, Absolute Basophils 0 12/23/171924: Anion Gap 9, Estimated GFR 21 L, BUN/Creatinine Ratio 15.9 12/23/17 170: Sodium Cancelled, Potassium Cancelled, Chloride Cancelled, Carbon Dioxide Cancelled, Anion Gap Cancelled, BUN Cancelled, Creatinine Cancelled, BUN/ Creatinine Ratio Cancelled Assessment/Plan Assessment/Plan 1. Paroxysmal atrial fibrillation/flutter on warfarin remains tachycardic due to refusal to take by mouth meds 2. Dementia 3. Chronic kidney disease 4. Coronary disease 5. Hypertension 6. Hyperlipidemia 7. 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 Dyspnea secondary acute diastolic heart failure. Ejection fraction 55% by recent echocardiogram 9. Minimally elevated troponin secondary to demand ischemia Recommendations 1. Patient refusing his medications. As discussed with Dr. Villanueva should be a discussion with the family regarding future plans. If they do not feel that a feeding tube is warranted then CODE STATUS should be changed to DNR C since he is refusing by mouth meds 2. Would decrease Lasix to twice a day given his decreased by mouth intake Continue telemetry? Not applicable
[2017-12-25 11:24] VITALS: BP 98/50
[2017-12-25 13:57] VITALS: BP 110/60
--- NOTE | 2017-12-25 15:31 | Event Note ---
Event Note Event Note: Goals of care discussed with Attending , Myself and case management Gene. Family understood the current condition of the patient, agreed to make him more comfortable as his condition has been declining for the past few weeks. Hospice will come and evaluate the patient tomorrow morning for potential inpatient either haseeb or guido.
--- NOTE | 2017-12-26 16:41 | Discharge Summary ---
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 Admitted with concerns of diastolic heart failure, PAULA on CKD, metabolic alkalosis after ruling out Stroke with imaging. Problem list 1. Acute on chronic diastolic heart failure 2. Afib on coumadin with therapeutic INR 3. PAULA on CKD stage 4 due to heart failure and possibly underlying diabetes/ HTN 4. Hyponatremia hypervolemic state 5. metabolic alkalosis plan Intially admitted to telemetry and transferred to general medicine floor Acute on chronic diastolic heart failure ECHO a month ago did show EF of 55% without any wall motion abnormalities. Elevated ProBNP. Currnetly on high dose of diuretics lasix reduced to 100mg Q12 owing to hypotension. Receiving Diamox for metabolic alkalosis secondary to possibly diuretics. Stricts Ins and Outs. Cardio is following for heart failure recommendations. A single dose of metolazone given per Nephro (helping with diuretic management). We were unable to wean him off IV lasix despite prolonged periods of diuresis. He is always lethargic and not tolerating food. He continued to decline. Goals of care discussed with Attending , Myself and case management Gene. Family understood the current condition of the patient, agreed to make him more comfortable as his condition has been declining for the past few weeks. HOSPICE came and evaluated, he was made hospice on 12/25/17 A.fib on warfarin Therapeutic INR. continue warfarin. Tachycardic today. On dranbinol 10mg daily. Increased metoprolol to 50mg Q8. Follow for any hypotension. Dementia PT consulted. Hypotonic hypervolemic hyponatremia On fluid restriction DM Insulin sliding scale DVT on warfarin Code status DNR/DNI Complications: NONE Allergies: Coded Allergies: NO KNOWN ALLERGIES (NONE 11/21/17) Significant Procedures: Carotid doppler IMPRESSION: There is small amount of plaque present in the right internal carotid artery with normal velocities consistent with a minimal 0-49% stenosis. The left side is normal with no plaque seen. Head MRI IMPRESSION: Patient motion degrades image quality therefore the diagnostic accuracy of this examination is limited. There are chronic gliotic and encephalomalacic changes involving the right anterior temporal lobe. Numerous chronic small vessel ischemic changes are visualized within the periventricular white matter. No evidence of acute territorial infarct. CXR IMPRESSION: Low lung volumes. Bilateral perihilar and basilar opacities with interstitial prominence and small right pleural effusion, suggesting vascular congestion/ edema in the proper clinical setting. Head CT IMPRESSION: No acute intracranial pathology. Chronic findings as described above, without significant change from 07/02/2015. CXR on 12/13/17 IMPRESSION: Unchanged appearance of the chest with findings consistent with clinical impression of congestive heart failure. Renal ultrasound 12/14/17 IMPRESSION: 1. No hydronephrosis or nephrolithiasis. 2. Trace perihepatic ascites. 3. Cholelithiasis. CXR 12/23/17 IMPRESSION: There is a stable appearance of bibasilar airspace disease, right greater than left. Small bilateral pleural effusions are suspected, which could be more fully evaluated with a lateral view. Head CT on 12/23/17 IMPRESSION: 1. No acute intracranial hemorrhage. 2. No significant interval change compared to previous. 3. Moderate cerebral atrophy, stable. Moderate chronic small vessel ischemic changes, stable. 4. Stable right sided post surgical changes. Pertinent Lab Results: as above Disposition Summary Disposition Principal Diagnosis: 1. Acute on chronic diastolic heart failure Additional Diagnosis: Afib on coumadin with therapeutic INR PAULA on CKD stage 4 due to heart failure and possibly underlying diabetes/ HTN Hyponatremia hypervolemic state metabolic alkalosis Discharge Disposition: hospice - medical facilit Discharge Instructions General Discharge Information Code Status: Do Not Resucitate/Intubat Patient's Diet: as tolerated Patient's Activity: as tolerated Follow-Up Instructions/Appts: Please follow up with Hospice service Medications at Discharge Discharge Medications: Continue taking these medications: Tamsulosin HCl (Flomax) 0.4 MG CAP.ER.24H 1 Capsule ORAL TWICE DAILY Comments: Last Taken: 11/23/17 Time: 10 AM Finasteride (Proscar) 5 MG TABLET 1 Tablet ORAL DAILY Comments: Last Taken: 11/23/17 Time: 10 AM Metformin HCl (Metformin HCl ER) 500 MG TAB.ER.24H 1 Tablet ORAL TWICE DAILY Comments: NOT GIVEN IN HOSPITAL Donepezil HCl (Aricept) 10 MG TABLET 1 Tablet ORAL Every night Comments: Last Taken: 11/22/17 Time: 9 PM Atorvastatin Calcium (Lipitor) 80 MG TABLET 1 Tablet ORAL DAILY Comments: Last Taken: 11/22/17 Time: 5 PM Diltiazem HCl (Diltiazem 12HR ER) 120 MG CAP.ER.12H 1 Capsule ORAL TWICE DAILY Comments: Last Taken: 11/23/17 Time: 10 AM Metoprolol Tartrate (Lopressor) 50 MG TABLET 1 Tablet ORAL TWICE DAILY Qty = 60 Comments: Last Taken: 11/23/17 Time: 9 AM [DUONEB] 3 Milliliters Inhale Solution via Nebulizer Every 6-8 Hours as Needed as needed for BREATHING PROBLEMS Copies To: Raphael HERRON,Marielle Attending MD Review Statement Documenting Attending: Colleen Villanueva MD
== END 2017-12-25 20:07 | disposition hospice, home (50) | DRG 291 ==
LOC: ERH 02:51 → 1NO 04:06 → ERHI 04:06 → 2NA 04:06 → ERHI 07:23 → ENTRNSPT 09:50 → EDTRNSPTSTS 09:57 → CMPTRNSPT 10:07 → ENRESERV 12:40 → ENTRNSPT 13:12 → EDTRNSPT 13:20 → EDTRNSPTSTS 13:20 → 1NO 13:40 → CMPTRNSPT 13:52 → 1NO 12-14 18:36 → ENTRNSPT 12-23 21:33 → 2NA 12-23 21:50 → CMPTRNSPT 12-23 22:38 → 2NA 12-24 08:32
PROVIDERS: Internal Medicine; Internal Medicine Endocrinology, Diabetes & Metabolism; Pediatrics; Student in an Organized Health Care Education/Training Program
DX: I13.0 Hypertensive heart and chronic kidney disease with heart failure and stage 1 through stage 4 chronic kidney disease, or unspecified chronic kidney disease (principal); I50.33 Acute on chronic diastolic (congestive) heart failure; E87.3 Alkalosis; E11.22 Type 2 diabetes mellitus with diabetic chronic kidney disease; N18.4 Chronic kidney disease, stage 4 (severe); N17.9 Acute kidney failure, unspecified; E87.1 Hypo-osmolality and hyponatremia; D50.9 Iron deficiency anemia, unspecified; E11.9 Type 2 diabetes mellitus without complications; G45.8 Other transient cerebral ischemic attacks and related syndromes; I24.8 Other forms of acute ischemic heart disease; Z51.5 Encounter for palliative care; I48.0 Paroxysmal atrial fibrillation; R29.810 Facial weakness; R47.81 Slurred speech; Z79.84 Long term (current) use of oral hypoglycemic drugs; Z79.01 Long term (current) use of anticoagulants; F03.90 Unspecified dementia, unspecified severity, without behavioral disturbance, psychotic disturbance, mood disturbance, and anxiety; R60.1 Generalized edema; T43.225A Adverse effect of selective serotonin reuptake inhibitors, initial encounter; E87.6 Hypokalemia; R31.0 Gross hematuria; E78.5 Hyperlipidemia, unspecified; Z85.828 Personal history of other malignant neoplasm of skin; Z92.3 Personal history of irradiation; N40.0 Benign prostatic hyperplasia without lower urinary tract symptoms; R79.89 Other specified abnormal findings of blood chemistry; I25.10 Atherosclerotic heart disease of native coronary artery without angina pectoris; Z87.891 Personal history of nicotine dependence; Z91.14 Patient's other noncompliance with medication regimen; R00.0 Tachycardia, unspecified; Z66 Do not resuscitate; D72.829 Elevated white blood cell count, unspecified; E87.70 Fluid overload, unspecified
CPT/HCPCS: 1NSP; 2NASP; 70551; 84133; 84300; 36415; 36592; 71045; 76775; 81001; 82436; 82570; 86376; 86800; 87086; 93005; 93010; 96365; 96366; 97110-GO; 97112-GO; 97162-GP; 97165-GO; 97530-GO; 99291; J1940; J3490

== ENCOUNTER 2017-12-25 20:07 | Inpatient (IN) | payer OTHER ==
[~2017-12-25 20:07] MED LIST changes: +DUONEB NEB; +LEXAPRO10 M1 PO; +TORSEMIDE20 M1 PO
--- NOTE | 2017-12-25 20:36 | History & Physical ---
General Information and HPI Chief Complaint: Worsening clinical condition. Source of Information: patient, old records Exam Limitations: unable to give history, clinical condition Associated Symptoms: None History of Present Illness: 77 yo M with h/o Paroxysmal Afib on coumadin, hypertension, dementia, sarcoma right cheek s/p radiation was initially admitted with possible TIA, acute on chronic diastolic congestive heart failure, acute on chronic renal insufficiency , and elevated troponins likely secondary to demand ischemia. He was also noted to be hyponatremic with hypervolemic state. Patient started refusing his meds and his clinical status did not improve despite treatment with IV medications. Goals of care discussion was held by primary team this evening, hospice nurse evaluated patient and deemed candidate for hospice. Patient appears comfortable, but opens eyes to verbal commands but does not follow commands or reciprocate to questions. Unable to assess 12 point review of systems. 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 FATHER (colon cancer). SISTER (CAD s/p PCI). Psychosocial History: Psychosocial History Who Do You Live With? spouse Services at Home: None Primary Language: Sudanese Functional Ability: Functional Ability ADLs Independent: dressing, eating, toileting, bathing. Ambulation: cane IADLs Needs Assist: shopping, housework, finances, telephone, transportation, medication admin. Review of Systems Review of Systems: Unobtainable. Review of Systems Constitutional: Reports: see HPI. Exam & Diagnostic Data Last 24 Hrs of Vital Signs/I&O Intake & Output 12/26 0800 12/26 0000 12/25 1600 Intake Total 10 Output Total 1050 Balance -1040 Intake, Oral 10 Number 0 Bowel Movements Output, Urine 1050 Physical Exam General Appearance No apparent distress Skin No Rashes HEENT Atraumatic, Dry mucous membranes Neck Supple Cardiovascular Regular Rate, Normal S1, Normal S2 Lungs Bilateral scattered rhonchi anteriorly Abdomen Soft, No Tenderness Extremities Bilateral lower extremity edema. Last 24 Hrs of Labs/Ibrahima: No blood work at this point as hospice care. Diagnostic Data EKG Results -- CXR Results -- Assessment/Plan Assessment: 77 yo M with multiple co-morbidities, was admitted for acute on chronic diastolic heart failure, TIA/ stroke, acute on chronic renal insufficiency. Over the course of 2 weeks, there has been deterioration in clinical condition, patient is more lethargic and refused medications. Family meeting was held by primary team, and decision was made to keep patient comfortable. Hospice evaluated patient this evening and deemed a candidate for inpatient hospice. Plan: - Admit to Hospice Care - NPO or comfort feeding - IV morphine as needed for dyspnea - IV ativan as needed for agitation - Scopolamine patch or Robinul as needed for secretions - Castle catheter in place - Tylenol supp as needed for fever - Family were not available at bedside during my evaluation. - Will continue to monitor.
[2017-12-26 06:20] VITALS: BP 98/60
--- NOTE | 2017-12-26 11:42 | PN- Hospice ---
Subjective Subjective: Family at bedside. Pt appears comfortable, sleeping soundly. reports pt did wake up earlier and speak briefly to her. He has not needed any morphine or ativan. Has cough periodically. No oral intake, good urine output. Review of Systems Constitutional: Reports: see HPI. Objective Last 24 Hrs of Vital Signs/I&O Vital Signs Date Time Temp Pulse Resp B/P B/P Pulse O2 O2 Flow FiO2 Mean Ox Delivery Rate 12/26 0800 Nasal 2.0L Cannula 12/26 06 99.1 118 16 98/60 94 Nasal Cannula 12/26 0000 Nasal 2.0L Cannula Intake & Output 12/26 1600 12/26 0800 12/26 0000 Intake Total 10 Output Total 700 1050 Balance -700 -1040 Intake, Oral 10 Number 0 0 Bowel Movements Output, Urine 700 1050 Physical Exam General Appearance: no apparent distress, lethargic Head: normal appearance Respiratory: no respiratory distress, no congestion, O2 2lnp Cardiovascular: tachycardia Abdomen: soft, non-tender Extremities: no mottling, trace ankle edema bilat Other Physical Findings: skinner catheter with dark yellow urine Current Medications: Current Medications Sig/James Start time Last Medication Dose Route Stop Time Status Admin Acetaminophen 650 MG Q4P PRN 12/26 1145 AC WA Acetaminophen 650 MG Q6P PRN 12/25 2044 DC WA Artificial Tears 2 GTT Q2P PRN 12/25 204 AC OPH Bisacodyl 10 MG DAILY NEEDED PRN 12/25 204 AC WA Glycerin/Mineral Oil 1 ZORAIDA TID PRN 12/25 2045 AC 12/25 TOP 2258 Glycopyrrolate 400 MCG Q4P PRN 12/26 1145 AC IV Glycopyrrolate 200 MCG Q4P PRN 12/25 204 DC SC Lorazepam 0.5 MG Q4P PRN 12/25 2044 AC IV Morphine Sulfate 2 MG Q2P PRN 12/26 1145 AC IV Morphine Sulfate 3 MG Q2P PRN 12/25 2044 DC IV Scopolamine HBr 1 PAT Q72H 12/25 2044 AC 12/25 TOP 2258 Assessment/Plan Hospice Assessment/Recommendations: 77 yo M admitted to hospice with acute on chronic diastolic heart failure, TIA/ stroke, acute on chronic renal insufficiency. Currently comfortable. Changed morphine to 2mg IV q2h as needed for dyspnea, Robinul to 400mcg q4h as needed for secretions, APAP 650mg q4h as needed for fever. Problem List: 1. Acute on chronic heart failure with normal ejection fraction 2. PAULA (acute kidney injury) 3. Chronic renal failure 4. TIA (transient ischemic attack)
[2017-12-27 06:56] VITALS: BP 100/56
--- NOTE | 2017-12-27 14:39 | PN- Hospice ---
Subjective Subjective: Family at bedside. reports pt was a little more interactive earlier. Morphine given x 1 this am due to discomfort. No oral intake, too lethargic. Skinner draining urine. Review of Systems Constitutional: Reports: see HPI. Objective Last 24 Hrs of Vital Signs/I&O Vital Signs Date Time Temp Pulse Resp B/P B/P Pulse O2 O2 Flow FiO2 Mean Ox Delivery Rate 12/27 0800 Nasal 2.0L Cannula 12/27 0656 97.5 134 16 100/56 93 Nasal 3.0L Cannula 12/27 0000 Nasal 2.0L Cannula 12/26 1600 Nasal 2.0L Cannula Intake & Output 12/27 1600 12/27 0800 12/27 0000 Intake Total 0 0 Output Total 550 900 Balance -550 -900 Intake, IV 0 Intake, Oral 0 0 Number 0 Bowel Movements Output, Urine 550 900 Physical Exam General Appearance: no apparent distress, sedated Head: atraumatic Ears, Nose, Throat: dry oral mucus membranes Respiratory: no respiratory distress, few tracheal secretions clearing with cough, O2 2lnp Cardiovascular: tachycardia Peripheral Pulses: 3+ dorsalis pedis (R), 3+ dorsalis pedis (L) Abdomen: soft, non-tender Extremities: bilat LE edema, no mottling Other Physical Findings: skinner with dark yellow urine Assessment/Plan Hospice Assessment/Recommendations: 77 yo M admitted to hospice with acute on chronic diastolic heart failure, TIA/ stroke, acute on chronic renal insufficiency. Comfortable. Continue as needed medications. Problem List: 1. Acute on chronic heart failure with normal ejection fraction 2. PAULA (acute kidney injury) 3. Chronic renal failure 4. TIA (transient ischemic attack)
[2017-12-28 06:55] VITALS: BP 104/64
--- NOTE | 2017-12-28 13:33 | PN- Hospice ---
Subjective Subjective: Family at bedside. Pt appears comfortable. Less responsive today than yesterday per family. Has not needed ativan or morphine, but did have robinul for congestion. No oral intake, still making urine. Review of Systems Constitutional: Reports: see HPI. Objective Last 24 Hrs of Vital Signs/I&O Vital Signs Date Time Temp Pulse Resp B/P B/P Pulse O2 O2 Flow FiO2 Mean Ox Delivery Rate 12/28 0810 Nasal 2.0L Cannula 12/28 0655 97.8 124 20 104/64 93 Nasal 2.0L Cannula 12/28 0000 Nasal 2.0L Cannula 12/27 1552 Nasal 2.0L Cannula Intake & Output 12/28 1600 12/28 0800 12/28 0000 Intake Total 0 100 Output Total 700 250 Balance -700 -150 Intake, IV 0 Intake, Oral 0 100 Number 0 Bowel Movements Output, Urine 700 250 Physical Exam General Appearance: no apparent distress Head: atraumatic, temporal wasting noted Ears, Nose, Throat: oral mucosa dry Respiratory: no respiratory distress, occasional congested cough Cardiovascular: tachycardia Extremities: pedal edema Other Physical Findings: tali urine in skinner Current Medications: Current Medications Sig/James Start time Last Medication Dose Route Stop Time Status Admin Acetaminophen 650 MG Q4P PRN 12/26 1145 AC VA Artificial Tears 2 GTT Q2P PRN 12/25 2045 AC 12/28 OPH 0737 Bisacodyl 10 MG DAILY NEEDED PRN 12/25 2045 AC 12/28 VA 0833 Glycerin/Mineral Oil 1 ZORAIDA TID PRN 12/25 2045 AC 12/28 TOP 0735 Glycopyrrolate 400 MCG Q4P PRN 12/26 1145 AC 12/28 IV 0730 Lorazepam 0.5 MG Q4P PRN 12/25 2045 AC IV Morphine Sulfate 2 MG Q2P PRN 12/26 1145 AC 12/27 IV 0942 Scopolamine HBr 1 PAT Q72H 12/25 2044 12/25 TOP 2251 Assessment/Plan Hospice Assessment/Recommendations: 77 yo M admitted to hospice with acute on chronic diastolic heart failure, TIA/ stroke, acute on chronic renal insufficiency. Comfortable, continue current med regimen. Problem List: 1. Acute on chronic heart failure with normal ejection fraction 2. PAULA (acute kidney injury) 3. Chronic renal failure 4. TIA (transient ischemic attack)
[2017-12-29 07:00] VITALS: BP 114/62
--- NOTE | 2017-12-29 14:07 | PN- Att Addend ---
Attending Addendum Attending Brief Note Patient seen and examined. Plan of care discussed with the medical team and the patient. Available lab work and radiology test reports were reviewed. She is currently awake and able to answer question. He denies any pain or difficulty breathing. His family is at the bedside. Intake remains poor Vital Signs Date Time Temp Pulse Resp B/P B/P Pulse O2 O2 Flow FiO2 Mean Ox Delivery Rate 12/29 08 Nasal 2.0L Cannula 12/29 07 98.1 101 20 114/62 12/29 0000 Nasal 2.0L Cannula 12/28 1600 Nasal 2.0L Cannula Intake & Output 12/29 1600 12/29 0800 12/29 0000 Intake Total 0 500 Output Total 300 Balance 0 200 Intake, Oral 0 500 Output, Urine 300 Exam: General: Patient awake but lethargic and partially oriented without any distress CVS: S1 plus S2 without any murmur or gallops Chest: Few scattered crepitation without any wheeze. There is no respiratory distress. Abdomen: Soft non-tender, bowel sound present, no guarding or rebound AIRLINE TRANSPORT PILOT: Awake alert and follows some commands Extremities: No edema; no clubbing or cyanosis noted Assessment 1. Acute on chronic heart failure with normal ejection fraction 2. PAUAL (acute kidney injury) 3. Chronic renal failure 4. TIA (transient ischemic attack) Plan Continue current management plan; currently no need to adjust medications at this point Monitor for pain
[2017-12-30 06:00] VITALS: BP 100/64
--- NOTE | 2017-12-30 13:16 | PN- Att Addend ---
Attending Addendum Attending Brief Note Patient seen and examined. Plan of care discussed with the medical team and the patient. Available lab work and radiology test reports were reviewed. he is currently awake and able to answer question. He denies any pain or difficulty breathing. Intake remains poor. Overall no major change since yesterday in his clinical status. Vital Signs Date Time Temp Pulse Resp B/P B/P Pulse O2 O2 Flow FiO2 Mean Ox Delivery Rate 12/30 08 Nasal 2.0L Cannula 12/30 06 98.1 96 18 100/64 93 Nasal Cannula 12/30 0000 Nasal 2.0L Cannula 12/29 1600 Nasal 2.0L Cannula Intake & Output 12/30 1600 12/30 0800 12/30 0000 Intake Total 0 0 Output Total 250 150 Balance -250 -150 Intake, Oral 0 0 Output, Urine 250 150 Exam: General: Patient awake but lethargic and partially oriented without any distress CVS: S1 plus S2 without any murmur or gallops Chest: Few scattered crepitation without any wheeze. There is no respiratory distress. 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 Acute on chronic heart failure with normal ejection fraction 2. PAULA (acute kidney injury) 3. Chronic renal failure 4. TIA (transient ischemic attack) Plan Continue current management plan; currently no need to adjust medications at this point Monitor for pain
[2017-12-31 07:22] VITALS: BP 94/72
--- NOTE | 2017-12-31 11:38 | PN- Hospice ---
Subjective Subjective: Pt. appears comfortable, received morphine and ativan this am. Lethargic, minimally responsive. Drank almost a cup of liquid yesterday, non today. [place] tali urine. Review of Systems Constitutional: Reports: see HPI. Objective Last 24 Hrs of Vital Signs/I&O Vital Signs Date Time Temp Pulse Resp B/P B/P Pulse O2 O2 Flow FiO2 Mean Ox Delivery Rate 12/31 0746 108 12/31 0722 97.4 122 18 94/72 94 Nasal Cannula 12/31 0000 Nasal 2.0L Cannula 12/30 1600 Nasal 2.0L Cannula Intake & Output 12/31 1600 12/31 0800 12/31 0000 Intake Total 40 480 Output Total 350 300 Balance -310 180 Intake, IV 40 Intake, Oral 480 Output, Urine 350 300 Physical Exam General Appearance: no apparent distress, comfortable Head: atraumatic Ears, Nose, Throat: dry mucus membranes Respiratory: no respiratory distress, no congestion Cardiovascular: tachycardia Extremities: bipedal edema Current Medications: Current Medications Sig/James Start time Last Medication Dose Route Stop Time Status Admin Acetaminophen 650 MG Q4P PRN 12/26 1145 AC SD Artificial Tears 2 GTT Q2P PRN 12/25 2045 AC 12/30 OPH 2106 Bisacodyl 10 MG DAILY NEEDED PRN 12/25 2045 AC 12/28 SD 0833 Glycerin/Mineral Oil 1 ZORAIDA TID PRN 12/25 204 AC 12/30 TOP 2106 Glycopyrrolate 400 MCG Q4P PRN 12/26 1145 AC 12/31 IV 0614 Lorazepam 0.5 MG Q4P PRN 12/25 2045 AC 12/31 IV 0750 Morphine Sulfate 2 MG Q2P PRN 12/26 1145 AC 12/31 IV 0750 Scopolamine HBr 1 PAT Q72H 12/25 2044 AC 12/28 TOP 1938 Assessment/Plan Hospice Assessment/Recommendations: 77 yo M admitted to hospice with acute on chronic diastolic heart failure, TIA/ stroke, acute on chronic renal insufficiency. Comfortable. Continue current plan. Discussed with family and nursing. Problem List: 1. Acute on chronic heart failure with normal ejection fraction 2. TIA (transient ischemic attack) 3. PAULA (acute kidney injury)
[2017-12-31 15:13] VITALS: BP 100/60
[2018-01-01 06:50] VITALS: BP 84/60
--- NOTE | 2018-01-01 14:03 | PN- Hospice ---
Subjective Subjective: Pt. received 1 dose ativan for restlessness with good effect. Lethargic but appears comfortable. Not eating/drinking. Castle with tali urine. Review of Systems Constitutional: Reports: see HPI. Objective Last 24 Hrs of Vital Signs/I&O Vital Signs Date Time Temp Pulse Resp B/P B/P Pulse O2 O2 Flow FiO2 Mean Ox Delivery Rate 01/01 0650 97.9 112 20 84/60 96 Nasal 2.0L Cannula 01/01 0000 Nasal 2.0L Cannula 12/31 1600 Nasal 2.0L Cannula 12/31 1513 98.2 87 18 100/60 94 Intake & Output 01/01 1600 01/01 0800 01/01 0000 Intake Total 0 Output Total 300 250 Balance -300 -250 Intake, IV 0 Intake, Oral 0 Number 0 Bowel Movements Output, Urine 300 250 Physical Exam General Appearance: no apparent distress, lethargic Head: atraumatic Ears, Nose, Throat: oral mucosa dry Respiratory: no respiratory distress, no congestion, RR-20, O2 2lnp Cardiovascular: tachycardia Extremities: cool, no mottling, bipedal edema Current Medications: Current Medications Sig/James Start time Last Medication Dose Route Stop Time Status Admin Acetaminophen 650 MG Q4P PRN 12/26 1145 AC W[place] Artificial Tears 2 GTT Q2P PRN 12/25 204 AC 12/30 OPH 2106 Bisacodyl 10 MG DAILY NEEDED PRN 12/25 2045 AC 12/28 [place] 0833 Glycerin/Mineral Oil 1 ZORAIDA TID PRN 12/25 204 AC 12/30 TOP 210 Glycopyrrolate 400 MCG Q4P PRN 12/26 1145 AC 12/31 IV 2002 Lorazepam 0.5 MG Q4P PRN 12/25 2045 AC 01/01 IV 1215 Morphine Sulfate 2 MG Q2P PRN 12/26 1145 AC 12/31 IV 0750 Scopolamine HBr 1 PAT Q72H 12/25 2044 12/31 [facility] 2000 Assessment/Plan Hospice Assessment/Recommendations: 77 yo M admitted to hospice with acute on chronic diastolic heart failure, TIA/ stroke, acute on chronic renal insufficiency. Comfortable with intermittent restlessness. Increase ativan frequency to every 3 hrs as needed. Problem List: 1. Acute on chronic heart failure with normal ejection fraction 2. TIA (transient ischemic attack) 3. PAULA (acute kidney injury)
[2018-01-01 14:47] VITALS: BP 100/62
[2018-01-02 06:59] VITALS: BP 89/60
--- NOTE | 2018-01-02 14:11 | PN- Hospice ---
Subjective Subjective: Pt. appears mildly dyspneic, no distress. Low grade fever and tachycardic this am to 169. Received ativan x 2 and morphine x 2 since midnight. Did not receive any meds yesterday. Still making urine. Review of Systems Constitutional: Reports: see HPI. Objective Last 24 Hrs of Vital Signs/I&O Vital Signs Date Time Temp Pulse Resp B/P B/P Pulse O2 O2 Flow FiO2 Mean Ox Delivery Rate 01/02 0800 Nasal 2.0L Cannula 01/02 0659 99.6 169 18 89/60 93 Nasal 2.0L Cannula 01/02 0000 Nasal 2.0L Cannula 01/01 1600 Nasal 2.0L Cannula 01/01 1447 98.5 70 18 100/62 94 Intake & Output 01/02 1600 01/02 0800 01/02 0000 Intake Total 0 0 Output Total 200 Balance 0 -200 Intake, Oral 0 0 Output, Urine 200 Physical Exam General Appearance: no apparent distress Head: atraumatic Ears, Nose, Throat: dry oral mucosa Respiratory: RR-24, tracheal secretions Cardiovascular: tachycardia Extremities: mild mottling left foot Neurologic/Psychiatric: unresponsive Current Medications: Current Medications Sig/James Start time Last Medication Dose Route Stop Time Status Admin Acetaminophen 650 MG Q4P PRN 12/26 1145 AC MD Artificial Tears 2 GTT Q2P PRN 12/25 204 AC 01/01 OPH 1508 Bisacodyl 10 MG DAILY NEEDED PRN 12/25 2045 AC 12/28 MD 0833 Glycerin/Mineral Oil 1 ZORAIDA TID PRN 12/25 2045 AC 12/30 TOP 2106 Glycopyrrolate 400 MCG Q4P PRN 12/26 1145 AC 01/02 IV 0329 Lorazepam 0.5 MG Q3P PRN 01/01 1430 AC 01/02 IV 1114 Lorazepam 0.5 MG Q4P PRN 12/25 2045 DC 01/01 IV 1215 Morphine Sulfate 2 MG Q1P PRN 01/02 1415 UNVr IV Morphine Sulfate 2 MG Q2P PRN 12/26 1145 DC 01/02 IV 1310 Scopolamine HBr 1 PAT Q72H 12/25 2044 12/31 TOP 2000 Assessment/Plan Hospice Assessment/Recommendations: 77 yo M admitted to hospice with acute on chronic diastolic heart failure, TIA/ stroke, acute on chronic renal insufficiency. Low grade fever and tachycardia with dyspnea-schedule ativan and morphine to prevent large gaps between meds, continue as needed meds. Problem List: 1. Acute on chronic heart failure with normal ejection fraction 2. TIA (transient ischemic attack) 3. PAULA (acute kidney injury)
[2018-01-03 06:57] VITALS: BP 70/40
[2018-01-03 14:31] VITALS: BP 80/40
--- NOTE | 2018-01-03 14:39 | PN- Hospice ---
Subjective Subjective: Pt. is unresponsive, appears comfortable. He is febrile and tachycardic. He is receiving morphine 2mg SC every 6 hrs scheduled and every 1 hr as needed (once today), ativan 0.5mg SC every 6 hrs scheduled and every 3 hrs as needed (also once today). Earlier today scopolamine was increased to 2 patches and Robinul scheduled for secretions. Review of Systems Constitutional: Reports: see HPI. Objective Last 24 Hrs of Vital Signs/I&O Vital Signs Date Time Temp Pulse Resp B/P B/P Pulse O2 O2 Flow FiO2 Mean Ox Delivery Rate 01/03 1437 102.0 01/03 1431 101.3 169 12 80/40 85 01/03 0657 99.0 122 20 70/40 84 Nasal Cannula 01/03 0000 Nasal 2.0L Cannula 01/02 1600 Nasal 2.0L Cannula Intake & Output 01/03 1600 01/03 0800 01/03 0000 Intake Total 0 Output Total 250 Balance 0 -250 Intake, Oral 0 Output, Urine 250 Physical Exam General Appearance: no apparent distress, comfortable, sedated Head: atraumatic Ears, Nose, Throat: dry oral mucosa Respiratory: tracheal secretions, RR 18, unlabored Cardiovascular: tachycardia Extremities: mottling left foot Other Physical Findings: skinner with tali urine Current Medications: Current Medications Sig/James Start time Last Medication Dose Route Stop Time Status Admin Acetaminophen 650 MG Q4P PRN 12/26 1145 AC 01/03 IN 1437 Artificial Tears 2 GTT Q2P PRN 12/25 2045 AC 01/03 OPH 1221 Bisacodyl 10 MG DAILY NEEDED PRN 12/25 204 AC 12/28 IN 0833 Glycerin/Mineral Oil 1 ZORAIDA TID PRN 12/25 2045 AC 12/30 TOP 2106 Glycopyrrolate 400 MCG Q4 01/03 1000 AC 01/03 SC 1336 Glycopyrrolate 400 MCG Q4P PRN 01/03 0115 DC 01/03 SC 0546 Glycopyrrolate 400 MCG Q4P PRN 12/26 1145 DC 01/02 IV 0329 Lorazepam 0.5 MG Q6 01/03 0600 AC 01/03 SC 1215 Lorazepam 0.5 MG Q3P PRN 01/03 0115 AC 01/03 SC 0259 Lorazepam 0.5 MG Q6 01/02 1800 DC 01/03 IV 0036 Lorazepam 0.5 MG Q3P PRN 01/01 1430 DC 01/02 IV 1430 Morphine Sulfate 2 MG Q6 01/03 0600 01/03 SC 1218 Morphine Sulfate 2 MG Q1P PRN 01/03 0115 01/03 SC 0259 Morphine Sulfate 2 MG Q6 01/02 1800 DC 01/03 IV 0036 Morphine Sulfate 2 MG Q1P PRN 01/02 1415 DC 01/02 IV 1430 Scopolamine HBr 2 PAT Q72H 01/03 0930 01/03 TOP 1008 Scopolamine HBr 1 PAT Q72H 12/25 2045 DC 12/31 TOP 2001 Assessment/Plan Hospice Assessment/Recommendations: 77 yo M admitted to hospice with acute on chronic diastolic heart failure, TIA/ stroke, acute on chronic renal insufficiency. Fever-schedule APAP and add ASA per rectum for Tylenol ineffective. Problem List: 1. Acute on chronic heart failure with normal ejection fraction 2. PAULA (acute kidney injury) 3. TIA (transient ischemic attack) 4. Fever
[2018-01-04 06:00] VITALS: BP 50/40
--- NOTE | 2018-01-04 16:06 | Discharge Summary ---
Visit Information Visit Dates Admission Date: 12/25/17 Discharge Date: 01/04/18 Hospital Course Course Attending Physician: Shereen Ashraf MD Primary Care Physician: Marielle Lim MD Hospital Course: 77 yo M admitted to hospice with acute on chronic diastolic heart failure, TIA/ stroke, acute on chronic renal insufficiency. He was kept comfortable with morphine and ativan, scopolamine and Robinul, Tylenol and aspirin suppository until he peacefully this morning. Allergies: Coded Allergies: NO KNOWN ALLERGIES (NONE 11/21/17) Disposition Summary Disposition Principal Diagnosis: Acute on chronic heart failure, diastolic Transient ischemic attack Acute on chronic renal insufficiency Additional Diagnosis: Atrial fibrillation Dementia Discharge Disposition: Discharge Instructions General Discharge Information Code Status: Hospice Patient's Diet: N/A Patient's Activity: N/A Follow-Up Instructions/Appts: N/A Copies To: Marielle Lim MD
== END 2018-01-04 11:37 | disposition expired | DRG 292 ==
LOC: 2NA 20:07
DX: I50.33 Acute on chronic diastolic (congestive) heart failure (principal); I13.0 Hypertensive heart and chronic kidney disease with heart failure and stage 1 through stage 4 chronic kidney disease, or unspecified chronic kidney disease; N17.9 Acute kidney failure, unspecified; I48.0 Paroxysmal atrial fibrillation; F03.90 Unspecified dementia, unspecified severity, without behavioral disturbance, psychotic disturbance, mood disturbance, and anxiety; G45.9 Transient cerebral ischemic attack, unspecified; Z79.01 Long term (current) use of anticoagulants; Z66 Do not resuscitate; N18.9 Chronic kidney disease, unspecified; R00.0 Tachycardia, unspecified